=== PATIENT | male | born 1940 | race African-American/Black ===

== ENCOUNTER 2019-08-17 09:32 | Inpatient (IN) | payer OTHER, BC ==
[~2019-08-17 09:32] MED LIST: GELATIN, ABSORBABLE 100 EACH SPONGE TP ONE; THROMBIN (BOVINE) 5,000 UNIT VIAL TP ONE; VANCOMYCIN 1,000 MG VIAL (RESTRICTED TO ID ONLY) IVPB ONE; ceFAZolin SODIUM 1 GM VIAL IVPB ONE
[2019-08-17] MEDS ORDERED: VANCOMYCIN 1,000 MG VIAL (RESTRICTED TO ID ONLY) ONE ×2 (13:38→14:54)
[2019-08-17] MEDS ORDERED: HEPARIN NA (PORCINE) 5,000 UNITS/ML 1ML VIAL ONE (13:40)
[2019-08-17] MEDS ORDERED: THROMBIN (BOVINE) 5,000 UNIT VIAL TP ONE ×2 (13:40→16:40)
[2019-08-17] MEDS ORDERED: BENZOIN TINCTURE SWABSTICK TP ONE (13:40)
[2019-08-17] MEDS ORDERED: BUPIVACAINE LIPOSOME/PF (EXPAREL) 266 MG/20 ML VIAL ONE (13:51)
[2019-08-17] MEDS ORDERED: BUPIVACAINE HCL/PF 0.5% (5 MG/ML) 30 ML VIAL IJ ONE (13:52)
[2019-08-17] MEDS ORDERED: MIDAZOLAM HCL 2 MG/2 ML SINGLE DOSE VIAL ONE ×2 (13:53)
[2019-08-17] MEDS ORDERED: ROCURONIUM BROMIDE 50 MG/5 ML SYRINGE ONE ×2 (14:01)
[2019-08-17] MEDS ORDERED: PROPOFOL 20 ML ONE ×21 (14:01→18:06)
[2019-08-17] MEDS ORDERED: SUCCINYLCHOLINE CHLORIDE 200 MG/10 ML SYRINGE ONE (14:01)
[2019-08-17] MEDS ORDERED: LIDOCAINE HCL/PF 2% SDV 5ML VIAL ONE (14:37)
[2019-08-17] MEDS ORDERED: ceFAZolin SODIUM 1 GM VIAL ONE (14:54)
[2019-08-17] MEDS ORDERED: SODIUM CHLORIDE 0.9% P/F 10 ML VIAL IJ ONE (14:54)
[2019-08-17] MEDS ORDERED: ceFAZolin SODIUM 1 GM VIAL IVPB ONE (14:55)
[2019-08-17] MEDS ORDERED: TRANEXAMIC ACID 1000 MG/10 ML VIAL ONE ×2 (14:58→18:34)
[2019-08-17] MEDS ORDERED: VANCOMYCIN 1,000 MG VIAL (RESTRICTED TO ID ONLY) IVPB ONE (15:00)
[2019-08-17] MEDS ORDERED: ONDANSETRON 4 MG/2 ML VIAL ONE (15:02)
[2019-08-17] MEDS ORDERED: DEXAMETHASONE SOD PHOSPHATE 4 MG/1 ML VIAL ONE ×2 (15:02→15:19)
[2019-08-17] MEDS ORDERED: ePHEDrine SULFATE 50 MG/1 ML AMPULE ONE (15:14)
[2019-08-17] MEDS ORDERED: GELATIN, ABSORBABLE 100 EACH SPONGE TP ONE (16:40)
--- NOTE | 2019-08-17 19:38 | PN ---
Progress Note (short form) - Note Progress Note: 79M s/p C4 corpectomy & C3-C5 anterior cervical decompression and instrumented fusion POD #0. -Airway observation: In case of emergency, remove anterior cervical spine dressing and pull out running suture; ok to cut suture if needed to decompress hematoma. -Maintain head of bed 30-45 degrees. -Pain medication: per anaesthesia team; oral meds (oxycodone preferred), no SHEARING MACHINE FEEDER ; NO NSAID's. -Hard c-collar. -DVT PPx: -Mechanical only: KELLEY's, SCD's. -Post-op Ancef x 3 doses. -f/u AM labs. -Incentive spirometry. -PT/OT/Rehab, OOB. -WBAT B/L LE. -PWB B/L UE: 5lbs. -d/c Crespo catheter tomorrow at 7AM; f/u TOV (8 hours max). -Keep dressing clean & dry. -No heavy lifting (>5 lbs), bending or twisting x 6 months post op. -Start with soft diet; advance diet as tolerated. -B/L UE & LE NV checks. -Care per ICU & medical hospitalist teams. -Discharge planning: f/u [facility] [place] office 08/27/2019; call for appointment; . Marek Miranda MD (Orthopaedic Surgery).
--- NOTE | 2019-08-17 19:43 | OP ---
Operative Note - Note: Operative Date: 08/17/19 Pre-Operative Diagnosis: 1. 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 2. C3-C5 stenosis with myelopathy. 3. Multiple falls due to balance disorder & progressive neurological decline. Severity of Illness: 4. Operation: 1. C4 corpectomy. 2. Partial corpectomies C3, C5. 3. Insertion biomechanical device C3-C5. 4. C3-C5 anterior arthrodesis. 5. C3-C5 anterior instrumentation. 6. Bone autograft. 7. Bone allograft. 8. Microsurgical dissection Findings: Improved LLE EMG signals at the end of the case. Implants: Cage: Choice Spine [place] - 30mm. Plate: Precision Spine Slimplicity - 35mm. Screws: 4 x 12x4.0mm Post-Operative Diagnosis: Same as Pre-op Surgeon: Marek Miranda Carbon Paste Mixer Operator: Erasto Miranda Anesthesiologist/FRAMING SPECIALIST: John Garsia Anesthesia: General, Local Specimens Removed: C3-C4, C4-C5 discs Estimated Blood Loss (mls): 250 Drains & Tubes with Location: 1 x deep HemoVac Blood Volume Replaced (mls): 125 (Cell Saver) Fluid Volume Replaced (mls): 1,500 (Crystalloid) Operative Report Dictated: Yes
[2019-08-17] MEDS ORDERED: oxyCODONE HCL 5 MG TABLET PO PRN ×2 (19:44)
[2019-08-17] MEDS ORDERED: ONDANSETRON 4 MG/2 ML VIAL IVPUSH PRN (19:44)
--- NOTE | 2019-08-17 20:22 | OP ---
DATE OF OPERATION: 08/17/2019 PRE-OPERATIVE DIAGNOSIS: 1. C3-C4, C4-C5 intervertebral disk disorder with associated spondylotic: A. Myelopathy. B. Radiculopathy. 2. Cervical spinal stenosis with neurogenic claudication. 3. Cervical kyphosis/deformity. 4. Axial segmental instability cervical spine. 5. Progressive neurological decline with gait imbalance/disorder, weakness, and fall risk. POST-OPERATIVE DIAGNOSIS: 1. C3-C4, C4-C5 intervertebral disk disorder with associated spondylotic: A. Myelopathy. B. Radiculopathy. 2. Cervical spinal stenosis with neurogenic claudication. 3. Cervical kyphosis/deformity. 4. Axial segmental instability cervical spine. 5. Progressive neurological decline with gait imbalance/disorder, weakness, and fall risk. SURGICAL PROCEDURE: 1. C3-C4, C4-C5 discectomies and arthrodesis (09450, 23312). 2. C4 corpectomy (61551). 3. C3, C5 partial corpectomies (00204 x 2). 3. Insertion of biomechanical device C3-C6 (45172). 4. C3-C5 anterior instrumentation (10779). 5. Bone autograft (30757). 6. Bone allograft (19149). 7. Microsurgical dissection (80180). FINDINGS: None. IMPLANTS: 1. Cage: Choice Spine [place] [id number]. 2. Plate: Precision Spine Simplicity 35mm. 3. Screws: 4 x 12x4mm. SURGEON: Marek Miranda MD SALON/SPA MANAGER: Erasto Miranda MD ANESTHESIOLOGIST: John Garsia MD ANESTHESIA: General endotracheal tube anesthesia. POSITION: Supine. INCISION: Right oblique anterior. ESTIMATED BLOOD LOSS: 250cc. TRANSFUSIONS: 125cc Cell Saver. INTRAVENOUS FLUID: 1.5L crystalloid. SPECIMENS: C3-C4, C4-5 disc. DRAINS: 1 x deep HemoVac. COMPLICATIONS: None. URINE OUTPUT: See anesthesia record. BACTERIOLOGY: None. CLOSURE: 2-0 Vicryl and 3-0 Biosyn absorbable suture. INDICATIONS: The patient was indicated for an anterior cervical decompression and instrumented fusion to prevent the progression of already worsening neurological decline. The patient was identified in the holding area by his armband. A long discussion was held with the patient regarding the risks, benefits and alternatives of the above-named procedure. Originally, we had planned to perform C3-C4 and C4-C5 anterior cervical discectomy and fusion (ACDF) surgery. On review of Mr. Holder' pre-operative imaging, we collectively agreed that a C4 corpectomy with C3-C5 decompression and instrumented fusion would better allow us to full decompress the stenotic C3-C5 region. Additionally, 2-level ACDF surgery would have rendered the patient with a thin residual shelf of bone at C4 - due to the extent of decompression needed at C3- C4 and C4-C5. This shelf would have been susceptible to fracture and would not have provided ideal structural support. The risks include, but are not limited to: pain, bleeding, infection, damage to surrounding structures (including nerves, blood vessels, skin, ligaments, tendons, and bone), dysphagia, dysphonia, nerve palsy, weakness, limp, wound complications, pseudarthrosis, failure of fusion, failure of hardware/implants/ reduction, need for further surgery, blood clots, myocardial infarction, pulmonary embolism, cerebrovascular event, anesthesia complications, neurological injury, loss of function, and . Benefits as mentioned above. Alternatives include no surgery. All questions were answered. The patient understood and agreed to the procedure. Informed consent was obtained, witnessed and verified by hospital nursing staff. The patients anterior neck was marked. The patient was then seen by the anesthesia and nursing staff and then taken to the operating room. PROCEDURE: The patient was brought into the operating room and transferred to the OR table , and secured with a safety strap. Consent and the operative site were again verified with the patient, the nursing team, the surgical team, and the anesthesiology team. Anesthesia, IV antibiotics, and TXA were then administered without complication. A time out was done, led by me the attending surgeon. An indwelling Crespo catheter was successfully inserted by the nursing team. The intra-operative neural monitoring team then set up for the case. Pre-positional baseline SSEP, MEP, & EEG readings were recorded. The patient was positioned in the supine position with arms tucked and placed under gentle traction using tape over her shoulders. All bony prominences were very well padded. A bump was placed beneath the scapulae to facilitate extension of the patients neck. A C-arm fluoroscopy unit was positioned perpendicularly to the table and maintained at the level of the head, except when needed. The intended surgical level was confirmed using fluoroscopy, and a deep neck crease in the lines of Analia at this level was targeted for incision. Intra-operative neural monitoring revealed no change between pre-positional and post-positional readings. The operative site was then prepped and in the standard sterile fashion using betadine prep and scrub, wiped off with alcohol, Duraprep applied, and then free draped. Pre-operative imaging was available for intra-operative evaluation. Time-out was again done, and the case began. A standard, Hernandez-Batista approach to the cervical spine was utilized. An oblique anterior incision was made on the right side of the patients neck in the lines of Analia in standard fashion. Dissection was carried through the investing layer of fascia and finger palpation was used to create a plane lateral to the strap muscles between the carotid sheath and the viscera. Next, the esophagus and trachea were visualized as was the carotid sheath. Hand-held retractors were used to retract these structures safely out of the way , allowing direct access to the anterior cervical spine. The prevertebral fascia overlying the anterior cervical spine was then split using peanut swabs. An 18-gauge spinal needle was bent and used to localize the indicated surgical level under fluoroscopy. Next, the medial borders of the Longus Coli musculature were gently released over the anterolateral borders of the vertebral bodies and disc spaces using monopolar electrocautery. A self-retaining retractor system was used with the teeth of the blades retracting the belly of the longus coli muscles, and with the retractors themselves safely retracting the carotid sheath laterally and viscera medially. One 12mm [place] pin was then placed into the center of the vertebral bodies of C3 and C5. The [place] pin placement was confirmed via fluorscopy. A [place] pin distractor system was applied with no distraction at this stage. Additionally, the distractor barrels served as superior and inferior soft tissue retractors. The microscope was then introduced. Using monopolar electrocautery, the annulus of the C3-C4 and C4-C5 discs was incised. The disc was morselized using a curette and excised using a pituitary rongeur. A Matchstick estuardo-tipped gayle was then used to cut a trough onto the left- and right-hand side of the C4 vertebral body just medial to the waist of the vertebral body, and thus medial to the plane of the vertebral arteries. The C3-C4 and C4-C5 disc spaces were then also burred out. The remaining bone was delivered with a Leksell rongeur. All of this bone was saved for grafting purposes as an autologous graft. A 4mm ball-shaped, estuardo-tipped gayle was utilized to complete the debulking of the residual bone. Gentle distraction was applied to the [place] pins. An undercutting partial corpectomies were performed at C3 and C5 using a gayle and Kerrison rongeurs. This was to ensure complete decompression proximally and distally. A small Briscoe type elevator was utilized to ensure that all PLL complex was free from adhesion to the theca from C3-C5. There was significant adhesion of the PLL to the ventral dura. There was no evidence of OPLL. The visible posterior longitudinal ligament was released and excised utilizing Kerrison rongeur upcuts. This ensured complete decompression proximally and distally from C3-C5. Our decompression of the cervical spine was successfully achieved. Next, a Choice Spine [place] cage measure to fit the space created. The cage was filled with autologous bone derived from the corpectomies, along with demineralized bone matrix putty allograft. The cage was then gently tapped into position. Belview pin distraction was released and the endplates of the C3 and C5 vertebrae collapse onto the teeth of the strut cage. This completing the anterior arthrodesis. The C3 and C5 Bel[place] pins were removed. The holes from the Belview pins at C3 and C5 were plugged with demineralized bone matrix putty combined with morselized autograft bone. A Precision Spine Slimplicity plate was sized and 4 4x12mm screws were used to provide solid fixation of the plate to the anterior C3 and C5 vertebral bodies. The screws were then locked using the plate-screw locking mechanism. Fluoroscopic images in the AP and lateral plane showed implants to be in good position and with good overall alignment of the cervical spine. The anesthesiologist then performed a Valsalva maneuver up to 40mmHg. There was no evidence of dural defect, cerebrospinal fluid leak, or uncontrollable bleeding. Throughout the case, copious irrigation was performed, and hemostasis was assured. A deep 1/8 HemoVac drain was placed. The wound was closed primarily using 2-0 Vicryl and 3-0 Biosyn sutures. A sterile compressive dressing was applied. Sponge and needle counts were correct at the end of the case, and I, the attending surgeon, was present and scrubbed throughout the case. The patient was then extubated by the anesthesia staff without incident or complications and was then transferred to the recovery room in stable condition having tolerated the procedure well. OVERALL COMMENTS: Overall the case went well. Intra-operative neural monitoring readings improved from baseline at the end of the case. MD JEAN PAUL Suarez/[id number] MTDD
--- NOTE | 2019-08-17 22:13 | CONSULT ---
Consultation: REQUESTING PROVIDER: Dr. Miranda CONSULT REQUEST: We have been asked to medically evaluate this patient for C3- C5 discectomy and fusion. HISTORY OF PRESENT ILLNESS: Pt. is a 79 y.o. M w/ PMHx. of HTN, GERD, and PVD(s/ p stent- Pt. unclear which leg) presenting after C3-C5 discectomy and fusion. Pt. states that prior to this procedure he had been having constant intermittent episodes of his legs "collapsing." Pt. states that he left leg felt weaker than the right leg prior to the surgery. Pt. states that he had a prior cervical discectomy and a prior lumbar surgery at [facility] in 1990. Pt. denies any numbness/tingling prior to or after this procedure. Intra- operatively Pt. had an EBL of 250cc, received 1.5L of IVF and 125cc of cell saver. Of note post-operative course was complicated by Pt. not voiding over the last 2 hours despite having webb. After Webb manipulation a blood clot was found in the webb and obstructing it. After discussion with Dr. Hubbard per CHERRY PICKER OPERATOR, it was decided to remove Webb and have a trial of void. Initial bladder scan showed 400cc of urine. Pt. states that he has the urge to urinate currently but is unable to void. Pt. states he is a smoker that started in his teens and quit when the rice of a pack of cigarettes became $12- $14. Pt. denies shortness of breath, chest pain, dizziness, or numbness/ tingling of the extremities. REVIEW OF SYSTEMS: As above PHYSICAL EXAMINATION Vital Signs - 24 hr 08/17/19 08/17/19 08/17/19 11:01 19:58 20:00 Temperature 98.5 F 98.2 F Pulse Rate 78 96 H 108 H Respiratory 20 16 18 Rate Blood Pressure 139/70 152/89 154/68 O2 Sat by Pulse 96 99 96 Oximetry (%) 08/17/19 08/17/19 08/17/19 20:15 20:30 20:45 Temperature Pulse Rate 103 H 100 H 98 H Respiratory 15 20 17 Rate Blood Pressure 147/81 162/98 166/96 O2 Sat by Pulse 96 95 96 Oximetry (%) GENERAL: Awake, alert, in no acute distress, Pt. is confused asking "if the surgery was done already". HEAD: Normal with no signs of trauma. EYES: Extraocular movements intact, sclera anicteric, conjunctiva clear. EARS, NOSE, THROAT: Ears normal, nares patent, Moist mucous membranes. NECK: Hard Collar in place with empty hemovac in place. LUNGS: Breath sounds equal, clear to auscultation bilaterally. No wheezes, and no crackles. No accessory muscle use. HEART: Tachycardic, regular rate and rhythm, normal S1 and S2 without murmur ABDOMEN: Soft, nontender, distended, normoactive bowel sounds, dull to percussion, no guarding, no rebound MUSCULOSKELETAL: Normal range of motion at all joints. No bony deformities or tenderness. UPPER EXTREMITIES: 2+ radial pulses, warm, well-perfused. No cyanosis. No clubbing. Cap refill <2 seconds. No peripheral edema. LOWER EXTREMITIES: 2+ dorsal pedal pulses, warm, well-perfused. No calf tenderness. No peripheral edema. NEUROLOGICAL: Normal speech. Gait not assessed. 4/5 proximal LE flexion, 5/5 muscle strength throughout. Sensation in tact. PSYCHIATRIC: Cooperative. Good eye contact. Appropriate mood and affect. SKIN: Warm, dry, normal turgor Laboratory Results - last 24 hr 08/17/19 08/17/19 10:04 11:35 Blood Type O POSITIVE O POSITIVE Antibody Screen Negative Active Medications Home Medications Medication Instructions Recorded Aspirin Coated [Ecotrin -] 81 mg PO DAILY 08/14/19 Losartan Potassium 100 mg PO DAILY 08/14/19 Omeprazole 40 mg PO DAILY 08/14/19 Current Medications Cefazolin Sodium/Dextrose (Ancef 2 Gm Premixed Ivpb -) 2 gm IVPB Q6H MELISSA Stop: 08/18/19 09:01 Dexamethasone Sodium Phosphate (Decadron Injection -) 10 mg IVPUSH ONCE ONE Stop: 08/18/19 07:01 Lactated Ringer's (Lactated Ringers Solution) 1,000 mls @ 125 mls/hr IV ASDIR MELISSA Losartan Potassium (Cozaar -) 100 mg PO DAILY MELISSA Ondansetron HCl (Zofran Injection) 4 mg IVPUSH Q6H PRN PRN Reason: NAUSEA AND/OR VOMITING Oxycodone HCl (Roxicodone -) 5 mg PO Q4H PRN PRN Reason: PAIN LEVEL 1-5 Oxycodone HCl (Roxicodone -) 10 mg PO Q4H PRN PRN Reason: PAIN LEVEL 6-10 Stop: 08/18/19 19:43 ASSESSMENT/PLAN: Pt. is a 79 y.o. M w/ PMHx. of HTN, GERD, and PVD(s/p stent- Pt. unclear which leg) presenting after C3-C5 discectomy and fusion. #Neurology POD #0 s/p C4 corpectomy & C3-C5 anterior cervical decompression and instrumented fusion "-Maintain head of bed 30-45 degrees. -Pain medication: per anaesthesia team; oral meds (oxycodone preferred), no SET UP MECHANIC CROWN ASSEMBLY MACHINE ; NO NSAID's. -Hard c-collar. -Post-op Ancef x 3 doses. -f/u AM labs. -Incentive spirometry. -PT/OT/Rehab, OOB. -WBAT B/L LE. -PWB B/L UE: 5lbs. -d/c Webb catheter tomorrow at 7AM; f/u TOV (8 hours max). -Keep dressing clean & dry. -No heavy lifting (>5 lbs), bending or twisting x 6 months post op. -Start with soft diet; advance diet as tolerated. -B/L UE & LE NV checks. -Care per ICU & medical hospitalist teams. -Discharge planning: f/u [facility] [place] office 08/27/2019; call for appointment; ." #Urology Urinary Retention s/p traumatic Webb insertion Initial bladder scan 400Ccs Rpt. bladder scan ~650ccs Consult to Dr. Ervin as requested per Dr. Miranda. #Cardiology HTN c/w Losartan will give Labetalol 10mg IVP for BP BP @ 176/100 secondary to urinary retention. #Pulmonology No acute pathology will monitor and keep SpO2 above 92% "Airway observation: In case of emergency, remove anterior cervical spine dressing and pull out running suture; ok to cut suture if needed to decompress hematoma." #Gastroenterology GERD Hold Omeprazole 40mg? consider starting Protonix 40mg if Pt. becomes symptomatic. #FEN LR@125ml- On hold as Pt. is retaining, will resume once voiding monitor electrolytes and replete as needed Soft Diet #DVT Ppx. Mechanical only: KELLEY's, SCD's. No NSAIDs, no AC Dispo: We will continue to follow the patient. Thank you for this consultative opportunity. Visit type - Emergency Visit Emergency Visit: No - New Patient This patient is new to me today: Yes Date on this admission: 08/17/19 - Critical Care Critical Care patient: Yes Total Critical Care Time (in minutes): 45 Critical Care Statement: The care of this patient involved high complexity decision making to prevent further life threatening deterioration of the patient 's condition and/or to evaluate & treat vital organ system(s) failure or risk of failure. ATTENDING PHYSICIAN STATEMENT I saw and evaluated the patient. I reviewed the resident's note and discussed the case with the resident. I agree with the resident's findings and plan as documented. SUBJECTIVE: OBJECTIVE: ASSESSMENT AND PLAN:
[2019-08-17] MEDS ORDERED: LABETALOL HCL 5 MG/1 ML (100MG/20 ML VIAL) IVPUSH ONE (22:18)
[2019-08-17] MEDS: LACTATED RINGERS SOLUTION 1,000 ML IV SCH (22:30)
[2019-08-17] MEDS ORDERED: morphine SULFATE 4 MG/ML VIAL IVPUSH ONE (22:52)
--- NOTE | 2019-08-18 | CON.GU ---
Consult Consult Specialty:: Referred by:: Ortho Reason for Consultation:: urinary retention, gross hematuria, difficult webb - History of Present Illness Chief Complaint: urinary retention, gross hematuria, difficult webb History of Present Illness: 79 year old male had webb placed at time of orthopedic procedure. the webb cath did not drain during the operation. In the PACU it was manipulated and clots were noted. It was removed and could not be replaced. He reports previous urethral or prostate procedures in the past - History Source History Provided By: Patient, Medical Record - Past Medical History Renal/: Yes: Other (unknown) - Alcohol/Substance Use Hx Alcohol Use: No - Smoking History Smoking history: Former smoker Have you smoked in the past 12 months: No If you are a former smoker, when did you quit?: 10yrs Home Medications - Allergies Allergies/Adverse Reactions: Allergies Allergy/AdvReac Type Severity Reaction Status Date / Time No Known Drug Allergies Allergy Verified 08/14/19 14:30 - Home Medications Home Medications: Ambulatory Orders Aspirin Coated [Ecotrin -] 81 mg PO DAILY 08/14/19 Losartan Potassium 100 mg PO DAILY 08/14/19 Omeprazole 40 mg PO DAILY 08/14/19 Review of Systems - Review of Systems Genitourinary: reports: Hematuria Physical Exam- Vital Signs: Vital Signs Temperature 98.0 F 08/17/19 21:53 Pulse Rate 98 H 08/17/19 21:53 Respiratory Rate 17 08/17/19 21:53 Blood Pressure 176/100 H 08/17/19 21:53 O2 Sat by Pulse Oximetry (%) 97 08/17/19 21:53 Renal/: Yes: Bladder Distention, Hematuria. No: CVA Tenderness - Left, CVA Tenderness - Right, Webb Present Problem List - Problems (1) Acute urinary retention Assessment/Plan: coude catheter placed. clear output. 01820 Code(s): R33.8 - OTHER RETENTION OF URINE Procedure Note Procedure: difficult webb insertion 63849
[2019-08-18 01:07] LABS: EPI CELLS 1.5 /HPF (0-5/HPF); HYALINE CASTS 8 /lpf (0-8); PH,URINE 5.5 (5.0-8.0); URINE APPEARANCE CLOUDY; URINE BACTERIA 2.1 /hpf (NEGATIVE); URINE BILIRUBIN NEGATIVE (NEGATIVE); URINE COLOR RED; URINE GLUCOSE (UA) NEGATIVE (NEGATIVE); URINE KETONE NEGATIVE (NEGATIVE); URINE LEUK ESTERASE 1+ (NEGATIVE); URINE NITRITE NEGATIVE (NEGATIVE); URINE PROTEIN 2+ (NEGATIVE); URINE RBC 3279 /hpf (0-4); URINE UROBILINOGEN 0.2 mg/dL (0.2-1.0); URINE WBC 12 /hpf (0-5)
[2019-08-18] MEDS: LACTATED RINGERS SOLUTION 1,000 ML IV SCH ×2 (01:38→12:00)
[2019-08-18] MEDS: ceFAZolin 2 GRAM PREMIX BAG IVPB SCH ×3 (02:46→08:18)
[2019-08-18] MEDS ORDERED: ceFAZolin 2 GRAM PREMIX BAG IVPB ONE ×2 (03:30→09:00)
[2019-08-18] MEDS ORDERED: DEXAMETHASONE SOD PHOSPHATE 10 MG/1 ML VIAL IVPUSH ONE (07:00)
--- NOTE | 2019-08-18 08:36 | HP ---
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 2. C3-C5 stenosis with myelopathy. PCP: HISTORY OF PRESENT ILLNESS: Pt is a 79 y/o M with a significant past medical history of HTN, GERD, and PVD. Pt endorses he has been experiencing constant lower extremity weakness in both of his legs. Pt has been experiencing this for a while however for the past few weeks, his symptoms have progressively gotten worse. Pt underwent a prior cervical discectomy and lumbar operation in 1990 at [facility]. Pt denies any bowel or bladder problems. Denies shortness of breath, chest pain, or numbness/ tingling. Post-op pt's webb was not draining properly. Urology was consulted and reinserted a coude catheter successfully. PMH above SocialHx- Intermittent Smoker, Denies alcohol or drug use Fam- Extensive family history of Cancer in siblings (breast, Ovarian, Brain, Lung) SurgHx- 2 lumbar/cervical operations. NKDA HOME MEDICATIONS: Home Medications Medication Instructions Recorded Aspirin Coated [Ecotrin -] 81 mg PO DAILY 08/14/19 Losartan Potassium 100 mg PO DAILY 08/14/19 Omeprazole 40 mg PO DAILY 08/14/19 REVIEW OF SYSTEMS CONSTITUTIONAL: Absent: fever, chills, diaphoresis, generalized weakness, malaise, loss of appetite, weight change HEENT: Absent: rhinorrhea, nasal congestion, throat pain, throat swelling, difficulty swallowing, mouth swelling, ear pain, eye pain, visual changes CARDIOVASCULAR: Absent: chest pain, syncope, palpitations, irregular heart rate, lightheadedness , peripheral edema RESPIRATORY: Absent: cough, shortness of breath, dyspnea with exertion, orthopnea, wheezing, stridor, hemoptysis GASTROINTESTINAL: Absent: abdominal pain, abdominal distension, nausea, vomiting, diarrhea, constipation, melena, hematochezia GENITOURINARY: Absent: dysuria, frequency, urgency, hesitancy, hematuria, flank pain, genital pain MUSCULOSKELETAL: Absent: myalgia, arthralgia, joint swelling, back pain, neck pain SKIN: Absent: rash, itching, pallor HEMATOLOGIC/IMMUNOLOGIC: Absent: easy bleeding, easy bruising, lymphadenopathy, frequent infections ENDOCRINE: Absent: unexplained weight gain, unexplained weight loss, heat intolerance, cold intolerance NEUROLOGIC: Absent: headache, focal weakness or paresthesias, dizziness, unsteady gait, seizure, mental status changes, bladder or bowel incontinence PSYCHIATRIC: Absent: anxiety, depression, suicidal or homicidal ideation, hallucinations. PHYSICAL EXAMINATION Vital Signs - 24 hr 08/17/19 08/17/19 08/17/19 11:01 19:58 20:00 Temperature 98.5 F 98.2 F Pulse Rate 78 96 H 108 H Respiratory 20 16 18 Rate Blood Pressure 139/70 152/89 154/68 O2 Sat by Pulse 96 99 96 Oximetry (%) 08/17/19 08/17/19 08/17/19 20:15 20:30 20:45 Temperature Pulse Rate 103 H 100 H 98 H Respiratory 15 20 17 Rate Blood Pressure 147/81 162/98 166/96 O2 Sat by Pulse 96 95 96 Oximetry (%) 08/17/19 08/17/19 08/17/19 21:00 21:15 21:30 Temperature Pulse Rate 99 H 101 H 98 H Respiratory 13 20 20 Rate Blood Pressure 164/102 H 176/105 H 165/112 H O2 Sat by Pulse 96 96 96 Oximetry (%) 08/17/19 08/17/19 08/17/19 21:45 21:53 22:00 Temperature 98.0 F 98 F Pulse Rate 103 H 98 H 99 H Respiratory 20 17 19 Rate Blood Pressure 170/76 176/100 H 168/103 H O2 Sat by Pulse 97 97 Oximetry (%) 08/17/19 08/17/19 08/17/19 23:00 23:30 23:45 Temperature 98 F Pulse Rate 95 H 92 H Respiratory 20 16 17 Rate Blood Pressure 177/101 H 185/110 H O2 Sat by Pulse 99 97 Oximetry (%) 08/18/19 08/18/19 08/18/19 00:00 02:00 04:00 Temperature 98.6 F Pulse Rate 89 86 86 Respiratory 20 14 14 Rate Blood Pressure 145/87 149/80 141/82 O2 Sat by Pulse Oximetry (%) GENERAL: NAD, Cervical collar in place HEAD: AT/NC EYES: EOMI Sclera Clear EARS, NOSE, THROAT: MMM NECK: Normal range of motion, supple without lymphadenopathy, JVD, or masses. LUNGS: CTAB HEART: RRR S1S2 ABDOMEN: Soft NDNT LOWER EXTREMITIES: No CCE NEUROLOGICAL: Cranial nerves II-XII intact. Normal speech. Dorsiflexion/ Plantar Flexion 2+ bilaterally. Strength 4/5 bilateral lower extremities. Upper Extremities 5/5 Abduction/Adduction 5+ bilateral. SILT. PSYCHIATRIC: Cooperative. Good eye contact. Appropriate mood and affect. SKIN: Warm, dry, normal turgor, no rashes or lesions noted, normal capillary refill. Laboratory Results - last 24 hr 08/17/19 08/17/19 08/18/19 10:04 11:35 00:00 Urine Color Red Urine Appearance Cloudy Urine pH 5.5 Ur Specific [place] 1.012 Urine Protein 2+ H Urine Glucose (UA) Negative Urine Ketones Negative Urine Blood 3+ H Urine Nitrite Negative Urine Bilirubin Negative Urine Urobilinogen 0.2 Ur Leukocyte Esterase 1+ H Urine WBC (Auto) 12 Urine RBC (Auto) 3279 Urine Casts (Auto) 8 U Epithel Cells (Auto) 1.5 Urine Bacteria (Auto) 2.1 Blood Type O POSITIVE O POSITIVE Antibody Screen Negative ASSESSMENT/PLAN: Pt is a 79 y/o M with a significant past medical history of HTN, GERD, and PVD. Pt endorses he has been experiencing constant lower extremity weakness in both of his legs. POD #1 s/p C4 corpectomy & C3-C5 anterior cervical decompression and instrumented fusion "-Maintain head of bed 30-45 degrees. 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 -Hard c-collar. -Post-op Ancef x 3 doses. -f/u AM labs. -Incentive spirometry. -PT/OT/Rehab, OOB. -WBAT B/L LE. -PWB B/L UE: 5lbs. -d/c Webb catheter tomorrow at 7AM; f/u TOV (8 hours max). -Keep dressing clean & dry. -No heavy lifting (>5 lbs), bending or twisting x 6 months post op. -Start with soft diet; advance diet as tolerated. -B/L UE & LE NV checks. -Care per ICU & medical hospitalist teams. -Discharge planning: f/u [facility] [place] office 08/27/2019; call for appointment; ." #Urinary Retention s/p traumatic Webb insertion Initial bladder scan 400Ccs Rpt. bladder scan ~650ccs CDr Rechtchaffen inserted coude which is now draining well. HTN c/w Cozaar 100 mg Daily will monitor and keep SpO2 above 92% "Airway observation: In case of emergency, remove anterior cervical spine dressing and pull out running suture; ok to cut suture if needed to decompress hematoma." #FEN -LR@125ml -Monitor electrolytes and replete as needed -Soft Diet #DVT Ppx. Mechanical only: KELLEY's, SCD's. No NSAIDs, no AC Visit type - Emergency Visit Emergency Visit: No - New Patient This patient is new to me today: Yes Date on this admission: 08/18/19 - Critical Care Critical Care patient: Yes Total Critical Care Time (in minutes): 35 Critical Care Statement: The care of this patient involved high complexity decision making to prevent further life threatening deterioration of the patient 's condition and/or to evaluate & treat vital organ system(s) failure or risk of failure. ATTENDING PHYSICIAN STATEMENT I saw and evaluated the patient. I reviewed the resident's note and discussed the case with the resident. I agree with the resident's findings and plan as documented. SUBJECTIVE: OBJECTIVE: ASSESSMENT AND PLAN: <Russ Simon - Last Filed: 08/22/19 06:54> Seen and examined; I agree with the above documentation as outlined by the resident aside from as supplemented by myself below. All historical and sosa PE findings along side diagnostics independently verified. Case was discussed at length with the resident team. All questions were answered. No other events reported. Feeling well and pain is controlled. Agree with resident history as described. unknown prior renal fucntion but risks for CKD and no hx NSAID abuse, nephrotoxin exposure, etc. 4cm clot came out with webb. Appreciate placement by urology. Dr. Miarnda managing postoperative. On hospitalist service in ICU per policy. 10 sys ROS done and negative aside from HPI HOME MEDICATIONS: Home Medications Medication Instructions Recorded Aspirin Coated [Ecotrin -] 81 mg PO DAILY 08/14/19 Losartan Potassium 100 mg PO DAILY 08/14/19 Omeprazole 40 mg PO DAILY 08/14/19 REVIEW OF SYSTEMS 10 sys ROS done and negative aside from HPI PHYSICAL EXAMINATION Vital Signs - 24 hr 08/18/19 08/18/19 08/19/19 19:37 22:00 02:00 Temperature 98 F Pulse Rate 70 72 Respiratory 22 H 15 17 Rate Blood Pressure 141/74 133/87 O2 Sat by Pulse 97 Oximetry (%) 08/19/19 06:00 Temperature 97.9 F Pulse Rate 77 Respiratory 18 Rate Blood Pressure 150/87 O2 Sat by Pulse Oximetry (%) NAD AAO resting in bed NC AT EOMI PERRLA. C-collar applied. Dressings not removed but they appear c/d /i. HR wnl, +s1/2 Lungs without focal crackles, rales; w/ sym exp NT ND +BS CN2-12 wnl, no fnd Normal mood, appropriate behavior +Webb with blood tinged urine in the bag Laboratory Results - last 24 hr 08/19/19 08/19/19 06:38 06:38 WBC 17.1 H RBC 4.17 Hgb 11.7 Hct 35.7 MCV 85.5 MCH 28.1 MCHC 32.9 RDW 15.3 Plt Count 242 MPV 8.3 Sodium 140 Potassium 4.3 Chloride 102 Carbon Dioxide 32 Anion Gap 6 L BUN 18.0 Creatinine 1.3 Est GFR (CKD-EPI)AfAm 60.57 Est GFR (CKD-EPI)NonAf 52.26 Random Glucose 97 Calcium 9.0 Phosphorus 3.3 Magnesium 1.9 Total Bilirubin 0.9 AST 25 ALT 16 Alkaline Phosphatase 67 Total Protein 6.2 L Albumin 3.4 ASSESSMENT/PLAN: -Status post elective C4 corpectomy & C3-C5 anterior cervical decompression and instrumented fusion (Postoperative instructions and pain management instructions per orthopedic surgery. -Urinary retention secondary to traumatic webb insertion causing clot -CKD (Likely secondary to underlying chronic issues [htn, etc.] and is stable. He is not oliguric. Continue to monitor. Stop fluids) -Hx HTN (monitor) -Leukocytosis (Reactive likely; trend CBC) -Overweight (BMI 27; community health counselor prior to DC, impedance to wound healing) Full Code ATTENDING PHYSICIAN STATEMENT I saw and evaluated the patient. I reviewed the resident's note and discussed the case with the resident. I agree with the resident's findings and plan as documented. SUBJECTIVE: OBJECTIVE: ASSESSMENT AND PLAN:
[2019-08-18 09:13] LABS: HEMATOCRIT 37.9 % (35.4-49); HEMOGLOBIN 11.9 GM/dL (11.7-16.9); MCH 27.3 pg (25.7-33.7); MCHC 31.5 g/dl (32.0-35.9); MEAN CELL VOLUME 86.6 fl (80-96); MEAN PLT VOLUME 8.4 fl (7.5-11.1); PLATELET COUNT 231 K/MM3 (134-434); RBC 4.38 M/mm3 (4.00-5.60); RDW 15.3 % (11.9-15.9); WHITE BLOOD COUNT 17.5 K/mm3 (4.0-10.0)
--- NOTE | 2019-08-18 09:19 | PN ---
Physical Exam: SUBJECTIVE: Patient seen and examined. Webb placed last night with relief of suprapubic pain. States that pain is well controlled except for when he swallows. He has been passing gas. Passed bedside swallow test. OBJECTIVE: Vital Signs Period Temp Pulse Resp BP Sys/Banks Pulse Ox Last 24 Hr 98 F-98.6 F 78-108 13-20 139-185/68-112 95-99 GENERAL: The patient is awake, alert, and fully oriented, in no acute distress. HEAD: Normal with no signs of trauma. EYES: EOMI, no scleral icterus ENT: MMM NECK: Trachea midline, Cervical collar in place. drains in place LUNGS: Breath sounds equal, clear to auscultation bilaterally, no wheezes, no crackles, no accessory muscle use. HEART: Regular rate and rhythm, S1, S2 without murmur, rub or gallop. ABDOMEN: Soft, nontender, nondistended, normoactive bowel sounds, no guarding EXTREMITIES: 2+ pulses, warm, well-perfused, no edema. NEUROLOGICAL: Normal speech, gait not observed. Sensation intact throughout. 5/ 5 strength upper extremities PSYCH: appropriate mood and affect SKIN: Warm, dry Laboratory Results - last 24 hr 08/17/19 08/17/19 08/18/19 10:04 11:35 00:00 Urine Color Red Urine Appearance Cloudy Urine pH 5.5 Ur Specific [place] 1.012 Urine Protein 2+ H Urine Glucose (UA) Negative Urine Ketones Negative Urine Blood 3+ H Urine Nitrite Negative Urine Bilirubin Negative Urine Urobilinogen 0.2 Ur Leukocyte Esterase 1+ H Urine WBC (Auto) 12 Urine RBC (Auto) 3279 Urine Casts (Auto) 8 U Epithel Cells (Auto) 1.5 Urine Bacteria (Auto) 2.1 Blood Type O POSITIVE O POSITIVE Antibody Screen Negative Active Medications Generic Name Dose Route Start Last Admin Trade Name Freq PRN Reason Stop Dose Admin Lactated Ringer's 1,000 mls @ 125 mls/hr 08/17/19 19:45 08/18/19 01:38 Lactated Ringers Solution IV 125 mls/hr ASDIR MELISSA Administration Losartan Potassium 100 mg 08/18/19 10:00 Cozaar - PO DAILY MELISSA Ondansetron HCl 4 mg 08/17/19 19:44 Zofran Injection IVPUSH Q6H PRN NAUSEA AND/OR VOMITING Oxycodone HCl 5 mg 08/17/19 19:44 Roxicodone - PO Q4H PRN PAIN LEVEL 1-5 Oxycodone HCl 10 mg 08/17/19 19:44 Roxicodone - PO 08/18/19 19:43 Q4H PRN PAIN LEVEL 6-10 ASSESSMENT/PLAN: Patient is a 79 y/o/m with PMHx of HTN, GERD, and PVD(s/p stent- Pt. unclear which leg) presenting after C3-C5 discectomy and fusion. POD#1 #Neurology - POD #1 s/p C4 corpectomy & C3-C5 anterior cervical decompression and instrumented fusion - Maintain head of bed 30-45 degrees. 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 - Hard c-collar. - Post-op Ancef x 3 doses. - PT/OT/Rehab, OOB. - WBAT B/L LE - PWB B/L UE: 5lbs. - Keep dressing clean & dry. - No heavy lifting (>5 lbs), bending or twisting x 6 months post op. - B/L UE & LE NV checks. - Discharge planning: f/u [facility] [place] office 08/27/2019; call for appointment; . - Cepacol Lozenge as needed #Urology - Urinary Retention s/p surgery, webb placed by Dr. Hubbard. Urine now draining, 4cm blood clot released with webb placement. - Urology on board - maintain webb catheter, can consider TOV tomorrow - UA with 3+ blood, UTI unlikely #Cardiology - hx HTN - c/w Losartan #Pulmonology - Encourage Incentive spirometry - will monitor and keep SpO2 above 92% - Airway observation: In case of emergency, remove anterior cervical spine dressing and pull out running suture; ok to cut suture if needed to decompress - hematoma. #Gastroenterology - GERD #FEN - LR @75mls/hr - monitor electrolytes and replete as needed - Clear liquid diet, advance as tolerated #Prophylaxis - Mechanical only: KELLEY's, SCD's - No NSAIDs, no AC #Disposition - Stable for transfer to med surg Visit type - Emergency Visit Emergency Visit: No - New Patient This patient is new to me today: Yes Date on this admission: 08/18/19 - Critical Care Critical Care patient: Yes Total Critical Care Time (in minutes): 36 Critical Care Statement: The care of this patient involved high complexity decision making to prevent further life threatening deterioration of the patient 's condition and/or to evaluate & treat vital organ system(s) failure or risk of failure. ATTENDING PHYSICIAN STATEMENT I saw and evaluated the patient. I reviewed the resident's note and discussed the case with the resident. I agree with the resident's findings and plan as documented. SUBJECTIVE: OBJECTIVE: ASSESSMENT AND PLAN:
[2019-08-18] MEDS: LOSARTAN POTASSIUM 50 MG TABLET (FP) PO SCH (09:22)
[2019-08-18 09:42] LABS: ALBUMIN 3.5 g/dl (3.4-5.0); BILIRUBIN,TOTAL 0.6 mg/dL (0.2-1); BLOOD UREA NITROGEN 17.4 mg/dL (7-18); CALCIUM 9.2 mg/dL (8.5-10.1); CREATININE 1.6 mg/dL (0.55-1.3); PHOSPHOROUS 3.7 mg/dL (2.5-4.9); POTASSIUM 4.7 mmol/L (3.5-5.1); TOT PROT 6.8 g/dl (6.4-8.2)
--- NOTE | 2019-08-18 11:01 | PN ---
Teaching Attending Note Name of Resident: Bryce Valencia ATTENDING PHYSICIAN STATEMENT I saw and evaluated the patient. I reviewed the resident's note and discussed the case with the resident. I agree with the resident's findings and plan as documented. SUBJECTIVE: Pt seen and examined in the ICU. Pain relatively controlled. Tolerating PO. c/o throat discomfort. OBJECTIVE: Vital Signs Period Temp Pulse Resp BP Sys/Banks Pulse Ox Last 24 Hr 98 F-98.6 F 78-108 13-20 134-185/68-112 95-99 Intake & Output 08/15/19 08/16/19 08/17/19 08/18/19 23:59 23:59 23:59 23:59 Intake Total 2225 1560 Output Total 350 2350 Balance 1875 -790 Weight 96.162 kg Gen: NAD at rest Heart: RRR Lung: decreased breath sounds at the bases Abd: soft, nontender Ext: no edema CBC, BMP 08/18/19 09:00 08/18/19 09:00 Active Medications Lactated Ringer's (Lactated Ringers Solution) 1,000 mls @ 125 mls/hr IV ASDIR [facility] Last Admin: 08/18/19 01:38 Dose: 125 mls/hr Losartan Potassium (Cozaar -) 100 mg PO DAILY [facility] Last Admin: 08/18/19 09:22 Dose: 100 mg Ondansetron HCl (Zofran Injection) 4 mg IVPUSH Q6H PRN PRN Reason: NAUSEA AND/OR VOMITING Oxycodone HCl (Roxicodone -) 5 mg PO Q4H PRN PRN Reason: PAIN LEVEL 1-5 Oxycodone HCl (Roxicodone -) 10 mg PO Q4H PRN PRN Reason: PAIN LEVEL 6-10 Stop: 08/18/19 19:43 ASSESSMENT AND PLAN: Cervical Stenosis with Radiculopathy and Myelopathy s/p C4 corpectomy/Partial Corpectomies C3, C5/Insertion Biomechanical Device C3- C5 Acute Kidney Injury HTN - pain control - incentive spirometry - IVF - monitor urine output, creatinine - PO as tolerated - DVT prophylaxis - can monitor on floor
[2019-08-18] MEDS ORDERED: BENZOCAINE/MENTH/CETYLPYRD CL 1 EACH LOZENGE MM PRN (11:08)
--- NOTE | 2019-08-18 16:04 | PN ---
Progress Note (short form) - Note Progress Note: POD#1 In ICU Complaint of incisional pain. Voice normal. Swallowing normal. Wound bandage dry, no swelling. Drain removed, minimal drainage. Neuro fully intact at baseline, walked in hallway. FC in situ, management per urology. Plan: Pain management. PT FWBAT, hard cervical collar. DC planning: Home, likely Saturday or .
[2019-08-19] MEDS: LACTATED RINGERS SOLUTION 1,000 ML IV SCH (03:38)
[2019-08-19 07:43] LABS: HEMATOCRIT 35.7 % (35.4-49); HEMOGLOBIN 11.7 GM/dL (11.7-16.9); MCH 28.1 pg (25.7-33.7); MCHC 32.9 g/dl (32.0-35.9); MEAN CELL VOLUME 85.5 fl (80-96); MEAN PLT VOLUME 8.3 fl (7.5-11.1); PLATELET COUNT 242 K/MM3 (134-434); RBC 4.17 M/mm3 (4.00-5.60); RDW 15.3 % (11.9-15.9); WHITE BLOOD COUNT 17.1 K/mm3 (4.0-10.0)
[2019-08-19 08:27] LABS: ALBUMIN 3.4 g/dl (3.4-5.0); BILIRUBIN,TOTAL 0.9 mg/dL (0.2-1); CREATININE 1.3 mg/dL (0.55-1.3); MAGNESIUM 1.9 mg/dL (1.8-2.4); PHOSPHOROUS 3.3 mg/dL (2.5-4.9); POTASSIUM 4.3 mmol/L (3.5-5.1); TOT PROT 6.2 g/dl (6.4-8.2)
[2019-08-19] MEDS: LOSARTAN POTASSIUM 50 MG TABLET (FP) PO SCH (09:31)
[2019-08-19] MEDS: PANTOPRAZOLE SODIUM 40 MG VIAL IVPUSH SCH (09:31)
--- NOTE | 2019-08-19 11:11 | PN ---
Progress Note (short form) - Note Progress Note: S/P cath placement after failed placement in OR with gross hematuria. Because of urethral trauma, will recommend leaving in the webb for at least five days. May remove on Saturday, if the patient is already discharged he can have it removed in my office on SaturdayAugust 24. [phone] Problem List - Problems (1) Acute urinary retention Code(s): R33.8 - OTHER RETENTION OF URINE
--- NOTE | 2019-08-19 11:38 | PN ---
Teaching Attending Note Name of Resident: Erasto Suarez ATTENDING PHYSICIAN STATEMENT I saw and evaluated the patient. I reviewed the resident's note and discussed the case with the resident. I agree with the resident's findings and plan as documented. SUBJECTIVE: Pt seen and examined in the ICU. Pain controlled. c/o leakage of urine around webb. OBJECTIVE: Vital Signs Period Temp Pulse Resp BP Sys/Banks Pulse Ox Last 24 Hr 97.9 F-99.1 F 70-100 15-22 133-150/74-87 97 Intake & Output 08/16/19 08/17/19 08/18/19 08/19/19 23:59 23:59 23:59 23:59 Intake Total 2225 3720 625 Output Total 350 3750 1600 Balance 1875 -30 -975 Weight 96.162 kg 96.36 kg Gen: NAD at rest in cervical collar Heart: RRR Lung: decreased breath sounds at the bases Abd: soft, nontender Ext: no edema CBC, BMP 08/19/19 06:38 08/19/19 06:38 Active Medications Benzocaine/Menthol (Cepacol Lozenge -) 1 each MM PRN PRN PRN Reason: SORE THROAT Last Admin: 08/18/19 17:18 Dose: 1 each Losartan Potassium (Cozaar -) 100 mg PO DAILY [facility] Last Admin: 08/19/19 09:31 Dose: 100 mg Ondansetron HCl (Zofran Injection) 4 mg IVPUSH Q6H PRN PRN Reason: NAUSEA AND/OR VOMITING Oxycodone HCl (Roxicodone -) 5 mg PO Q4H PRN PRN Reason: PAIN LEVEL 1-5 Pantoprazole Sodium (Protonix Iv) 40 mg IVPUSH DAILY [facility] Last Admin: 08/19/19 09:31 Dose: 40 mg ASSESSMENT AND PLAN: Cervical Stenosis with Radiculopathy and Myelopathy s/p C4 corpectomy/Partial Corpectomies C3, C5/Insertion Biomechanical Device C3- C5 Acute Kidney Injury HTN - pain control - incentive spirometry - monitor urine output, creatinine - advance diet as tolerated - d/c IVF - DVT prophylaxis - can monitor on floor
--- NOTE | 2019-08-19 13:20 | PN ---
Progress Note (short form) - Note Progress Note: Hospitalist Medicine Seen this AM. States he has been passing flatus, however no BM yet. Drain was removed. Still had webb this AM; per uro: because of urethral trauma, webb to stay for at least five days. May remove on Saturday in office, if pt discharged prior Vitals 08/19/19 06:00 Temperature 97.9 F Pulse Rate 77 Respiratory 18 Rate Blood Pressure 150/87 Physical Exam General: resting, with hard c-collar on HEENT: NCAT, PERRLA neck: supple cardio: S1, S2 RRR. no r/m/g pulm: CTA b/l. no accessory m usage abdomen: nontender, nondistended LE: 2+ pulses, no edema +webb w/ concentrated urine -red-tinged Laboratory Tests 08/19/19 08/19/19 06:38 06:38 WBC 17.1 H Hgb 11.7 Hct 35.7 Plt Count 242 Sodium 140 Potassium 4.3 Chloride 102 Carbon Dioxide 32 BUN 18.0 Creatinine 1.3 Random Glucose 97 Microbiology 08/18/19 01:10 Urine - Urine - Catheterized Urine Culture - Final NO GROWTH OBTAINED Imaging 08/18/19: C-spine XR: taken, result pending Assessment/Plan 79 y/o/m with PMHx of HTN, GERD, and PVD(s/p stent- Pt. unclear which leg) presenting after C3-C5 discectomy and fusion. PO Day 3 #Neurology - POD #3 s/p C4 corpectomy & C3-C5 anterior cervical decompression and instrumented fusion - Maintain head of bed 30-45 degrees. 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 - Started on bowel regimen, while on pain mgmt - miralax, senna, colace - Hard c-collar in place. - PT/OT/Rehab, OOB. - WBAT B/L LE - PWB B/L UE: 5lbs. - Keep dressing clean & dry. - B/L UE & LE NV checks. - Discharge planning: f/u [facility] [place] office 08/27/2019; call for appointment; . - Cepacol Lozenge as needed #Urology - Post-op Urinary Retention - webb placed by Dr. Hubbard - Urology on board ; because of urethral trauma, webb to stay for at least five days. May remove on Saturday in office #Cardiology - hx HTN - c/w Losartan #Pulmonology - Encourage Incentive spirometry - will monitor and keep SpO2 above 92% - Airway observation: In case of emergency, remove anterior cervical spine dressing and pull out running suture; ok to cut suture if needed to decompress - hematoma. #F/E/N - off IVF - continue to follow lytes - fat/na controlled diet #Prophylaxis - Mechanical only: KELLEY's, SCD's - No NSAIDs, no AC #Disposition - Stable for transfer to med surg - No heavy lifting (>5 lbs), bending or twisting x 6 months post op. <Desi Garcia - Last Filed: 08/19/19 17:19> - Note Progress Note: Seen and examined; I agree with the above documentation as outlined by the resident aside from as supplemented by myself below. All historical and sosa PE findings along side diagnostics independently verified. Case was discussed at length with the resident team. All questions were answered. No other events reported. Feeling well and pain is controlled. Considering rehab. 10 sys ROS done and negative aside from HPI NAD AAO resting in bed NC AT EOMI PERRLA. C-collar applied. Dressings not removed but they appear c/d /i. HR wnl, +s1/2 Lungs without focal crackles, rales; w/ sym exp NT ND +BS CN2-12 wnl, no fnd Normal mood, appropriate behavior +Webb with blood tinged urine in the bag Repeat UA/Cx pending A/P: Patient presents C4 corpectomy & C3-C5 anterior cervical decompression and instrumented fusion POD #3. He had urinary retention secondary to clots with traumatic webb insertion which necessicated the placement of a Webb catheter. Discussing voiding trial with uro; coordinating DC. Problems include: -Status post elective C4 corpectomy & C3-C5 anterior cervical decompression and instrumented fusion (Postoperative instructions and pain management instructions per orthopedic surgery. -Urinary retention secondary to traumatic webb insertion causing clot -CKD (Likely secondary to underlying chronic issues [htn, etc.] and is stable. He is not oliguric. Continue to monitor. 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
--- NOTE | 2019-08-19 14:03 | PN ---
Physical Exam: SUBJECTIVE: Patient seen and examined on morning rounds. No acute overnight events. Reporting flatus, denies BMs. Webb can be D/jase in 5 days per urology. D/c IVF given good PO intake. Patient without any complaints. OBJECTIVE: Vital Signs Period Temp Pulse Resp BP Sys/Banks Pulse Ox Last 24 Hr 97.9 F-98 F 70-77 15-22 133-150/74-87 97 GENERAL: The patient is awake, alert, and fully oriented, in no acute distress. HEAD: Normal with no signs of trauma. EYES: EOMI, no scleral icterus ENT: MMM NECK: Trachea midline, Cervical collar in place. drains in place LUNGS: Breath sounds equal, clear to auscultation bilaterally, no wheezes, no crackles, no accessory muscle use. HEART: Regular rate and rhythm, S1, S2 without murmur, rub or gallop. ABDOMEN: Soft, nontender, nondistended, normoactive bowel sounds, no guarding EXTREMITIES: 2+ pulses, warm, well-perfused, no edema. NEUROLOGICAL: Normal speech, gait not observed. Sensation intact throughout. 5/ 5 strength upper extremities PSYCH: appropriate mood and affect SKIN: Warm, dry Laboratory Results - last 24 hr 08/19/19 08/19/19 06:38 06:38 WBC 17.1 H RBC 4.17 Hgb 11.7 Hct 35.7 MCV 85.5 MCH 28.1 MCHC 32.9 RDW 15.3 Plt Count 242 MPV 8.3 Sodium 140 Potassium 4.3 Chloride 102 Carbon Dioxide 32 Anion Gap 6 L BUN 18.0 Creatinine 1.3 Est GFR (CKD-EPI)AfAm 60.57 Est GFR (CKD-EPI)NonAf 52.26 Random Glucose 97 Calcium 9.0 Phosphorus 3.3 Magnesium 1.9 Total Bilirubin 0.9 AST 25 ALT 16 Alkaline Phosphatase 67 Total Protein 6.2 L Albumin 3.4 Active Medications Generic Name Dose Route Start Last Admin Trade Name Freq PRN Reason Stop Dose Admin Benzocaine/Menthol 1 each 08/18/19 11:08 08/18/19 17:18 Cepacol Lozenge - MM 1 each PRN PRN Administration SORE THROAT Docusate Sodium 100 mg 08/19/19 13:45 Colace - PO DAILY MELISSA Losartan Potassium 100 mg 08/18/19 10:00 08/19/19 09:31 Cozaar - PO 100 mg DAILY MELISSA Administration Ondansetron HCl 4 mg 08/17/19 19:44 Zofran Injection IVPUSH Q6H PRN NAUSEA AND/OR VOMITING Oxycodone HCl 5 mg 08/17/19 19:44 Roxicodone - PO Q4H PRN PAIN LEVEL 1-5 Pantoprazole Sodium 40 mg 08/19/19 10:00 08/19/19 09:31 Protonix Iv IVPUSH 40 mg DAILY MELISSA Administration Polyethylene Glycol 17 gm 08/19/19 13:45 Miralax (For Daily Use) - PO DAILY MELISSA Senna 1 tab 08/19/19 22:00 Senna - PO HS MELISSA ASSESSMENT/PLAN: Patient is a 79 y/o/m with PMHx of HTN, GERD, and PVD(s/p stent- Pt. unclear which leg) presenting after C3-C5 discectomy and fusion. POD#2. #Neurology - POD #2 s/p C4 corpectomy & C3-C5 anterior cervical decompression and instrumented fusion - Maintain head of bed 30-45 degrees. - Pain medication: per anaesthesia team; oral meds (oxycodone preferred), no SCHEME TECHNICIAN ; NO NSAID's. - Hard c-collar. - Post-op Ancef x 3 doses. - PT/OT/Rehab, OOB. - WBAT B/L LE - PWB B/L UE: 5lbs. - Keep dressing clean & dry. - No heavy lifting (>5 lbs), bending or twisting x 6 months post op. - B/L UE & LE NV checks. - Discharge planning: f/u [facility] [place] office 08/27/2019; call for appointment; . - Cepacol Lozenge as needed #Urology - Urinary Retention s/p surgery, webb placed by Dr. Hubbard. Urine now draining, 4cm blood clot released with webb placement. - Urology on board - Maintain webb catheter for 5 days - UA with 3+ blood, UTI unlikely #Cardiology: Htn - Continue home Losartan #Pulmonology - Encourage Incentive spirometry - Monitor and keep SpO2 >92% - Per Surgery - Airway observation: In case of emergency, remove anterior cervical spine dressing and pull out running suture; ok to cut suture if needed to decompress -hematoma. #Gastroenterology - GERD - Awaiting return of BM #FEN - Discontinued LR IVF - Monitor electrolytes and replete as needed - Diet per surgery, advance as tolerated #Prophylaxis - Mechanical only: KELLEY's, SCD's - No NSAIDs, no AC #Disposition - [facility] Visit type - Emergency Visit Emergency Visit: Yes ED Registration Date: 08/17/19 Care time: The patient presented to the Emergency Department on the above date and was hospitalized for further evaluation of their emergent condition. - New Patient This patient is new to me today: No - Critical Care Critical Care patient: Yes Total Critical Care Time (in minutes): 36 Critical Care Statement: The care of this patient involved high complexity decision making to prevent further life threatening deterioration of the patient 's condition and/or to evaluate & treat vital organ system(s) failure or risk of failure. ATTENDING PHYSICIAN STATEMENT I saw and evaluated the patient. I reviewed the resident's note and discussed the case with the resident. I agree with the resident's findings and plan as documented. SUBJECTIVE: OBJECTIVE: ASSESSMENT AND PLAN:
[2019-08-19] MEDS ORDERED: ACETAMINOPHEN 325 MG TABLET (FP) PO ONE (15:52)
--- NOTE | 2019-08-19 15:54 | PATH ---
Surgical Pathology Report Patient Name: CLIVE SPRINGER [facility]. Rec. #: [id number] /Age/Gender: 1940 (Age: 79) / M Account: [id number] Location: [facility] Taken: 08/17/2019 Received: 08/18/2019 Reported: 08/19/2019 Physicians: Marek Miranda M.D. 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 Electronically Signed Neelima Vale M.D. Gross Description Received in formalin labeled "cervical disc," is a 2.0 x 1.8 x 0.3 cm aggregate of ramírez fragments of fibrocartilaginous tissue. A tax representative portion is submitted in one cassette. /08/18/2019 saudi08/18/2019
[2019-08-19] MEDS: DOCUSATE SODIUM 100 MG CAPSULE (FP) PO SCH (15:55)
[2019-08-19] MEDS: POLYETHYLENE GLYCOL 3350 119 GM BTL PO SCH (15:55)
[2019-08-19] MEDS: SENNOSIDES 8.6MG TABLET (FP) PO SCH (22:44)
[2019-08-20] MEDS ORDERED: ONDANSETRON 4 MG/2 ML VIAL IVPUSH PRN (07:55)
[2019-08-20 08:07] LABS: BASO % 0.3 % (0-2.0); EOS % 1.3 % (0-4.5); HEMATOCRIT 38.7 % (35.4-49); HEMOGLOBIN 12.9 GM/dL (11.7-16.9); LYMPH % 12.8 % (8-40); MCH 28.7 pg (25.7-33.7); MCHC 33.3 g/dl (32.0-35.9); MEAN CELL VOLUME 85.9 fl (80-96); MEAN PLT VOLUME 8.4 fl (7.5-11.1); MONO % 13.9 % (3.8-10.2); NEUT % 71.7 % (42.8-82.8); PLATELET COUNT 256 K/MM3 (134-434); RDW 14.9 % (11.9-15.9); WHITE BLOOD COUNT 14.2 K/mm3 (4.0-10.0)
[2019-08-20 08:34] LABS: ALBUMIN 3.7 g/dl (3.4-5.0); BILIRUBIN,TOTAL 0.8 mg/dL (0.2-1); BLOOD UREA NITROGEN 22.4 mg/dL (7-18); CALCIUM 9.3 mg/dL (8.5-10.1); CREATININE 1.4 mg/dL (0.55-1.3); MAGNESIUM 1.8 mg/dL (1.8-2.4); PHOSPHOROUS 3.3 mg/dL (2.5-4.9); POTASSIUM 4.5 mmol/L (3.5-5.1); TOT PROT 6.9 g/dl (6.4-8.2)
[2019-08-20] MEDS ORDERED: PT OWN MED DRAWER 7, Y5N ONE ×2 (09:05→21:39)
[2019-08-20] MEDS: DOCUSATE SODIUM 100 MG CAPSULE (FP) PO SCH (10:33)
[2019-08-20] MEDS: LOSARTAN POTASSIUM 50 MG TABLET (FP) PO SCH (10:33)
[2019-08-20] MEDS: POLYETHYLENE GLYCOL 3350 119 GM BTL PO SCH (10:34)
[2019-08-20] MEDS: PANTOPRAZOLE SODIUM 40 MG VIAL IVPUSH SCH (10:34)
[2019-08-20] MEDS: oxyCODONE HCL 5 MG TABLET PO PRN (11:11)
--- NOTE | 2019-08-20 12:11 | PN ---
Progress Note (short form) - Note Progress Note: Hospitalist Medicine Sitting up in bed, in NAD. Has been having BM's. No longer w/ throat pain. Webb leaking, d/w uro. Case d/w sx as well Vitals 08/20/19 06:41 Temperature 98.5 F Pulse Rate 89 Respiratory 20 Rate Blood Pressure 150/97 Physical Exam General: resting, with hard c-collar on. +ant gauze, mild surrounding edema. c/d /i HEENT: NCAT, PERRLA neck: supple cardio: S1, S2 RRR. no r/m/g pulm: CTA b/l. no accessory m usage abdomen: nontender, nondistended LE: 2+ pulses, no edema +webb w/ concentrated urine. leaking Laboratory Tests 08/20/19 08/20/19 07:40 07:40 WBC 14.2 H Hgb 12.9 Hct 38.7 Plt Count 256 Sodium 140 Potassium 4.5 Chloride 102 Carbon Dioxide 33 H BUN 22.4 H Creatinine 1.4 H Random Glucose 100 Microbiology 08/18/19 01:10 Urine - Urine - Catheterized Urine Culture - Final NO GROWTH OBTAINED Imaging 08/18/19 c-spine XR: cervical hardware position appropriate. alignment maintained. no signs of hardware failure. Assessment/Plan 79 y/o/m with PMHx of HTN, GERD, and PVD(s/p stent- Pt. unclear which leg) presenting after C3-C5 discectomy and fusion. PO Day 3 #Neurology - POD #4 s/p C4 corpectomy & C3-C5 anterior cervical decompression and instrumented fusion - Maintain head of bed 30-45 degrees. - Pain medication: on roxicodone PRN, no METER CALIBRATOR; NO NSAID's. - Started on bowel regimen, while on pain mgmt - miralax, senna, colace - Hard c-collar in place. - PT/OT/Rehab, OOB. - WBAT B/L LE - PWB B/L UE: 5lbs. - Keep dressing clean & dry. - B/L UE & LE NV checks. - Discharge planning: f/u [facility] [place] office 08/27/2019; call for appointment; . - Cepacol Lozenge as needed #Urology - Post-op Urinary Retention - webb placed by Dr. Hubbard - Urology on board ; d/t urethral trauma, webb to stay in at least until tomorrow AM until TOV - Per sx, not to return home with webb - d/w uro, sx #Cardiology - hx HTN - c/w Losartan #Pulmonology - Encourage Incentive spirometry - will monitor and keep SpO2 above 92% - Airway observation: In case of emergency, remove anterior cervical spine dressing and pull out running suture; ok to cut suture if needed to decompress - hematoma. #F/E/N - off IVF - continue to follow lytes - fat/na controlled diet #Prophylaxis - Mechanical only: KELLEY's, SCD's - No NSAIDs, no AC #Disposition - cont'd monitoring on med-surg - TOV tomorrow AM, not to go home w/ webb per sx - No heavy lifting (>5 lbs), bending or twisting x 6 months post op. <Desi Garcia - Last Filed: 08/20/19 18:29> - Note Progress Note: Seen and examined; I agree with the above documentation as outlined by the resident aside from as supplemented by myself below. All historical and sosa PE findings along side diagnostics independently verified. Case was discussed at length with the resident team. All questions were answered. No other events reported. Feeling well and pain is controlled. Considering rehab. 10 sys ROS done and negative aside from HPI NAD AAO resting in bed NC AT EOMI PERRLA. C-collar applied. Dressings not removed but they appear c/d /i. HR wnl, +s1/2 Lungs without focal crackles, rales; w/ sym exp NT ND +BS CN2-12 wnl, no fnd Normal mood, appropriate behavior +Webb with blood tinged urine in the bag Repeat UA/Cx pending A/P: Patient presents C4 corpectomy & C3-C5 anterior cervical decompression and instrumented fusion POD #3. He had urinary retention secondary to clots with traumatic webb insertion which necessicated the placement of a Webb catheter. Discussing voiding trial with uro; coordinating DC. Ortho wishes for potential rehab placement for PT which is reasonable; will allow patient to consider to consider Problems include: -Status post elective C4 corpectomy & C3-C5 anterior cervical decompression and instrumented fusion (Postoperative instructions and pain management instructions per orthopedic surgery. Monitoring on the floor. Off IVF. No NSAIDs. ) -Urinary retention secondary to traumatic webb insertion causing clot (webb planned initially for 5 days per uro; FU with Dr. Tucker's recommendations. appreciate expert management) -CKD (Likely secondary to underlying chronic issues [htn, etc.] and is stable. He is not oliguric. 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
[2019-08-20] MEDS: SENNOSIDES 8.6MG TABLET (FP) PO SCH (21:50)
[2019-08-21 08:28] LABS: BASO % 0.6 % (0-2.0); EOS % 0.3 % (0-4.5); HEMATOCRIT 37.7 % (35.4-49); HEMOGLOBIN 12.2 GM/dL (11.7-16.9); LYMPH % 10.6 % (8-40); MCH 27.9 pg (25.7-33.7); MCHC 32.5 g/dl (32.0-35.9); MEAN CELL VOLUME 85.9 fl (80-96); MEAN PLT VOLUME 8.4 fl (7.5-11.1); MONO % 14.3 % (3.8-10.2); NEUT % 74.2 % (42.8-82.8); PLATELET COUNT 243 K/MM3 (134-434); RBC 4.39 M/mm3 (4.00-5.60); RDW 14.7 % (11.9-15.9); WHITE BLOOD COUNT 12.9 K/mm3 (4.0-10.0)
[2019-08-21 08:32] LABS: BLOOD UREA NITROGEN 23.9 mg/dL (7-18); CALCIUM 9.1 mg/dL (8.5-10.1); CREATININE 1.4 mg/dL (0.55-1.3); MAGNESIUM 1.9 mg/dL (1.8-2.4); PHOSPHOROUS 3.4 mg/dL (2.5-4.9)
[2019-08-21] MEDS: PANTOPRAZOLE SODIUM 40 MG VIAL IVPUSH SCH (10:08)
[2019-08-21] MEDS: POLYETHYLENE GLYCOL 3350 119 GM BTL PO SCH (10:08)
[2019-08-21] MEDS: LOSARTAN POTASSIUM 50 MG TABLET (FP) PO SCH (10:08)
[2019-08-21] MEDS: DOCUSATE SODIUM 100 MG CAPSULE (FP) PO SCH (10:08)
[2019-08-21] MEDS: oxyCODONE HCL 5 MG TABLET PO PRN (10:21)
--- NOTE | 2019-08-21 10:34 | PN ---
Addendum entered and electronically signed by Desi Garcia, RESIDENT 08/21/19 19 :00: spiking temp late this afternoon, UA, UCx, blood cx done UA possible UTI, will tx with rocephin for now c/t follow Original Note: Progress Note (short form) - Note Progress Note: Hospitalist Medicine Feeling well, however still w/ webb. D/w sx: to remain in hospital while webb is in. Vitals 08/21/19 07:05 Temperature 99.6 F Pulse Rate 96 H Respiratory 20 Rate Blood Pressure 145/85 Physical Exam General: resting, with hard c-collar on HEENT: NCAT, PERRLA neck: supple cardio: S1, S2 RRR. no r/m/g pulm: CTA b/l. no accessory m usage abdomen: nontender, nondistended LE: 2+ pulses, no edema +webb Laboratory Tests 08/21/19 08/21/19 07:28 07:28 WBC 12.9 H Hgb 12.2 Hct 37.7 Plt Count 243 Sodium 139 Potassium 4.0 Chloride 102 Carbon Dioxide 31 BUN 23.9 H Creatinine 1.4 H Random Glucose 117 H Microbiology 08/18/19 01:10 Urine - Urine - Catheterized Urine Culture - Final NO GROWTH OBTAINED Imaging 08/18/19: C-spine XR: taken, result pending Assessment/Plan 79 y/o/m with PMHx of HTN, GERD, and PVD(s/p stent- Pt. unclear which leg) presenting after C3-C5 discectomy and fusion. PO Day 4 #Neurology - POD #4 s/p C4 corpectomy & C3-C5 anterior cervical decompression and instrumented fusion - Maintain head of bed 30-45 degrees. - Pain medication: on roxicodone PRN, no DIRECTOR BUSINESS MANAGEMENT; NO NSAID's. - on bowel regimen, while on pain mgmt - miralax, senna, colace - Hard c-collar in place. - PT/OT/Rehab, OOB. - WBAT B/L LE - PWB B/L UE: 5lbs. - Keep dressing clean & dry. - B/L UE & LE NV checks. - Discharge planning: f/u [facility] [place] office 08/27/2019; call for appointment; . - Cepacol Lozenge as needed #Urology - Post-op Urinary Retention - webb placed by Dr. Hubbard - Urology on board ; because of urethral trauma, webb to stay. can TOV on Saturday and follow in office #Cardiology - hx HTN - c/w Losartan #Pulmonology - Encourage Incentive spirometry - will monitor and keep SpO2 above 92% - Airway observation: In case of emergency, remove anterior cervical spine dressing and pull out running suture; ok to cut suture if needed to decompress - hematoma. #F/E/N - off IVF - continue to follow lytes - fat/na controlled diet #Prophylaxis - Mechanical only: KELLEY's, SCD's - No NSAIDs, no AC #Disposition - cont'd monitoring on med-surg - TOV on Saturday, until then to remain w/ webb. d/c after - pt refuses to go to [place], wants to go home - No heavy lifting (>5 lbs), bending or twisting x 6 months post op. <Desi Garcia - Last Filed: 08/21/19 16:35> - Note Progress Note: Seen and examined; I agree with the above documentation as outlined by the resident aside from as supplemented by myself below. All historical and sosa PE findings along side diagnostics independently verified. Case was discussed at length with the resident team. All questions were answered. No other events reported. Discussed with ortho/urology. The patient will remain inpatient through the weekend due to the fact that he still has a webb catheter and was unable to complete a voiding trial in the AM. The patient, in addition, developed fever with the most obvious source being urine (though of course considering all causes of postoperative infecton) and will continue to monitor and treat empirically if indicated. Can check inflammatory markers in AM to trend. Pain is controlled. 10 sys ROS done and negative aside from HPI NAD AAO resting in bed NC AT EOMI PERRLA. C-collar applied. Dressings not removed but they appear c/d /i. HR wnl, +s1/2 Lungs without focal crackles, rales; w/ sym exp NT ND +BS CN2-12 wnl, no fnd Normal mood, appropriate behavior +Webb with blood tinged urine in the bag Repeat UA/Cx pending A/P: Patient presents C4 corpectomy & C3-C5 anterior cervical decompression and instrumented fusion POD #3. He had urinary retention secondary to clots with traumatic webb insertion which necessicated the placement of a Webb catheter ( being followed by urology-they spoke [facility] resident this AM and stated not to preform voiding trial I am told). Orthopedic surgery strongly recommended the patient to go to rehabilitation due to his chronic and severe issues but the patient refuses this, stating that he would rather go home with services (has capacity to do so). He did develop postoperative fever; considering UTI given presence of webb but will also consider other items on the differential as pertaining to postoperative infection (wound, PNA, etc.). On incentive spirometry. Will continue to require inpatient care. I am informed that urology would like to attempt voiding trial on Saturday (difficult webb placement initially necessitated the use of a Coude catheter). His renal function is stable and he will continue to be monitored on the medicine service off IVF. Problems include: -Status post elective C4 corpectomy & C3-C5 anterior cervical decompression and instrumented fusion POD #3 (Postoperative instructions and pain management instructions per orthopedic surgery. Monitoring on the floor) -Postoperative fever (Pancultures, UA, CXR in AM. Empiric ceft. Considering the causes of fever. Check ESR/CRP but will be high postop-if underlying wound infection would be useeful to establish a baseline though no evidence as such at this juncture) -Urinary retention secondary to traumatic webb insertion causing clot (webb planned initially for 5 days per uro; FU with Dr. Tucker's recommendations. appreciate epert managemetn) -CKD (Likely secondary to underlying chronic issues [htn, etc.] and is stable. He is not oliguric. 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
--- NOTE | 2019-08-21 10:46 | PN ---
Progress Note (short form) - Note Progress Note: Patient seen and examined last night: 79M s/p C4 corpectomy & C3-C5 anterior cervical decompression and instrumented fusion POD #3. Pain well controlled. No acute events overnight. Pt. denies overnight history of headaches, chest pain, shortness of breath, nausea, vomiting, chills, & sweats. (+) Voiding; (+) Crespo (blood tinged urine); (-) BM. (+) Dysphagia (tolerating normal diet); (-) Dysphonia. All labs and vitals reviewed. PE: AAO x 3, NAD. C-Spine: Dressing C/D/I. [place]-J c-collar intact and in place. B/L UE & LE sensorimotor status at baseline. 79M s/p C4 corpectomy & C3-C5 anterior cervical decompression and instrumented fusion POD #3. -f/u Urology rec's today: (+) blood tinged urine in Crespo catheter and reservoir bag. -Pain medication: per anaesthesia team; oral meds; NO NSAID's. -Maintain head of bed 30-45 degrees. -Hard c-collar. -DVT PPx: -Mechanical only: KELLEY's, SCD's. -f/u AM labs. -Incentive spirometry. -PT/OT/Rehab, OOB. -PWB B/L UE: 5lbs. -WBAT B/L LE. -Keep dressing clean & dry. -No heavy lifting (>5 lbs), bending or twisting x 6 months post op. -Soft diet; advance diet as tolerated. -B/L UE & LE NV checks. -Care per medical hospitalist and renal teams. -Discharge planning: due to severity of myelopathy, patient is globally deconditioned and high fall risk; will benefit from inpatient stay at acute rehabilitation; recommend discharge to [facility]; f/u [facility] [place] office 10-14 days after hospital discharge; call for appointment; . Marek Miranda MD (Orthopaedic Surgery).
[2019-08-21] MEDS: ACETAMINOPHEN 325 MG TABLET (FP) PO PRN (17:42)
[2019-08-21 18:14] LABS: EPI CELLS 6.4 /HPF (0-5/HPF); HYALINE CASTS 44 /lpf (0-8); PH,URINE 6.5 (5.0-8.0); URINE APPEARANCE CLOUDY; URINE BACTERIA 0.8 /hpf (NEGATIVE); URINE BILIRUBIN 1+ (NEGATIVE); URINE COLOR RED; URINE GLUCOSE (UA) NEGATIVE (NEGATIVE); URINE KETONE NEGATIVE (NEGATIVE); URINE LEUK ESTERASE 1+ (NEGATIVE); URINE NITRITE NEGATIVE (NEGATIVE); URINE PROTEIN 2+ (NEGATIVE); URINE RBC 3062 /hpf (0-4); URINE WBC 19 /hpf (0-5)
[2019-08-21] MEDS ORDERED: cefTRIAXone SODIUM 1 GM VIAL ONE (20:59)
[2019-08-21] MEDS ORDERED: DEXTROSE 5%-WATER - 50 ML IVPB ONE (20:59)
[2019-08-21] MEDS: SULFAMETHOXAZOLE/TRIMETHOPRIM 800MG/160MG D.S. TABLET PO SCH (21:34)
[2019-08-21] MEDS: CEFTRIAXONE 1 GM in DEXTROSE 5%-WATER - 50 ML IVPB SCH (21:34)
[2019-08-21] MEDS: SENNOSIDES 8.6MG TABLET (FP) PO SCH (21:34)
[2019-08-22 08:01] LABS: BASO % 0.6 % (0-2.0); HEMATOCRIT 37.7 % (35.4-49); HEMOGLOBIN 12.3 GM/dL (11.7-16.9); LYMPH % 8.6 % (8-40); MCH 28.1 pg (25.7-33.7); MCHC 32.5 g/dl (32.0-35.9); MEAN CELL VOLUME 86.5 fl (80-96); MEAN PLT VOLUME 8.6 fl (7.5-11.1); MONO % 14.7 % (3.8-10.2); NEUT % 76.1 % (42.8-82.8); PLATELET COUNT 242 K/MM3 (134-434); RBC 4.36 M/mm3 (4.00-5.60); RDW 14.9 % (11.9-15.9); WHITE BLOOD COUNT 16.4 K/mm3 (4.0-10.0)
[2019-08-22 08:12] LABS: CALCIUM 8.9 mg/dL (8.5-10.1); CREATININE 1.9 mg/dL (0.55-1.3); MAGNESIUM 2.2 mg/dL (1.8-2.4); PHOSPHOROUS 3.7 mg/dL (2.5-4.9); POTASSIUM 4.1 mmol/L (3.5-5.1)
[2019-08-22] MEDS ORDERED: cefTRIAXone SODIUM 1 GM VIAL ONE (09:33)
[2019-08-22] MEDS ORDERED: DEXTROSE 5%-WATER - 50 ML IVPB ONE ×2 (09:33→16:47)
[2019-08-22] MEDS: POLYETHYLENE GLYCOL 3350 119 GM BTL PO SCH (10:00)
[2019-08-22] MEDS: PANTOPRAZOLE SODIUM 40 MG VIAL IVPUSH SCH (10:00)
[2019-08-22] MEDS: SULFAMETHOXAZOLE/TRIMETHOPRIM 800MG/160MG D.S. TABLET PO SCH (10:00)
[2019-08-22] MEDS: DOCUSATE SODIUM 100 MG CAPSULE (FP) PO SCH (10:00)
[2019-08-22] MEDS: CEFTRIAXONE 1 GM in DEXTROSE 5%-WATER - 50 ML IVPB SCH (10:00)
[2019-08-22] MEDS: LOSARTAN POTASSIUM 50 MG TABLET (FP) PO SCH (10:00)
[2019-08-22] MEDS: ACETAMINOPHEN 325 MG TABLET (FP) PO PRN (14:08)
[2019-08-22] MEDS ORDERED: SODIUM CHLORIDE 1,000 ML IV STA (15:09)
[2019-08-22] MEDS ORDERED: LACTATED RINGERS SOLUTION 1,000 ML/1,000 ML INFUS.BAG IV SCH (15:15)
--- NOTE | 2019-08-22 15:17 | PN ---
Progress Note, Physician History of Present Illness: Patient seen and examined at bedside. He has no complaints. Poor oral intake. Messaged by RN to come see patient for hypoxemia saturations in the mid to high 80's now saturating well on 2L NC O2. Patient also febrile to 100.5 today as wll as worsening leukocytosis to 16.4 despite being on ceftriaxone. Also webb not draining and urine leaking around webb. I came and saw the patient and upon review of his chart it seems like his creatinine has been worsening for the past few days now 1.9 and patient does not have a history of CKD according to the patient and his ARB was given today. I irrigated the webb and I flushed with 90ml of sterile irrigant which did not come back but a small amount of clots did with 10ml of fluid. In a sterile fashion I put the webb balloon down and advanced the catheter and the 90ml of fluid drained. His webb bag had about 50ml of very dark urine. After webb started working and the 90ml came out that i irrigated with i asked RN to do a bladder scan which showed 0ml of urine in the bladder. Fluids ordered nephrology and ID consult placed. RN instructed to have the webb changed out with new 20french catheter. CXR today is clear except for small amount of right base atelectasis. BCx from last night pending. - Current Medication List Current Medications: Active Medications Acetaminophen (Tylenol -) 650 mg PO Q6H PRN PRN Reason: FEVER Last Admin: 08/22/19 14:08 Dose: 650 mg Benzocaine/Menthol (Cepacol Lozenge -) 1 each MM PRN PRN PRN Reason: SORE THROAT Last Admin: 08/18/19 17:18 Dose: 1 each Docusate Sodium (Colace -) 100 mg PO DAILY MELISSA Last Admin: 08/22/19 10:00 Dose: 100 mg Ceftriaxone Sodium 1 gm/ (Dextrose) 50 mls @ 100 mls/hr IVPB DAILY MELISSA Last Admin: 08/22/19 10:00 Dose: 100 mls/hr Sodium Chloride (Normal Saline -) 1,000 mls @ 1,000 mls/hr IV ASDIR STA Stop: 08/22/19 16:08 Lactated Ringer's (Lactated Ringers Solution) 1,000 ml in 1,000 mls @ 150 mls/ hr IV ASDIR [facility] Losartan Potassium (Cozaar -) 100 mg PO DAILY [facility] Last Admin: 08/22/19 10:00 Dose: 100 mg Ondansetron HCl (Zofran Injection) 4 mg IVPUSH Q6H PRN PRN Reason: NAUSEA AND/OR VOMITING Oxycodone HCl (Roxicodone -) 5 mg PO Q4H PRN PRN Reason: PAIN LEVEL 1-5 Last Admin: 08/21/19 10:21 Dose: 5 mg Pantoprazole Sodium (Protonix Iv) 40 mg IVPUSH DAILY [facility] Last Admin: 08/22/19 10:00 Dose: 40 mg Polyethylene Glycol (Miralax (For Daily Use) -) 17 gm PO DAILY [facility] Last Admin: 08/22/19 10:00 Dose: 17 gm Senna (Senna -) 1 tab PO HS [facility] Last Admin: 08/21/19 21:34 Dose: 1 tab Trimethoprim/Sulfamethoxazole (Bactrim Ds -) 1 each PO BID [facility] Last Admin: 08/22/19 10:00 Dose: 1 each - Objective Vital Signs: Vital Signs Temperature 99.3 F 08/22/19 10:00 Pulse Rate 97 H 08/22/19 10:00 Respiratory Rate 20 08/22/19 10:00 Blood Pressure 124/74 08/22/19 10:00 O2 Sat by Pulse Oximetry (%) 95 08/21/19 09:00 Constitutional: Yes: Well Nourished, No Distress, Diaphoresis Eyes: Yes: Conjunctiva Clear Neck: Yes: Other (collar in place. Dressing C/D/I) Cardiovascular: Yes: Regular Rate and Rhythm Respiratory: Yes: Rhonchi (bilateral), Other (transmitted sounds as patient is a loud and noisey breather) Gastrointestinal: Yes: Soft Genitourinary: Yes: Webb Present, Oliguria. No: Bladder Distention, CVA Tenderness - Left, CVA Tenderness - Right Edema: No Wound/Incision: Yes: Clean/Dry Neurological: Yes: Alert, Oriented Labs: CBC, BMP 08/22/19 07:25 08/22/19 06:00 - ....Imaging Chest X-ray: Report Reviewed, Image Reviewed (dressing is C/D/I) Impression/Plan Impression/Plan: 79 y/o/m with PMHx of HTN, GERD, and PVD(s/p stent- Pt. unclear which leg) presenting after C3-C5 discectomy and fusion. PO Day 5. Sepsis given tachycardia and fever. Urine source vs lung source vs surgical site but unlikely surgical site get CXR tomorrow after hydration. CXR clear today f/u cultures start vanco and zosyn and stop ceftriaxone Discussed with Dr. Oliva from ID. Post-op Urinary Retention webb placed by Dr. Hubbard Urology on board ; because of urethral trauma, webb to stay. can TOV on Saturday and follow in office vs removing webb in hospital today or tomorrow HTN Stop losartan with MARY Pulmonology Encourage Incentive spirometry will monitor and keep SpO2 above 92% Airway observation: In case of emergency, remove anterior cervical spine dressing and pull out running suture; ok to cut suture if needed to decompress - hematoma per spine surgery MARY unknown history of CKD Cr worsening over past few days nephrology consult likely prerenal give IVF discussed with Dr. Chan Neurology POD #5 s/p C4 corpectomy & C3-C5 anterior cervical decompression and instrumented fusion Maintain head of bed 30-45 degrees. Pain medication: on roxicodone PRN, no AUCTION CLERK; NO NSAID's. on bowel regimen, while on pain mgmt - miralax, senna, colace Hard c-collar in place. PT/OT/Rehab, OOB. WBAT B/L LE PWB B/L UE: 5lbs. Keep dressing clean & dry. B/L UE & LE NV checks. Cepacol Lozenge as needed pt refuses to go to [place], wants to go home No heavy lifting (>5 lbs), bending or twisting x 6 months post op. FEN NS 1 liter bolus over 1 hour then LR @ 150ml/hr trend lytes continue diet for now-poor intake Prophylaxis Mechanical only: KELLEY's, SCD's No NSAIDs, no AC per spine surgery Visit type - Emergency Visit Emergency Visit: Yes ED Registration Date: 08/17/19 Care time: The patient presented to the Emergency Department on the above date and was hospitalized for further evaluation of their emergent condition. - New Patient This patient is new to me today: Yes Date on this admission: 08/22/19 - Critical Care Critical Care patient: No
[2019-08-22] MEDS ORDERED: VANCOMYCIN 1 GM in D5W (PRE-DOCKED) 1,000 MG/250 ML IVPB SCH (15:45)
[2019-08-22] MEDS ORDERED: VANCOMYCIN 1 GM in D5W (PRE-DOCKED) 1,000 MG/250 ML IVPB ONE (16:30)
[2019-08-22] MEDS ORDERED: PIPERACILLIN/TAZOBACTAM 3.375 GM VIAL IVPB ONE (16:47)
[2019-08-22] MEDS: PIPERACILLIN/TAZOB 3.375 GM 3.375 GM in DEXTROSE 5%-WATER - 50 ML IVPB SCH (18:03)
--- NOTE | 2019-08-22 20:01 | CONSULT ---
Consult Consult Specialty:: Nephrology Reason for Consultation:: MARY - History of Present Illness Chief Complaint: pt is s/p neck surgery History of Present Illness: Pt is a 79 year old male with pmhx of htn, gerd, and PVD who is s/p c4 corpectomy and c3-c5 anterior cervical decompression. He was found to have MARY and I was called to evaluate him. His webb was not draining earlier today. He denies shortness of breath. He was on zosyn. He denies history of CKD. He denies fevers or chills. - History Source History Provided By: Patient, Medical Record - Past Medical History Cardio/Vascular: Yes: HTN Renal/: Yes: Other (unknown) - Alcohol/Substance Use Hx Alcohol Use: No - Smoking History Smoking history: Former smoker Have you smoked in the past 12 months: No If you are a former smoker, when did you quit?: 10yrs Home Medications - Allergies Allergies/Adverse Reactions: Allergies Allergy/AdvReac Type Severity Reaction Status Date / Time No Known Drug Allergies Allergy Verified 08/14/19 14:30 - Home Medications Home Medications: Ambulatory Orders Aspirin Coated [Ecotrin -] 81 mg PO DAILY 08/14/19 Losartan Potassium 100 mg PO DAILY 08/14/19 Omeprazole 40 mg PO DAILY 08/14/19 Family Medical History Family History: Denies Review of Systems - Review of Systems Constitutional: reports: Malaise Eyes: reports: No Symptoms HENT: reports: No Symptoms Neck: reports: Other (neck pain) Respiratory: reports: No Symptoms Gastrointestinal: reports: No Symptoms Genitourinary: reports: Other (webb) Musculoskeletal: reports: Back Pain Integumentary: reports: No Symptoms Neurological: reports: No Symptoms Endocrine: reports: No Symptoms Hematology/Lymphatic: reports: No Symptoms Psychiatric: reports: No Symptoms Physical Exam Vital Signs: Vital Signs Temperature 99.3 F 08/22/19 16:31 Pulse Rate 92 H 08/22/19 16:30 Respiratory Rate 18 08/22/19 16:30 Blood Pressure 135/84 08/22/19 16:30 O2 Sat by Pulse Oximetry (%) 95 08/21/19 09:00 Constitutional: Yes: Calm Eyes: Yes: Conjunctiva Clear HENT: Yes: WNL Neck: Yes: Other (brace in place) Cardiovascular: Yes: S1, S2 Respiratory: Yes: CTA Bilaterally Gastrointestinal: Yes: Soft Renal/: Yes: Webb Present Musculoskeletal: Yes: Back Pain Edema: No Neurological: Yes: Oriented Psychiatric: Yes: Oriented Labs: CBC, BMP 08/22/19 07:25 08/22/19 06:00 Laboratory Tests 08/18/19 08/19/19 08/20/19 09:00 06:38 07:40 Creatinine 1.6 H 1.3 1.4 H Urine Protein Urine Blood 08/21/19 08/21/19 08/22/19 07:28 17:30 06:00 Creatinine 1.4 H 1.9 H Urine Protein 2+ H Urine Blood 3+ H Imaging - Results Chest X-ray: Report Reviewed Problem List - Problems (1) MARY (acute kidney injury) Code(s): N17.9 - ACUTE KIDNEY FAILURE, UNSPECIFIED (2) Acute urinary retention Code(s): R33.8 - OTHER RETENTION OF URINE Assessment/Plan Current Medications Generic Name Dose Route Start Last Admin Trade Name Freq PRN Reason Stop Dose Admin Acetaminophen 650 mg 08/21/19 17:02 08/22/19 14:08 Tylenol - PO 650 mg Q6H PRN Administration FEVER Benzocaine/Menthol 1 each 08/18/19 11:08 08/18/19 17:18 Cepacol Lozenge - MM 1 each PRN PRN Administration SORE THROAT Docusate Sodium 100 mg 08/19/19 13:45 08/22/19 10:00 Colace - PO 100 mg DAILY MELISSA Administration Lactated Ringer's 1,000 ml in 1,000 mls @ 150 mls/hr 08/22/19 15:15 08/22/19 16:21 Lactated Ringers Solution IV 150 mls/hr ASDIR MELISSA Administration Piperacillin Sod/Tazobactam 50 mls @ 100 mls/hr 08/22/19 15:45 Sod 3.375 gm/ Dextrose IVPB Q8H-IV MELISSA Protocol Piperacillin Sod/Tazobactam 50 mls @ 100 mls/hr 08/22/19 18:00 08/22/19 18:03 Sod 3.375 gm/ Dextrose IVPB 08/23/19 10:29 100 mls/hr Q8H-IV MELISSA Administration Protocol Losartan Potassium 100 mg 08/20/19 10:00 08/22/19 10:00 Cozaar - PO 100 mg DAILY MELISSA Administration Ondansetron HCl 4 mg 08/20/19 07:55 Zofran Injection IVPUSH Q6H PRN NAUSEA AND/OR VOMITING Oxycodone HCl 5 mg 08/20/19 07:55 08/21/19 10:21 Roxicodone - PO 5 mg Q4H PRN Administration PAIN LEVEL 1-5 Pantoprazole Sodium 40 mg 08/19/19 10:00 08/22/19 10:00 Protonix Iv IVPUSH 40 mg DAILY MELISSA Administration Polyethylene Glycol 17 gm 08/19/19 13:45 08/22/19 10:00 Miralax (For Daily Use) - PO 17 gm DAILY MELISSA Administration Senna 1 tab 08/19/19 22:00 08/21/19 21:34 Senna - PO 1 tab HS MELISSA Administration Trimethoprim/Sulfamethoxazole 1 each 08/21/19 22:00 08/22/19 10:00 Bactrim Ds - PO 1 each BID MELISSA Administration Vancomycin HCl 1,000 mg 08/22/19 15:45 Vancomycin (Pre-Docked) IVPB DAILY MELISSA Protocol Impression 1. MARY 2. hypotension 3. s/p cervical surgery 4. gerd 5. 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
[2019-08-22] MEDS: SENNOSIDES 8.6MG TABLET (FP) PO SCH (22:02)
[2019-08-23] MEDS ORDERED: PIPERACILLIN/TAZOBACTAM 3.375 GM VIAL IVPB ONE (01:02)
[2019-08-23] MEDS ORDERED: DEXTROSE 5%-WATER - 50 ML IVPB ONE ×3 (01:02→15:39)
[2019-08-23] MEDS: PIPERACILLIN/TAZOB 3.375 GM 3.375 GM in DEXTROSE 5%-WATER - 50 ML IVPB SCH ×3 (01:06→14:11)
[2019-08-23] MEDS ORDERED: PIPERACILLIN/TAZOB 2.25 GM 2.25 GM in DEXTROSE 5%-WATER - 50 ML IVPB SCH (07:30)
--- NOTE | 2019-08-23 07:34 | CON.ID ---
Consult Consult Specialty:: infectious diseases Referred by:: Reason for Consultation:: leukocytosis,fever - History of Present Illness Chief Complaint: fever,sepsis History of Present Illness: 79 y/o M with a significant past medical history of HTN, GERD, and PVD. Pt endorses he has been experiencing constant lower extremity weakness in both of his legs. Pt has been experiencing this for a while however for the past few weeks, his symptoms have progressively gotten worse. Pt underwent a prior cervical discectomy and lumbar operation in 1990 at [facility]. Pt denies any bowel or bladder problems. Denies shortness of breath, chest pain, or numbness/tingling. patient was seen by surgery and on 08/17 patient underwent C4 corpectomy. 2. Partial corpectomies C3, C5. 3. Insertion biomechanical device C3-C5. 4. C3- C5 anterior arthrodesis. 5. C3-C5 anterior instrumentation. 6. Bone autograft. 7. Bone allograft. 8. Microsurgical dissection post op patient was doign well. yesterday it was found that the patient was septic with increased wbc,fever, minimal urine output patient was started on broad spectrum abx and i was consulted currently patient feels much better patient does mention that he has been having cough with sputum production - History Source History Provided By: Patient Limitations to Obtaining History: No Limitations - Past Medical History Cardio/Vascular: Yes: HTN Renal/: Yes: Other (unknown) - Alcohol/Substance Use Hx Alcohol Use: No - Smoking History Smoking history: Former smoker Have you smoked in the past 12 months: No If you are a former smoker, when did you quit?: 10yrs Home Medications - Allergies Allergies/Adverse Reactions: Allergies Allergy/AdvReac Type Severity Reaction Status Date / Time No Known Drug Allergies Allergy Verified 08/14/19 14:30 - Home Medications Home Medications: Ambulatory Orders Aspirin Coated [Ecotrin -] 81 mg PO DAILY 08/14/19 Losartan Potassium 100 mg PO DAILY 08/14/19 Omeprazole 40 mg PO DAILY 08/14/19 Review of Systems - Review of Systems Constitutional: reports: Fever Eyes: reports: No Symptoms HENT: reports: Other (neck pain) Neck: reports: Other (neck pain) Cardiovascular: reports: No Symptoms Respiratory: reports: No Symptoms Gastrointestinal: reports: No Symptoms Genitourinary: reports: No Symptoms Musculoskeletal: reports: No Symptoms Integumentary: reports: No Symptoms Neurological: reports: No Symptoms Endocrine: reports: No Symptoms Hematology/Lymphatic: reports: No Symptoms Psychiatric: reports: No Symptoms Physical Exam Vital Signs: Vital Signs Temperature 99.2 F 08/23/19 00:00 Pulse Rate 94 H 08/23/19 00:00 Respiratory Rate 20 08/23/19 00:00 Blood Pressure 134/82 08/23/19 00:00 O2 Sat by Pulse Oximetry (%) 95 08/21/19 09:00 Constitutional: Yes: No Distress, Calm Eyes: Yes: Conjunctiva Clear HENT: Yes: Atraumatic, Normocephalic Neck: Yes: Supple, Other (hard collar) Cardiovascular: Yes: Regular Rate and Rhythm Respiratory: Yes: Regular, CTA Bilaterally Gastrointestinal: Yes: Normal Bowel Sounds, Soft Renal/: Yes: Crespo Present Musculoskeletal: Yes: WNL Extremities: Yes: WNL Neurological: Yes: Alert, Oriented Psychiatric: Yes: Alert, Oriented Labs: CBC, BMP 08/22/19 07:25 08/22/19 06:00 Imaging - Results Chest X-ray: Report Reviewed, Image Reviewed X-ray: Report Reviewed, Image Reviewed Assessment/Plan 9 y/o/m with PMHx of HTN, GERD, and PVD(s/p stent- Pt. unclear which leg) presenting after C3-C5 discectomy and fusion. PO Day 5. patients events noted currently patient doing well all cx reports noted i am going to wait for the cx report we will continue zosyn will hold off on vanco rest as per the team hydration monitor urine output
[2019-08-23 07:59] LABS: BASO % 0.5 % (0-2.0); EOS % 0.4 % (0-4.5); HEMOGLOBIN 11.2 GM/dL (11.7-16.9); LYMPH % 8.7 % (8-40); MCH 27.7 pg (25.7-33.7); MCHC 31.9 g/dl (32.0-35.9); MEAN CELL VOLUME 86.7 fl (80-96); MEAN PLT VOLUME 9.1 fl (7.5-11.1); MONO % 13.3 % (3.8-10.2); NEUT % 77.1 % (42.8-82.8); PLATELET COUNT 239 K/MM3 (134-434); RBC 4.04 M/mm3 (4.00-5.60); WHITE BLOOD COUNT 15.4 K/mm3 (4.0-10.0)
[2019-08-23 08:14] LABS: ALBUMIN 2.7 g/dl (3.4-5.0); BILIRUBIN,TOTAL 0.7 mg/dL (0.2-1); BLOOD UREA NITROGEN 37.2 mg/dL (7-18); CALCIUM 8.7 mg/dL (8.5-10.1); CREATININE 1.8 mg/dL (0.55-1.3); MAGNESIUM 2.2 mg/dL (1.8-2.4); POTASSIUM 4.3 mmol/L (3.5-5.1); TOT PROT 6.3 g/dl (6.4-8.2)
[2019-08-23] MEDS ORDERED: PIPERACILLIN/TAZOBACTAM 2.25 GM VIAL IVPB ONE ×2 (09:36→15:39)
[2019-08-23] MEDS: PANTOPRAZOLE SODIUM 40 MG VIAL IVPUSH SCH (10:06)
[2019-08-23] MEDS: DOCUSATE SODIUM 100 MG CAPSULE (FP) PO SCH (10:06)
[2019-08-23] MEDS: POLYETHYLENE GLYCOL 3350 119 GM BTL PO SCH (10:06)
[2019-08-23] MEDS: PIPERACILLIN/TAZOB 2.25 GM 2.25 GM in DEXTROSE 5%-WATER - 50 ML IVPB SCH ×2 (10:06→17:18)
--- NOTE | 2019-08-23 11:31 | PN ---
Progress Note, Physician History of Present Illness: Patient seen and examined at bedside with his family present ( daughter and grandson) and they were updated at bedside. All questions answered and concerns addressed. Daughter is a circle cutting saw operator and wanted his labs including albumin total protein and glucose and would like circle cutting saw operator consult. He denies nausea vomiting fever chills chest pain or SOB. Denies pain. Endorses cough with clear occasional phlegm. Cr 1.8 today from 1.9 yesterday. Urine output 400ml for (24 hours until midnight) and today from midnight to 7am 300ml. and from 7am until now (1130am) about 400ml in webb bag which is improved. Urine still dark but increased output. UCx negative. BCx negative so far @ 24 hours. Poor appetite and oral intake. No history of CKD per daughter. Tmax 100 in past 24 hours - Current Medication List Current Medications: Active Medications Acetaminophen (Tylenol -) 650 mg PO Q6H PRN PRN Reason: FEVER Last Admin: 08/22/19 14:08 Dose: 650 mg Benzocaine/Menthol (Cepacol Lozenge -) 1 each MM PRN PRN PRN Reason: SORE THROAT Last Admin: 08/18/19 17:18 Dose: 1 each Docusate Sodium (Colace -) 100 mg PO DAILY MELISSA Last Admin: 08/23/19 10:06 Dose: 100 mg Lactated Ringer's (Lactated Ringers Solution) 1,000 ml in 1,000 mls @ 150 mls/ hr IV ASDIR MELISSA Last Admin: 08/22/19 16:21 Dose: 150 mls/hr Piperacillin Sod/Tazobactam (Sod 2.25 gm/ Dextrose) 50 mls @ 100 mls/hr IVPB Q8H-IV MELISSA; Protocol Last Admin: 08/23/19 10:06 Dose: 100 mls/hr Losartan Potassium (Cozaar -) 100 mg PO DAILY MELISSA Last Admin: 08/22/19 10:00 Dose: 100 mg Ondansetron HCl (Zofran Injection) 4 mg IVPUSH Q6H PRN PRN Reason: NAUSEA AND/OR VOMITING Oxycodone HCl (Roxicodone -) 5 mg PO Q4H PRN PRN Reason: PAIN LEVEL 1-5 Last Admin: 08/21/19 10:21 Dose: 5 mg Pantoprazole Sodium (Protonix Iv) 40 mg IVPUSH DAILY [facility] Last Admin: 08/23/19 10:06 Dose: 40 mg Polyethylene Glycol (Miralax (For Daily Use) -) 17 gm PO DAILY MELISSA Last Admin: 08/23/19 10:06 Dose: 17 gm Senna (Senna -) 1 tab PO HS MELISSA Last Admin: 08/22/19 22:02 Dose: 1 tab - Objective Vital Signs: Vital Signs Temperature 99.9 F H 08/23/19 10:00 Pulse Rate 92 H 08/23/19 10:00 Respiratory Rate 20 08/23/19 10:00 Blood Pressure 146/91 08/23/19 10:00 O2 Sat by Pulse Oximetry (%) 96 08/23/19 09:00 PE: Constitutional: Yes: No Distress, sitting up in bed Eyes: Yes: Conjunctiva Clear Neck: Yes: Other (collar in place. Dressing C/D/I) Cardiovascular: Yes: Regular Rate and Rhythm Respiratory: Yes: Rhonchi (bilateral-unchanged from yesterday), Other ( transmitted sounds as patient is a loud and noisey breather and makes snoring sounds) Gastrointestinal: Yes: Soft No: Tenderness Genitourinary: Yes: Webb Present, dark urine. No: Bladder Distention, CVA Tenderness - Left, CVA Tenderness - Right No spurapubic tenderness. Edema: No Wound/Incision: Yes: Clean/Dry Neurological: Yes: Alert, Oriented Labs: CBC, BMP 08/23/19 07:00 08/23/19 07:00 Impression/Plan Impression/Plan: 79 y/o/m with PMHx of HTN, GERD, and PVD(s/p stent- Pt. unclear which leg) presenting after C3-C5 discectomy and fusion. PO Day 6. Sepsis given tachycardia and fever. Urine source vs lung source vs surgical site but unlikely surgical site CXR from this AM clear. No congestion. f/u cultures-so far UCx final and negative and BCx negative @ 24 hours. on zosyn per ID Hold vanco pending cultures f/u Dr. Oliva from ID. Tmax 100 in past 24 hours Post-op Urinary Retention webb placed by Dr. Hubbard [facility] on board ; because of urethral trauma, webb to stay. can TOV on Saturday and follow in office vs removing webb in hospital HTN continue to hold losartan with MARY Pulmonology Encourage Incentive spirometry will monitor and keep SpO2 above 92% Airway observation: In case of emergency, remove anterior cervical spine dressing and pull out running suture; ok to cut suture if needed to decompress - hematoma per spine surgery MARY unknown history of CKD per daughter no history of CKD Cr worsening over past few days nephrology consult likely prerenal give IVF discussed with Dr. Chan Neurology POD #6 s/p C4 corpectomy & C3-C5 anterior cervical decompression and instrumented fusion Maintain head of bed 30-45 degrees. Pain medication: on roxicodone PRN, no PIPELINER; no NSAIDs on bowel regimen, while on pain mgmt - miralax, senna, colace Hard c-collar in place. PT/OT/Rehab, OOB. WBAT B/L LE PWB B/L UE: 5lbs. Keep dressing clean & dry. B/L UE & LE NV checks. Cepacol Lozenge as needed pt refuses to go to [facility], wants to go home No heavy lifting (>5 lbs), bending or twisting x 6 months post op. FEN LR @ 100ml/hr trend lytes continue diet for now-poor intake Prophylaxis Mechanical only: KELLEY's, SCD's No NSAIDs, no AC per spine surgery PPI Visit type - Emergency Visit Emergency Visit: Yes ED Registration Date: 08/17/19 Care time: The patient presented to the Emergency Department on the above date and was hospitalized for further evaluation of their emergent condition. - New Patient This patient is new to me today: No - Critical Care Critical Care patient: No
[2019-08-23] MEDS ORDERED: LACTATED RINGERS SOLUTION 1,000 ML/1,000 ML INFUS.BAG IV SCH (15:01)
--- NOTE | 2019-08-23 20:30 | PN ---
Progress Note, Physician History of Present Illness: Pt seen and examined at bedside. He denies shortness of breath. He denies fevers or chills. - Current Medication List Current Medications: Active Medications Acetaminophen (Tylenol -) 650 mg PO Q6H PRN PRN Reason: FEVER Last Admin: 08/22/19 14:08 Dose: 650 mg Benzocaine/Menthol (Cepacol Lozenge -) 1 each MM PRN PRN PRN Reason: SORE THROAT Last Admin: 08/18/19 17:18 Dose: 1 each Docusate Sodium (Colace -) 100 mg PO DAILY MELISSA Last Admin: 08/23/19 10:06 Dose: 100 mg Piperacillin Sod/Tazobactam (Sod 2.25 gm/ Dextrose) 50 mls @ 100 mls/hr IVPB Q8H-IV MELISSA; Protocol Last Admin: 08/23/19 17:18 Dose: 100 mls/hr Lactated Ringer's (Lactated Ringers Solution) 1,000 ml in 1,000 mls @ 100 mls/ hr IV ASDIR MELISSA Last Admin: 08/23/19 15:17 Dose: 100 mls/hr Losartan Potassium (Cozaar -) 100 mg PO DAILY MELISSA Last Admin: 08/22/19 10:00 Dose: 100 mg Ondansetron HCl (Zofran Injection) 4 mg IVPUSH Q6H PRN PRN Reason: NAUSEA AND/OR VOMITING Oxycodone HCl (Roxicodone -) 5 mg PO Q4H PRN PRN Reason: PAIN LEVEL 1-5 Last Admin: 08/21/19 10:21 Dose: 5 mg Pantoprazole Sodium (Protonix Iv) 40 mg IVPUSH DAILY MELISSA Last Admin: 08/23/19 10:06 Dose: 40 mg Polyethylene Glycol (Miralax (For Daily Use) -) 17 gm PO DAILY MELISSA Last Admin: 08/23/19 10:06 Dose: 17 gm Senna (Senna -) 1 tab PO HS MELISSA Last Admin: 08/22/19 22:02 Dose: 1 tab - Objective Vital Signs: Vital Signs Temperature 98 F 08/23/19 16:30 Pulse Rate 92 H 08/23/19 16:30 Respiratory Rate 20 08/23/19 16:30 Blood Pressure 129/84 08/23/19 16:30 O2 Sat by Pulse Oximetry (%) 96 08/23/19 09:00 Constitutional: Yes: Calm Eyes: Yes: Conjunctiva Clear HENT: Yes: Atraumatic Neck: Yes: Supple Cardiovascular: Yes: S1, S2 Respiratory: Yes: CTA Bilaterally Gastrointestinal: Yes: Soft Genitourinary: Yes: Crespo Present Musculoskeletal: Yes: WNL Edema: No Neurological: Yes: Oriented Labs: CBC, BMP 08/23/19 07:00 08/23/19 07:00 Problem List - Problems (1) MARY (acute kidney injury) Code(s): N17.9 - ACUTE KIDNEY FAILURE, UNSPECIFIED (2) Acute urinary retention Code(s): R33.8 - OTHER RETENTION OF URINE Assessment/Plan Current Medications Generic Name Dose Route Start Last Admin Trade Name Freq PRN Reason Stop Dose Admin Acetaminophen 650 mg 08/21/19 17:02 08/22/19 14:08 Tylenol - PO 650 mg Q6H PRN Administration FEVER Benzocaine/Menthol 1 each 08/18/19 11:08 08/18/19 17:18 Cepacol Lozenge - MM 1 each PRN PRN Administration SORE THROAT Docusate Sodium 100 mg 08/19/19 13:45 08/23/19 10:06 Colace - PO 100 mg DAILY MELISSA Administration Piperacillin Sod/Tazobactam 50 mls @ 100 mls/hr 08/23/19 10:00 08/23/19 17:18 Sod 2.25 gm/ Dextrose IVPB 100 mls/hr Q8H-IV MELISSA Administration Protocol Lactated Ringer's 1,000 ml in 1,000 mls @ 100 mls/hr 08/23/19 15:01 08/23/19 15:17 Lactated Ringers Solution IV 100 mls/hr ASDIR MELISSA Administration Losartan Potassium 100 mg 08/20/19 10:00 08/22/19 10:00 Cozaar - PO 100 mg DAILY MELISSA Administration Ondansetron HCl 4 mg 08/20/19 07:55 Zofran Injection IVPUSH Q6H PRN NAUSEA AND/OR VOMITING Oxycodone HCl 5 mg 08/20/19 07:55 08/21/19 10:21 Roxicodone - PO 5 mg Q4H PRN Administration PAIN LEVEL 1-5 Pantoprazole Sodium 40 mg 08/19/19 10:00 08/23/19 10:06 Protonix Iv IVPUSH 40 mg DAILY MELISSA Administration Polyethylene Glycol 17 gm 08/19/19 13:45 08/23/19 10:06 Miralax (For Daily Use) - PO 17 gm DAILY MELISSA Administration Senna 1 tab 08/19/19 22:00 08/22/19 22:02 Senna - PO 1 tab HS MELISSA Administration Impression 1. MARY 2. hypotension 3. s/p cervical surgery 4. gerd 5. htn Plan - cont fluids - hold losartan for now - monitor bp - renal dise meds - follow urine lytes and renal ultrasound
[2019-08-23] MEDS: SENNOSIDES 8.6MG TABLET (FP) PO SCH (21:56)
[2019-08-24] MEDS ORDERED: DEXTROSE 5%-WATER - 50 ML IVPB ONE ×3 (03:25→17:02)
[2019-08-24] MEDS ORDERED: PIPERACILLIN/TAZOBACTAM 2.25 GM VIAL IVPB ONE ×3 (03:25→17:01)
[2019-08-24] MEDS: PIPERACILLIN/TAZOB 2.25 GM 2.25 GM in DEXTROSE 5%-WATER - 50 ML IVPB SCH ×3 (03:31→17:50)
[2019-08-24 09:25] LABS: BLOOD UREA NITROGEN 32.1 mg/dL (7-18); CALCIUM 9.1 mg/dL (8.5-10.1); CREATININE 1.5 mg/dL (0.55-1.3); MAGNESIUM 2.2 mg/dL (1.8-2.4); PHOSPHOROUS 3.4 mg/dL (2.5-4.9); POTASSIUM 4.6 mmol/L (3.5-5.1)
--- NOTE | 2019-08-24 09:59 | PN ---
Progress Note, Physician History of Present Illness: stable doing well still with cough - Current Medication List Current Medications: Active Medications Acetaminophen (Tylenol -) 650 mg PO Q6H PRN PRN Reason: FEVER Last Admin: 08/22/19 14:08 Dose: 650 mg Benzocaine/Menthol (Cepacol Lozenge -) 1 each MM PRN PRN PRN Reason: SORE THROAT Last Admin: 08/18/19 17:18 Dose: 1 each Docusate Sodium (Colace -) 100 mg PO DAILY MELISSA Last Admin: 08/23/19 10:06 Dose: 100 mg Piperacillin Sod/Tazobactam (Sod 2.25 gm/ Dextrose) 50 mls @ 100 mls/hr IVPB Q8H-IV MELISSA; Protocol Last Admin: 08/24/19 03:31 Dose: 100 mls/hr Lactated Ringer's (Lactated Ringers Solution) 1,000 ml in 1,000 mls @ 100 mls/ hr IV ASDIR MELISSA Last Admin: 08/23/19 15:17 Dose: 100 mls/hr Ondansetron HCl (Zofran Injection) 4 mg IVPUSH Q6H PRN PRN Reason: NAUSEA AND/OR VOMITING Oxycodone HCl (Roxicodone -) 5 mg PO Q4H PRN PRN Reason: PAIN LEVEL 1-5 Last Admin: 08/21/19 10:21 Dose: 5 mg Pantoprazole Sodium (Protonix Iv) 40 mg IVPUSH DAILY [facility] Last Admin: 08/23/19 10:06 Dose: 40 mg Polyethylene Glycol (Miralax (For Daily Use) -) 17 gm PO DAILY [facility] Last Admin: 08/23/19 10:06 Dose: 17 gm Senna (Senna -) 1 tab PO HS [facility] Last Admin: 08/23/19 21:56 Dose: 1 tab - Objective Vital Signs: Vital Signs Temperature 98.6 F 08/24/19 07:48 Pulse Rate 87 08/24/19 07:48 Respiratory Rate 20 08/24/19 07:48 Blood Pressure 128/96 08/24/19 07:48 O2 Sat by Pulse Oximetry (%) 96 08/23/19 23:26 Constitutional: Yes: No Distress, Calm Cardiovascular: Yes: S1, S2 Respiratory: Yes: Regular, Poor Air Entry (rt lower lobe) Gastrointestinal: Yes: Normal Bowel Sounds, Soft Genitourinary: Yes: Crespo Present Musculoskeletal: Yes: WNL Extremities: Yes: WNL Neurological: Yes: Alert, Oriented Psychiatric: Yes: Alert, Oriented Labs: CBC, BMP 08/24/19 08:02 Assessment/Plan 1. MARY 2. hypotension 3. s/p cervical surgery 4. gerd 5. htn creatinine trending down plan await for wbc continue current mgmt await for sputum cx rest as per the team
[2019-08-24 10:10] LABS: BASO % 0.4 % (0-2.0); EOS % 3.1 % (0-4.5); HEMATOCRIT 33.5 % (35.4-49); HEMOGLOBIN 10.9 GM/dL (11.7-16.9); LYMPH % 10.3 % (8-40); MCH 27.9 pg (25.7-33.7); MCHC 32.5 g/dl (32.0-35.9); MEAN CELL VOLUME 85.7 fl (80-96); MEAN PLT VOLUME 8.8 fl (7.5-11.1); MONO % 11.7 % (3.8-10.2); NEUT % 74.5 % (42.8-82.8); PLATELET COUNT 276 K/MM3 (134-434); RBC 3.91 M/mm3 (4.00-5.60); RDW 14.8 % (11.9-15.9); WHITE BLOOD COUNT 11.6 K/mm3 (4.0-10.0)
[2019-08-24] MEDS: DOCUSATE SODIUM 100 MG CAPSULE (FP) PO SCH (11:20)
[2019-08-24] MEDS: PANTOPRAZOLE SODIUM 40 MG VIAL IVPUSH SCH (11:20)
[2019-08-24] MEDS: POLYETHYLENE GLYCOL 3350 119 GM BTL PO SCH (12:39)
--- NOTE | 2019-08-24 14:06 | PN ---
Progress Note, Physician History of Present Illness: Pt seen and examined at bedside. He is confused. - Current Medication List Current Medications: Active Medications Acetaminophen (Tylenol -) 650 mg PO Q6H PRN PRN Reason: FEVER Last Admin: 08/22/19 14:08 Dose: 650 mg Benzocaine/Menthol (Cepacol Lozenge -) 1 each MM PRN PRN PRN Reason: SORE THROAT Last Admin: 08/18/19 17:18 Dose: 1 each Docusate Sodium (Colace -) 100 mg PO DAILY MELISSA Last Admin: 08/24/19 11:20 Dose: 100 mg Piperacillin Sod/Tazobactam (Sod 2.25 gm/ Dextrose) 50 mls @ 100 mls/hr IVPB Q8H-IV MELISSA; Protocol Last Admin: 08/24/19 11:20 Dose: 100 mls/hr Lactated Ringer's (Lactated Ringers Solution) 1,000 ml in 1,000 mls @ 100 mls/ hr IV ASDIR MELISSA Last Admin: 08/23/19 15:17 Dose: 100 mls/hr Ondansetron HCl (Zofran Injection) 4 mg IVPUSH Q6H PRN PRN Reason: NAUSEA AND/OR VOMITING Oxycodone HCl (Roxicodone -) 5 mg PO Q4H PRN PRN Reason: PAIN LEVEL 1-5 Last Admin: 08/21/19 10:21 Dose: 5 mg Pantoprazole Sodium (Protonix Iv) 40 mg IVPUSH DAILY MELISSA Last Admin: 08/24/19 11:20 Dose: 40 mg Polyethylene Glycol (Miralax (For Daily Use) -) 17 gm PO DAILY MELISSA Last Admin: 08/24/19 12:39 Dose: 17 gm Senna (Senna -) 1 tab PO HS MELISSA Last Admin: 08/23/19 21:56 Dose: 1 tab - Objective Vital Signs: Vital Signs Temperature 98.6 F 08/24/19 07:48 Pulse Rate 87 08/24/19 07:48 Respiratory Rate 20 08/24/19 07:48 Blood Pressure 128/96 08/24/19 07:48 O2 Sat by Pulse Oximetry (%) 96 08/23/19 23:26 Constitutional: Yes: Calm Eyes: Yes: Conjunctiva Clear HENT: Yes: Atraumatic Cardiovascular: Yes: S1, S2 Respiratory: Yes: CTA Bilaterally Gastrointestinal: Yes: Soft Genitourinary: Yes: Crespo Present Musculoskeletal: Yes: WNL Edema: No Integumentary: Yes: WNL Neurological: Yes: Confusion Labs: CBC, BMP 08/24/19 08:02 08/24/19 08:02 Problem List - Problems (1) MARY (acute kidney injury) Code(s): N17.9 - ACUTE KIDNEY FAILURE, UNSPECIFIED (2) Acute urinary retention Code(s): R33.8 - OTHER RETENTION OF URINE Assessment/Plan Current Medications Generic Name Dose Route Start Last Admin Trade Name Freq PRN Reason Stop Dose Admin Acetaminophen 650 mg 08/21/19 17:02 08/22/19 14:08 Tylenol - PO 650 mg Q6H PRN Administration FEVER Benzocaine/Menthol 1 each 08/18/19 11:08 08/18/19 17:18 Cepacol Lozenge - MM 1 each PRN PRN Administration SORE THROAT Docusate Sodium 100 mg 08/19/19 13:45 08/24/19 11:20 Colace - PO 100 mg DAILY MELISSA Administration Piperacillin Sod/Tazobactam 50 mls @ 100 mls/hr 08/23/19 10:00 08/24/19 11:20 Sod 2.25 gm/ Dextrose IVPB 100 mls/hr Q8H-IV MELISSA Administration Protocol Lactated Ringer's 1,000 ml in 1,000 mls @ 100 mls/hr 08/23/19 15:01 08/23/19 15:17 Lactated Ringers Solution IV 100 mls/hr ASDIR MELISSA Administration Ondansetron HCl 4 mg 08/20/19 07:55 Zofran Injection IVPUSH Q6H PRN NAUSEA AND/OR VOMITING Oxycodone HCl 5 mg 08/20/19 07:55 08/21/19 10:21 Roxicodone - PO 5 mg Q4H PRN Administration PAIN LEVEL 1-5 Pantoprazole Sodium 40 mg 08/19/19 10:00 08/24/19 11:20 Protonix Iv IVPUSH 40 mg DAILY MELISSA Administration Polyethylene Glycol 17 gm 08/19/19 13:45 08/24/19 12:39 Miralax (For Daily Use) - PO 17 gm DAILY MELISSA Administration Senna 1 tab 08/19/19 22:00 08/23/19 21:56 Senna - PO 1 tab HS MELISSA Administration Impression 1. MARY 2. hypotension 3. s/p cervical surgery 4. gerd 5. htn 6. altered mental status Plan - renal function is improving - can decrease rate of fluids - medical team working up altered mental status - hold losartan for now - monitor bp - renal dose meds - follow urine lytes and renal ultrasound
--- NOTE | 2019-08-24 16:06 | CONS ---
PHYSICAL MEDICINE REHABILITATION CONSULTATION DATE OF CONSULTATION: 08/24/2019 REFERRING PHYSICIAN: Marek Miranda MD DATE OF ADMISSION: 08/17/2019 HISTORY OF PRESENT ILLNESS: The patient is a 79-year-old man with past medical history of cervical and lumbar surgery, who was admitted, undergoing multi-level cervical diskectomy, decompression, fusion, and instrumentation from C3 to C5 due to underlying canal stenosis and cervical myelopathy. Patient had noted progressive weakness in both of his lower extremities, was found to have cervical cord compression, admitted, undergoing surgery performed by Dr. Marek Miranda. Postoperatively, patient's WBCs have been elevated; on August 18, 17.5. On August 23, they remained elevated at 15.4. Hemoglobin stable, 11.2. Platelet count stable, 239. Chemistry postoperatively, he has had some elevation in his creatinine, 1.6 on August 18. As of August 23, BUN elevated at 37, creatinine 1.8. His albumin was low at 2.7. He had a normal sodium, 143; potassium 4.3; chloride 106; and CO2 of 29. His last chest x-ray was on August 23, which demonstrated atelectasis in the right base, which had improved from prior study, August 22. Patient is undergoing infectious disease workup for elevated WBCs. Last cervical x-ray on August 18 showed cervical hardware with alignment maintained. Patient was evaluated by Physical Therapy and requires maximum assist for ambulation, marching in place moderate assist of 2; for [id number] transfers, patient apparently is being evaluated for inpatient rehabilitation, possibly at [facility], although the patient himself mentioned [facility]. PAST MEDICAL AND SURGICAL HISTORY: As above. Patient also has a history of hypertension, gastroesophageal reflux disease, peripheral vascular disease, as well as the noted lumbar and cervical surgery in 1990. SOCIAL HISTORY: Patient states he lives with his and possibly a child in a private house. He has a few flights of stairs. Premorbidly, he states he could do the stairs with a straight cane. Currently function as above. REVIEW OF SYSTEMS: He denies any headache; any lightheadedness, dizziness; any blurry vision or double vision or change in vision; any nausea, vomiting, difficulty swallowing, or difficulty chewing. He does get some neck pain, but denies any numbness/tingling in the upper limbs or lower limbs. Some weakness. No shortness of breath, dyspnea on exertion, or chest pain. No abdominal pain. Some postoperative constipation which he states has improved. Intermittent discomfort in his lower extremities, particularly in the knees. No significant weight change. PHYSICAL EXAMINATION: General: A tall, elderly man seen lying in bed. He has a hard collar on, but is awake and cooperative, in no acute distress. HEENT: He is normocephalic and atraumatic. Extraocular muscles appear intact. Neck: Again, he has a hard cervical collar on. Incision not examined. Extremities: Without any pitting edema or calf tenderness. Skin: Without any rash or breakdown. Neuromuscular: He is awake, alert, did not know the exact date or the exact room, but he knew was in the hospital and generally seemed to have insight into his medical conditions. Cranial nerves 2-12 appeared grossly intact. He has atrophy of the intrinsics in both hands with weakness in the left more than right distal upper limb. He also has slightly limited range in his left shoulder at 100-110 degrees flexion, compared to 130-140 degrees in the right shoulder. Fairly good elbow flexion and elbow extension, perhaps 4/5 on the left, compared to 4+ to 5-/5 on the right. Again, his intrinsics are weak bilaterally. The left is 2-3/5, the right 3+ to 4/5. Fairly good international account representative on the right, 4+/5, compared to the left which is 3+/5. Normal sensation to pinprick. Symmetric reflexes. In the lower extremities, he has antigravity strength in both lower extremities, arthritic change in the right more than the left knee with slight effusion on the left and moderate effusion on the right knee. Good dorsiflexion and plantar flexion strength. Normal sensation. Symmetric reflexes. Fairly good range in the lower extremities throughout. OVERALL IMPRESSION: 1. Deficits in mobility and activities of daily living, multifactorial. 2. Cervical myelopathy, status post cervical decompression including diskectomy, fusion, instrumentation from C3 to C5, Dr. Marek Miranda on August 17, 2019. 3. Deconditioning. 4. Atrophy, left more than right distal upper limb. 5. Probable underlying knee osteoarthritis. 6. Elevated risk for deep vein thrombosis due to immobility. 7. Increased risk for constipation due to immobility. 8. Leukocytosis; workup in progress. 9. Increased risk for decubitus ulceration due to immobility. 10. History of gastroesophageal reflux disease. 11. History of hypertension. 12. Hypoalbuminemia. PLAN/SUGGESTION: 1. Continue bedside physical therapy including range of motion, strengthening of the upper and lower limbs, bed mobility transfers, gait training. 2. Out of bed to chair as tolerated. 3. Cervical collar per Dr. Miranda. 4. Partial weightbearing of upper extremities. 5. Weightbearing as tolerated, lower extremities. 6. Continue bowel regimen. 7. Agree with SCDs until more mobile or discharge to rehabilitation. 8. Avoid heel and sacral pressure, turn q.2 hours, and monitor heels and sacrum for any discoloration or breakdown. 9. Probable discharge. Patient is a good candidate for inpatient acute rehabilitation at [facility] or [facility]. Case Management to follow. Thank you for this referral. JOVANY FLOREZ M.D. FRANCINE/[id number]
[2019-08-24] MEDS: LACTATED RINGERS SOLUTION 1,000 ML/1,000 ML INFUS.BAG IV SCH ×2 (17:48→21:03)
--- NOTE | 2019-08-24 17:56 | PN ---
Progress Note (short form) - Note Progress Note: Hospitalist Medicine Pt confused today. Per nurse, this AM found without gown on. Case d/w sx, uro. For webb removal, trial of void per uro today. Vitals 08/24/19 07:48 Temperature 98.6 F Pulse Rate 87 Respiratory 20 Rate Blood Pressure 128/96 Physical Exam General: resting, with hard c-collar on HEENT: NCAT, PERRLA neck: supple cardio: S1, S2 RRR. no r/m/g pulm: +few rhonchi b/l. no accessory m usage abdomen: nontender, nondistended LE: 2+ pulses, no edema Laboratory Tests 08/24/19 08/24/19 08:02 08:02 WBC 11.6 H Hgb 10.9 L Hct 33.5 L Plt Count 276 Sodium 144 Potassium 4.6 Chloride 109 H Carbon Dioxide 28 BUN 32.1 H Creatinine 1.5 H Random Glucose 108 H Microbiology 08/21/19 21:55 Sputum - Expectorated Gram Stain - Final 08/21/19 17:30 Urine - Urine Webb Urine Culture - Final NO GROWTH OBTAINED 08/18/19 01:10 Urine - Urine - Catheterized Urine Culture - Final NO GROWTH OBTAINED 08/21/19 21:55 Sputum - Expectorated Sputum Culture - Preliminary NORMAL RESPIRATORY TRINO 08/21/19 18:00 Blood - Peripheral Venous Blood Culture - Preliminary NO GROWTH OBTAINED AFTER 48 HOURS, INCUBATION TO CONTINUE FOR 3 DAYS. 08/21/19 18:00 Blood - Peripheral Venous Blood Culture - Preliminary NO GROWTH OBTAINED AFTER 48 HOURS, INCUBATION TO CONTINUE FOR 3 DAYS. Imaging 08/18/19: c-spine XR: c-spine hardware appropriate position. alignment maintained. no hardware failure 08/22/19: CXR: no acute path. minimal atelectasis R base 08/23/19: CXR: since prior study, atelectatic changes at R base have diminished , improvement R base 08/24/19: renal sono: WNL 08/24/19: CTH: (-) Assessment/Plan 79 y/o/m with PMHx of HTN, GERD, and PVD(s/p stent- Pt. unclear which leg) presenting after C3-C5 discectomy and fusion. PO Day 7 #Neurology - s/p C4 corpectomy & C3-C5 anterior cervical decompression and instrumented fusion (PO Day 7) - Maintain head of bed 30-45 degrees. - Pain medication: on roxicodone PRN, no NUTRITION SERVICES AIDE; NO NSAID's. - on bowel regimen, while on pain mgmt - miralax, senna, colace - Hard c-collar in place. - PT/OT/Rehab, OOB. - WBAT B/L LE - PWB B/L UE: 5lbs. - Keep dressing clean & dry. - B/L UE & LE NV checks. - Discharge planning: f/u [facility] [place] office 08/27/2019; call for appointment; . - Cepacol Lozenge as needed #acute toxic metabolic encephalopathy 2/2 ?PNA vs. UTI - outlined below - CTH (-) - c/t monitor #ID -post-op fever, sepsis 2/2 ?PNA vs. UTI -c/w zosyn (08/23) -blood, ucx, sputum (-) thus far -remove webb as could be source -ID: Dr. Oliva #Nephro -MARY -c/w gentle IVF; on LR 83 cc/hr. improving - renal sono: unremarkable - Nephro: Dr. Chan #Urology - Post-op Urinary Retention - webb placed by Dr. Hubbard - Urology on board ; remove webb, trial of void today #Cardiology - hx HTN - c/w Losartan #Pulmonology - Encourage Incentive spirometry - will monitor and keep SpO2 above 92% - Airway observation: In case of emergency, remove anterior cervical spine dressing and pull out running suture; ok to cut suture if needed to decompress - hematoma. #F/E/N - on LR 83 cc/hr - continue to follow lytes - NPO d/t AMS #Prophylaxis - Mechanical only: KELLEY's, SCD's, per sx recs. to restart PPX based on sx #Disposition - cont'd monitoring on med-surg - for TOV, webb removal today - on IV abx - pt refuses to go to [place], wants to go home - No heavy lifting (>5 lbs), bending or twisting x 6 months post op. <Desi Garcia - Last Filed: 08/24/19 18:07> - Note Progress Note: Seen and examined; please see resident note for further historical information. I personally verified all sosa historical information and exam findings. Personally interpreted all imaging and diagnostics and reviewed appropriate consults. I reviewed all labs and vital signs as per resident note and EMR as documented. I agree with the above assessment and plan unless supplemented by myself in the following. Patient is somewhat confused this morning, but is not showing any focal neurologic symptoms, the etiology of this is continued to be secondary to underlying toxic metabolic encephalopathy likely secondary to underlying sepsis. It should be noted that the patient did get preoperative antibiotics, and the timing of his antibiotic therapy could have easily contributed to the cultures that were obtained when he started to spike these fevers at the beginning of the previous weekend being negative. He has no signs of worsening sepsis with his heart rate normalized, and laboratory results continue to be pending. We discussed the case with the patient's orthopedic surgeon who recommended discussion with urology regarding the removal of the Webb catheter. Discussion with urology revealed that an order was placed for removal over the weekend, is unclear why the Webb catheter was not removed over the weekend. Discussed with nursing. The patient has no new complaints regarding to genitourinary or abdominal symptoms. As stated, cultures are negative. Cannot complete swallow evaluation at this juncture, will have to defer per swallow. 10 item review of systems was completed and is negative aside from history of present illness VS, labs, imaging reviewed NAD, AAO, resting comfortably in bed. RRR s1/2 no mgr Normal muscle tone, moves all 5 extremities with normal apparent strength Neck is supple, trachea midline, no [place] LN. postoperative area is well-healed with no signs of worsening edema, skin breakdown, no signs of postop infection or purulence. Remains in [place] collar. Lungs CTAB with sym expansion NT ND +BS no [place] organomegaly CN2-12 wnl; no FND NC AT EOMI PERRLA Normal mood, appropriate behavior, euthymic affect No skin breakdown or rashes noted CT head negative for acute processes Micro NGTD on all CXR reviewed Assessment and plan: Patient presents for orthopedic procedure per Dr. Alford, complicated by traumatic Webb insertion that was rectified with coud placement by urology. This was subsequently complicated by the patient developing a urinary obstruction secondary to clot formation due to the traumatic Webb placement and the patient was recommended to keep the catheter in for 5 days. Orthopedic surgery did not wish for the patient to be discharged with a Webb catheter. The patient developed a fever and tachycardia and process consistent with sepsis and was started with broad-spectrum antibiotic coverage that will be honed down based on culture results if they do result, though there is no impetus for ESBL, VRE, etc. etc. The patient is also pending ESR and CRP trending to ensure that there is no uptrend with respect to an occult wound infection, though the surgical site itself looks clear. We will continue with the current antibiotics per infectious disease, current DVT prophylaxis, and complete Webb removal with subsequent PVR check. The patient did have some altered mental status but had a CT head that was negative, the mentation improved, and there are no focal neurologic deficits. We will monitor 24 hours worth of neurologic checks. Problems include: -Toxic metabolic encephalopathy is resolving -Status post elective C4 corpectomy & C3-C5 anterior cervical decompression and instrumented fusion POD #3 (Postoperative instructions and pain management instructions per orthopedic surgery. Monitoring on the floor) -Postoperative fever likely 2.2 UTI -Urinary retention secondary to traumatic webb insertion causing clot (webb planned initially for 5 days per uro; FU with Dr. Tucker's recommendations. appreciate epert managemetn) -CKD (Likely secondary to underlying chronic issues [htn, etc.] and is stable. He is not oliguric. Continue to monitor) -Hx HTN (monitor) -Leukocytosis (Was likely reactive postoperatively; consider now a component of postop infection) -Overweight (BMI 27; grief counselor prior to DC, impedence to wound healing) Full Code <Russ Simon - Last Filed: 08/25/19 17:20>
[2019-08-24] MEDS: SENNOSIDES 8.6MG TABLET (FP) PO SCH (21:04)
[2019-08-25] MEDS ORDERED: DEXTROSE 5%-WATER - 50 ML IVPB ONE ×3 (00:28→17:19)
[2019-08-25] MEDS ORDERED: PIPERACILLIN/TAZOBACTAM 2.25 GM VIAL IVPB ONE ×3 (00:28→17:19)
[2019-08-25] MEDS: PIPERACILLIN/TAZOB 2.25 GM 2.25 GM in DEXTROSE 5%-WATER - 50 ML IVPB SCH ×3 (01:41→17:21)
[2019-08-25 08:22] LABS: ALBUMIN 2.9 g/dl (3.4-5.0); BILIRUBIN,TOTAL 0.8 mg/dL (0.2-1); BLOOD UREA NITROGEN 27.7 mg/dL (7-18); CALCIUM 9.3 mg/dL (8.5-10.1); CREATININE 1.4 mg/dL (0.55-1.3); POTASSIUM 4.6 mmol/L (3.5-5.1); TOT PROT 6.6 g/dl (6.4-8.2)
[2019-08-25] MEDS: POLYETHYLENE GLYCOL 3350 119 GM BTL PO SCH (10:16)
[2019-08-25] MEDS: DOCUSATE SODIUM 100 MG CAPSULE (FP) PO SCH (10:22)
[2019-08-25] MEDS: PANTOPRAZOLE SODIUM 40 MG VIAL IVPUSH SCH (10:22)
--- NOTE | 2019-08-25 12:15 | CONSULT ---
Admitting History and Physical - Primary Care Physician PCP: Erasto Miranda - Admission History of Present Illness: 79 year old male with pmhx of htn, gerd, and PVD who is s/p c4 corpectomy and c3 -c5 anterior cervical decompression. 08/18/19: c-spine XR: c-spine hardware appropriate position. alignment maintained. no hardware failure 08/22/19: CXR: no acute path. minimal atelectasis R base 08/23/19: CXR: since prior study, atelectatic changes at R base have diminished , improvement R base 08/24/19: renal sono: WNL 08/24/19: CTH: (-) Selected Entries 08/23/19 08/23/19 08/23/19 00:00 06:00 09:00 Lunch 75% Supper Temperature 99.2 F 98.8 F 08/23/19 08/23/19 08/23/19 10:00 14:00 16:30 Lunch Supper Temperature 99.9 F H 98.3 F 98 F 08/23/19 08/23/19 08/23/19 18:30 20:00 22:00 Lunch Supper 75% 75% Temperature 97.5 F L 08/24/19 08/24/19 08/24/19 00:00 07:48 16:40 Lunch Supper Temperature 97.8 F 98.6 F 98.7 F 08/24/19 08/24/19 08/24/19 19:02 20:00 22:00 Lunch Supper NPO NPO Temperature 97.8 F 08/25/19 08/25/19 00:00 06:00 Lunch Supper Temperature 98.7 F 98.8 F Laboratory Tests 08/21/19 08/22/19 08/23/19 07:28 07:25 07:00 WBC 12.9 H 16.4 H 15.4 H 08/24/19 08:02 WBC 11.6 H History Source: Medical Record Limitations to Obtaining History: Clinical Condition (Confused, rambling, disoriented) - Past Medical History Cardiovascular: Yes: HTN Renal/: Yes: Other (unknown) - Smoking History Smoking history: Former smoker Have you smoked in the past 12 months: No If you are a former smoker, when did you quit?: 10yrs - Alcohol/Substance Use Hx Alcohol Use: No History - Admission Reason For Visit: CERVICAL DISC DISORDER AT C4-C5 LEVEL WITH MYELOPA - Diagnostics X-ray: Report Reviewed CT Scan: Report Reviewed - General Mental Status: Awake and Alert, Able to Follow Commands, Forgetful, Vague, Confused, Flat Affect Attention: Mild Impairment Ability to Follow Directions: Good Head/Neck Control: Fair (Hard cervical collar in place) - Hearing Hearing: Functional Hearing: Normal Speech Evaluation - Communication Primary Language: KHMER Communication: Yes: Within Normal Limits (Tangential, rambles on) - Speech Production Able to Make Needs Known: Yes: WNL Intelligibility: Yes: Mildly Impaired - Speech Characteristics Voice Loudness: Mildly Soft/Quiet Voice Phonatory-based Quality: Yes: Dysphonia, Vocal Wetness (upper airway secretions) Speech Pattern: Normal Speech Clarity: < 100% Nasal Resonance: Normal Articulation: Yes: Precise - Language/Auditory Comprehension Follows: Yes: 1 Stage Simple Commands Observation: Able to respond to yes/no queries: Yes, Yes/No Confusion: No, Comprehends Conversational Speech: Yes - Language/Verbal Expression Able to Respond to Simple Queries: Yes: WNL Able to Communicate Wants and Needs: Yes: WNL Functional Communication Status: Yes: WNL - Swallow Evaluation/Bedside Assessment Current Nutritional Intake: NPO Oral Secretions: Yes: WFL (upper airway wet, gurgly) Dentition: Yes: Adequate Facial Symmetry at Rest: Symmetrical Facial Symmetry on Retraction: Symmetrical Jaw Position: Open at Rest Against Resistance Opening: Normal Against Resistance Closing: Normal Pucker Lips: Normal Smile: Normal Lingual Movement: Normal, Symmetric Lingual Speed of Movement: Normal Lingual Movement Strgth Against Opposition: Normal Lingual Movement Characteristics: Normal Velopharyngeal Movement: Normal Laryngeal Elevation: Impaired Laryngeal Movement: Reduced Excursion, Labored,delay initiation Bolus Size: WFL Labial Seal: WFL Oral Prep Time: WFL A-P Transit: WFL Pocketing: None Timing of Swallow: Delayed Coughing/Throat Clear: Yes Change in Voice: Yes Recommendations - Speech Evaluation, Impression/Plan Impression: Upper airway secretions, wet vocal quality, suspect Dysphagia with possible aspiration. Dysphonia. Verbal, rambles,tangential, confused but able to participate on conversation level. - Disposition Discharge to: Snf Facility, To be Determined - Dysphagia Impressions/Plan Swallowing Skills: Impaired Dysphagia Impressions: Mild Impairment, Moderate Impairment, Suspect Aspiration *Silent aspiration: cannot be R/O at bedside Dysphagia Treatment Plan: Other ([place] elevated. Encourage pt to cough and expectorate secretions, mouth care) Recommendations: Modified Barium Swallow - Recommendations Diet Consistency: NPO Medication Administration: Crushed with applesauce Liquids: NPO
--- NOTE | 2019-08-25 16:51 | PN ---
Progress Note, Physician History of Present Illness: Pt is alert. Still with cough. Fevers resolved. Webb removed. - Current Medication List Current Medications: Active Medications Acetaminophen (Tylenol -) 650 mg PO Q6H PRN PRN Reason: FEVER Last Admin: 08/22/19 14:08 Dose: 650 mg Benzocaine/Menthol (Cepacol Lozenge -) 1 each MM PRN PRN PRN Reason: SORE THROAT Last Admin: 08/18/19 17:18 Dose: 1 each Docusate Sodium (Colace -) 100 mg PO DAILY MELISSA Last Admin: 08/25/19 10:22 Dose: 100 mg Piperacillin Sod/Tazobactam (Sod 2.25 gm/ Dextrose) 50 mls @ 100 mls/hr IVPB Q8H-IV MELISSA; Protocol Last Admin: 08/25/19 10:22 Dose: 100 mls/hr Lactated Ringer's (Lactated Ringers Solution) 1,000 ml in 1,000 mls @ 83 mls/ hr IV ASDIR MELISSA Last Admin: 08/24/19 21:03 Dose: 83 mls/hr Ondansetron HCl (Zofran Injection) 4 mg IVPUSH Q6H PRN PRN Reason: NAUSEA AND/OR VOMITING Oxycodone HCl (Roxicodone -) 5 mg PO Q4H PRN PRN Reason: PAIN LEVEL 1-5 Last Admin: 08/21/19 10:21 Dose: 5 mg Pantoprazole Sodium (Protonix Iv) 40 mg IVPUSH DAILY MELISSA Last Admin: 08/25/19 10:22 Dose: 40 mg Polyethylene Glycol (Miralax (For Daily Use) -) 17 gm PO DAILY MELISSA Last Admin: 08/25/19 10:16 Dose: Not Given Senna (Senna -) 1 tab PO HS MELISSA Last Admin: 08/24/19 21:04 Dose: 1 tab - Objective Vital Signs: Vital Signs Temperature 98.3 F 08/25/19 14:00 Pulse Rate 84 08/25/19 14:00 Respiratory Rate 20 08/25/19 14:00 Blood Pressure 134/97 08/25/19 14:00 O2 Sat by Pulse Oximetry (%) 97 08/25/19 09:00 Constitutional: Yes: No Distress, Calm Neck: Yes: Other (cervical collar) Cardiovascular: Yes: Regular Rate and Rhythm Respiratory: Yes: Rhonchi Gastrointestinal: Yes: Normal Bowel Sounds, Soft Integumentary: Yes: WNL Neurological: Yes: Alert Labs: CBC, BMP 08/24/19 08:02 08/25/19 07:10 Microbiology 08/21/19 21:55 Sputum - Expectorated Gram Stain - Final 08/21/19 21:55 Sputum - Expectorated Sputum Culture - Final NORMAL RESPIRATORY TRINO 08/21/19 18:00 Blood - Peripheral Venous Blood Culture - Preliminary NO GROWTH OBTAINED AFTER 72 HOURS, INCUBATION TO CONTINUE FOR 2 DAYS. 08/21/19 18:00 Blood - Peripheral Venous Blood Culture - Preliminary NO GROWTH OBTAINED AFTER 72 HOURS, INCUBATION TO CONTINUE FOR 2 DAYS. 08/21/19 17:30 Urine - Urine Webb Urine Culture - Final NO GROWTH OBTAINED 08/18/19 01:10 Urine - Urine - Catheterized Urine Culture - Final NO GROWTH OBTAINED - ....Imaging Chest X-ray: Report Reviewed Ultrasound: Report Reviewed Problem List - Problems (1) MARY (acute kidney injury) Code(s): N17.9 - ACUTE KIDNEY FAILURE, UNSPECIFIED (2) Acute urinary retention Code(s): R33.8 - OTHER RETENTION OF URINE Assessment/Plan Leukocytosis Fever Hypotension Urinary retention s/p Cervical spine surgery - wbc trending down, now afebrile on Zosyn empirically, continue for now - pt still with cough, undergoing w/u for dysphagia, aspiration precautions - webb removed, undergoing trial of void - imaging results noted - vitals currently stable
--- NOTE | 2019-08-25 17:05 | PN ---
Progress Note, Physician History of Present Illness: Pt seen and examined at bedside. He is more awake and alert today. - Current Medication List Current Medications: Active Medications Acetaminophen (Tylenol -) 650 mg PO Q6H PRN PRN Reason: FEVER Last Admin: 08/22/19 14:08 Dose: 650 mg Benzocaine/Menthol (Cepacol Lozenge -) 1 each MM PRN PRN PRN Reason: SORE THROAT Last Admin: 08/18/19 17:18 Dose: 1 each Docusate Sodium (Colace -) 100 mg PO DAILY MELISSA Last Admin: 08/25/19 10:22 Dose: 100 mg Piperacillin Sod/Tazobactam (Sod 2.25 gm/ Dextrose) 50 mls @ 100 mls/hr IVPB Q8H-IV MELISSA; Protocol Last Admin: 08/25/19 10:22 Dose: 100 mls/hr Lactated Ringer's (Lactated Ringers Solution) 1,000 ml in 1,000 mls @ 83 mls/ hr IV ASDIR MELISSA Last Admin: 08/24/19 21:03 Dose: 83 mls/hr Ondansetron HCl (Zofran Injection) 4 mg IVPUSH Q6H PRN PRN Reason: NAUSEA AND/OR VOMITING Oxycodone HCl (Roxicodone -) 5 mg PO Q4H PRN PRN Reason: PAIN LEVEL 1-5 Last Admin: 08/21/19 10:21 Dose: 5 mg Pantoprazole Sodium (Protonix Iv) 40 mg IVPUSH DAILY MELISSA Last Admin: 08/25/19 10:22 Dose: 40 mg Polyethylene Glycol (Miralax (For Daily Use) -) 17 gm PO DAILY MELISSA Last Admin: 08/25/19 10:16 Dose: Not Given Senna (Senna -) 1 tab PO HS MELISSA Last Admin: 08/24/19 21:04 Dose: 1 tab - Objective Vital Signs: Vital Signs Temperature 98.3 F 08/25/19 14:00 Pulse Rate 84 08/25/19 14:00 Respiratory Rate 20 08/25/19 14:00 Blood Pressure 134/97 08/25/19 14:00 O2 Sat by Pulse Oximetry (%) 97 08/25/19 09:00 Constitutional: Yes: Calm Eyes: Yes: Conjunctiva Clear HENT: Yes: Atraumatic Neck: Yes: Supple Cardiovascular: Yes: S1, S2 Respiratory: Yes: CTA Bilaterally Gastrointestinal: Yes: Normal Bowel Sounds, Soft Genitourinary: Yes: WNL Musculoskeletal: Yes: Other (neck brace) Edema: No Neurological: Yes: Oriented Psychiatric: Yes: Oriented Labs: CBC, BMP 08/24/19 08:02 08/25/19 07:10 Problem List - Problems (1) MARY (acute kidney injury) Code(s): N17.9 - ACUTE KIDNEY FAILURE, UNSPECIFIED (2) Acute urinary retention Code(s): R33.8 - OTHER RETENTION OF URINE Assessment/Plan Current Medications Generic Name Dose Route Start Last Admin Trade Name Freq PRN Reason Stop Dose Admin Acetaminophen 650 mg 08/21/19 17:02 08/22/19 14:08 Tylenol - PO 650 mg Q6H PRN Administration FEVER Benzocaine/Menthol 1 each 08/18/19 11:08 08/18/19 17:18 Cepacol Lozenge - MM 1 each PRN PRN Administration SORE THROAT Docusate Sodium 100 mg 08/19/19 13:45 08/25/19 10:22 Colace - PO 100 mg DAILY MELISSA Administration Piperacillin Sod/Tazobactam 50 mls @ 100 mls/hr 08/23/19 10:00 08/25/19 10:22 Sod 2.25 gm/ Dextrose IVPB 100 mls/hr Q8H-IV MELISSA Administration Protocol Lactated Ringer's 1,000 ml in 1,000 mls @ 83 mls/hr 08/24/19 14:06 08/24/19 21:03 Lactated Ringers Solution IV 83 mls/hr ASDIR MELISSA Administration Ondansetron HCl 4 mg 08/20/19 07:55 Zofran Injection IVPUSH Q6H PRN NAUSEA AND/OR VOMITING Oxycodone HCl 5 mg 08/20/19 07:55 08/21/19 10:21 Roxicodone - PO 5 mg Q4H PRN Administration PAIN LEVEL 1-5 Pantoprazole Sodium 40 mg 08/19/19 10:00 08/25/19 10:22 Protonix Iv IVPUSH 40 mg DAILY MELISSA Administration Polyethylene Glycol 17 gm 08/19/19 13:45 08/25/19 10:16 Miralax (For Daily Use) - PO Not Given DAILY MELISSA Senna 1 tab 08/19/19 22:00 08/24/19 21:04 Senna - PO 1 tab HS MELISSA Administration Impression 1. MARY 2. hypotension 3. s/p cervical surgery 4. gerd 5. htn 6. altered mental status Plan - renal function is improving - repeat labs in am - mental status improving - hold losartan for now - monitor bp - renal ultrasound reviewed
[2019-08-25] MEDS: LACTATED RINGERS SOLUTION 1,000 ML/1,000 ML INFUS.BAG IV SCH (17:22)
--- NOTE | 2019-08-25 18:08 | PN ---
Progress Note (short form) - Note Progress Note: Hospitalist Medicine Still confused, but improved from yesterday. Clearing throat; needs suctioning. Passed TOV thus far, not retaining Vitals 08/25/19 17:34 Temperature 98.3 F Pulse Rate 85 Respiratory 20 Rate Blood Pressure 163/85 Physical Exam General: resting, with hard c-collar on HEENT: NCAT, PERRLA neck: supple cardio: S1, S2 RRR. no r/m/g pulm: +few rhonchi b/l. congested. no accessory m usage abdomen: nontender, nondistended LE: 2+ pulses, no edema Laboratory Tests 08/25/19 07:10 Sodium 144 Potassium 4.6 Chloride 108 H BUN 27.7 H Creatinine 1.4 H Est GFR (CKD-EPI)AfAm 55.38 Est GFR (CKD-EPI)NonAf 47.78 AST 56 H ALT 68 H Albumin 2.9 L Microbiology 08/21/19 21:55 Sputum - Expectorated Gram Stain - Final 08/21/19 17:30 Urine - Urine Webb Urine Culture - Final NO GROWTH OBTAINED 08/18/19 01:10 Urine - Urine - Catheterized Urine Culture - Final NO GROWTH OBTAINED 08/21/19 21:55 Sputum - Expectorated Sputum Culture - Preliminary NORMAL RESPIRATORY TRINO 08/21/19 18:00 Blood - Peripheral Venous Blood Culture - Preliminary NO GROWTH OBTAINED AFTER 48 HOURS, INCUBATION TO CONTINUE FOR 3 DAYS. 08/21/19 18:00 Blood - Peripheral Venous Blood Culture - Preliminary NO GROWTH OBTAINED AFTER 48 HOURS, INCUBATION TO CONTINUE FOR 3 DAYS. Imaging 08/18/19: c-spine XR: c-spine hardware appropriate position. alignment maintained. no hardware failure 08/22/19: CXR: no acute path. minimal atelectasis R base 08/23/19: CXR: since prior study, atelectatic changes at R base have diminished , improvement R base 08/24/19: renal sono: WNL 08/24/19: CTH: (-) 08/25/19: CXR: R basilar platelike atelectasis Assessment/Plan 79 y/o/m with PMHx of HTN, GERD, and PVD(s/p stent- Pt. unclear which leg) presenting after C3-C5 discectomy and fusion. PO Day 7 #Neurology - s/p C4 corpectomy & C3-C5 anterior cervical decompression and instrumented fusion (PO Day 7) - Maintain head of bed 30-45 degrees. - Pain medication: on roxicodone PRN, no MARKETING PROJECT MANAGER; NO NSAID's. - on bowel regimen, while on pain mgmt - miralax, senna, colace - Hard c-collar in place. - PT/OT/Rehab, OOB. - WBAT B/L LE - PWB B/L UE: 5lbs. - Keep dressing clean & dry. - B/L UE & LE NV checks. - Discharge planning: f/u [facility] [place] office 08/27/2019; call for appointment; . - Cepacol Lozenge as needed #acute toxic metabolic encephalopathy 2/2 ?PNA vs. UTI - outlined below - CTH (-) - c/t monitor #ID -post-op fever, sepsis 2/2 ?PNA vs. UTI -c/w zosyn (08/23), will need to d/w ID course -blood, ucx, sputum (-) thus far -webb has been removed. not retaining -c/w suctioning PRN -ID: Dr. Oliva #Nephro -MARY - restarted IVF - renal sono: unremarkable - Nephro: Dr. Chan #Urology - Post-op Urinary Retention, off webb. not retaining; passing TOV - webb initially placed by Dr. Hubbard - Urology on board #Cardiology - hx HTN - hold losartan #Pulmonology - Encourage Incentive spirometry - will monitor and keep SpO2 above 92% - Airway observation: In case of emergency, remove anterior cervical spine dressing and pull out running suture; ok to cut suture if needed to decompress - hematoma. #F/E/N - on LR 83 cc/hr - continue to follow lytes - NPO d/t AMS; for MBS tomorrow (08/26) #Prophylaxis - Mechanical only: KELLEY's, SCD's, per sx recs. to restart PPX based on sx #Disposition - cont'd monitoring on med-surg -webb removed, passing TOV thus far - on IV abx - pt refuses to go to [facility], wants to go home - No heavy lifting (>5 lbs), bending or twisting x 6 months post op. <Desi Garcia - Last Filed: 08/25/19 18:08> - Note Progress Note: [facility] *LIVE* Progress Note (short form) Patient Name: CLIVE SPRINGER Date of : 1940 Patient Status: Inpatient Attending Provider: Russ Simon Date: 08/24/19 17:56 Initialization Date: 08/24/19 17:56 Progress Note (short form) - Note Progress Note: Hospitalist Medicine Pt confused today. Per nurse, this AM found without gown on. Case d/w sx, uro. For webb removal, trial of void per uro today. Vitals 08/24/19 07:48 Temperature 98.6 F Pulse Rate 87 Respiratory 20 Rate Blood Pressure 128/96 Physical Exam General: resting, with hard c-collar on HEENT: NCAT, PERRLA neck: supple cardio: S1, S2 RRR. no r/m/g pulm: +few rhonchi b/l. no accessory m usage abdomen: nontender, nondistended LE: 2+ pulses, no edema Laboratory Tests 08/24/19 08/24/19 08:02 08:02 WBC 11.6 H Hgb 10.9 L Hct 33.5 L Plt Count 276 Sodium 144 Potassium 4.6 Chloride 109 H Carbon Dioxide 28 BUN 32.1 H Creatinine 1.5 H Random Glucose 108 H Microbiology 08/21/19 21:55 Sputum - Expectorated Gram Stain - Final 08/21/19 17:30 Urine - Urine Webb Urine Culture - Final NO GROWTH OBTAINED 08/18/19 01:10 Urine - Urine - Catheterized Urine Culture - Final NO GROWTH OBTAINED 08/21/19 21:55 Sputum - Expectorated Sputum Culture - Preliminary NORMAL RESPIRATORY TRINO 08/21/19 18:00 Blood - Peripheral Venous Blood Culture - Preliminary NO GROWTH OBTAINED AFTER 48 HOURS, INCUBATION TO CONTINUE FOR 3 DAYS. 08/21/19 18:00 Blood - Peripheral Venous Blood Culture - Preliminary NO GROWTH OBTAINED AFTER 48 HOURS, INCUBATION TO CONTINUE FOR 3 DAYS. Imaging 08/18/19: c-spine XR: c-spine hardware appropriate position. alignment maintained. no hardware failure 08/22/19: CXR: no acute path. minimal atelectasis R base 08/23/19: CXR: since prior study, atelectatic changes at R base have diminished , improvement R base 08/24/19: renal sono: WNL 08/24/19: CTH: (-) Assessment/Plan 79 y/o/m with PMHx of HTN, GERD, and PVD(s/p stent- Pt. unclear which leg) presenting after C3-C5 discectomy and fusion. PO Day 7 #Neurology - s/p C4 corpectomy & C3-C5 anterior cervical decompression and instrumented fusion (PO Day 7) - Maintain head of bed 30-45 degrees. - Pain medication: on roxicodone PRN, no MARKETING PROJECT MANAGER; NO NSAID's. - on bowel regimen, while on pain mgmt - miralax, senna, colace - Hard c-collar in place. - PT/OT/Rehab, OOB. - WBAT B/L LE - PWB B/L UE: 5lbs. - Keep dressing clean & dry. - B/L UE & LE NV checks. - Discharge planning: f/u [facility] [place] office 08/27/2019; call for appointment; . - Cepacol Lozenge as needed #acute toxic metabolic encephalopathy 2/2 ?PNA vs. UTI - outlined below - CTH (-) - c/t monitor #ID -post-op fever, sepsis 2/2 ?PNA vs. UTI -c/w zosyn (08/23) -blood, ucx, sputum (-) thus far -remove webb as could be source -ID: Dr. Oliva #Nephro -MARY -c/w gentle IVF; on LR 83 cc/hr. improving - renal sono: unremarkable - Nephro: Dr. Chan #Urology - Post-op Urinary Retention - webb placed by Dr. Hubbard - Urology on board ; remove webb, trial of void today #Cardiology - hx HTN - c/w Losartan #Pulmonology - Encourage Incentive spirometry - will monitor and keep SpO2 above 92% - Airway observation: In case of emergency, remove anterior cervical spine dressing and pull out running suture; ok to cut suture if needed to decompress - hematoma. #F/E/N - on LR 83 cc/hr - continue to follow lytes - NPO d/t AMS #Prophylaxis - Mechanical only: KELLEY's, SCD's, per sx recs. to restart PPX based on sx #Disposition - cont'd monitoring on med-surg - for TOV, webb removal today - on IV abx - pt refuses to go to [facility], wants to go home - No heavy lifting (>5 lbs), bending or twisting x 6 months post op. <Desi Garcia - Last Filed: 08/24/19 18:07> - Note Progress Note: Seen and examined; please see resident note for further historical information. I personally verified all sosa historical information and exam findings. Personally interpreted all imaging and diagnostics and reviewed appropriate consults. I reviewed all labs and vital signs as per resident note and EMR as documented. I agree with the above assessment and plan unless supplemented by myself in the following. Patient is somewhat confused this morning, but is not showing any focal neurologic symptoms, the etiology of this is continued to be secondary to underlying toxic metabolic encephalopathy likely secondary to underlying sepsis. It should be noted that the patient did get preoperative antibiotics, and the timing of his antibiotic therapy could have easily contributed to the cultures that were obtained when he started to spike these fevers at the beginning of the previous weekend being negative. He has no signs of worsening sepsis with his heart rate normalized, and laboratory results continue to be pending. We discussed the case with the patient's orthopedic surgeon who recommended discussion with urology regarding the removal of the Webb catheter. Discussion with urology revealed that an order was placed for removal over the weekend, is unclear why the Webb catheter was not removed over the weekend. Discussed with nursing. The patient has no new complaints regarding to genitourinary or abdominal symptoms. As stated, cultures are negative. Cannot complete swallow evaluation at this juncture, will have to defer per swallow. 10 item review of systems was completed and is negative aside from history of present illness VS, labs, imaging reviewed NAD, AAO, resting comfortably in bed. RRR s1/2 no mgr Normal muscle tone, moves all 5 extremities with normal apparent strength Neck is supple, trachea midline, no [place] LN. postoperative area is well-healed with no signs of worsening edema, skin breakdown, no signs of postop infection or purulence. Remains in [place] J collar. Lungs CTAB with sym expansion NT ND +BS no [place] organomegaly CN2-12 wnl; no FND NC AT EOMI PERRLA Normal mood, appropriate behavior, euthymic affect No skin breakdown or rashes noted CT head negative for acute processes Micro reviewed Assessment and plan: Patient presents for orthopedic procedure per Dr. Alford, complicated by traumatic Webb insertion that was rectified with coud placement by urology. This was subsequently complicated by the patient developing a urinary obstruction secondary to clot formation due to the traumatic Webb placement and the patient was recommended to keep the catheter in for 5 days. Orthopedic surgery did not wish for the patient to be discharged with a Webb catheter. The patient developed a fever and tachycardia and process consistent with sepsis and was started with broad-spectrum antibiotic coverage that will be honed down based on culture results if they do result, though there is no impetus for ESBL, VRE, etc. etc. The patient is also pending ESR and CRP trending to ensure that there is no uptrend with respect to an occult wound infection, though the surgical site itself looks clear. We will continue with the current antibiotics per infectious disease, current DVT prophylaxis, and complete Webb removal with subsequent PVR check. The patient did have some altered mental status but had a CT head that was negative, the mentation improved, and there are no focal neurologic deficits. We will monitor 24 hours worth of neurologic checks. *Today is improved with mentation; contining to monitor n the floor. Problems include: -Toxic metabolic encephalopathy continues to resolve -Status post elective C4 corpectomy & C3-C5 anterior cervical decompression and instrumented fusion POD #3 (Postoperative instructions and pain management instructions per orthopedic surgery. Monitoring on the floor) -Postoperative fever likely 2.2 UTI -Urinary retention secondary to traumatic webb insertion causing clot ( appreciate uro input) -CKD (Likely secondary to underlying chronic issues [htn, etc.] and is stable. He is not oliguric. Continue to monitor) -Hx HTN (monitor) -Leukocytosis -Overweight Full Code <Russ Simon - Last Filed: 08/25/19 17:20> <Russ Simon - Last Filed: 08/29/19 04:43>
[2019-08-25] MEDS: SENNOSIDES 8.6MG TABLET (FP) PO SCH (21:48)
[2019-08-26] MEDS ORDERED: PIPERACILLIN/TAZOBACTAM 2.25 GM VIAL IVPB ONE ×3 (01:22→17:42)
[2019-08-26] MEDS ORDERED: DEXTROSE 5%-WATER - 50 ML IVPB ONE ×3 (01:22→17:42)
[2019-08-26] MEDS: PIPERACILLIN/TAZOB 2.25 GM 2.25 GM in DEXTROSE 5%-WATER - 50 ML IVPB SCH ×3 (02:14→18:01)
[2019-08-26] MEDS ORDERED: SODIUM CHLORIDE FOR INHALATION 3 ML VIAL.NEB IH SCH ×2 (03:45→04:05)
[2019-08-26] MEDS ORDERED: ACETYLCYSTEINE 20% 200MG/ML 4 ML VIAL *FOR ORAL / INH USE ONLY NEB ONE (04:27)
[2019-08-26 05:23] LABS: ARTERIAL BLD GAS O2 SATURATION 95.5 % (95-98); ARTERIAL BLOOD GAS BASE EXCESS 1.6 meq/l (-2-2); ARTERIAL BLOOD GAS PCO2 39.6 mmHg (35-45); ARTERIAL BLOOD GAS PO2 74.5 mmHg (80-100); ARTERIAL BLOOD GAS pH 7.43 (7.35-7.45)
[2019-08-26 05:24] LABS: ALLENS TEST POSITIVE
[2019-08-26] MEDS: SODIUM CHLORIDE FOR INHALATION 3 ML VIAL.NEB IH SCH ×5 (06:36→20:48)
[2019-08-26 08:36] LABS: BASO % 0.4 % (0-2.0); EOS % 3.7 % (0-4.5); HEMATOCRIT 35.4 % (35.4-49); HEMOGLOBIN 11.7 GM/dL (11.7-16.9); LYMPH % 12.6 % (8-40); MCHC 32.9 g/dl (32.0-35.9); MEAN PLT VOLUME 8.3 fl (7.5-11.1); MONO % 12.8 % (3.8-10.2); NEUT % 70.5 % (42.8-82.8); PLATELET COUNT 364 K/MM3 (134-434); RBC 4.16 M/mm3 (4.00-5.60); RDW 14.9 % (11.9-15.9); WHITE BLOOD COUNT 10.2 K/mm3 (4.0-10.0)
[2019-08-26 08:55] LABS: BLOOD UREA NITROGEN 26.1 mg/dL (7-18); CALCIUM 9.4 mg/dL (8.5-10.1); CREATININE 1.5 mg/dL (0.55-1.3); MAGNESIUM 2.1 mg/dL (1.8-2.4); PHOSPHOROUS 3.9 mg/dL (2.5-4.9); POTASSIUM 4.7 mmol/L (3.5-5.1)
[2019-08-26] MEDS ORDERED: SCOPOLAMINE HYDROBROMIDE 1 PATCH PATCH.TD72 TD SCH (10:00)
[2019-08-26] MEDS: PANTOPRAZOLE SODIUM 40 MG VIAL IVPUSH SCH (10:11)
[2019-08-26] MEDS: DOCUSATE SODIUM 100 MG CAPSULE (FP) PO SCH (10:12)
[2019-08-26] MEDS: POLYETHYLENE GLYCOL 3350 119 GM BTL PO SCH (10:12)
[2019-08-26 10:55] LABS: ANISOCYTOSIS 2+; MACROCYTOSIS 0; PLATELET ESTIMATE NORMAL
--- NOTE | 2019-08-26 11:47 | PN ---
Progress Note, Physician History of Present Illness: confused to day thick secretions - Current Medication List Current Medications: Active Medications Acetaminophen (Tylenol -) 650 mg PO Q6H PRN PRN Reason: FEVER Last Admin: 08/22/19 14:08 Dose: 650 mg Benzocaine/Menthol (Cepacol Lozenge -) 1 each MM PRN PRN PRN Reason: SORE THROAT Last Admin: 08/18/19 17:18 Dose: 1 each Docusate Sodium (Colace -) 100 mg PO DAILY [facility] Last Admin: 08/26/19 10:12 Dose: 100 mg Piperacillin Sod/Tazobactam (Sod 2.25 gm/ Dextrose) 50 mls @ 100 mls/hr IVPB Q8H-IV MELISSA; Protocol Last Admin: 08/26/19 10:11 Dose: 100 mls/hr Ondansetron HCl (Zofran Injection) 4 mg IVPUSH Q6H PRN PRN Reason: NAUSEA AND/OR VOMITING Oxycodone HCl (Roxicodone -) 5 mg PO Q4H PRN PRN Reason: PAIN LEVEL 1-5 Last Admin: 08/21/19 10:21 Dose: 5 mg Pantoprazole Sodium (Protonix Iv) 40 mg IVPUSH DAILY [facility] Last Admin: 08/26/19 10:11 Dose: 40 mg Polyethylene Glycol (Miralax (For Daily Use) -) 17 gm PO DAILY [facility] Last Admin: 08/26/19 10:12 Dose: Not Given Scopolamine HBr (Transderm-Scop -) 1 patch TD Q72H [facility] Last Admin: 08/26/19 11:25 Dose: 1 patch Senna (Senna -) 1 tab PO HS [facility] Last Admin: 08/25/19 21:48 Dose: Not Given Sodium Chloride (Normal Saline For Inhalation -) 3 ml IH RQID [facility] Last Admin: 08/26/19 11:18 Dose: 3 ml - Objective Vital Signs: Vital Signs Temperature 98.6 F 08/26/19 06:00 Pulse Rate 85 08/26/19 06:00 Respiratory Rate 20 08/26/19 06:00 Blood Pressure 163/95 08/26/19 06:00 O2 Sat by Pulse Oximetry (%) 98 08/25/19 21:00 Constitutional: Yes: No Distress, Other Neck: Yes: Other (hard collar) Cardiovascular: Yes: S1, S2 Respiratory: Yes: Regular, CTA Bilaterally Gastrointestinal: Yes: Normal Bowel Sounds, Soft Musculoskeletal: Yes: WNL Extremities: Yes: WNL Neurological: Yes: Confusion Psychiatric: Yes: Other Labs: CBC, BMP 08/26/19 07:45 08/26/19 07:45 Assessment/Plan 1. MARY 2. hypotension 3. s/p cervical surgery 4. gerd 5. htn plan continue current mgmt swallow study monitor mental status suction secretions rest as per the team
--- NOTE | 2019-08-26 12:01 | PN ---
Teaching Attending Note Name of Resident: Desi Garcia ATTENDING PHYSICIAN STATEMENT I saw and evaluated the patient. I reviewed the resident's note and discussed the case with the resident. I agree with the resident's findings and plan as documented. SUBJECTIVE: Patient is confused. He denies pain. OBJECTIVE: Vital Signs Period Temp Pulse Resp BP Sys/Banks Pulse Ox Last 24 Hr 98.3 F-98.6 F 84-87 20-22 134-163/85-97 98 HEART: S1S2, RRR LUNGS: Bilateral rhonchi ABDOMEN: Soft, non-tender, non-distended, normal BS EXTREMITIES: No edema Laboratory Results - last 24 hr 08/26/19 08/26/19 08/26/19 05:00 07:45 07:45 WBC 10.2 H RBC 4.16 Hgb 11.7 Hct 35.4 MCV 85.0 MCH 28.0 MCHC 32.9 RDW 14.9 Plt Count 364 D MPV 8.3 Absolute Neuts (auto) 7.2 Neutrophils % 70.5 Neutrophils % (Manual) 72.8 Band Neutrophils % 0.0 Lymphocytes % 12.6 D Lymphocytes % (Manual) 5.8 L Monocytes % 12.8 H Monocytes % (Manual) 11 H Eosinophils % 3.7 Eosinophils % (Manual) 3.9 Basophils % 0.4 Basophils % (Manual) 1.0 Myelocytes % (Man) 3 H Promyelocytes % (Man) 0 Blast Cells % (Manual) 0 Nucleated RBC % 0 Metamyelocytes 0 Hypochromia 0 Platelet Estimate Normal Polychromasia 0 Poikilocytosis 0 Anisocytosis 2+ Microcytosis 2+ Macrocytosis 0 Anticoagulation Therapy No Result Required. Puncture Site Left radial ABG pH 7.43 ABG pCO2 at Pt Temp 39.6 ABG pO2 at Pt Temp 74.5 L ABG HCO3 25.5 ABG O2 Sat (Measured) 95.5 ABG O2 Content 14.9 ABG Base Excess 1.6 Sheldon Test Positive O2 Delivery Device Room air Oxygen Flow Rate 21% Vent Mode No Result Required. Vent Rate No Result Required. Mechanical Rate No Result Required. Pressure Support Vent No Result Required. Sodium 143 Potassium 4.7 Chloride 108 H Carbon Dioxide 27 Anion Gap 9 BUN 26.1 H Creatinine 1.5 H Est GFR (CKD-EPI)AfAm 50.95 Est GFR (CKD-EPI)NonAf 43.96 Random Glucose 97 Calcium 9.4 Phosphorus 3.9 Magnesium 2.1 Current Medications Generic Name Dose Route Start Last Admin Trade Name Freq PRN Reason Stop Dose Admin Acetaminophen 650 mg 08/21/19 17:02 08/22/19 14:08 Tylenol - PO 650 mg Q6H PRN Administration FEVER Benzocaine/Menthol 1 each 08/18/19 11:08 08/18/19 17:18 Cepacol Lozenge - MM 1 each PRN PRN Administration SORE THROAT Docusate Sodium 100 mg 08/19/19 13:45 08/26/19 10:12 Colace - PO 100 mg DAILY MELISSA Administration Piperacillin Sod/Tazobactam 50 mls @ 100 mls/hr 08/23/19 10:00 08/26/19 10:11 Sod 2.25 gm/ Dextrose IVPB 100 mls/hr Q8H-IV MELISSA Administration Protocol Ondansetron HCl 4 mg 08/20/19 07:55 Zofran Injection IVPUSH Q6H PRN NAUSEA AND/OR VOMITING Oxycodone HCl 5 mg 08/20/19 07:55 08/21/19 10:21 Roxicodone - PO 5 mg Q4H PRN Administration PAIN LEVEL 1-5 Pantoprazole Sodium 40 mg 08/19/19 10:00 08/26/19 10:11 Protonix Iv IVPUSH 40 mg DAILY MELISSA Administration Polyethylene Glycol 17 gm 08/19/19 13:45 08/26/19 10:12 Miralax (For Daily Use) - PO Not Given DAILY MELISSA Scopolamine HBr 1 patch 08/26/19 10:00 08/26/19 11:25 Transderm-Scop - TD 1 patch Q72H MELISSA Administration Senna 1 tab 08/19/19 22:00 08/25/19 21:48 Senna - PO Not Given HS MELISSA Sodium Chloride 3 ml 08/26/19 04:15 08/26/19 11:18 Normal Saline For Inhalation - IH 3 ml RQID MELISSA Administration ASSESSMENT AND PLAN: This is a 79 year old man with a history of HTN, PAD, GERD who presented for C- spine surgery. 1. Cervical spondylosis with radiculopathy, cervical stenosis with myelopathy - s/p C4 corpectomy; partial corpectomies C3, C5; insertion biomechanical device C3-C5; C3-C5 anterior arthrodesis; C3-C5 anterior instrumentation; bone autograft; bone allograft; microsurgical dissection on 08/17 - Maintain cervical collar - Pain control - Continue PT - ambulated 8 feet yesterday - Will likely need rehab 2. Acute metabolic encephalopathy secondary to possible pneumonia, UTI - Urine, blood, sputum cultures negative - On Zosyn empirically 3. Acute kidney injury on stage 3 CKD - Improving - Continue to hold Cozaar 4. Dysphagia with possible aspiration - Modified barium swallow today 5. Urinary retention - Resolved 6. HTN - Cozaar held secondary to MARY 7. PAD 8. GERD - Continue Protonix
[2019-08-26] MEDS ORDERED: PT OWN MED DRAWER 7, Y5N ONE (12:35)
--- NOTE | 2019-08-26 13:46 | PN ---
Progress Note, Physician History of Present Illness: Pt seen and examined at bedside. He is awake and appears comfortable. He denies shortness of breath. - Current Medication List Current Medications: Active Medications Acetaminophen (Tylenol -) 650 mg PO Q6H PRN PRN Reason: FEVER Last Admin: 08/22/19 14:08 Dose: 650 mg Benzocaine/Menthol (Cepacol Lozenge -) 1 each MM PRN PRN PRN Reason: SORE THROAT Last Admin: 08/18/19 17:18 Dose: 1 each Docusate Sodium (Colace -) 100 mg PO DAILY MELISSA Last Admin: 08/26/19 10:12 Dose: 100 mg Piperacillin Sod/Tazobactam (Sod 2.25 gm/ Dextrose) 50 mls @ 100 mls/hr IVPB Q8H-IV MELISSA; Protocol Last Admin: 08/26/19 10:11 Dose: 100 mls/hr Ondansetron HCl (Zofran Injection) 4 mg IVPUSH Q6H PRN PRN Reason: NAUSEA AND/OR VOMITING Oxycodone HCl (Roxicodone -) 5 mg PO Q4H PRN PRN Reason: PAIN LEVEL 1-5 Last Admin: 08/21/19 10:21 Dose: 5 mg Pantoprazole Sodium (Protonix -) 40 mg PO DAILY [facility] Polyethylene Glycol (Miralax (For Daily Use) -) 17 gm PO DAILY [facility] Last Admin: 08/26/19 10:12 Dose: Not Given Scopolamine HBr (Transderm-Scop -) 1 patch TD Q72H [facility] Last Admin: 08/26/19 11:25 Dose: 1 patch Senna (Senna -) 1 tab PO HS [facility] Last Admin: 08/25/19 21:48 Dose: Not Given Sodium Chloride (Normal Saline For Inhalation -) 3 ml IH RQID [facility] Last Admin: 08/26/19 11:18 Dose: 3 ml - Objective Vital Signs: Vital Signs Temperature 98.2 F 08/26/19 10:00 Pulse Rate 90 08/26/19 10:00 Respiratory Rate 22 H 08/26/19 10:00 Blood Pressure 170/100 08/26/19 10:00 O2 Sat by Pulse Oximetry (%) 98 08/25/19 21:00 Constitutional: Yes: Calm Eyes: Yes: Conjunctiva Clear HENT: Yes: Atraumatic Neck: Yes: Supple Cardiovascular: Yes: S1, S2 Respiratory: Yes: CTA Bilaterally Gastrointestinal: Yes: Soft Genitourinary: Yes: WNL Musculoskeletal: Yes: WNL Edema: No Integumentary: Yes: WNL Labs: CBC, BMP 08/26/19 07:45 08/26/19 07:45 Problem List - Problems (1) MARY (acute kidney injury) Code(s): N17.9 - ACUTE KIDNEY FAILURE, UNSPECIFIED (2) Acute urinary retention Code(s): R33.8 - OTHER RETENTION OF URINE Assessment/Plan Current Medications Generic Name Dose Route Start Last Admin Trade Name Freq PRN Reason Stop Dose Admin Acetaminophen 650 mg 08/21/19 17:02 08/22/19 14:08 Tylenol - PO 650 mg Q6H PRN Administration FEVER Benzocaine/Menthol 1 each 08/18/19 11:08 08/18/19 17:18 Cepacol Lozenge - MM 1 each PRN PRN Administration SORE THROAT Docusate Sodium 100 mg 08/19/19 13:45 08/26/19 10:12 Colace - PO 100 mg DAILY MELISSA Administration Piperacillin Sod/Tazobactam 50 mls @ 100 mls/hr 08/23/19 10:00 08/26/19 10:11 Sod 2.25 gm/ Dextrose IVPB 100 mls/hr Q8H-IV MELISSA Administration Protocol Ondansetron HCl 4 mg 08/20/19 07:55 Zofran Injection IVPUSH Q6H PRN NAUSEA AND/OR VOMITING Oxycodone HCl 5 mg 08/20/19 07:55 08/21/19 10:21 Roxicodone - PO 5 mg Q4H PRN Administration PAIN LEVEL 1-5 Pantoprazole Sodium 40 mg 08/27/19 10:00 Protonix - PO DAILY MELISSA Polyethylene Glycol 17 gm 08/19/19 13:45 08/26/19 10:12 Miralax (For Daily Use) - PO Not Given DAILY MELISSA Scopolamine HBr 1 patch 08/26/19 10:00 08/26/19 11:25 Transderm-Scop - TD 1 patch Q72H MELISSA Administration Senna 1 tab 08/19/19 22:00 08/25/19 21:48 Senna - PO Not Given HS MELISSA Sodium Chloride 3 ml 08/26/19 04:15 08/26/19 11:18 Normal Saline For Inhalation - IH 3 ml RQID MELISSA Administration Impression 1. MARY 2. hypotension 3. s/p cervical surgery 4. gerd 5. htn 6. altered mental status Plan - monitor renal function - monitor mental status - hold losartan for now - monitor bp - restart losartan
[2019-08-26] MEDS: LOSARTAN POTASSIUM 50 MG TABLET (FP) PO SCH (14:14)
--- NOTE | 2019-08-26 14:42 | PN ---
Progress Note (short form) - Note Progress Note: Hospitalist Medicine Confused this AM and afternoon. W increased secretions, suctioned. MBS performed. Case d/w Dr. Miranda (sx) Vitals 08/26/19 10:00 Temperature 98.2 F Pulse Rate 90 Respiratory 22 H Rate Blood Pressure 170/100 Physical Exam General: resting, with hard c-collar on. gurgling HEENT: NCAT, PERRLA neck: supple cardio: S1, S2 RRR. no r/m/g pulm: increased secretions, congested. no accessory m usage abdomen: nontender, nondistended LE: 2+ pulses, no edema Laboratory Tests 08/26/19 08/26/19 07:45 07:45 WBC 10.2 H Hgb 11.7 Hct 35.4 Plt Count 364 D Sodium 143 Potassium 4.7 Chloride 108 H Carbon Dioxide 27 Anion Gap 9 BUN 26.1 H Creatinine 1.5 H Random Glucose 97 Microbiology 08/21/19 21:55 Sputum - Expectorated Gram Stain - Final 08/21/19 21:55 Sputum - Expectorated Sputum Culture - Final NORMAL RESPIRATORY TRINO 08/21/19 17:30 Urine - Urine Webb Urine Culture - Final NO GROWTH OBTAINED 08/18/19 01:10 Urine - Urine - Catheterized Urine Culture - Final NO GROWTH OBTAINED 08/21/19 18:00 Blood - Peripheral Venous Blood Culture - Preliminary NO GROWTH OBTAINED AFTER 96 HOURS, INCUBATION TO CONTINUE FOR 1 DAYS. 08/21/19 18:00 Blood - Peripheral Venous Blood Culture - Preliminary NO GROWTH OBTAINED AFTER 96 HOURS, INCUBATION TO CONTINUE FOR 1 DAYS. Imaging 08/18/19: c-spine XR: c-spine hardware appropriate position. alignment maintained. no hardware failure 08/22/19: CXR: no acute path. minimal atelectasis R base 08/23/19: CXR: since prior study, atelectatic changes at R base have diminished , improvement R base 08/24/19: renal sono: WNL 08/24/19: CTH: (-) 08/25/19: CXR: R basilar platelike atelectasis 08/26/19: CXR: atelectatic change at the R base with prominent mediastinum and lower cervical spine hardware. 08/26/19: MBS: severe dysphagi, recurrent aspiration on puree and thick liquid as well on patient secretions with focal wetness frequently. rule out swelling in the pharynx which may be contributing to the dysphagia s/p anterior fusion. strict NPO at this time, including medication. Mouth care. Suction when necessary. If swallowing does not improve, may need temporary PEG Assessment/Plan 79 y/o/m with PMHx of HTN, GERD, and PVD(s/p stent- Pt. unclear which leg) presenting after C3-C5 discectomy and fusion. #Neurology - s/p C4 corpectomy & C3-C5 anterior cervical decompression and instrumented fusion - Maintain head of bed 30-45 degrees. - Pain medication: on roxicodone PRN, no SCIENTIFIC DATABASE CURATOR; NO NSAID's. - on bowel regimen, while on pain mgmt - miralax, senna, colace -started on decadron by sx . - Hard c-collar in place. - PT/OT/Rehab, OOB. - WBAT B/L LE - PWB B/L UE: 5lbs. - Keep dressing clean & dry. - B/L UE & LE NV checks. - Discharge planning: f/u [facility] [place] office 08/27/2019; call for appointment; . - Cepacol Lozenge as needed #acute toxic metabolic encephalopathy 2/2 aspiration PNA - outlined below - CTH (-) - ABG WNL - MBS noted. discussed with sx team; will do NGT, will start on TF. otherwise NPO - no steroids at this time #ID -post-op fever, sepsis 2/2 aspiration PNA -c/w zosyn (08/23), will need to d/w ID course -blood, ucx, sputum (-) thus far -webb has been removed. not retaining -c/w suctioning PRN -ID: Dr. Oliva #Nephro -MARY - off IVF , as congested - renal sono: unremarkable - Nephro: Dr. Chan #Urology - Post-op Urinary Retention, off webb. not retaining; passing TOV - webb initially placed by Dr. Hubbard - Urology on board #Cardiology - hx HTN - hold losartan #Pulmonology - Encourage Incentive spirometry - will monitor and keep SpO2 above 92% - Airway observation: In case of emergency, remove anterior cervical spine dressing and pull out running suture; ok to cut suture if needed to decompress - hematoma. #F/E/N - off IVF as congested - c/t follow lytes -strict NPO per MBS, however NGT w/ TF per sx #Prophylaxis - Mechanical only: KELLEY's, SCD's, per sx recs. to restart PPX based on sx d/w sx no a/c at this time #Disposition - cont'd monitoring on med-surg -jon removed, passing TOV thus far - on IV abx - pt refuses to go to [place], wants to go home - No heavy lifting (>5 lbs), bending or twisting x 6 months post op.
[2019-08-26] MEDS ORDERED: DEXAMETHASONE SOD PHOSPHATE 10 MG/1 ML VIAL IVPUSH SCH ×2 (17:20→18:54)
[2019-08-26] MEDS: SENNOSIDES 8.6MG TABLET (FP) PO SCH (21:12)
--- NOTE | 2019-08-26 21:40 | PN ---
Progress Note (short form) - Note Progress Note: 79M s/p C4 corpectomy & C3-C5 anterior cervical decompression and instrumented fusion POD #9. Pt. oriented to person and place but not time (not surprising given his age and being bed-bound for 9 days). Pain well controlled. Pt. denies current headaches, chest pain, shortness of breath, nausea, vomiting , chills, & sweats. (+) Voiding; (+) Flatus; (+) BM. (+) Dysphagia; (+) New onset dysphonia. Stood in room with PT today; did not walk more than a few steps. All labs and vitals reviewed. PE: AAO x 3, NAD. C-Spine: Incision, dressing C/D/I. Echo-incisional soft tissue bed soft, no evidence of fluid collection. Ramona-J c-collar intact and in place. B/L UE & LE sensorimotor status at baseline. Barium Swallow Study: Severe dysphagia with aspiration. CT Head: No acute pathology as per radiology report. 79M s/p C4 corpectomy & C3-C5 anterior cervical decompression and instrumented fusion POD #9. -Decadron 10mg IV x 2 doses (1 this evening, 1 tomorrow morning) to help reduce pharyngeal swelling. -NPO; no placement of NGT at this time; will reassess tomorrow following administration of 2nd dose of Decadron. -Hold IVF as per medical team d/t pulmonary congestion. -Continue Zosyn IV as per ID team (renal dose) to treat aspiration pneumonia. -Incentive spirometry q15 minutes. -Pulmonary toilet minimum TID until respiratory symptoms improve. -Pain medication: NO NSAID's. -Maintain head of bed 30-45 degrees. -Hard c-collar. -DVT PPx: -Mechanical only: KELLEY's, SCD's. -f/u AM labs. -PT/OT/Rehab, OOB. -PWB B/L UE: 5lbs. -WBAT B/L LE. -Keep dressing clean & dry. -No heavy lifting (>5 lbs), bending or twisting x 6 months post op. -B/L UE & LE NV checks. -Care per medical hospitalist, ID, and renal teams. -Discharge planning: due to severity of myelopathy, patient is globally deconditioned and high fall risk; will benefit from inpatient stay at acute rehabilitation; recommend discharge to [place]; discuss with patient once mental status improves; f/u [facility] [place] office 10-14 days after hospital discharge; call for appointment; . Marek Miranda MD (Orthopaedic Surgery).
[2019-08-27] MEDS ORDERED: DEXTROSE 5%-WATER - 50 ML IVPB ONE ×3 (00:47→17:46)
[2019-08-27] MEDS ORDERED: PIPERACILLIN/TAZOBACTAM 2.25 GM VIAL IVPB ONE ×3 (00:47→17:46)
[2019-08-27] MEDS: PIPERACILLIN/TAZOB 2.25 GM 2.25 GM in DEXTROSE 5%-WATER - 50 ML IVPB SCH ×3 (01:23→18:34)
[2019-08-27] MEDS ORDERED: DEXAMETHASONE SOD PHOSPHATE 10 MG/1 ML VIAL IVPUSH SCH (06:00)
[2019-08-27 08:17] LABS: BASO % 0.4 % (0-2.0); HEMATOCRIT 37.4 % (35.4-49); HEMOGLOBIN 12.2 GM/dL (11.7-16.9); LYMPH % 9.8 % (8-40); MCHC 32.5 g/dl (32.0-35.9); MEAN CELL VOLUME 86.1 fl (80-96); MEAN PLT VOLUME 8.4 fl (7.5-11.1); MONO % 4.6 % (3.8-10.2); NEUT % 85.2 % (42.8-82.8); PLATELET COUNT 444 K/MM3 (134-434); RBC 4.34 M/mm3 (4.00-5.60); RDW 14.8 % (11.9-15.9); WHITE BLOOD COUNT 12.2 K/mm3 (4.0-10.0)
[2019-08-27] MEDS: SODIUM CHLORIDE FOR INHALATION 3 ML VIAL.NEB IH SCH ×3 (08:21→20:49)
[2019-08-27 08:47] LABS: CALCIUM 9.5 mg/dL (8.5-10.1); CREATININE 1.4 mg/dL (0.55-1.3); POTASSIUM 4.9 mmol/L (3.5-5.1)
[2019-08-27] MEDS ORDERED: FUROSEMIDE 40 MG TABLET (FP) PO SCH (10:00)
[2019-08-27] MEDS: LOSARTAN POTASSIUM 50 MG TABLET (FP) PO SCH (11:15)
[2019-08-27] MEDS: DOCUSATE SODIUM 100 MG CAPSULE (FP) PO SCH (11:15)
[2019-08-27] MEDS: POLYETHYLENE GLYCOL 3350 119 GM BTL PO SCH (11:16)
[2019-08-27] MEDS: PANTOPRAZOLE 40 MG TABLET (FP) PO SCH (11:16)
--- NOTE | 2019-08-27 12:03 | PN ---
Progress Note (short form) - Note Progress Note: S/p C4 corpectomy & C3-C5 anterior cervical decompression and instrumented fusion on 08/17 Pt seen and examined. Reports he is doing "okay". No issues overnight. Ambulated 5 feet with PT yesterday. Voiding without issue, npo due to dysphagia. Denies n/v/d, cp/sob. Vital Signs Temp 98 F 08/27/19 06:00 Pulse 93 H 08/27/19 06:00 Resp 20 08/27/19 06:00 BP 152/89 08/27/19 06:00 Pulse Ox 95 08/26/19 21:00 Intake & Output 08/26/19 08/27/19 08/27/19 23:59 11:59 23:59 Intake Total 100 50 Output Total 600 200 Balance -500 -150 Weight 192 lb 9.6 oz Intake: IVPB 100 50 Output: Urine 600 200 Void 600 200 Other: Voiding Method Incontinent Incontinent # Unmeasured Voids Void 1 Bowel Movement No Body Mass Index (BMI) 26.0 Weight Measurement Method Built in [facility] CBC, BMP 08/27/19 07:30 08/27/19 07:30 Gen Awake and alert, nad, responds to questions, + gurgling with speech. Neck: Incision c/d/i with steristrips in place, no palpable hematoma, no evidence of collection, trace ecchymosis. No erythema or drainagine from wound. Platinum-J c-collar intact and in place. Neuro: Central Sterile Technician strength slightly weaker on L, RUE 5/5 biceps/triceps, LUE 4/5 biceps/triceps. SILT b/l ues. B/L les 5/5 dorsi/plantarflexion. SILT b/l. Barium Swallow Study: Severe dysphagia with aspiration. CT Head: No acute pathology as per radiology report. A/P: 79 y/o M w/ PMHx HTN, GERD, PVD, cervical spondylosis/myelopathy, now S/p C4 corpectomy & C3-C5 anterior cervical decompression and instrumented fusion on 08/17, c/b Dysphagia with possible aspiration. afebrile, vss wbc trending up, likely due to steroids Received 2 doses Decadron 10mg Iv yesterday -Decadron 10mg IV x 1 dose at 5pm to help reduce pharyngeal swelling. -NPO -Hold IVF as per medical team d/t pulmonary congestion. -Aggressive pulmonary toilet -OOB with PT, if pt unable to be oob do exercises in bed -Continue Zosyn IV as per ID team (renal dose) to treat aspiration pneumonia. -Incentive spirometry q15 minutes. -Pain medication: NO NSAID's. -Maintain head of bed 30-45 degrees. -Hard c-collar. -DVT PPx: -Mechanical only: KELLEY's, SCD's. -Keep dressing clean & dry. -Neurovascular checks per protocol -Will need rehab placement upon d/c d/w attending Dr Marek Miranda
--- NOTE | 2019-08-27 12:36 | PN ---
Progress Note (short form) - Note Progress Note: Hospitalist Medicine Still with confusion, however appears more comfortable. Will move to [facility], per sx request and close monitoring of airway. Vitals 08/27/19 06:00 Temperature 98 F Pulse Rate 93 H Respiratory 20 Rate Blood Pressure 152/89 Physical Exam General: resting, with hard c-collar on. HEENT: NCAT, PERRLA neck: supple cardio: S1, S2 RRR. no r/m/g pulm: scattered rhonchi abdomen: nontender, nondistended neuro: barrel cutter 2-12 grossly intact, decreased web analytics developer, hand strength on L LE: 2+ pulses, no edema Laboratory Tests 08/26/19 08/26/19 07:45 07:45 WBC 10.2 H Hgb 11.7 Hct 35.4 Plt Count 364 D Sodium 143 Potassium 4.7 Chloride 108 H Carbon Dioxide 27 Anion Gap 9 BUN 26.1 H Creatinine 1.5 H Random Glucose 97 Microbiology 08/21/19 21:55 Sputum - Expectorated Gram Stain - Final 08/21/19 21:55 Sputum - Expectorated Sputum Culture - Final NORMAL RESPIRATORY TRINO 08/21/19 17:30 Urine - Urine Webb Urine Culture - Final NO GROWTH OBTAINED 08/18/19 01:10 Urine - Urine - Catheterized Urine Culture - Final NO GROWTH OBTAINED 08/21/19 18:00 Blood - Peripheral Venous Blood Culture - Preliminary NO GROWTH OBTAINED AFTER 96 HOURS, INCUBATION TO CONTINUE FOR 1 DAYS. 08/21/19 18:00 Blood - Peripheral Venous Blood Culture - Preliminary NO GROWTH OBTAINED AFTER 96 HOURS, INCUBATION TO CONTINUE FOR 1 DAYS. Imaging 08/18/19: c-spine XR: c-spine hardware appropriate position. alignment maintained. no hardware failure 08/22/19: CXR: no acute path. minimal atelectasis R base 08/23/19: CXR: since prior study, atelectatic changes at R base have diminished , improvement R base 08/24/19: renal sono: WNL 08/24/19: CTH: (-) 08/25/19: CXR: R basilar platelike atelectasis 08/26/19: CXR: atelectatic change at the R base with prominent mediastinum and lower cervical spine hardware. 08/26/19: MBS: severe dysphagi, recurrent aspiration on puree and thick liquid as well on patient secretions with focal wetness frequently. rule out swelling in the pharynx which may be contributing to the dysphagia s/p anterior fusion. strict NPO at this time, including medication. Mouth care. Suction when necessary. If swallowing does not improve, may need temporary PEG Assessment/Plan 79 y/o/m with PMHx of HTN, GERD, and PVD(s/p stent- Pt. unclear which leg) presenting after C3-C5 discectomy and fusion. #Neurology - s/p C4 corpectomy & C3-C5 anterior cervical decompression and instrumented fusion - Maintain head of bed 30-45 degrees. - Pain medication: on roxicodone PRN, no NSAID's - on bowel regimen, while on pain mgmt - miralax, senna, colace - started on decadron by sx ; to receive additional dose at 5PM - frequent suction, chest PT. transfer to tele - Hard c-collar in place. - PT/OT/Rehab, OOB. - WBAT B/L LE - PWB B/L UE: 5lbs. - B/L UE & LE NV checks. - Discharge planning: f/u [facility] [place] office ; call for appointment ; . - Cepacol Lozenge as needed #acute toxic metabolic encephalopathy 2/2 aspiration PNA - outlined below - CTH (-) - ABG WNL - MBS noted. discussed with sx team; no NGT at this time #ID -post-op fever, sepsis 2/2 aspiration PNA -c/w zosyn (08/23) -blood, ucx, sputum (-) thus far -webb has been removed. not retaining -c/w frequent suctioning -ID: Dr. Oliva #Nephro -MARY - off IVF , as congested - renal sono: unremarkable - Nephro: Dr. Chan #Urology - Post-op Urinary Retention- resolved - webb initially placed by Dr. Hubbard - Urology on board #Cardiology - hx HTN - losartan restarted #Pulmonology - Encourage IS - will monitor and keep SpO2 above 92% - Airway observation: In case of emergency, remove anterior cervical spine dressing and pull out running suture; ok to cut suture if needed to decompress - hematoma. #F/E/N - off IVF as congested - c/t follow lytes - strict NPO per MBS #Prophylaxis - Mechanical only: KELLEY's, SCD's, per sx recs. to restart PPX based on sx d/w sx: no a/c at this time #Disposition - monitor on tele - on IV abx - pt refuses to go to [place], wants to go home - No heavy lifting (>5 lbs), bending or twisting x 6 months post op. <Desi Garcia - Last Filed: 08/27/19 16:05> - Note Progress Note: Seen and examined; please see resident note for further historical information. I personally verified all sosa historical information and exam findings. Personally interpreted all imaging and diagnostics and reviewed appropriate consults. I reviewed all labs and vital signs as per resident note and EMR as documented. I agree with the above assessment and plan unless supplemented by myself in the following. Stridor continues; given steroids by Dr. Gates. He has some underlying CHELSEA but this is not characteristic given that it is progressive. No pain or disfcharge from operative site but would like to r/o underlying surgical pathology if permissable. Pending discussion with ortho. Noted subspecialty input. *holding off on further swallow eval as risks would clearly outweigh the benefits at this point. 10 item review of systems was completed and is negative aside from history of present illness VS, labs, imaging reviewed NAD, AAO, resting comfortably in bed. RRR s1/2 no mgr Normal muscle tone, moves all 5 extremities with normal apparent strength Neck is supple, trachea midline, no [place] LN. postoperative area is well-healed with no signs of worsening edema, skin breakdown, no signs of postop infection or purulence. Remains in [place] J collar. Lungs CTAB with sym expansion NT ND +BS no [place] organomegaly CN2-12 wnl; no FND NC AT EOMI PERRLA Normal mood, appropriate behavior, euthymic affect No skin breakdown or rashes noted CT head negative for acute processes Micro NGTD on all CXR reviewed Assessment and plan: Pending further workup of potential stridor (no distress, will cleear with ortho with imaging). No further urinary issues. Problems include: -Grunting (per above) -Toxic metabolic encephalopathy is resolving -Status post elective C4 corpectomy & C3-C5 anterior cervical decompression and instrumented fusion POD #3 (Postoperative instructions and pain management instructions per orthopedic surgery. Monitoring on the floor) -Postoperative fever likely 2.2 UTI -Urinary retention secondary to traumatic webb insertion causing clot (webb planned initially for 5 days per uro; FU with Dr. Tucker's recommendations. appreciate epert managemetn) -CKD (Likely secondary to underlying chronic issues [htn, etc.] and is stable. He is not oliguric. Continue to monitor) -Hx HTN (monitor) -Leukocytosis (Was likely reactive postoperatively; consider now a component of postop infection) -Overweight (BMI 27; primary substance abuse counselor prior to DC, impedence to wound healing) Full Code <Russ Simon - Last Filed: 08/25/19 17:20> <Russ Simon - Last Filed: 08/29/19 04:46>
--- NOTE | 2019-08-27 15:35 | PN ---
Progress Note, COOPERATIVE EDUCATION DIRECTOR - Note Progress Note: Selected Entries 08/26/19 08/26/19 08/26/19 06:00 10:00 14:00 Breakfast Temperature 98.6 F 98.2 F 97.9 F Blood Pressure 163/95 170/100 161/92 08/26/19 08/26/19 08/27/19 17:29 19:34 01:00 Breakfast Temperature 98.3 F 98.5 F 98.4 F Blood Pressure 149/90 149/55 L 155/50 L 08/27/19 08/27/19 08/27/19 06:00 08:00 09:00 Breakfast NPO Temperature 98 F 98 F Blood Pressure 152/89 146/83 08/27/19 14:00 Breakfast Temperature 98.1 F Blood Pressure 150/91 Laboratory Tests 08/24/19 08/26/19 08/27/19 08:02 07:45 07:30 WBC 11.6 H 10.2 H 12.2 H Pt now on telemetry. NGT deferred. Decadron given. Verbal, confused, rambling, sitting on edge of bed. Bed alarm placed. Suggest maintain NPO repeat mbs to determine if swallowing has improved, hopefullty with reduced swelling with Decadron.
--- NOTE | 2019-08-27 15:41 | PN ---
Progress Note, Physician History of Present Illness: Pt seen and examined at bedside. He is awake and appears comfortable. he denies shortness of breath. - Current Medication List Current Medications: Active Medications Acetaminophen (Tylenol -) 650 mg PO Q6H PRN PRN Reason: FEVER Last Admin: 08/22/19 14:08 Dose: 650 mg Benzocaine/Menthol (Cepacol Lozenge -) 1 each MM PRN PRN PRN Reason: SORE THROAT Last Admin: 08/18/19 17:18 Dose: 1 each Dexamethasone Sodium Phosphate (Decadron Injection -) 10 mg IVPUSH ONCE ONE Stop: 08/27/19 20:01 Docusate Sodium (Colace -) 100 mg PO DAILY MELISSA Last Admin: 08/27/19 11:15 Dose: Not Given Piperacillin Sod/Tazobactam (Sod 2.25 gm/ Dextrose) 50 mls @ 100 mls/hr IVPB Q8H-IV MELISSA; Protocol Last Admin: 08/27/19 11:04 Dose: 100 mls/hr Losartan Potassium (Cozaar -) 50 mg PO DAILY MELISSA Last Admin: 08/27/19 11:15 Dose: Not Given Ondansetron HCl (Zofran Injection) 4 mg IVPUSH Q6H PRN PRN Reason: NAUSEA AND/OR VOMITING Pantoprazole Sodium (Protonix -) 40 mg PO DAILY MELISSA Last Admin: 08/27/19 11:16 Dose: Not Given Polyethylene Glycol (Miralax (For Daily Use) -) 17 gm PO DAILY MELISSA Last Admin: 08/27/19 11:16 Dose: Not Given Scopolamine HBr (Transderm-Scop -) 1 patch TD Q72H MELISSA Last Admin: 08/26/19 11:25 Dose: 1 patch Senna (Senna -) 1 tab PO HS MELISSA Last Admin: 08/26/19 21:12 Dose: Not Given Sodium Chloride (Normal Saline For Inhalation -) 3 ml IH RQID MELISSA Last Admin: 08/27/19 12:19 Dose: 3 ml - Objective Vital Signs: Vital Signs Temperature 98.1 F 08/27/19 14:00 Pulse Rate 96 H 08/27/19 14:00 Respiratory Rate 20 08/27/19 14:00 Blood Pressure 150/91 08/27/19 14:00 O2 Sat by Pulse Oximetry (%) 94 L 08/27/19 09:00 Constitutional: Yes: Calm Eyes: Yes: Conjunctiva Clear HENT: Yes: Atraumatic Neck: Yes: Supple Cardiovascular: Yes: S1, S2 Respiratory: Yes: CTA Bilaterally Gastrointestinal: Yes: Soft Genitourinary: Yes: Other (external catheter) Edema: No Neurological: Yes: Oriented Psychiatric: Yes: Oriented Labs: CBC, BMP 08/27/19 07:30 08/27/19 07:30 Problem List - Problems (1) MARY (acute kidney injury) Code(s): N17.9 - ACUTE KIDNEY FAILURE, UNSPECIFIED (2) Acute urinary retention Code(s): R33.8 - OTHER RETENTION OF URINE Assessment/Plan Current Medications Generic Name Dose Route Start Last Admin Trade Name Freq PRN Reason Stop Dose Admin Acetaminophen 650 mg 08/21/19 17:02 08/22/19 14:08 Tylenol - PO 650 mg Q6H PRN Administration FEVER Benzocaine/Menthol 1 each 08/18/19 11:08 08/18/19 17:18 Cepacol Lozenge - MM 1 each PRN PRN Administration SORE THROAT Dexamethasone Sodium Phosphate 10 mg 08/27/19 20:00 Decadron Injection - IVPUSH 08/27/19 20:01 ONCE ONE Docusate Sodium 100 mg 08/19/19 13:45 08/27/19 11:15 Colace - PO Not Given DAILY MELISSA Piperacillin Sod/Tazobactam 50 mls @ 100 mls/hr 08/23/19 10:00 08/27/19 11:04 Sod 2.25 gm/ Dextrose IVPB 100 mls/hr Q8H-IV MELISSA Administration Protocol Losartan Potassium 50 mg 08/26/19 14:00 08/27/19 11:15 Cozaar - PO Not Given DAILY MELISSA Ondansetron HCl 4 mg 08/20/19 07:55 Zofran Injection IVPUSH Q6H PRN NAUSEA AND/OR VOMITING Pantoprazole Sodium 40 mg 08/27/19 10:00 08/27/19 11:16 Protonix - PO Not Given DAILY MELISSA Polyethylene Glycol 17 gm 08/19/19 13:45 08/27/19 11:16 Miralax (For Daily Use) - PO Not Given DAILY MELISSA Scopolamine HBr 1 patch 08/26/19 10:00 08/26/19 11:25 Transderm-Scop - TD 1 patch Q72H MELISSA Administration Senna 1 tab 08/19/19 22:00 08/26/19 21:12 Senna - PO Not Given HS MELISSA Sodium Chloride 3 ml 08/26/19 04:15 08/27/19 12:19 Normal Saline For Inhalation - IH 3 ml RQID MELISSA Administration Impression 1. MARY 2. hypotension 3. s/p cervical surgery 4. gerd 5. htn 6. altered mental status Plan - monitor floor worker well service - losartan restarted - monitor lytes - monitor bp - avoid nsaids - avoid nephrotoxins
--- NOTE | 2019-08-27 16:33 | PN ---
Progress Note, Physician History of Present Illness: confused lot of secretions - Current Medication List Current Medications: Active Medications Acetaminophen (Tylenol -) 650 mg PO Q6H PRN PRN Reason: FEVER Last Admin: 08/22/19 14:08 Dose: 650 mg Benzocaine/Menthol (Cepacol Lozenge -) 1 each MM PRN PRN PRN Reason: SORE THROAT Last Admin: 08/18/19 17:18 Dose: 1 each Dexamethasone Sodium Phosphate (Decadron Injection -) 10 mg IVPUSH ONCE ONE Stop: 08/27/19 20:01 Docusate Sodium (Colace -) 100 mg PO DAILY [facility] Last Admin: 08/27/19 11:15 Dose: Not Given Piperacillin Sod/Tazobactam (Sod 2.25 gm/ Dextrose) 50 mls @ 100 mls/hr IVPB Q8H-IV MELISSA; Protocol Last Admin: 08/27/19 11:04 Dose: 100 mls/hr Losartan Potassium (Cozaar -) 50 mg PO DAILY [facility] Last Admin: 08/27/19 11:15 Dose: Not Given Ondansetron HCl (Zofran Injection) 4 mg IVPUSH Q6H PRN PRN Reason: NAUSEA AND/OR VOMITING Pantoprazole Sodium (Protonix -) 40 mg PO DAILY [facility] Last Admin: 08/27/19 11:16 Dose: Not Given Polyethylene Glycol (Miralax (For Daily Use) -) 17 gm PO DAILY [facility] Last Admin: 08/27/19 11:16 Dose: Not Given Scopolamine HBr (Transderm-Scop -) 1 patch TD Q72H [facility] Last Admin: 08/26/19 11:25 Dose: 1 patch Senna (Senna -) 1 tab PO HS [facility] Last Admin: 08/26/19 21:12 Dose: Not Given Sodium Chloride (Normal Saline For Inhalation -) 3 ml IH RQID [facility] Last Admin: 08/27/19 12:19 Dose: 3 ml - Objective Vital Signs: Vital Signs Temperature 98.2 F 08/27/19 14:00 Pulse Rate 97 H 08/27/19 14:00 Respiratory Rate 20 08/27/19 14:00 Blood Pressure 139/83 08/27/19 14:00 O2 Sat by Pulse Oximetry (%) 94 L 08/27/19 09:00 Constitutional: Yes: Other Neck: Yes: Other (hard collar post op) Cardiovascular: Yes: S1, S2 Respiratory: Yes: Regular, On Nasal O2, Other (secretions) Gastrointestinal: Yes: Normal Bowel Sounds, Soft Musculoskeletal: Yes: WNL Extremities: Yes: WNL Neurological: Yes: Alert, Confusion Labs: CBC, BMP 08/27/19 07:30 08/27/19 07:30 Assessment/Plan 1. MARY 2. hypotension 3. s/p cervical surgery 4. gerd 5. htn 6 altered mental status 7 asp pna plan continue abx monitor closely monitor mental status aspiration precautions rest as per the team
[2019-08-27] MEDS ORDERED: DEXAMETHASONE SOD PHOSPHATE 10 MG/1 ML VIAL IVPUSH ONE (20:00)
[2019-08-27] MEDS: SENNOSIDES 8.6MG TABLET (FP) PO SCH (21:35)
--- NOTE | 2019-08-27 22:15 | PN ---
Progress Note (short form) - Note Progress Note: 79M s/p C4 corpectomy & C3-C5 anterior cervical decompression and instrumented fusion POD #10. Continued thick endobronchial secretions. Pt. needs to be upgraded to ICU for acute nursing care and suctioning of secretions but is in telemetry unit instead. -Decadron 10mg IV x 3 doses given to help reduce pharyngeal swelling. Pt. remains oriented to person and place but not time. Pain well controlled. Pt. denies current headaches, chest pain, shortness of breath, nausea, vomiting , chills, & sweats. (+) Voiding; (+) Flatus; (+) BM. (+) Dysphagia; (+) New onset dysphonia. All labs and vitals reviewed. PE: AAO x 3, NAD. C-Spine: Incision, dressing C/D/I. Echo-incisional soft tissue bed remains soft , no fluid collection. [place]-J c-collar intact and in place. B/L UE & LE sensorimotor status at baseline. 79M s/p C4 corpectomy & C3-C5 anterior cervical decompression and instrumented fusion POD #10. -Continued pulmonary toilet and suctioning to prevent repeat aspiration events; patient needs continuous bedside nursing for this until respiratory symptoms improve. -NPO; will reassess nutritional needs tomorrow. -IVF per primary medical team. -Continue Zosyn IV as per ID team (renal dose) to treat presumed aspiration pneumonia. -Incentive spirometry q15 minutes. -Pain medication: NO NSAID's. -Maintain head of bed 30-45 degrees. -Hard c-collar. -DVT PPx: -Mechanical only: KELLEY's, SCD's. -f/u AM labs. -PT/OT/Rehab, OOB. -PWB B/L UE: 5lbs. -WBAT B/L LE. -Keep dressing clean & dry. -No heavy lifting (>5 lbs), bending or twisting x 6 months post op. -B/L UE & LE NV checks. -Care per medical hospitalist, ID, and renal teams. -Discharge planning: spine rehabilitation due to global weakness; recommend [facility]; f/u [facility] [place] office 10-14 days after hospital discharge; call for appointment; . Erasto Miranda MD (Orthopaedic Surgery).
[2019-08-28] MEDS ORDERED: ALBUTEROL SO4 2.5/IPRATROPIUM 0.5 INH SOL 3 ML VIAL.NEB. NEB ONE (01:33)
[2019-08-28] MEDS ORDERED: DEXTROSE 5%-WATER - 50 ML IVPB ONE ×3 (01:44→18:16)
[2019-08-28] MEDS ORDERED: PIPERACILLIN/TAZOBACTAM 2.25 GM VIAL IVPB ONE ×3 (01:44→18:16)
[2019-08-28] MEDS: PIPERACILLIN/TAZOB 2.25 GM 2.25 GM in DEXTROSE 5%-WATER - 50 ML IVPB SCH ×3 (01:52→18:21)
--- NOTE | 2019-08-28 01:54 | PN ---
Physical Exam: SUBJECTIVE: Patient seen and examined 79 y/o M hx pod #10 s/p c4 corpectomy and c3-c5 cervical decompression and fusion HTN, GERD, PVD currently on the floor. He has had continued endobronchial secretions and has been given decadron 10mg IV x3 to decrease pharyngeal swelling currently on zosyn for aspiration pneumonia. OBJECTIVE: Vital Signs Period Temp Pulse Resp BP Sys/Banks Pulse Ox Last 24 Hr 98 F-98.2 F 92-97 18-22 130-152/83-94 94-96 GENERAL: Awake and alert but not oriented. mumbling unintelligible words HEAD: Normal with no signs of trauma. EYES: PERRL, extraocular movements intact, sclera anicteric, conjunctiva clear. No ptosis. ENT: Ears normal, nares patent, poor oral hygiene, loose dentures in the lower jaw, dry mucous membranes.trying to clear copious secretions. NECK: cervical collar in place. LUNGS: rhonchi and crackles bilaterally lung bases. HEART: Regular rate and rlhythm, S1, S2 without murmur, rub or gallop. ABDOMEN: Soft, nontender, nondistended, normoactive bowel sounds, no guarding, no rebound, no hepatosplenomegaly, no masses. EXTREMITIES: 2+ pulses, warm, well-perfused, no edema. NEUROLOGICAL: Cranial nerves II through XII grossly intact. PSYCH: Normal mood, normal affect. SKIN: Warm, dry, normal turgor, no rashes or lesions noted Laboratory Results - last 24 hr 08/27/19 08/27/19 07:30 07:30 WBC 12.2 H RBC 4.34 Hgb 12.2 Hct 37.4 MCV 86.1 MCH 28.0 MCHC 32.5 RDW 14.8 Plt Count 444 H D MPV 8.4 Absolute Neuts (auto) 10.4 H Neutrophils % 85.2 H D Lymphocytes % 9.8 D Monocytes % 4.6 Eosinophils % 0.0 D Basophils % 0.4 Nucleated RBC % 0 Sodium 141 Potassium 4.9 Chloride 107 Carbon Dioxide 25 Anion Gap 9 BUN 30.0 H Creatinine 1.4 H Est GFR (CKD-EPI)AfAm 55.38 Est GFR (CKD-EPI)NonAf 47.78 Random Glucose 122 H Calcium 9.5 Active Medications Generic Name Dose Route Start Last Admin Trade Name Freq PRN Reason Stop Dose Admin Acetaminophen 650 mg 08/21/19 17:02 08/22/19 14:08 Tylenol - PO 650 mg Q6H PRN Administration FEVER Albuterol/Ipratropium 1 amp 08/28/19 01:33 Duoneb - NEB 08/28/19 01:34 ONCE ONE Albuterol/Ipratropium 1 amp 08/28/19 08:00 Duoneb - NEB RQID MELISSA Benzocaine/Menthol 1 each 08/18/19 11:08 08/18/19 17:18 Cepacol Lozenge - MM 1 each PRN PRN Administration SORE THROAT Docusate Sodium 100 mg 08/19/19 13:45 08/27/19 11:15 Colace - PO Not Given DAILY MELISSA Piperacillin Sod/Tazobactam 50 mls @ 100 mls/hr 08/23/19 10:00 08/27/19 18:34 Sod 2.25 gm/ Dextrose IVPB 100 mls/hr Q8H-IV MELISSA Administration Protocol Losartan Potassium 50 mg 08/26/19 14:00 08/27/19 11:15 Cozaar - PO Not Given DAILY MELISSA Methylprednisolone Sodium Succinate 40 mg 08/28/19 02:00 Solu-Medrol - IVPUSH Q8H-IV MELISSA Ondansetron HCl 4 mg 08/20/19 07:55 Zofran Injection IVPUSH Q6H PRN NAUSEA AND/OR VOMITING Pantoprazole Sodium 40 mg 08/27/19 10:00 08/27/19 11:16 Protonix - PO Not Given DAILY MELISSA Polyethylene Glycol 17 gm 08/19/19 13:45 08/27/19 11:16 Miralax (For Daily Use) - PO Not Given DAILY MELISSA Scopolamine HBr 1 patch 08/26/19 10:00 08/26/19 11:25 Transderm-Scop - TD 1 patch Q72H MELISSA Administration Senna 1 tab 08/19/19 22:00 08/27/19 21:35 Senna - PO Not Given HS MELISSA Sodium Chloride 3 ml 08/26/19 04:15 08/27/19 20:49 Normal Saline For Inhalation - IH 3 ml RQID MELISSA Administration ASSESSMENT/PLAN: 79 y/o M hx pod #10 s/p c4 corpectomy and c3-c5 cervical decompression and fusion HTN, GERD, PVD #Neuro - Agitated holding scopolamine patch for now. #CV -HTN. blood pressure not elevated at this time. -po meds on hold - #Pulm -zosyn for aspiration pneumonia - portable CXR - Pt received decadron will continue with solumedrol 40 q 8 -duonebs x1 - will hold scopalamine patch at this time to avoid further thickening of secretions. #FenGI - Has been npo -giving 250 cc bolus of LR for hydration. - GERD giving one time IV dose (40mg) of pantoprazole. was initially PO # - [place] d/c currently in diapers (dry) - giving LR 250 cc bolus DVT PPx: SCD's Dispo : Pt to be reassessed in the a.m for further management. Visit type - Emergency Visit Emergency Visit: Yes ED Registration Date: 08/17/19 Care time: The patient presented to the Emergency Department on the above date and was hospitalized for further evaluation of their emergent condition. - New Patient This patient is new to me today: No - Critical Care Critical Care patient: No - Discharge Referral Referred to [facility] Med P.C.: No ATTENDING PHYSICIAN STATEMENT I saw and evaluated the patient. I reviewed the resident's note and discussed the case with the resident. I agree with the resident's findings and plan as documented. SUBJECTIVE: OBJECTIVE: ASSESSMENT AND PLAN:
[2019-08-28] MEDS ORDERED: LACTATED RINGERS SOLUTION 1000 ML INFUS.BAG IV ONE (02:00)
[2019-08-28] MEDS: methylPREDNISolone NA SUCC 40 MG/1 ML VIAL IVPUSH SCH ×3 (02:14→18:21)
[2019-08-28] MEDS ORDERED: PANTOPRAZOLE SODIUM 40 MG VIAL IVPUSH ONE (02:37)
[2019-08-28 06:42] LABS: BASO % 0.1 % (0-2.0); HEMATOCRIT 38.4 % (35.4-49); HEMOGLOBIN 12.3 GM/dL (11.7-16.9); LYMPH % 5.8 % (8-40); MCH 27.5 pg (25.7-33.7); MEAN CELL VOLUME 85.8 fl (80-96); MEAN PLT VOLUME 8.1 fl (7.5-11.1); MONO % 2.5 % (3.8-10.2); NEUT % 91.6 % (42.8-82.8); PLATELET COUNT 521 K/MM3 (134-434); RBC 4.48 M/mm3 (4.00-5.60); RDW 14.9 % (11.9-15.9); WHITE BLOOD COUNT 16.9 K/mm3 (4.0-10.0)
[2019-08-28 07:08] LABS: BLOOD UREA NITROGEN 43.5 mg/dL (7-18); CALCIUM 9.7 mg/dL (8.5-10.1); CREATININE 1.6 mg/dL (0.55-1.3); MAGNESIUM 2.6 mg/dL (1.8-2.4)
[2019-08-28] MEDS: ALBUTEROL SO4 2.5/IPRATROPIUM 0.5 INH SOL 3 ML VIAL.NEB. NEB SCH ×4 (07:50→20:38)
[2019-08-28] MEDS: SODIUM CHLORIDE FOR INHALATION 3 ML VIAL.NEB IH SCH ×4 (08:00→20:38)
[2019-08-28] MEDS ORDERED: DEXTROSE 5%-WATER - 1,000 ML IV SCH (08:00)
[2019-08-28] MEDS ORDERED: LACTATED RINGERS SOLUTION 1,000 ML/1,000 ML INFUS.BAG IV SCH (08:45)
--- NOTE | 2019-08-28 08:48 | PN ---
Physical Exam: SUBJECTIVE: Patient seen and examined at bedside. Pt found to have stridor, and appears to be in respiratory distress with use of accessory neck muscles. He is satting at 95%. -- Pt later re-evaluated in afternoon, found to be restless, but breathing less labored. Neck collar in place. OBJECTIVE: Vital Signs Period Temp Pulse Resp BP Sys/Banks Pulse Ox Last 24 Hr 98.0 F-99.3 F 88-102 18-23 114-156/83-96 94-96 GENERAL: The patient is awake, alert, and fully oriented, in no acute distress. HEENT: Hard collar worn. NECK: Trachea midline, Cervical collar in place. drains in place LUNGS: Breath sounds equal, clear to auscultation bilaterally, no wheezes, no crackles, no accessory muscle use. HEART: Regular rate and rhythm, S1, S2 without murmur, rub or gallop. ABDOMEN: Soft, nontender, nondistended, normoactive bowel sounds, no guarding EXTREMITIES: 2+ pulses, warm, well-perfused, no edema. NEUROLOGICAL: Normal speech, gait not observed. Sensation intact throughout. 5/ 5 strength upper extremities PSYCH: appropriate mood and affect SKIN: Warm, dry CBC, BMP 08/28/19 05:30 08/28/19 05:30 Active Medications Acetaminophen (Tylenol -) 650 mg PO Q6H PRN PRN Reason: FEVER Last Admin: 08/22/19 14:08 Dose: 650 mg Albuterol/Ipratropium (Duoneb -) 1 amp NEB RQID MELISSA Last Admin: 08/28/19 11:45 Dose: 1 amp Benzocaine/Menthol (Cepacol Lozenge -) 1 each MM PRN PRN PRN Reason: SORE THROAT Last Admin: 08/18/19 17:18 Dose: 1 each Docusate Sodium (Colace -) 100 mg PO DAILY MELISSA Last Admin: 08/28/19 12:05 Dose: Not Given Piperacillin Sod/Tazobactam (Sod 2.25 gm/ Dextrose) 50 mls @ 100 mls/hr IVPB Q8H-IV MELISSA; Protocol Last Admin: 08/28/19 10:46 Dose: 100 mls/hr Dextrose/Lactated Ringer's (D5-Lr -) 1,000 mls @ 75 mls/hr IV ASDIR MELISSA Losartan Potassium (Cozaar -) 50 mg PO DAILY [facility] Last Admin: 08/28/19 12:06 Dose: Not Given Methylprednisolone Sodium Succinate (Solu-Medrol -) 40 mg IVPUSH Q8H-IV [facility] Last Admin: 08/28/19 10:46 Dose: 40 mg Ondansetron HCl (Zofran Injection) 4 mg IVPUSH Q6H PRN PRN Reason: NAUSEA AND/OR VOMITING Pantoprazole Sodium (Protonix -) 40 mg PO DAILY [facility] Last Admin: 08/28/19 12:05 Dose: Not Given Polyethylene Glycol (Miralax (For Daily Use) -) 17 gm PO DAILY [facility] Last Admin: 08/28/19 12:06 Dose: Not Given Senna (Senna -) 1 tab PO HS [facility] Last Admin: 08/27/19 21:35 Dose: Not Given Sodium Chloride (Normal Saline For Inhalation -) 3 ml IH RQID [facility] Last Admin: 08/27/19 20:49 Dose: 3 ml ASSESSMENT/PLAN: 79 y/o/m with PMHx of HTN, GERD, and PVD(s/p stent- Pt. unclear which leg) presenting after C3-C5 discectomy and fusion, POD#11. Neuro POD#11: S/P C4 corpectomy and C3-C5 cervical decompression and fusion -Agitated and restless. -Cont to monitor neuro status -Holding scopolamine patch for now. CV HTN PVD -Normotensive -Hold home BP meds Pulm Acute Respiratory Insufficiency due to: very curled epiglottis that collapses with inspiration. Some false cord edema. Significant secretions present in pyriform sinuses. -Pt with tenuous respiratory status; stridor noted on exam. Seen by ENT with recommendation for transfer to ICU for close airway monitoring. -HFOT if increased work of breathing, currently satting well on NC. -Soft tissue neck CT ordered -Decadron IV -Duonebs -Will hold scopalamine patch at this time to avoid further thickening of secretions GI GERD -NPO due to worsening mental status -GERD giving one time IV dose (40mg) of pantoprazole. was initially PO -Failed MBS, will need to re-assess once respiratory status improves ID Aspiration Pneumonia -Cont IV Zosyn DVT PPx: SCD's Dispo: Cont to monitor in ICU Visit type - Emergency Visit Emergency Visit: Yes ED Registration Date: 08/17/19 Care time: The patient presented to the Emergency Department on the above date and was hospitalized for further evaluation of their emergent condition. - New Patient This patient is new to me today: Yes Date on this admission: 08/28/19 - Critical Care Critical Care patient: Yes Total Critical Care Time (in minutes): 40 Critical Care Statement: The care of this patient involved high complexity decision making to prevent further life threatening deterioration of the patient 's condition and/or to evaluate & treat vital organ system(s) failure or risk of failure. ATTENDING PHYSICIAN STATEMENT I saw and evaluated the patient. I reviewed the resident's note and discussed the case with the resident. I agree with the resident's findings and plan as documented. SUBJECTIVE: OBJECTIVE: ASSESSMENT AND PLAN:
[2019-08-28] MEDS ORDERED: LYTES/YERBA SANTA 240 ML BOTTLE MM SCH (10:00)
[2019-08-28 10:05] LABS: PLATELET ESTIMATE INCREASED
--- NOTE | 2019-08-28 10:38 | PN ---
Progress Note, JUNIOR SYSTEMS ANALYST - Note Progress Note: MBS 08/26 revealed severe dysphagia with aspiration on puree/thick liquids/ secretions repeatedly, although compensatory strategies were attempted. 2 doses Decadron given since MBS. Pt seen bedside, eyes closed, rambles, confused. Labored breathing, vocal wetness c/w aspiration on secretions.I encouraged pt to cough hard and expectorate. Pt ws suctioned thick white phlegm from posteior josiah-pharynx,down to base of tongue. Voice then became euphonic. Pt seated fully upright with pillow support behind his head to neutral position. Breathing/inspiration continued to be effortful. o2 saturation was 96-97%. MBS can not be done today- Pt clinically not stable and aspirating on secretions I discussed case with nursing and Resident. Defer MBS for now. Strict NPO including meds Mouth care-Gentle use of toothbrush/synchronize with suction - for coated tongue which seems loke dried mucous. HOB to 90 degrees with head to neutral-not extended Encourage pt to cough/expectorate frequently/ suction posterior pharynx to base of tongue Careful monitoring of oxygenation Consider ENT to r/o laryngeal/pharyngeal edema/airway protection/impaired laryngeal swallow- addendum: Appreciate ent consult- flexible laryngoscopy identifies site of stridor as supraglottic - very curled epiglottis has collapse with inspiration also some false cord edema significant secretions present in pyriform sinuses
[2019-08-28] MEDS ORDERED: DEXTROSE 5%-LACTATED RINGERS 1,000 ML IV SCH (11:45)
--- NOTE | 2019-08-28 11:48 | PN ---
Progress Note (short form) - Note Progress Note: S/p C4 corpectomy & C3-C5 anterior cervical decompression and instrumented fusion on 08/17 Pt seen and examined on tele. Reports he is doing "okay", however appears worse than yesterday. No issues overnight. Was not oob. Voiding without issue, npo due to dysphagia. Denies n/v/d, cp/sob. Vital Signs Temp 97.5 F L 08/28/19 10:00 Pulse 103 H 08/28/19 10:00 Resp 24 H 08/28/19 10:00 BP 165/103 H 08/28/19 10:00 Pulse Ox 96 08/28/19 10:00 Intake & Output 08/27/19 08/27/19 08/28/19 11:59 23:59 11:59 Intake Total 50 280 Output Total 200 0 Balance -150 0 280 Weight 192 lb 9.6 oz Intake: IV 250 saline lock 250 IVPB 50 30 Output: Urine 200 0 Void 200 0 Other: Voiding Method External Catheter Incontinent Incontinent # Unmeasured Voids Void 2 2 Bowel Movement No Body Mass Index (BMI) 26.0 Weight Measurement Method Built in [facility] CBC, BMP 08/28/19 05:30 08/28/19 05:30 Gen Awake and alert, nad, responds to questions, + gurgling with speech. Oriented only to birthdate and self, confused, rambling. Neck: Incision c/d/i with steristrips in place, no palpable hematoma, no evidence of collection, trace ecchymosis. No erythema or drainagine from wound. [place]-J c-collar intact and in place. Neuro: Roping Tender strength slightly weaker on L, RUE 5/5 biceps/triceps, LUE 4/5 biceps/triceps. SILT b/l ues. B/L les 5/5 dorsi/plantarflexion. SILT b/l. Barium Swallow Study: Severe dysphagia with aspiration. CT Head: No acute pathology as per radiology report. A/P: 79 y/o M w/ PMHx HTN, GERD, PVD, cervical spondylosis/myelopathy, now S/p C4 corpectomy & C3-C5 anterior cervical decompression and instrumented fusion on 08/17, c/b Dysphagia with possible aspiration. afebrile, vss wbc trending up, currently 16k Received 3 total doses Decadron 10mg Iv -Stat ICU consult pt decompensating -NPO -D5w-1/2ns 75ml/hr -Aggressive pulmonary toilet -OOB with PT, if pt unable to be oob do exercises in bed -Continue Zosyn IV as per ID team (renal dose) to treat aspiration pneumonia. -Incentive spirometry q15 minutes. -Pain medication: NO NSAID's. -Maintain head of bed 30-45 degrees. -Hard c-collar. -DVT PPx: -Mechanical only: KELLEY's, SCD's. -Keep dressing clean & dry. -Neurovascular checks per protocol -Will need rehab placement upon d/c -CONSIDER ENT CONSULT d/w attending Dr Marek Miranda
[2019-08-28] MEDS ORDERED: DEXTROSE 5%-NORMAL SALINE 1,000 ML IV SCH (12:00)
[2019-08-28] MEDS: DOCUSATE SODIUM 100 MG CAPSULE (FP) PO SCH (12:05)
[2019-08-28] MEDS: PANTOPRAZOLE 40 MG TABLET (FP) PO SCH (12:05)
[2019-08-28] MEDS: LOSARTAN POTASSIUM 50 MG TABLET (FP) PO SCH (12:06)
[2019-08-28] MEDS: POLYETHYLENE GLYCOL 3350 119 GM BTL PO SCH (12:06)
--- NOTE | 2019-08-28 12:21 | PN ---
Progress Note, Physician History of Present Illness: patient very confused lot of secretions - Current Medication List Current Medications: Active Medications Acetaminophen (Tylenol -) 650 mg PO Q6H PRN PRN Reason: FEVER Last Admin: 08/22/19 14:08 Dose: 650 mg Albuterol/Ipratropium (Duoneb -) 1 amp NEB RQID MELISSA Last Admin: 08/28/19 07:50 Dose: 1 amp Benzocaine/Menthol (Cepacol Lozenge -) 1 each MM PRN PRN PRN Reason: SORE THROAT Last Admin: 08/18/19 17:18 Dose: 1 each Docusate Sodium (Colace -) 100 mg PO DAILY MELISSA Last Admin: 08/28/19 12:05 Dose: Not Given Piperacillin Sod/Tazobactam (Sod 2.25 gm/ Dextrose) 50 mls @ 100 mls/hr IVPB Q8H-IV MELISSA; Protocol Last Admin: 08/28/19 10:46 Dose: 100 mls/hr Dextrose/Lactated Ringer's (D5-Lr -) 1,000 mls @ 75 mls/hr IV ASDIR MELISSA Losartan Potassium (Cozaar -) 50 mg PO DAILY MELISSA Last Admin: 08/28/19 12:06 Dose: Not Given Methylprednisolone Sodium Succinate (Solu-Medrol -) 40 mg IVPUSH Q8H-IV MELISSA Last Admin: 08/28/19 10:46 Dose: 40 mg Ondansetron HCl (Zofran Injection) 4 mg IVPUSH Q6H PRN PRN Reason: NAUSEA AND/OR VOMITING Pantoprazole Sodium (Protonix -) 40 mg PO DAILY MELISSA Last Admin: 08/28/19 12:05 Dose: Not Given Polyethylene Glycol (Miralax (For Daily Use) -) 17 gm PO DAILY M[facility]ISSA Last Admin: 08/28/19 12:06 Dose: Not Given Senna (Senna -) 1 tab PO HS MELISSA Last Admin: 08/27/19 21:35 Dose: Not Given Sodium Chloride (Normal Saline For Inhalation -) 3 ml IH RQID MELISSA Last Admin: 08/27/19 20:49 Dose: 3 ml - Objective Vital Signs: Vital Signs Temperature 97.5 F L 08/28/19 10:00 Pulse Rate 103 H 08/28/19 10:00 Respiratory Rate 24 H 08/28/19 10:00 Blood Pressure 165/103 H 08/28/19 10:00 O2 Sat by Pulse Oximetry (%) 96 08/28/19 10:00 Constitutional: Yes: Other Cardiovascular: Yes: S1, S2 Respiratory: Yes: Regular, On Nasal O2, Other Gastrointestinal: Yes: Normal Bowel Sounds, Soft Musculoskeletal: Yes: WNL Extremities: Yes: WNL Neurological: Yes: Confusion Psychiatric: Yes: Other Labs: CBC, BMP 08/28/19 05:30 08/28/19 05:30 Assessment/Plan 1. MARY 2. hypotension 3. s/p cervical surgery 4. gerd 5. htn 6 altered mental status plan continue abx ent to see the patient rest as per the team resp support suctioning monitor urine output
--- NOTE | 2019-08-28 12:54 | CON.ENT ---
Consult Consult Specialty:: ENT Reason for Consultation:: breathing problem - History of Present Illness History of Present Illness: 79 yo M is s/p anterior cervical ?fusion on 08-17-2019 dyspea noted recently, aspiration suspected today noted to have noisy breathing, stridorous ENT consultation requested for airway evaluation - History Source History Provided By: Medical Record Limitations to Obtaining History: Uncooperative - Past Medical History Cardio/Vascular: Yes: HTN Renal/: Yes: Other (unknown) - Alcohol/Substance Use Hx Alcohol Use: No - Smoking History Smoking history: Former smoker Have you smoked in the past 12 months: No If you are a former smoker, when did you quit?: 10yrs Home Medications - Allergies Allergies/Adverse Reactions: Allergies Allergy/AdvReac Type Severity Reaction Status Date / Time No Known Drug Allergies Allergy Verified 08/14/19 14:30 - Home Medications Home Medications: Ambulatory Orders Aspirin Coated [Ecotrin -] 81 mg PO DAILY 08/14/19 Losartan Potassium 100 mg PO DAILY 08/14/19 Omeprazole 40 mg PO DAILY 08/14/19 Family Medical History Family History: Unable to Obtain Review of Systems Unable to obtain ROS, reason: clinical condition Physical Exam-ENT Vital Signs: Vital Signs Temperature 97.5 F L 08/28/19 10:00 Pulse Rate 103 H 08/28/19 10:00 Respiratory Rate 24 H 08/28/19 10:00 Blood Pressure 165/103 H 08/28/19 10:00 O2 Sat by Pulse Oximetry (%) 96 08/28/19 10:00 Constitutional: Yes: Anxious, Mild Distress Head: Yes: WNL Face: Yes: WNL Nose: Yes: WNL, Septum Deviated (moderately to left with obstruction) Nasal Passage: Yes: Other Oral/Pharynx: Yes: Other (poor dentition, mucosa dry, tongue elevated, oropharyngeal airway patent oropharynx sl dry. flexible laryngoscopy performed via right nostril (after topical anesthesia lidocaine 4% and phnylephrine). nasopharynx clear, base of tongue sl retro, no obvious mass, vallecula clear, epiglottis is very curled, omega shaped and tilts posteriorly with each inspiration, thick opaque yellow mucus both pyriform sinuses. Endolarynx visualized with difficulty because of pt confusion, inability to cooperate and excessive head movement during exam. no obvious mass, some false cord edema, difficult to fully evaluate mobility but adequate glottic opening on inspiration.) Outer Ear: Yes: WNL Neck: Yes: Other (hard cervical collar in place, (obscures full neck exam) right anteiror cervical wound with steristrips in place, soft, not tense, not draining) Imaging - Results Chest X-ray: Report Reviewed, Image Reviewed Other: Report Reviewed (modified barium swallow) Problem List - Problems (1) Stridor Assessment/Plan: pt developed dyspnea and stridor flexible laryngoscopy identifies site of stridor as supraglottic - very curled epiglottis has collapse with inspiration also some false cord edema significant secretions present in pyriform sinuses Recommend: airway observation, continue pulse oximetry and oxygen pt to be transferred to ICU if he tires may require airway intervention no physical impediment to orotracheal intubation, glottis should be visible once epiglottis lifted pts postoperative status and hard cervical collar may limit exposure since neck may not be able to be fully extended safely (would need to check with Dr Esquivel) could use Glidescope or use flexible bronchoscope. Code(s): R06.1 - STRIDOR (2) Dysphagia Assessment/Plan: pt noted to aspirate on modified barium swallow NPO for now Code(s): R13.10 - DYSPHAGIA, UNSPECIFIED Qualifiers: Dysphagia type: pharyngeal phase Qualified Code(s): R13.13 - Dysphagia, pharyngeal phase (3) History of cervical spinal surgery Assessment/Plan: pt is POD 11 cervical spine surgery anterior cervical approach, still in hard cervical collar, steristrips in place no obvious hematoma or infection posterior pharyngeal wall does not show signs of any hematoma or obstructive swelling Code(s): Z98.890 - OTHER SPECIFIED POSTPROCEDURAL STATES
[2019-08-28 13:13] LABS: ARTERIAL BLD GAS O2 SATURATION 96.7 % (95-98); ARTERIAL BLOOD GAS BASE EXCESS -0.1 meq/l (-2-2); ARTERIAL BLOOD GAS PCO2 51.5 mmHg (35-45); ARTERIAL BLOOD GAS pH 7.33 (7.35-7.45)
[2019-08-28 13:16] LABS: ALLENS TEST POSITIVE; ARTERIAL BLOOD GAS PO2 100 mmHg (80-100)
--- NOTE | 2019-08-28 13:31 | PN ---
Teaching Attending Note Name of Resident: Cinthia Mendoza ATTENDING PHYSICIAN STATEMENT I saw and evaluated the patient. I reviewed the resident's note and discussed the case with the resident. I agree with the resident's findings and plan as documented. SUBJECTIVE: Patient seen in the Cardiac Telemetry unit. D/W ENT: very curled epiglottis that collapses with inspiration. Some false cord edema. Significant secretions present in pyriform sinuses. Patient is confused and not able to provide any information. Intake & Output 08/25/19 08/26/19 08/27/19 08/28/19 23:59 23:59 23:59 23:59 Intake Total 1082 150 50 280 Output Total 650 600 200 Balance 432 -450 -150 280 Weight 202 lb 200 lb 11.2 oz 192 lb 9.6 oz Last Vital Signs Temp Pulse Resp BP Pulse Ox 97.5 F L 103 H 24 H 165/103 H 96 08/28/19 10:00 08/28/19 10:00 08/28/19 10:00 08/28/19 10:00 08/28/19 10:00 Active Medications Acetaminophen (Tylenol -) 650 mg PO Q6H PRN PRN Reason: FEVER Last Admin: 08/22/19 14:08 Dose: 650 mg Albuterol/Ipratropium (Duoneb -) 1 amp NEB RQID MELISSA Last Admin: 08/28/19 07:50 Dose: 1 amp Benzocaine/Menthol (Cepacol Lozenge -) 1 each MM PRN PRN PRN Reason: SORE THROAT Last Admin: 08/18/19 17:18 Dose: 1 each Docusate Sodium (Colace -) 100 mg PO DAILY MELISSA Last Admin: 08/28/19 12:05 Dose: Not Given Piperacillin Sod/Tazobactam (Sod 2.25 gm/ Dextrose) 50 mls @ 100 mls/hr IVPB Q8H-IV MELISSA; Protocol Last Admin: 08/28/19 10:46 Dose: 100 mls/hr Dextrose/Lactated Ringer's (D5-Lr -) 1,000 mls @ 75 mls/hr IV ASDIR MELISSA Losartan Potassium (Cozaar -) 50 mg PO DAILY MELISSA Last Admin: 08/28/19 12:06 Dose: Not Given Methylprednisolone Sodium Succinate (Solu-Medrol -) 40 mg IVPUSH Q8H-IV [facility] Last Admin: 08/28/19 10:46 Dose: 40 mg Ondansetron HCl (Zofran Injection) 4 mg IVPUSH Q6H PRN PRN Reason: NAUSEA AND/OR VOMITING Pantoprazole Sodium (Protonix -) 40 mg PO DAILY [facility] Last Admin: 08/28/19 12:05 Dose: Not Given Polyethylene Glycol (Miralax (For Daily Use) -) 17 gm PO DAILY [facility] Last Admin: 08/28/19 12:06 Dose: Not Given Senna (Senna -) 1 tab PO HS [facility] Last Admin: 08/27/19 21:35 Dose: Not Given Sodium Chloride (Normal Saline For Inhalation -) 3 ml IH RQID [facility] Last Admin: 08/27/19 20:49 Dose: 3 ml GENERAL: Awake but confused and not able to provide information HEAD: Normal with no signs of trauma. EYES:sclera anicteric, conjunctiva clear. ENT: poor oral hygiene, dry mucous membranes, clear copious secretions. NECK: cervical collar in place. LUNGS: Bilateral rhonchi, no wheeze HEART: Regular rate and rlhythm, S1, S2 without murmur, rub or gallop. ABDOMEN: Soft, nontender, nondistended, normoactive bowel sounds, no guarding, no rebound, no hepatosplenomegaly, no masses. EXTREMITIES: 2+ pulses, warm, well-perfused, no edema. NEUROLOGICAL: Lethargic, confused, non-focal SKIN: Warm, dry, normal turgor, no rashes or lesions noted Laboratory Results - last 24 hr 08/27/19 08/27/19 07:30 07:30 WBC 12.2 H RBC 4.34 Hgb 12.2 Hct 37.4 MCV 86.1 MCH 28.0 MCHC 32.5 RDW 14.8 Plt Count 444 H D MPV 8.4 Absolute Neuts (auto) 10.4 H Neutrophils % 85.2 H D Lymphocytes % 9.8 D Monocytes % 4.6 Eosinophils % 0.0 D Basophils % 0.4 Nucleated RBC % 0 Sodium 141 Potassium 4.9 Chloride 107 Carbon Dioxide 25 Anion Gap 9 BUN 30.0 H Creatinine 1.4 H Est GFR (CKD-EPI)AfAm 55.38 Est GFR (CKD-EPI)NonAf 47.78 Random Glucose 122 H Calcium 9.5 ASSESSMENT/PLAN: Acute Respiratory Insufficiency due to: very curled epiglottis that collapses with inspiration. Some false cord edema. Significant secretions present in pyriform sinuses. POD#10: S/P C4 corpectomy and C3-C5 cervical decompression and fusion HTN GERD PVD Aspiration PNA Transfer to ICU for airway monitoring Can attempt HFOT for increased WOB Would not use NIPPV support due to AMS and excessive secretions Low threshold for intubation Decadron IV ABX per ID Follow Neuro exam NPO for now until mental status improves Check ABG Requires ICU monitoring for tenuous respiratory status and frequent suctioning Dr Marroquin Critical care time spent in reviewing chart, evaluating patient and formulating plan - 36 minutes.
--- NOTE | 2019-08-28 15:41 | PN ---
Progress Note, Physician History of Present Illness: Pt seen and examined at bedside. He is awake. He complains of cough. - Current Medication List Current Medications: Active Medications Acetaminophen (Tylenol -) 650 mg PO Q6H PRN PRN Reason: FEVER Last Admin: 08/22/19 14:08 Dose: 650 mg Albuterol/Ipratropium (Duoneb -) 1 amp NEB RQID [facility] Last Admin: 08/28/19 11:45 Dose: 1 amp Benzocaine/Menthol (Cepacol Lozenge -) 1 each MM PRN PRN PRN Reason: SORE THROAT Last Admin: 08/18/19 17:18 Dose: 1 each Docusate Sodium (Colace -) 100 mg PO DAILY [facility] Last Admin: 08/28/19 12:05 Dose: Not Given Piperacillin Sod/Tazobactam (Sod 2.25 gm/ Dextrose) 50 mls @ 100 mls/hr IVPB Q8H-IV MELISSA; Protocol Last Admin: 08/28/19 10:46 Dose: 100 mls/hr Dextrose/Lactated Ringer's (D5-Lr -) 1,000 mls @ 75 mls/hr IV ASDIR MELISSA Losartan Potassium (Cozaar -) 50 mg PO DAILY [facility] Last Admin: 08/28/19 12:06 Dose: Not Given Methylprednisolone Sodium Succinate (Solu-Medrol -) 40 mg IVPUSH Q8H-IV [facility] Last Admin: 08/28/19 10:46 Dose: 40 mg Ondansetron HCl (Zofran Injection) 4 mg IVPUSH Q6H PRN PRN Reason: NAUSEA AND/OR VOMITING Pantoprazole Sodium (Protonix -) 40 mg PO DAILY [facility] Last Admin: 08/28/19 12:05 Dose: Not Given Polyethylene Glycol (Miralax (For Daily Use) -) 17 gm PO DAILY [facility] Last Admin: 08/28/19 12:06 Dose: Not Given Senna (Senna -) 1 tab PO HS [facility] Last Admin: 08/27/19 21:35 Dose: Not Given Sodium Chloride (Normal Saline For Inhalation -) 3 ml IH RQID [facility]EL[facility] Last Admin: 08/27/19 20:49 Dose: 3 ml - Objective Vital Signs: Vital Signs Temperature 97.5 F L 08/28/19 10:00 Pulse Rate 103 H 08/28/19 10:00 Respiratory Rate 24 H 08/28/19 10:00 Blood Pressure 165/103 H 08/28/19 10:00 O2 Sat by Pulse Oximetry (%) 96 08/28/19 10:00 Constitutional: Yes: Calm Eyes: Yes: Conjunctiva Clear Cardiovascular: Yes: S1, S2 Respiratory: Yes: CTA Bilaterally Gastrointestinal: Yes: Soft Genitourinary: Yes: Incontinence Musculoskeletal: Yes: WNL Edema: No Neurological: Yes: Oriented Labs: CBC, BMP 08/28/19 05:30 08/28/19 05:30 Problem List - Problems (1) MARY (acute kidney injury) Code(s): N17.9 - ACUTE KIDNEY FAILURE, UNSPECIFIED (2) Acute urinary retention Code(s): R33.8 - OTHER RETENTION OF URINE Assessment/Plan Current Medications Generic Name Dose Route Start Last Admin Trade Name Freq PRN Reason Stop Dose Admin Acetaminophen 650 mg 08/21/19 17:02 08/22/19 14:08 Tylenol - PO 650 mg Q6H PRN Administration FEVER Albuterol/Ipratropium 1 amp 08/28/19 08:00 08/28/19 11:45 Duoneb - NEB 1 amp RQID MELISSA Administration Benzocaine/Menthol 1 each 08/18/19 11:08 08/18/19 17:18 Cepacol Lozenge - MM 1 each PRN PRN Administration SORE THROAT Docusate Sodium 100 mg 08/19/19 13:45 08/28/19 12:05 Colace - PO Not Given DAILY MELISSA Piperacillin Sod/Tazobactam 50 mls @ 100 mls/hr 08/23/19 10:00 08/28/19 10:46 Sod 2.25 gm/ Dextrose IVPB 100 mls/hr Q8H-IV MELISSA Administration Protocol Dextrose/Lactated Ringer's 1,000 mls @ 75 mls/hr 08/28/19 11:45 D5-Lr - IV ASDIR MELISSA Losartan Potassium 50 mg 08/26/19 14:00 08/28/19 12:06 Cozaar - PO Not Given DAILY MELISSA Methylprednisolone Sodium Succinate 40 mg 08/28/19 02:00 08/28/19 10:46 Solu-Medrol - IVPUSH 40 mg Q8H-IV MELISSA Administration Ondansetron HCl 4 mg 08/20/19 07:55 Zofran Injection IVPUSH Q6H PRN NAUSEA AND/OR VOMITING Pantoprazole Sodium 40 mg 08/27/19 10:00 08/28/19 12:05 Protonix - PO Not Given DAILY MELISSA Polyethylene Glycol 17 gm 08/19/19 13:45 08/28/19 12:06 Miralax (For Daily Use) - PO Not Given DAILY MELISSA Senna 1 tab 08/19/19 22:00 08/27/19 21:35 Senna - PO Not Given HS MELISSA Sodium Chloride 3 ml 08/26/19 04:15 08/27/19 20:49 Normal Saline For Inhalation - IH 3 ml RQID MELISSA Administration Impression 1. MARY 2. hypotension 3. s/p cervical surgery 4. gerd 5. htn 6. altered mental status Plan - change fluids to d5 1/2 - repeat labs in am - monitor renal function - pt to be monitored in ICU - avoid nsaids - avoid nephrotoxins
[2019-08-28] MEDS: DEXTROSE 5%-0.45% SALINE 1,000 ML IV SCH (18:20)
--- NOTE | 2019-08-28 19:09 | PN ---
Progress Note (short form) - Note Progress Note: Hospitalist Medicine with stridor today, seen by ENT. Case discussed w/ daughter. For ICU transfer Vitals 08/28/19 08/28/19 10:00 14:00 Temperature 98.2 F Pulse Rate 89 Respiratory 24 H Rate Blood Pressure 166/90 Physical Exam General: resting, with hard c-collar on. HEENT: NCAT, PERRLA neck: supple, +stridor cardio: S1, S2 RRR. no r/m/g pulm: +scattered rhonchi, mild accessory m usage abdomen: nontender, nondistended neuro: operations and maintenance technican 2-12 grossly intact, decreased crate opener, hand strength on L LE: 2+ pulses, no edema Laboratory Tests 08/28/19 08/28/19 08/28/19 05:30 05:30 11:35 WBC 16.9 H Hgb 12.3 Hct 38.4 Plt Count 521 H ESR 24 H ABG pH ABG pCO2 at Pt Temp ABG pO2 at Pt Temp ABG HCO3 Sodium 144 Potassium 5.0 Chloride 110 H Carbon Dioxide 28 BUN 43.5 H Creatinine 1.6 H Random Glucose 131 H Lactic Acid Calcium 9.7 Phosphorus 4.0 Magnesium 2.6 H C-Reactive Protein 9.8 H 08/28/19 08/28/19 12:30 13:22 WBC Hgb Hct Plt Count ESR ABG pH 7.33 L ABG pCO2 at Pt Temp 51.5 H ABG pO2 at Pt Temp 100 ABG HCO3 26.2 Sodium Potassium Chloride Carbon Dioxide BUN Creatinine Random Glucose Lactic Acid 1.3 Calcium Phosphorus Magnesium C-Reactive Protein Microbiology 08/21/19 21:55 Sputum - Expectorated Gram Stain - Final 08/21/19 21:55 Sputum - Expectorated Sputum Culture - Final NORMAL RESPIRATORY TRINO 08/21/19 18:00 Blood - Peripheral Venous Blood Culture - Final NO GROWTH AFTER 5 DAYS INCUBATION 08/21/19 18:00 Blood - Peripheral Venous Blood Culture - Final NO GROWTH AFTER 5 DAYS INCUBATION 08/21/19 17:30 Urine - Urine Webb Urine Culture - Final NO GROWTH OBTAINED 08/18/19 01:10 Urine - Urine - Catheterized Urine Culture - Final NO GROWTH OBTAINED Imaging 08/18/19: c-spine XR: c-spine hardware appropriate position. alignment maintained. no hardware failure 08/22/19: CXR: no acute path. minimal atelectasis R base 08/23/19: CXR: since prior study, atelectatic changes at R base have diminished , improvement R base 08/24/19: renal sono: WNL 08/24/19: CTH: (-) 08/25/19: CXR: R basilar platelike atelectasis 08/26/19: CXR: atelectatic change at the R base with prominent mediastinum and lower cervical spine hardware. 08/26/19: MBS: severe dysphagi, recurrent aspiration on puree and thick liquid as well on patient secretions with focal wetness frequently. rule out swelling in the pharynx which may be contributing to the dysphagia s/p anterior fusion. strict NPO at this time, including medication. Mouth care. Suction when necessary. If swallowing does not improve, may need temporary PEG Assessment/Plan 79 y/o/m with PMHx of HTN, GERD, and PVD(s/p stent- Pt. unclear which leg) presenting after C3-C5 discectomy and fusion. #Neurology - s/p C4 corpectomy & C3-C5 anterior cervical decompression and instrumented fusion - Maintain head of bed 30-45 degrees. - Pain medication: on roxicodone PRN, no NSAID's - on bowel regimen, while on pain mgmt - miralax, senna, colace - frequent suction, chest PT. transfer to ICU - Hard c-collar in place. - PT/OT/Rehab, OOB. - WBAT B/L LE - PWB B/L UE: 5lbs. - B/L UE & LE NV checks. #new onset stridor possible 2/2 inflammation post-op -seen by ENT; w/ curled epiglottis -f/u soft tissue neck CT. report pending -transfer to ICU; airway observation -orotracheal intubation if needed, must maintain collar during per Dr. Miranda -could use Glidescope or use flexible bronchoscope. -sx consult: Dr. Miranda #ID -post-op fever, sepsis 2/2 aspiration PNA -c/w zosyn (08/23) -blood, ucx, sputum (-) thus far -c/w frequent suctioning -ID: Dr. Oliva #Nephro -MARY - off IVF , as congested - renal sono: unremarkable - Nephro: Dr. Chan #Urology - Post-op Urinary Retention- resolved - webb initially placed by Dr. Hubbard - Urology on board #Cardiology - hx HTN - losartan restarted #Pulmonology - Encourage IS - will monitor and keep SpO2 above 92% - Airway observation: In case of emergency, remove anterior cervical spine dressing and pull out running suture; ok to cut suture if needed to decompress - hematoma. #F/E/N - off IVF as congested - c/t follow lytes - strict NPO per MBS #Prophylaxis - Mechanical only: KELLEY's, SCD's, per sx recs. to restart PPX based on sx d/w sx: no a/c at this time #Disposition - monitor on tele - on IV abx - pt refuses to go to [place], wants to go home - No heavy lifting (>5 lbs), bending or twisting x 6 months post op. <Desi Garcia - Last Filed: 08/28/19 18:51> - Note Progress Note: Seen and examined; please refer to resident note for further historical information. I agree with the aforementioned assessment and plan and historical information aside from as supplemented by myself. Independently verified all sosa exam findings and diagnostics. I discussed the case at length with the resident and agree with the plan as outlined. Agree with above subjective information. Family updated by resident team. Being transferred to ICU for further monitoring due to worsening of grunting. I have ordered CT neck and pending imaging. Discussed with nursing and resident team. Slight respiratory acidosis noted on abg. Pending ENT consultation and ortho eval. Confused and provides poor history. 10 sys ROS done and negative aside from HPI VS, labs, imaging reviewed NAD AAO resting in bed NC AT EOMI PERRLA HR wnl, s1/2+ NT ND +BS CN2-12 wnl, no fnd Normal mood, appropriate behavior. Persisting metabolic encepholopathic changes with no FND or hallucinations, SI/HI Grunting noted. CT neck pending ABG discussed above Assessment and plan: Being transferred to ICU for further airway monitoring; pending imaging and subspecialty evaluation. Will defer overall care to PCCM consultation when patient is under the care of the ICU. In the interem plan to supplement with O2 via NC/NRB.HFNC if needed. Also notd nphrology input which is appreciated. Agree with problem list above accept for: -Potential stridor (pending ENT eval, would defer to pulm/ENT/anesthesia for intubation given potential complex anatomy) -Acute respiratory acidosis -R/O neck pathology-CT soft tissue pending -Toxic metabolic encephalopathy plateaued but present -Status post elective C4 corpectomy & C3-C5 anterior cervical decompression and instrumented fusion POD #3 -UTI, improved, ID following -Urinary retention secondary to traumatic webb insertion causing clot -CKD (Likely secondary to underlying chronic issues [htn, etc.] and is stable. He is not oliguric. Continue to monitor) -Hx HTN (monitor) -Leukocytosis -Overweight Full Cod <Russ Simon - Last Filed: 08/29/19 04:55>
[2019-08-28] MEDS ORDERED: ACETAMINOPHEN 325 MG TABLET (FP) PO PRN (19:47)
[2019-08-28] MEDS ORDERED: BENZOCAINE/MENTH/CETYLPYRD CL 1 EACH LOZENGE MM PRN (19:47)
[2019-08-28] MEDS ORDERED: ONDANSETRON 4 MG/2 ML VIAL IVPUSH PRN (19:47)
[2019-08-28] MEDS: SENNOSIDES 8.6MG TABLET (FP) PO SCH (21:39)
[2019-08-29] MEDS ORDERED: PIPERACILLIN/TAZOBACTAM 2.25 GM VIAL IVPB ONE ×3 (02:13→17:17)
[2019-08-29] MEDS ORDERED: DEXTROSE 5%-WATER - 50 ML IVPB ONE ×3 (02:13→17:17)
[2019-08-29] MEDS: methylPREDNISolone NA SUCC 40 MG/1 ML VIAL IVPUSH SCH ×3 (02:41→17:33)
[2019-08-29] MEDS: PIPERACILLIN/TAZOB 2.25 GM 2.25 GM in DEXTROSE 5%-WATER - 50 ML IVPB SCH ×3 (02:41→17:33)
[2019-08-29 06:57] LABS: BASO % 0.1 % (0-2.0); HEMATOCRIT 39.5 % (35.4-49); HEMOGLOBIN 12.5 GM/dL (11.7-16.9); LYMPH % 5.5 % (8-40); MCH 27.6 pg (25.7-33.7); MCHC 31.5 g/dl (32.0-35.9); MEAN CELL VOLUME 87.4 fl (80-96); MEAN PLT VOLUME 8.5 fl (7.5-11.1); MONO % 4.6 % (3.8-10.2); NEUT % 89.8 % (42.8-82.8); PLATELET COUNT 571 K/MM3 (134-434); RBC 4.52 M/mm3 (4.00-5.60); RDW 15.2 % (11.9-15.9); WHITE BLOOD COUNT 18.2 K/mm3 (4.0-10.0)
[2019-08-29 07:09] LABS: ALBUMIN 3.2 g/dl (3.4-5.0); BILIRUBIN,TOTAL 0.4 mg/dL (0.2-1); BLOOD UREA NITROGEN 47.2 mg/dL (7-18); CALCIUM 9.6 mg/dL (8.5-10.1); CREATININE 1.6 mg/dL (0.55-1.3); MAGNESIUM 2.7 mg/dL (1.8-2.4); PHOSPHOROUS 3.6 mg/dL (2.5-4.9); POTASSIUM 5.1 mmol/L (3.5-5.1); TOT PROT 7.3 g/dl (6.4-8.2)
[2019-08-29] MEDS: ALBUTEROL SO4 2.5/IPRATROPIUM 0.5 INH SOL 3 ML VIAL.NEB. NEB SCH ×4 (08:37→20:53)
[2019-08-29] MEDS: SODIUM CHLORIDE FOR INHALATION 3 ML VIAL.NEB IH SCH (08:37)
--- NOTE | 2019-08-29 08:38 | PN ---
Progress Note, Physician Chief Complaint: is doing better, breathing well, no new sob, no difficulty breathing, - Current Medication List Current Medications: Active Medications Acetaminophen (Tylenol -) 650 mg PO Q6H PRN PRN Reason: FEVER Albuterol/Ipratropium (Duoneb -) 1 amp NEB RQID [facility] Last Admin: 08/29/19 08:37 Dose: 1 amp Benzocaine/Menthol (Cepacol Lozenge -) 1 each MM PRN PRN PRN Reason: SORE THROAT Docusate Sodium (Colace -) 100 mg PO DAILY [facility] Dextrose/Sodium Chloride (D5-1/2ns -) 1,000 mls @ 100 mls/hr IV ASDIR MELISSA Last Admin: 08/28/19 18:20 Dose: 100 mls/hr Piperacillin Sod/Tazobactam (Sod 2.25 gm/ Dextrose) 50 mls @ 100 mls/hr IVPB Q8H-IV MELISSA; Protocol Last Admin: 08/29/19 02:41 Dose: 100 mls/hr Losartan Potassium (Cozaar -) 50 mg PO DAILY [facility] Methylprednisolone Sodium Succinate (Solu-Medrol -) 40 mg IVPUSH Q8H-IV MELISSA Last Admin: 08/29/19 02:41 Dose: 40 mg Ondansetron HCl (Zofran Injection) 4 mg IVPUSH Q6H PRN PRN Reason: NAUSEA AND/OR VOMITING Pantoprazole Sodium (Protonix -) 40 mg PO DAILY [facility] Polyethylene Glycol (Miralax (For Daily Use) -) 17 gm PO DAILY [facility] Senna (Senna -) 1 tab PO HS [facility] Last Admin: 08/28/19 21:39 Dose: Not Given Sodium Chloride (Normal Saline For Inhalation -) 3 ml IH RQID [facility] Last Admin: 08/29/19 08:37 Dose: Not Given - Objective Vital Signs: Vital Signs Temperature 98 F 08/29/19 06:00 Pulse Rate 66 08/29/19 06:00 Respiratory Rate 19 08/29/19 06:00 Blood Pressure 160/90 08/29/19 06:00 O2 Sat by Pulse Oximetry (%) 96 08/28/19 21:00 Constitutional: Yes: Well Nourished, No Distress Eyes: Yes: Conjunctiva Clear HENT: Yes: Normocephalic Neck: Yes: Supple, Trachea Midline Cardiovascular: Yes: Regular Rate and Rhythm Respiratory: Yes: Regular, CTA Bilaterally Gastrointestinal: Yes: Normal Bowel Sounds, Soft Extremities: Yes: WNL Edema: No Neurological: Yes: WNL ...Motor Strength: WNL Labs: CBC, BMP 08/29/19 05:40 08/29/19 05:40 - ....Imaging Cat Scan: Report Reviewed Impression/Plan Impression/Plan: 79 y/o/m with PMHx of HTN, GERD, and PVD(s/p stent- Pt. unclear which leg) presenting after C3-C5 discectomy and fusion. -sp discectomy and fusion c3-4 is doing well, continue PT , and also care as per neuro surg, . #new onset stridor possible 2/2 inflammation post-op -seen by ENT; w/ curled epiglottis -f/u soft tissue neck CT.shows artifact, and fu ENT apppears to be doing well, sat above 90% aspiration PNA -c/w zosyn (08/23) -blood, ucx, sputum (-) thus far -c/w frequent suctioning -ID: Dr. Oliva -MARY continue watching bun /cr - i:o - renal sono: unremarkable - Nephro: Dr. Chan h/o htn bp control acceptable, #Prophylaxis - Mechanical only: KELLEY's, SCD's, per sx recs. to restart PPX based on sx d/w sx: no a/c at this time Visit type - Emergency Visit Emergency Visit: No - New Patient This patient is new to me today: Yes Date on this admission: 08/30/19 - Critical Care Critical Care patient: Yes Total Critical Care Time (in minutes): 40 Critical Care Statement: The care of this patient involved high complexity decision making to prevent further life threatening deterioration of the patient 's condition and/or to evaluate & treat vital organ system(s) failure or risk of failure. - Discharge Referral Referred to [facility] No
[2019-08-29] MEDS: POLYETHYLENE GLYCOL 3350 119 GM BTL PO SCH (09:41)
[2019-08-29] MEDS: LOSARTAN POTASSIUM 50 MG TABLET (FP) PO SCH (09:41)
[2019-08-29] MEDS: DOCUSATE SODIUM 100 MG CAPSULE (FP) PO SCH (09:41)
[2019-08-29] MEDS: PANTOPRAZOLE 40 MG TABLET (FP) PO SCH (09:41)
--- NOTE | 2019-08-29 11:05 | CONSULT ---
Consultation: REQUESTING PROVIDER: CONSULT REQUEST: We have been asked to medically evaluate this patient for ( specify). HISTORY OF PRESENT ILLNESS: REVIEW OF SYSTEMS: CONSTITUTIONAL: Absent: fever, chills, diaphoresis, generalized weakness, malaise, loss of appetite, weight change HEENT: Absent: rhinorrhea, nasal congestion, throat pain, throat swelling, difficulty swallowing, mouth swelling, ear pain, eye pain, visual changes CARDIOVASCULAR: Absent: chest pain, syncope, palpitations, irregular heart rate, lightheadedness , peripheral edema RESPIRATORY: Absent: cough, shortness of breath, dyspnea with exertion, orthopnea, wheezing, stridor, hemoptysis GASTROINTESTINAL: Absent: abdominal pain, abdominal distension, nausea, vomiting, diarrhea, constipation, melena, hematochezia GENITOURINARY: Absent: dysuria, frequency, urgency, hesitancy, hematuria, flank pain, genital pain MUSCULOSKELETAL: Absent: myalgia, arthralgia, joint swelling, back pain, neck pain SKIN: Absent: rash, itching, pallor HEMATOLOGIC/IMMUNOLOGIC: Absent: easy bleeding, easy bruising, lymphadenopathy, frequent infections ENDOCRINE: Absent: unexplained weight gain, unexplained weight loss, heat intolerance, cold intolerance NEUROLOGIC: Absent: headache, focal weakness or paresthesias, dizziness, unsteady gait, seizure, mental status changes, bladder or bowel incontinence PSYCHIATRIC: Absent: anxiety, depression, suicidal or homicidal ideation, hallucinations. PHYSICAL EXAMINATION Vital Signs - 24 hr 08/28/19 08/28/19 08/28/19 14:00 18:00 19:00 Temperature 98.2 F 98.9 F Pulse Rate 89 98 H 97 H Respiratory 23 H 20 Rate Blood Pressure 166/90 157/96 158/83 O2 Sat by Pulse Oximetry (%) 08/28/19 08/28/19 08/29/19 21:00 22:00 00:00 Temperature 99.9 F H Pulse Rate 102 H 82 Respiratory 29 H 19 Rate Blood Pressure 135/91 148/88 O2 Sat by Pulse 96 Oximetry (%) 08/29/19 08/29/19 08/29/19 02:00 04:00 06:00 Temperature 98.9 F 98 F Pulse Rate 103 H 66 66 Respiratory 20 19 Rate Blood Pressure 131/92 142/89 160/90 O2 Sat by Pulse Oximetry (%) 08/29/19 08/29/19 08:00 09:00 Temperature Pulse Rate 76 62 Respiratory 22 H 20 Rate Blood Pressure 143/90 143/91 O2 Sat by Pulse 96 Oximetry (%) GENERAL: Awake, alert, and fully oriented, in no acute distress. HEAD: Normal with no signs of trauma. EYES: Pupils equal, round and reactive to light, extraocular movements intact, sclera anicteric, conjunctiva clear. No lid lag. EARS, NOSE, THROAT: Ears normal, nares patent, oropharynx clear without exudates. Moist mucous membranes. NECK: Normal range of motion, supple without lymphadenopathy, JVD, or masses. LUNGS: Breath sounds equal, clear to auscultation bilaterally. No wheezes, and no crackles. No accessory muscle use. HEART: Regular rate and rhythm, normal S1 and S2 without murmur, rub or gallop. ABDOMEN: Soft, nontender, not distended, normoactive bowel sounds, no guarding, no rebound, no masses. No hepatomegaly or splenomegaly. MUSCULOSKELETAL: Normal range of motion at all joints. No bony deformities or tenderness. No CVA tenderness. UPPER EXTREMITIES: 2+ pulses, warm, well-perfused. No cyanosis. No clubbing. Cap refill <2 seconds. No peripheral edema. LOWER EXTREMITIES: 2+ pulses, warm, well-perfused. No calf tenderness. No peripheral edema. NEUROLOGICAL: Cranial nerves II-XII intact. Normal speech. Normal gait. PSYCHIATRIC: Cooperative. Good eye contact. Appropriate mood and affect. SKIN: Warm, dry, normal turgor, no rashes or lesions noted. Laboratory Results - last 24 hr 08/28/19 08/28/19 08/28/19 05:30 11:35 12:30 WBC RBC Hgb Hct MCV MCH MCHC RDW Plt Count MPV Absolute Neuts (auto) Neutrophils % Lymphocytes % Monocytes % Eosinophils % Basophils % Nucleated RBC % ESR 24 H Anticoagulation Therapy No Result Required. Puncture Site Right radial ABG pH 7.33 L ABG pCO2 at Pt Temp 51.5 H ABG pO2 at Pt Temp 100 ABG HCO3 26.2 ABG O2 Sat (Measured) 96.7 ABG O2 Content No Result Required. ABG Base Excess -0.1 Sheldon Test Positive O2 Delivery Device N/c Oxygen Flow Rate 3l Vent Mode No Result Required. Vent Rate No Result Required. Mechanical Rate No Result Required. Pressure Support Vent No Result Required. Sodium 144 Potassium 5.0 Chloride 110 H Carbon Dioxide 28 Anion Gap 7 L BUN 43.5 H Creatinine 1.6 H Est GFR (CKD-EPI)AfAm 47.12 Est GFR (CKD-EPI)NonAf 40.66 Random Glucose 131 H Lactic Acid Calcium 9.7 Phosphorus 4.0 Magnesium 2.6 H Total Bilirubin AST ALT Alkaline Phosphatase C-Reactive Protein 9.8 H Total Protein Albumin 08/28/19 08/29/19 08/29/19 13:22 05:40 05:40 WBC 18.2 H RBC 4.52 Hgb 12.5 Hct 39.5 MCV 87.4 MCH 27.6 MCHC 31.5 L RDW 15.2 Plt Count 571 H MPV 8.5 Absolute Neuts (auto) 16.3 H Neutrophils % 89.8 H Lymphocytes % 5.5 L Monocytes % 4.6 D Eosinophils % 0.0 Basophils % 0.1 Nucleated RBC % 0 ESR Anticoagulation Therapy Puncture Site ABG pH ABG pCO2 at Pt Temp ABG pO2 at Pt Temp ABG HCO3 ABG O2 Sat (Measured) ABG O2 Content ABG Base Excess Sheldon Test O2 Delivery Device Oxygen Flow Rate Vent Mode Vent Rate Mechanical Rate Pressure Support Vent Sodium 148 H Potassium 5.1 Chloride 113 H Carbon Dioxide 30 Anion Gap 6 L BUN 47.2 H Creatinine 1.6 H Est GFR (CKD-EPI)AfAm 47.12 Est GFR (CKD-EPI)NonAf 40.66 Random Glucose 135 H Lactic Acid 1.3 Calcium 9.6 Phosphorus 3.6 Magnesium 2.7 H Total Bilirubin 0.4 AST 67 H ALT 139 H Alkaline Phosphatase 82 C-Reactive Protein Total Protein 7.3 Albumin 3.2 L Active Medications Acetaminophen (Tylenol -) 650 mg PO Q6H PRN PRN Reason: FEVER Albuterol/Ipratropium (Duoneb -) 1 amp NEB RQID [facility] Last Admin: 08/29/19 08:37 Dose: 1 amp Benzocaine/Menthol (Cepacol Lozenge -) 1 each MM PRN PRN PRN Reason: SORE THROAT Docusate Sodium (Colace -) 100 mg PO DAILY [facility] Last Admin: 08/29/19 09:41 Dose: Not Given Dextrose/Sodium Chloride (D5-1/2ns -) 1,000 mls @ 100 mls/hr IV ASDIR [facility] Last Admin: 08/28/19 18:20 Dose: 100 mls/hr Piperacillin Sod/Tazobactam (Sod 2.25 gm/ Dextrose) 50 mls @ 100 mls/hr IVPB Q8H-IV [facility]; Protocol Last Admin: 08/29/19 09:41 Dose: 100 mls/hr Losartan Potassium (Cozaar -) 50 mg PO DAILY [facility] Last Admin: 08/29/19 09:41 Dose: Not Given Methylprednisolone Sodium Succinate (Solu-Medrol -) 40 mg IVPUSH Q8H-IV [facility] Last Admin: 08/29/19 09:41 Dose: 40 mg Ondansetron HCl (Zofran Injection) 4 mg IVPUSH Q6H PRN PRN Reason: NAUSEA AND/OR VOMITING Pantoprazole Sodium (Protonix -) 40 mg PO DAILY [facility] Last Admin: 08/29/19 09:41 Dose: Not Given Polyethylene Glycol (Miralax (For Daily Use) -) 17 gm PO DAILY [facility] Last Admin: 08/29/19 09:41 Dose: Not Given Senna (Senna -) 1 tab PO HS [facility] Last Admin: 08/28/19 21:39 Dose: Not Given Sodium Chloride (Normal Saline For Inhalation -) 3 ml IH RQID [facility] Last Admin: 08/29/19 08:37 Dose: Not Given ASSESSMENT/PLAN: Patient is a 79 y/o male with a history of GERD, HTN, and PVD, who is admitted for cervical decompression and instrumented fusion. #Neuro - A& O x2 s/p C4 corpectomy & C3-C5 anterior cervical decompression and instrumented fusion #Cardio #Pulm #GI #Renal #ID Dispo: We will continue to follow the patient. Thank you for this consultative opportunity. ATTENDING PHYSICIAN STATEMENT I saw and evaluated the patient. I reviewed the resident's note and discussed the case with the resident. I agree with the resident's findings and plan as documented. SUBJECTIVE: OBJECTIVE: ASSESSMENT AND PLAN:
--- NOTE | 2019-08-29 11:48 | PN ---
Teaching Attending Note Name of Resident: Neelima Mendez ATTENDING PHYSICIAN STATEMENT I saw and evaluated the patient. I reviewed the resident's note and discussed the case with the resident. I agree with the resident's findings and plan as documented. SUBJECTIVE: Pt seen and examined in the ICU. Denies shortness of breath. States voice is close to normal. OBJECTIVE: Vital Signs Period Temp Pulse Resp BP Sys/Banks Pulse Ox Last 24 Hr 98 F-99.9 F 62-103 19-29 131-166/83-96 96-96 Intake & Output 08/26/19 08/27/19 08/28/19 08/29/19 23:59 23:59 23:59 23:59 Intake Total 673 70 3628 1300 Output Total 600 200 Balance -450 -150 1180 1300 Weight 91.036 kg 87.362 kg 85.049 kg Gen: NAD in cervical collar Heart: RRR Lung: decreased breath sounds at the bases Abd: soft, nontender Ext: no edema CBC, BMP 08/29/19 05:40 08/29/19 05:40 Active Medications Acetaminophen (Tylenol -) 650 mg PO Q6H PRN PRN Reason: FEVER Albuterol/Ipratropium (Duoneb -) 1 amp NEB RQID [facility] Last Admin: 08/29/19 08:37 Dose: 1 amp Benzocaine/Menthol (Cepacol Lozenge -) 1 each MM PRN PRN PRN Reason: SORE THROAT Docusate Sodium (Colace -) 100 mg PO DAILY [facility] Last Admin: 08/29/19 09:41 Dose: Not Given Dextrose/Sodium Chloride (D5-1/2ns -) 1,000 mls @ 100 mls/hr IV ASDIR [facility] Last Admin: 08/28/19 18:20 Dose: 100 mls/hr Piperacillin Sod/Tazobactam (Sod 2.25 gm/ Dextrose) 50 mls @ 100 mls/hr IVPB Q8H-IV [facility]; Protocol Last Admin: 08/29/19 09:41 Dose: 100 mls/hr Losartan Potassium (Cozaar -) 50 mg PO DAILY [facility] Last Admin: 08/29/19 09:41 Dose: Not Given Methylprednisolone Sodium Succinate (Solu-Medrol -) 40 mg IVPUSH Q8H-IV [facility] Last Admin: 08/29/19 09:41 Dose: 40 mg Ondansetron HCl (Zofran Injection) 4 mg IVPUSH Q6H PRN PRN Reason: NAUSEA AND/OR VOMITING Pantoprazole Sodium (Protonix -) 40 mg PO DAILY [facility] Last Admin: 08/29/19 09:41 Dose: Not Given Polyethylene Glycol (Miralax (For Daily Use) -) 17 gm PO DAILY [facility] Last Admin: 08/29/19 09:41 Dose: Not Given Senna (Senna -) 1 tab PO HS [facility] Last Admin: 08/28/19 21:39 Dose: Not Given Sodium Chloride (Normal Saline For Inhalation -) 3 ml IH RQID [facility] Last Admin: 08/29/19 08:37 Dose: Not Given ASSESSMENT AND PLAN: Acute Respiratory Insufficiency Upper Airway Obstruction Pneumonia likely Aspiration Cervical Stenosis with Radiculopathy and Myelopathy s/p C4 corpectomy/Partial Corpectomies C3, C5/Insertion Biomechanical Device C3- C5 Acute Kidney Injury improving HTN PAD GERD - recheck ABG - continue antibiotics - continue medrol - inhaled bronchodilators - incentive spirometry - IVF - monitor urine output, creatinine - aspiration precautions - DVT prophylaxis - can monitor on floor if ABG improved
--- NOTE | 2019-08-29 11:59 | PN ---
Progress Note, Physician History of Present Illness: in icu now because of pharyngeal edema ent on case mental status looks better lot of secretions voice still hoarse - Current Medication List Current Medications: Active Medications Acetaminophen (Tylenol -) 650 mg PO Q6H PRN PRN Reason: FEVER Albuterol/Ipratropium (Duoneb -) 1 amp NEB RQID [facility] Last Admin: 08/29/19 08:37 Dose: 1 amp Benzocaine/Menthol (Cepacol Lozenge -) 1 each MM PRN PRN PRN Reason: SORE THROAT Docusate Sodium (Colace -) 100 mg PO DAILY [facility] Last Admin: 08/29/19 09:41 Dose: Not Given Dextrose/Sodium Chloride (D5-1/2ns -) 1,000 mls @ 100 mls/hr IV ASDIR [facility] Last Admin: 08/28/19 18:20 Dose: 100 mls/hr Piperacillin Sod/Tazobactam (Sod 2.25 gm/ Dextrose) 50 mls @ 100 mls/hr IVPB Q8H-IV [facility]; Protocol Last Admin: 08/29/19 09:41 Dose: 100 mls/hr Losartan Potassium (Cozaar -) 50 mg PO DAILY [facility] Last Admin: 08/29/19 09:41 Dose: Not Given Methylprednisolone Sodium Succinate (Solu-Medrol -) 40 mg IVPUSH Q8H-IV [facility] Last Admin: 08/29/19 09:41 Dose: 40 mg Ondansetron HCl (Zofran Injection) 4 mg IVPUSH Q6H PRN PRN Reason: NAUSEA AND/OR VOMITING Pantoprazole Sodium (Protonix -) 40 mg PO DAILY [facility] Last Admin: 08/29/19 09:41 Dose: Not Given Polyethylene Glycol (Miralax (For Daily Use) -) 17 gm PO DAILY [facility] Last Admin: 08/29/19 09:41 Dose: Not Given Senna (Senna -) 1 tab PO HS [facility] Last Admin: 08/28/19 21:39 Dose: Not Given Sodium Chloride (Normal Saline For Inhalation -) 3 ml IH RQID [facility] Last Admin: 08/29/19 08:37 Dose: Not Given - Objective Vital Signs: Vital Signs Temperature 98 F 08/29/19 06:00 Pulse Rate 62 08/29/19 09:00 Respiratory Rate 20 08/29/19 09:00 Blood Pressure 143/91 08/29/19 09:00 O2 Sat by Pulse Oximetry (%) 96 08/29/19 09:00 Constitutional: Yes: Calm, Mild Distress Neck: Yes: Other (rigid collar) Cardiovascular: Yes: S1, S2 Respiratory: Yes: Regular, On Nasal O2, Other (hoarse voice,stridor) Gastrointestinal: Yes: Normal Bowel Sounds, Soft Musculoskeletal: Yes: WNL Extremities: Yes: WNL Neurological: Yes: Alert Psychiatric: Yes: Alert Labs: CBC, BMP 08/29/19 05:40 08/29/19 05:40 Assessment/Plan 1. MARY 2. hypotension 3. s/p cervical surgery 4. gerd 5. htn 6 altered mental status 7 asp pna plan continue abx monitor closely rest as per icu monitor stridor mental status improving cc 40 min
--- NOTE | 2019-08-29 12:21 | PN ---
Physical Exam: SUBJECTIVE: Patient seen and examined, complains of cough overnight. No acute events. OBJECTIVE: Vital Signs Period Temp Pulse Resp BP Sys/Banks Pulse Ox Last 24 Hr 98 F-99.9 F 62-103 19-29 131-166/83-96 96-96 GENERAL: The patient is awake, alert, and fully oriented, in no acute distress. NECK: collar in place LUNGS: no stridor, clear lungs HEART: Regular rate and rhythm, S1, S2 without murmur, rub or gallop. ABDOMEN: Soft, nontender, nondistended, normoactive bowel sounds EXTREMITIES: 2+ pulses, warm, well-perfused, no edema. SKIN: Warm, dry, normal turgor, no rashes or lesions noted Laboratory Results - last 24 hr 08/28/19 08/28/19 08/28/19 05:30 11:35 12:30 WBC RBC Hgb Hct MCV MCH MCHC RDW Plt Count MPV Absolute Neuts (auto) Neutrophils % Lymphocytes % Monocytes % Eosinophils % Basophils % Nucleated RBC % ESR 24 H Anticoagulation Therapy No Result Required. Puncture Site Right radial ABG pH 7.33 L ABG pCO2 at Pt Temp 51.5 H ABG pO2 at Pt Temp 100 ABG HCO3 26.2 ABG O2 Sat (Measured) 96.7 ABG O2 Content No Result Required. ABG Base Excess -0.1 Sheldon Test Positive O2 Delivery Device N/c Oxygen Flow Rate 3l Vent Mode No Result Required. Vent Rate No Result Required. Mechanical Rate No Result Required. Pressure Support Vent No Result Required. Sodium Potassium Chloride Carbon Dioxide Anion Gap BUN Creatinine Est GFR (CKD-EPI)AfAm Est GFR (CKD-EPI)NonAf Random Glucose Lactic Acid Calcium Phosphorus Magnesium Total Bilirubin AST ALT Alkaline Phosphatase C-Reactive Protein 9.8 H Total Protein Albumin 08/28/19 08/29/19 08/29/19 13:22 05:40 05:40 WBC 18.2 H RBC 4.52 Hgb 12.5 Hct 39.5 MCV 87.4 MCH 27.6 MCHC 31.5 L RDW 15.2 Plt Count 571 H MPV 8.5 Absolute Neuts (auto) 16.3 H Neutrophils % 89.8 H Lymphocytes % 5.5 L Monocytes % 4.6 D Eosinophils % 0.0 Basophils % 0.1 Nucleated RBC % 0 ESR Anticoagulation Therapy Puncture Site ABG pH ABG pCO2 at Pt Temp ABG pO2 at Pt Temp ABG HCO3 ABG O2 Sat (Measured) ABG O2 Content ABG Base Excess Sheldon Test O2 Delivery Device Oxygen Flow Rate Vent Mode Vent Rate Mechanical Rate Pressure Support Vent Sodium 148 H Potassium 5.1 Chloride 113 H Carbon Dioxide 30 Anion Gap 6 L BUN 47.2 H Creatinine 1.6 H Est GFR (CKD-EPI)AfAm 47.12 Est GFR (CKD-EPI)NonAf 40.66 Random Glucose 135 H Lactic Acid 1.3 Calcium 9.6 Phosphorus 3.6 Magnesium 2.7 H Total Bilirubin 0.4 AST 67 H ALT 139 H Alkaline Phosphatase 82 C-Reactive Protein Total Protein 7.3 Albumin 3.2 L Active Medications Acetaminophen (Tylenol -) 650 mg PO Q6H PRN PRN Reason: FEVER Albuterol/Ipratropium (Duoneb -) 1 amp NEB RQID [facility] Last Admin: 08/29/19 08:37 Dose: 1 amp Benzocaine/Menthol (Cepacol Lozenge -) 1 each MM PRN PRN PRN Reason: SORE THROAT Docusate Sodium (Colace -) 100 mg PO DAILY [facility] Last Admin: 08/29/19 09:41 Dose: Not Given Dextrose/Sodium Chloride (D5-1/2ns -) 1,000 mls @ 100 mls/hr IV ASDIR [facility] Last Admin: 08/28/19 18:20 Dose: 100 mls/hr Piperacillin Sod/Tazobactam (Sod 2.25 gm/ Dextrose) 50 mls @ 100 mls/hr IVPB Q8H-IV [facility]; Protocol Last Admin: 08/29/19 09:41 Dose: 100 mls/hr Losartan Potassium (Cozaar -) 50 mg PO DAILY [facility] Last Admin: 08/29/19 09:41 Dose: Not Given Methylprednisolone Sodium Succinate (Solu-Medrol -) 40 mg IVPUSH Q8H-IV [facility] Last Admin: 08/29/19 09:41 Dose: 40 mg Ondansetron HCl (Zofran Injection) 4 mg IVPUSH Q6H PRN PRN Reason: NAUSEA AND/OR VOMITING Pantoprazole Sodium (Protonix -) 40 mg PO DAILY [facility] Last Admin: 08/29/19 09:41 Dose: Not Given Polyethylene Glycol (Miralax (For Daily Use) -) 17 gm PO DAILY [facility] Last Admin: 08/29/19 09:41 Dose: Not Given Senna (Senna -) 1 tab PO HS [facility] Last Admin: 08/28/19 21:39 Dose: Not Given Sodium Chloride (Normal Saline For Inhalation -) 3 ml IH RQID [facility] Last Admin: 08/29/19 08:37 Dose: Not Given ASSESSMENT/PLAN: 79 y/o male with a history of GERD, HTN, PVD, who is admitted for cervical decompression and instrumentation. #Neuro - s/p C4 corpectomy & C3-C5 anterior cervical decompression and instrumented fusion - A& O x2 - keep cervical collar in place, keep head of bed elevated - continue neuro checks #Cardio - pressures stable - BP meds as tolerated - continue losartan 50 mg #Respiratory - stridor 2/2 to curled epiglottis, some flase cord edema, significant secretions present in pyriform sinuses - continue to monitor airway, continue pulse ox and supplemental oxygen as needed, maintain above 90 - per ENT if patient tires may require intubation, maintain cervical collar #GI - zofran prn for nausea - pantoprazole 40 po daily - miralax and senna daily #ID - white count increased but likely 2/2 to methylprednisolone - continue to monitor, continue Zosyn #MSK - s/p C4 corpectomy & C3-C5 anterior cervical decompression and instrumented fusion - discussed with [facility] the importance of getting patient up for PT, - speech and swallow eval for Saturday FEN - keep patient NPO Dispo: keep patient in ICU until saturday per Dr. Miranda Visit type - Emergency Visit Emergency Visit: No - New Patient This patient is new to me today: Yes Date on this admission: 08/29/19 - Critical Care Critical Care patient: Yes Total Critical Care Time (in minutes): 45 Critical Care Statement: The care of this patient involved high complexity decision making to prevent further life threatening deterioration of the patient 's condition and/or to evaluate & treat vital organ system(s) failure or risk of failure. ATTENDING PHYSICIAN STATEMENT I saw and evaluated the patient. I reviewed the resident's note and discussed the case with the resident. I agree with the resident's findings and plan as documented. SUBJECTIVE: OBJECTIVE: ASSESSMENT AND PLAN:
[2019-08-29 13:10] LABS: ARTERIAL BLD GAS O2 SATURATION 95.2 % (95-98); ARTERIAL BLOOD GAS BASE EXCESS 3.5 meq/l (-2-2); ARTERIAL BLOOD GAS PCO2 46.8 mmHg (35-45); ARTERIAL BLOOD GAS PO2 78.6 mmHg (80-100)
[2019-08-29 13:15] LABS: ALLENS TEST POSITIVE
--- NOTE | 2019-08-29 15:25 | PN ---
Progress Note (short form) - Note Progress Note: 79M s/p C4 corpectomy & C3-C5 anterior cervical decompression and instrumented fusion POD #12. Pt. moved to ICU for more attentive nursing care and frequent suctioning of thick endobronchial secretions to minimize risk of aspiration event. Pt. underwent airway evaluation by Dr. Vanegas (ENT) yesterday: epiglottis is very curled, omega shaped and tilts posteriorly with each inspiration, thick opaque yellow mucus both pyriform sinuses; edema of false cords. Today, pt. is AAO x 3. Endobronchial secretions improved. Pain well controlled. Pt. denies current headaches, chest pain, shortness of breath, nausea, vomiting , chills, & sweats. (+) Voiding; (+) Flatus; (+) BM. (+) Dysphagia; (-) Dysphonia (resolved). All labs and vitals reviewed. PE: AAO x 3, NAD. C-Spine: Incision, dressing C/D/I. Echo-incisional soft tissue bed remains soft , no fluid collection. Rush-J c-collar intact and in place. B/L UE & LE sensorimotor status at baseline. 79M s/p C4 corpectomy & C3-C5 anterior cervical decompression and instrumented fusion POD #12. -Continued pulmonary toilet and suctioning to prevent repeat aspiration events; patient needs continuous bedside nursing for this until respiratory symptoms improve. -NPO until Saturday; recommend repeat barium swallow study. -IVF: D1/2NS as per primary medical team. -Continue Zosyn IV as per ID team (renal dose) to treat presumed aspiration pneumonia. -Incentive spirometry q15 minutes. -Pain medication: NO NSAID's. -Maintain head of bed 30-45 degrees. -Hard c-collar. -DVT PPx: -Mechanical only: KELLEY's, SCD's. -f/u AM labs. -PT/OT/Rehab, OOB. -PWB B/L UE: 5lbs. -WBAT B/L LE. -Keep dressing clean & dry. -No heavy lifting (>5 lbs), bending or twisting x 6 months post op. -B/L UE & LE NV checks. -Care per ICU, medical hospitalist, ID, and renal teams. -Discharge planning: spine rehabilitation due to global weakness; recommend [facility]; f/u [facility] [place] office 10-14 days after hospital discharge; call for appointment; . Erasto Miranda MD (Orthopaedic Surgery).
[2019-08-29] MEDS: DEXTROSE 5%-0.45% SALINE 1,000 ML IV SCH (17:34)
--- NOTE | 2019-08-29 20:50 | PN ---
Progress Note (short form) - Note Progress Note: 1. MARY 2. hypotension 3. s/p cervical surgery 4. gerd 5. htn 6. altered mental status Current Medications Acetaminophen (Tylenol -) 650 mg PO Q6H PRN PRN Reason: FEVER Albuterol/Ipratropium (Duoneb -) 1 amp NEB RQID [facility] Last Admin: 08/29/19 16:24 Dose: 1 amp Benzocaine/Menthol (Cepacol Lozenge -) 1 each MM PRN PRN PRN Reason: SORE THROAT Docusate Sodium (Colace -) 100 mg PO DAILY [facility] Last Admin: 08/29/19 09:41 Dose: Not Given Dextrose/Sodium Chloride (D5-1/2ns -) 1,000 mls @ 100 mls/hr IV ASDIR [facility] Last Admin: 08/29/19 17:34 Dose: 100 mls/hr Piperacillin Sod/Tazobactam (Sod 2.25 gm/ Dextrose) 50 mls @ 100 mls/hr IVPB Q8H-IV [facility]; Protocol Last Admin: 08/29/19 17:33 Dose: 100 mls/hr Losartan Potassium (Cozaar -) 50 mg PO DAILY [facility] Last Admin: 08/29/19 09:41 Dose: Not Given Methylprednisolone Sodium Succinate (Solu-Medrol -) 40 mg IVPUSH Q8H-IV [facility] Last Admin: 08/29/19 17:33 Dose: 40 mg Ondansetron HCl (Zofran Injection) 4 mg IVPUSH Q6H PRN PRN Reason: NAUSEA AND/OR VOMITING Pantoprazole Sodium (Protonix -) 40 mg PO DAILY [facility] Last Admin: 08/29/19 09:41 Dose: Not Given Polyethylene Glycol (Miralax (For Daily Use) -) 17 gm PO DAILY [facility] Last Admin: 08/29/19 09:41 Dose: Not Given Senna (Senna -) 1 tab PO HS [facility] Last Admin: 08/28/19 21:39 Dose: Not Given Last Vital Signs Temp Pulse Resp BP Pulse Ox 97.8 F 80 21 H 116/95 96 08/29/19 18:00 08/29/19 20:00 08/29/19 20:00 08/29/19 20:00 08/29/19 09:00 heent wnl neck no jvd Lungs suma Abd soft nontender ext no edema CBC, BMP 08/29/19 05:40 08/29/19 05:40 IMP- hypernatremia azotemia dehydration Plan- encourage oral hydration
[2019-08-29] MEDS: SENNOSIDES 8.6MG TABLET (FP) PO SCH (22:10)
[2019-08-30] MEDS ORDERED: DEXTROSE 5%-WATER - 50 ML IVPB ONE ×3 (01:15→19:31)
[2019-08-30] MEDS ORDERED: PIPERACILLIN/TAZOBACTAM 2.25 GM VIAL IVPB ONE ×3 (01:15→19:31)
[2019-08-30] MEDS: PIPERACILLIN/TAZOB 2.25 GM 2.25 GM in DEXTROSE 5%-WATER - 50 ML IVPB SCH ×3 (01:32→19:37)
[2019-08-30] MEDS: methylPREDNISolone NA SUCC 40 MG/1 ML VIAL IVPUSH SCH (01:35)
[2019-08-30 07:38] LABS: HEMATOCRIT 40.3 % (35.4-49); HEMOGLOBIN 12.7 GM/dL (11.7-16.9); MCH 27.4 pg (25.7-33.7); MCHC 31.6 g/dl (32.0-35.9); MEAN CELL VOLUME 86.8 fl (80-96); MEAN PLT VOLUME 8.2 fl (7.5-11.1); PLATELET COUNT 588 K/MM3 (134-434); RBC 4.64 M/mm3 (4.00-5.60); RDW 15.1 % (11.9-15.9); WHITE BLOOD COUNT 15.7 K/mm3 (4.0-10.0)
[2019-08-30 07:51] LABS: ALBUMIN 3.3 g/dl (3.4-5.0); BILIRUBIN,TOTAL 0.7 mg/dL (0.2-1); BLOOD UREA NITROGEN 40.1 mg/dL (7-18); CALCIUM 9.9 mg/dL (8.5-10.1); CREATININE 1.4 mg/dL (0.55-1.3); MAGNESIUM 2.6 mg/dL (1.8-2.4); PHOSPHOROUS 2.6 mg/dL (2.5-4.9)
[2019-08-30 07:53] LABS: INR 1.44 (0.83-1.09); PROTHROMBIN TIME (PATIENT) 17.1 SEC (9.7-13.0)
[2019-08-30] MEDS: ALBUTEROL SO4 2.5/IPRATROPIUM 0.5 INH SOL 3 ML VIAL.NEB. NEB SCH ×4 (08:19→20:40)
[2019-08-30] MEDS: POLYETHYLENE GLYCOL 3350 119 GM BTL PO SCH (10:00)
[2019-08-30] MEDS: LOSARTAN POTASSIUM 50 MG TABLET (FP) PO SCH (10:00)
[2019-08-30] MEDS: DOCUSATE SODIUM 100 MG CAPSULE (FP) PO SCH (10:00)
[2019-08-30] MEDS: PANTOPRAZOLE 40 MG TABLET (FP) PO SCH (10:00)
[2019-08-30] MEDS ORDERED: methylPREDNISolone NA SUCC 40 MG/1 ML VIAL IVPUSH SCH (10:30)
--- NOTE | 2019-08-30 10:57 | PN ---
Teaching Attending Note Name of Resident: Cinthia Mendoza ATTENDING PHYSICIAN STATEMENT I saw and evaluated the patient. I reviewed the resident's note and discussed the case with the resident. I agree with the resident's findings and plan as documented. SUBJECTIVE: Pt seen and examined in the ICU. Confused, trying to remove cervical collar. No other overnight events. OBJECTIVE: Vital Signs Period Temp Pulse Resp BP Sys/Banks Pulse Ox Last 24 Hr 97.6 F-98.2 F 71-85 07-31 116-166/69-108 96 Intake & Output 08/27/19 08/28/19 08/29/19 08/30/19 23:59 23:59 23:59 23:59 Intake Total 50 1180 2410 780 Output Total 200 Balance -150 1180 2410 780 Weight 87.362 kg 85.049 kg 88.5 kg Gen: NAD at rest Heart: RRR Lung: decreased breath sounds at the bases Abd: soft, nontender Ext: no edema CBC, BMP 08/30/19 06:44 08/30/19 06:44 Active Medications Acetaminophen (Tylenol -) 650 mg PO Q6H PRN PRN Reason: FEVER Albuterol/Ipratropium (Duoneb -) 1 amp NEB RQID [facility] Last Admin: 08/30/19 08:19 Dose: 1 amp Benzocaine/Menthol (Cepacol Lozenge -) 1 each MM PRN PRN PRN Reason: SORE THROAT Docusate Sodium (Colace -) 100 mg PO DAILY [facility] Last Admin: 08/29/19 09:41 Dose: Not Given Dextrose/Sodium Chloride (D5-1/2ns -) 1,000 mls @ 100 mls/hr IV ASDIR MELISSA Last Admin: 08/29/19 17:34 Dose: 100 mls/hr Piperacillin Sod/Tazobactam (Sod 2.25 gm/ Dextrose) 50 mls @ 100 mls/hr IVPB Q8H-IV MELISSA; Protocol Last Admin: 08/30/19 10:51 Dose: 100 mls/hr Losartan Potassium (Cozaar -) 50 mg PO DAILY [facility] Last Admin: 08/29/19 09:41 Dose: Not Given Ondansetron HCl (Zofran Injection) 4 mg IVPUSH Q6H PRN PRN Reason: NAUSEA AND/OR VOMITING Pantoprazole Sodium (Protonix -) 40 mg PO DAILY [facility] Last Admin: 08/29/19 09:41 Dose: Not Given Polyethylene Glycol (Miralax (For Daily Use) -) 17 gm PO DAILY [facility] Last Admin: 08/29/19 09:41 Dose: Not Given Senna (Senna -) 1 tab PO HS [facility] Last Admin: 08/29/19 22:10 Dose: Not Given ASSESSMENT AND PLAN: Acute Respiratory Insufficiency Upper Airway Obstruction from Curved Epiglottis Pneumonia likely Aspiration Cervical Stenosis with Radiculopathy and Myelopathy s/p C4 corpectomy/Partial Corpectomies C3, C5/Insertion Biomechanical Device C3- C5 Acute Kidney Injury improving HTN PAD GERD - continue antibiotics - d/c medrol - inhaled bronchodilators - IVF - monitor urine output, creatinine - aspiration precautions - DVT prophylaxis - can monitor on floor as pt likely with ICU delirium
--- NOTE | 2019-08-30 11:07 | PN ---
Physical Exam: SUBJECTIVE: Patient seen and examined agitated and AOx1 soft wrist restrains and vest required to keep patient in bed and from harming himself/taking of cervical collar. no other events reported by overnight team. OBJECTIVE: Vital Signs Period Temp Pulse Resp BP Sys/Banks Pulse Ox Last 24 Hr 97.6 F-98.2 F 71-85 11- 116-166/69-108 96 GENERAL: The patient is awake. AO x 1. unintelligible mumbling HEAD: Normal with no signs of trauma. EYES: PERRL, extraocular movements intact, sclera anicteric, conjunctiva clear. No ptosis. ENT: Ears normal, nares patent, oropharynx clear without exudates, dry .still producing secretions. NECK: hard cervical collar in place LUNGS: Breath sounds equal, clear to auscultation bilaterally, no wheezes, no crackles, no accessory muscle use. HEART: Regular rate and rhythm, S1, S2 without murmur, rub or gallop. ABDOMEN: Soft, nontender, nondistended, normoactive bowel sounds, no guarding, no rebound, no hepatosplenomegaly, no masses. EXTREMITIES: 2+ pulses, warm, well-perfused, no edema. NEUROLOGICAL: Cranial nerves II through XII grossly intact. PSYCH: uintelligle mumbling SKIN: Warm, dry, normal turgor, no rashes or lesions noted Laboratory Results - last 24 hr 08/29/19 08/30/19 08/30/19 12:40 06:44 06:44 WBC 15.7 H RBC 4.64 Hgb 12.7 Hct 40.3 MCV 86.8 MCH 27.4 MCHC 31.6 L RDW 15.1 Plt Count 588 H MPV 8.2 PT with INR 17.10 H INR 1.44 H Anticoagulation Therapy No Result Required. Puncture Site Right radial ABG pH 7.40 ABG pCO2 at Pt Temp 46.8 H ABG pO2 at Pt Temp 78.6 L ABG HCO3 28.5 H ABG O2 Sat (Measured) 95.2 ABG O2 Content 16.6 ABG Base Excess 3.5 H Sheldon Test Positive O2 Delivery Device Nasal Oxygen Flow Rate 2 Vent Mode No Result Required. Vent Rate No Result Required. Mechanical Rate No Result Required. Pressure Support Vent No Result Required. Sodium Potassium Chloride Carbon Dioxide Anion Gap BUN Creatinine Est GFR (CKD-EPI)AfAm Est GFR (CKD-EPI)NonAf Random Glucose Calcium Phosphorus Magnesium Total Bilirubin AST ALT Alkaline Phosphatase Total Protein Albumin 08/30/19 06:44 WBC RBC Hgb Hct MCV MCH MCHC RDW Plt Count MPV PT with INR INR Anticoagulation Therapy Puncture Site ABG pH ABG pCO2 at Pt Temp ABG pO2 at Pt Temp ABG HCO3 ABG O2 Sat (Measured) ABG O2 Content ABG Base Excess Sheldon Test O2 Delivery Device Oxygen Flow Rate Vent Mode Vent Rate Mechanical Rate Pressure Support Vent Sodium 146 H Potassium 5.0 Chloride 111 H Carbon Dioxide 31 Anion Gap 5 L BUN 40.1 H Creatinine 1.4 H Est GFR (CKD-EPI)AfAm 55.38 Est GFR (CKD-EPI)NonAf 47.78 Random Glucose 126 H Calcium 9.9 Phosphorus 2.6 Magnesium 2.6 H Total Bilirubin 0.7 AST 61 H ALT 136 H Alkaline Phosphatase 77 Total Protein 7.0 Albumin 3.3 L Active Medications Generic Name Dose Route Start Last Admin Trade Name Freq PRN Reason Stop Dose Admin Acetaminophen 650 mg 08/28/19 19:47 Tylenol - PO Q6H PRN FEVER Albuterol/Ipratropium 1 amp 08/28/19 08:00 08/30/19 08:19 Duoneb - NEB 1 amp RQID MELISSA Administration Benzocaine/Menthol 1 each 08/28/19 19:47 Cepacol Lozenge - MM PRN PRN SORE THROAT Docusate Sodium 100 mg 08/29/19 10:00 08/29/19 09:41 Colace - PO Not Given DAILY MELISSA Dextrose/Sodium Chloride 1,000 mls @ 100 mls/hr 08/28/19 15:45 08/29/19 17:34 D5-1/2ns - IV 100 mls/hr ASDIR MELISSA Administration Piperacillin Sod/Tazobactam 50 mls @ 100 mls/hr 08/29/19 02:00 08/30/19 10:51 Sod 2.25 gm/ Dextrose IVPB 100 mls/hr Q8H-IV MELISSA Administration Protocol Losartan Potassium 50 mg 08/29/19 10:00 08/29/19 09:41 Cozaar - PO Not Given DAILY MELISSA Ondansetron HCl 4 mg 08/28/19 19:47 Zofran Injection IVPUSH Q6H PRN NAUSEA AND/OR VOMITING Pantoprazole Sodium 40 mg 08/29/19 10:00 08/29/19 09:41 Protonix - PO Not Given DAILY MELISSA Polyethylene Glycol 17 gm 08/29/19 10:00 08/29/19 09:41 Miralax (For Daily Use) - PO Not Given DAILY MELISSA Senna 1 tab 08/28/19 22:00 08/29/19 22:10 Senna - PO Not Given HS MELISSA ASSESSMENT/PLAN: 79 y/o M hx o f GERD, HTN, PVD POD #12 s/p C4 corpectomy & C3-C5 cervical decompression Neuro -keep cervical collar and HOB elevated -alert to person only.continue to monitor mental status -possible ICU delirium CV Bp stable continue losartan pulm solumedrol d/c has curled epiglotttis and edema with significant secretions maintain O2 above 90 FEN on D5 1/2 NS, continue monitor electrolytes GI miralax and senna for bowel regimen Zofran for nausea pantoprazole for GERD ID on day 9 of zosyn for aspiration pneumonia consult ID OTHER: Swallow evaluation and PT tomorrow. Visit type - Emergency Visit Emergency Visit: Yes ED Registration Date: 08/17/19 Care time: The patient presented to the Emergency Department on the above date and was hospitalized for further evaluation of their emergent condition. - New Patient This patient is new to me today: No - Critical Care Critical Care patient: No - Discharge Referral Referred to [facility] Med P.C.: No ATTENDING PHYSICIAN STATEMENT I saw and evaluated the patient. I reviewed the resident's note and discussed the case with the resident. I agree with the resident's findings and plan as documented. SUBJECTIVE: OBJECTIVE: ASSESSMENT AND PLAN:
--- NOTE | 2019-08-30 12:28 | PN ---
Progress Note (short form) - Note Progress Note: Patient is alert awake and has cervical collar in place. He is not any shortness of breath and telemetry showed he has heart rate below 100 his blood pressure is stable also. He still n.p.o. because of plenty of respiratory secretions and is on suction quite often. He has no fever no chills. His white cell count is coming down today 16,000. He was seen by neurosurgery yesterday also respiratory pulmonary. Vital Signs Period Temp Pulse Resp BP Sys/Banks Pulse Ox Last 24 Hr 97.6 F-98.2 F 72-102 07-31 116-166/79-108 96 Past Medical History Cardio/Vascular HTN Renal/ Other (unknown) Physical examination Patient is comfortable not agitated HEENT mouth is dry Neck supple Lungs bilateral coarse breath sounds Heart S1-S2 positive regular Abdomen soft nontender Neurological he is alert awake moving all extremities. CBC, BMP 08/30/19 06:44 08/30/19 06:44 Assessment and plan 79 y/o M hx o f GERD, HTN, PVD POD #12 s/p C$ corpectomy & C3-C% cervical decompression,He was transferred from the floor 3 days ago with plenty of respiratory secretions which require more of suctioning. DeliriumProbably due to ICU -keep cervical collar and HOB elevated -alert to person only.continue to monitor mental status Hypertension Bp stable continue losartan Respiratory problem has curled epiglotttis and edema with significant secretions maintain O2 above 90 Chest x-ray is unchanged from the previous 1 there is no New pneumonia FEN on D5 1/2 NS, continue monitor electrolytes Gastrointestinal prophylaxis miralax and senna for bowel regimen Zofran for nausea pantoprazole for GERD Aspiration pneumonia on day 9 of zosyn for aspiration pneumonia consult ID OTHER: Swallow evaluation and PT tomorrow. If he tolerate tomorrow swallowing we will stop his fluids give him food and may transfer to telemetry. High BUN and creatinine of 40 and 1.4 Patient is not eating so continue fluids at this time will follow BUN/ creatinine. Visit type - Emergency Visit Emergency Visit: Yes ED Registration Date: 08/17/19 Care time: The patient presented to the Emergency Department on the above date and was hospitalized for further evaluation of their emergent condition. - New Patient This patient is new to me today: Yes Date on this admission: 08/30/19 - Critical Care Critical Care patient: Yes Total Critical Care Time (in minutes): 60 Critical Care Statement: The care of this patient involved high complexity decision making to prevent further life threatening deterioration of the patient 's condition and/or to evaluate & treat vital organ system(s) failure or risk of failure. - Discharge Referral Referred to [facility] Med P.C.: No
--- NOTE | 2019-08-30 16:08 | PN ---
Progress Note, Physician History of Present Illness: Pt is alert, nonverbal but responsive appropriately and in no distress. Family at bedside. - Current Medication List Current Medications: Active Medications Acetaminophen (Tylenol -) 650 mg PO Q6H PRN PRN Reason: FEVER Albuterol/Ipratropium (Duoneb -) 1 amp NEB RQID [facility] Last Admin: 08/30/19 12:02 Dose: 1 amp Benzocaine/Menthol (Cepacol Lozenge -) 1 each MM PRN PRN PRN Reason: SORE THROAT Docusate Sodium (Colace -) 100 mg PO DAILY [facility] Last Admin: 08/30/19 10:00 Dose: Not Given Dextrose/Sodium Chloride (D5-1/2ns -) 1,000 mls @ 100 mls/hr IV ASDIR [facility] Last Admin: 08/29/19 17:34 Dose: 100 mls/hr Piperacillin Sod/Tazobactam (Sod 2.25 gm/ Dextrose) 50 mls @ 100 mls/hr IVPB Q8H-IV MELISSA; Protocol Last Admin: 08/30/19 10:51 Dose: 100 mls/hr Losartan Potassium (Cozaar -) 50 mg PO DAILY [facility] Last Admin: 08/30/19 10:00 Dose: Not Given Ondansetron HCl (Zofran Injection) 4 mg IVPUSH Q6H PRN PRN Reason: NAUSEA AND/OR VOMITING Pantoprazole Sodium (Protonix -) 40 mg PO DAILY [facility] Last Admin: 08/30/19 10:00 Dose: Not Given Polyethylene Glycol (Miralax (For Daily Use) -) 17 gm PO DAILY [facility] Last Admin: 08/30/19 10:00 Dose: Not Given Senna (Senna -) 1 tab PO HS [facility] Last Admin: 08/29/19 22:10 Dose: Not Given - Objective Vital Signs: Vital Signs Temperature 98.1 F 08/30/19 14:00 Pulse Rate 79 08/30/19 14:00 Respiratory Rate 20 08/30/19 14:00 Blood Pressure 156/95 08/30/19 14:00 O2 Sat by Pulse Oximetry (%) 96 08/30/19 09:00 Constitutional: Yes: No Distress, Calm Cardiovascular: Yes: Regular Rate and Rhythm Respiratory: Yes: Diminished (bases, poor inspiratory effort) Gastrointestinal: Yes: Normal Bowel Sounds, Soft Genitourinary: Yes: WNL Extremities: Yes: WNL Integumentary: Yes: WNL Neurological: Yes: Weakness Labs: CBC, BMP 08/30/19 06:44 08/30/19 06:44 INR, PTT INR 1.44 (0.83-1.09) H 08/30/19 06:44 Microbiology 08/21/19 18:00 Blood - Peripheral Venous Blood Culture - Final NO GROWTH AFTER 5 DAYS INCUBATION 08/21/19 18:00 Blood - Peripheral Venous Blood Culture - Final NO GROWTH AFTER 5 DAYS INCUBATION 08/21/19 21:55 Sputum - Expectorated Gram Stain - Final 08/21/19 21:55 Sputum - Expectorated Sputum Culture - Final NORMAL RESPIRATORY TRINO 08/21/19 17:30 Urine - Urine Crespo Urine Culture - Final NO GROWTH OBTAINED 08/18/19 01:10 Urine - Urine - Catheterized Urine Culture - Final NO GROWTH OBTAINED - ....Imaging Cat Scan: Report Reviewed Problem List - Problems (1) MARY (acute kidney injury) Code(s): N17.9 - ACUTE KIDNEY FAILURE, UNSPECIFIED (2) Acute urinary retention Code(s): R33.8 - OTHER RETENTION OF URINE (3) Dysphagia Code(s): R13.10 - DYSPHAGIA, UNSPECIFIED Qualifiers: Dysphagia type: pharyngeal phase Qualified Code(s): R13.13 - Dysphagia, pharyngeal phase (4) History of cervical spinal surgery Code(s): Z98.890 - OTHER SPECIFIED POSTPROCEDURAL STATES (5) Stridor Code(s): R06.1 - STRIDOR Assessment/Plan Leukocytosis PNA/Possible aspiration Upper airway obstruction s/p Cervical spine surgery MARY -- continue Zosyn -- aspiration precautions, being suctioned frequently -- wbc trending down, continue monitor -- monitor renal function - vitals currently stable, afebrile continue close monitoring cc: 38 min
--- NOTE | 2019-08-30 17:30 | PN ---
Progress Note (short form) - Note Progress Note: 1. MARY 2. hypotension 3. s/p cervical surgery 4. gerd 5. htn 6. altered mental status Current Medications Acetaminophen (Tylenol -) 650 mg PO Q6H PRN PRN Reason: FEVER Albuterol/Ipratropium (Duoneb -) 1 amp NEB RQID [facility] Last Admin: 08/30/19 17:20 Dose: 1 amp Benzocaine/Menthol (Cepacol Lozenge -) 1 each MM PRN PRN PRN Reason: SORE THROAT Docusate Sodium (Colace -) 100 mg PO DAILY [facility] Last Admin: 08/30/19 10:00 Dose: Not Given Dextrose/Sodium Chloride (D5-1/2ns -) 1,000 mls @ 100 mls/hr IV ASDIR [facility] Last Admin: 08/29/19 17:34 Dose: 100 mls/hr Piperacillin Sod/Tazobactam (Sod 2.25 gm/ Dextrose) 50 mls @ 100 mls/hr IVPB Q8H-IV MELISSA; Protocol Last Admin: 08/30/19 10:51 Dose: 100 mls/hr Losartan Potassium (Cozaar -) 50 mg PO DAILY [facility] Last Admin: 08/30/19 10:00 Dose: Not Given Ondansetron HCl (Zofran Injection) 4 mg IVPUSH Q6H PRN PRN Reason: NAUSEA AND/OR VOMITING Pantoprazole Sodium (Protonix -) 40 mg PO DAILY [facility] Last Admin: 08/30/19 10:00 Dose: Not Given Polyethylene Glycol (Miralax (For Daily Use) -) 17 gm PO DAILY [facility] Last Admin: 08/30/19 10:00 Dose: Not Given Senna (Senna -) 1 tab PO HS [facility] Last Admin: 08/29/19 22:10 Dose: Not Given Last Vital Signs Temp Pulse Resp BP Pulse Ox 98.1 F 79 20 156/95 96 08/30/19 14:00 08/30/19 14:00 08/30/19 14:00 08/30/19 14:00 08/30/19 09:00 heent wnl neck no jvd Lungs suma Abd soft nontender ext no edema CBC, BMP 08/30/19 06:44 08/30/19 06:44 CBC, BMP 08/29/19 05:40 08/29/19 05:40 IMP- hypernatremia improving gradually azotemia improving dehydration delirium from metabolic abnormalities Plan- continue hydration measures
[2019-08-30] MEDS: DEXTROSE 5%-0.45% SALINE 1,000 ML IV SCH (19:39)
[2019-08-30] MEDS: SENNOSIDES 8.6MG TABLET (FP) PO SCH (21:59)
[2019-08-31] MEDS ORDERED: PIPERACILLIN/TAZOBACTAM 2.25 GM VIAL IVPB ONE ×3 (01:12→17:44)
[2019-08-31] MEDS ORDERED: DEXTROSE 5%-WATER - 50 ML IVPB ONE ×3 (01:12→17:44)
[2019-08-31] MEDS: PIPERACILLIN/TAZOB 2.25 GM 2.25 GM in DEXTROSE 5%-WATER - 50 ML IVPB SCH ×3 (01:23→17:53)
[2019-08-31 06:48] LABS: BASO % 0.2 % (0-2.0); EOS % 0.3 % (0-4.5); HEMATOCRIT 40.5 % (35.4-49); HEMOGLOBIN 13.1 GM/dL (11.7-16.9); LYMPH % 10.2 % (8-40); MCHC 32.2 g/dl (32.0-35.9); MEAN CELL VOLUME 86.8 fl (80-96); MEAN PLT VOLUME 8.5 fl (7.5-11.1); MONO % 9.7 % (3.8-10.2); NEUT % 79.6 % (42.8-82.8); PLATELET COUNT 595 K/MM3 (134-434); RBC 4.67 M/mm3 (4.00-5.60); RDW 14.8 % (11.9-15.9); WHITE BLOOD COUNT 13.2 K/mm3 (4.0-10.0)
[2019-08-31 06:50] LABS: INR 1.51 (0.83-1.09); PROTHROMBIN TIME (PATIENT) 17.9 SEC (9.7-13.0)
[2019-08-31 07:04] LABS: ALBUMIN 3.2 g/dl (3.4-5.0); BLOOD UREA NITROGEN 38.9 mg/dL (7-18); CALCIUM 10.2 mg/dL (8.5-10.1); CREATININE 1.5 mg/dL (0.55-1.3); MAGNESIUM 2.5 mg/dL (1.8-2.4); POTASSIUM 4.3 mmol/L (3.5-5.1); TOT PROT 6.8 g/dl (6.4-8.2)
[2019-08-31] MEDS: ALBUTEROL SO4 2.5/IPRATROPIUM 0.5 INH SOL 3 ML VIAL.NEB. NEB SCH ×4 (08:00→20:42)
[2019-08-31] MEDS: POLYETHYLENE GLYCOL 3350 119 GM BTL PO SCH (09:14)
[2019-08-31] MEDS: PANTOPRAZOLE 40 MG TABLET (FP) PO SCH (09:14)
[2019-08-31] MEDS: DOCUSATE SODIUM 100 MG CAPSULE (FP) PO SCH (09:14)
[2019-08-31] MEDS: LOSARTAN POTASSIUM 50 MG TABLET (FP) PO SCH (09:14)
--- NOTE | 2019-08-31 11:02 | PN ---
Teaching Attending Note Name of Resident: Janessa Calderon ATTENDING PHYSICIAN STATEMENT I saw and evaluated the patient. I reviewed the resident's note and discussed the case with the resident. I agree with the resident's findings and plan as documented. SUBJECTIVE: Pt seen and examined in the ICU. Remains delirious. OBJECTIVE: Vital Signs Period Temp Pulse Resp BP Sys/Banks Pulse Ox Last 24 Hr 98.1 F-98.2 F 67-102 15-25 115-170/74-123 96 Intake & Output 08/28/19 08/29/19 08/30/19 08/31/19 23:59 23:59 23:59 23:59 Intake Total 1180 2410 1830 650 Output Total 700 Balance 1180 2410 1130 650 Weight 85.049 kg 88.5 kg 88.314 kg Gen: confused Heart: RRR Lung: decreased breath sounds at the bases Abd: soft, nontender Ext: no edema CBC, BMP 08/31/19 06:05 08/31/19 06:00 Active Medications Acetaminophen (Tylenol -) 650 mg PO Q6H PRN PRN Reason: FEVER Albuterol/Ipratropium (Duoneb -) 1 amp NEB RQID [facility] Last Admin: 08/31/19 08:00 Dose: 1 amp Benzocaine/Menthol (Cepacol Lozenge -) 1 each MM PRN PRN PRN Reason: SORE THROAT Docusate Sodium (Colace -) 100 mg PO DAILY [facility] Last Admin: 08/31/19 09:14 Dose: Not Given Dextrose/Sodium Chloride (D5-1/2ns -) 1,000 mls @ 100 mls/hr IV ASDIR [facility] Last Admin: 08/30/19 19:39 Dose: 100 mls/hr Piperacillin Sod/Tazobactam (Sod 2.25 gm/ Dextrose) 50 mls @ 100 mls/hr IVPB Q8H-IV MELISSA; Protocol Last Admin: 08/31/19 09:15 Dose: 100 mls/hr Losartan Potassium (Cozaar -) 50 mg PO DAILY [facility] Last Admin: 08/31/19 09:14 Dose: Not Given Ondansetron HCl (Zofran Injection) 4 mg IVPUSH Q6H PRN PRN Reason: NAUSEA AND/OR VOMITING Pantoprazole Sodium (Protonix -) 40 mg PO DAILY [facility] Last Admin: 08/31/19 09:14 Dose: Not Given Polyethylene Glycol (Miralax (For Daily Use) -) 17 gm PO DAILY [facility] Last Admin: 08/31/19 09:14 Dose: Not Given Senna (Senna -) 1 tab PO HS [facility] Last Admin: 08/30/19 21:59 Dose: Not Given ASSESSMENT AND PLAN: Acute Respiratory Insufficiency Upper Airway Obstruction from Curved Epiglottis Pneumonia likely Aspiration Cervical Stenosis with Radiculopathy and Myelopathy s/p C4 corpectomy/Partial Corpectomies C3, C5/Insertion Biomechanical Device C3- C5 Acute Kidney Injury improving HTN PAD GERD - continue antibiotics - inhaled bronchodilators - IVF - monitor urine output, creatinine - aspiration precautions - DVT prophylaxis - can monitor on floor as pt likely with ICU delirium
[2019-08-31] MEDS ORDERED: BENZOCAINE/MENTH/CETYLPYRD CL 1 EACH LOZENGE MM PRN (12:10)
[2019-08-31] MEDS ORDERED: ONDANSETRON 4 MG/2 ML VIAL IVPUSH PRN (12:10)
[2019-08-31] MEDS ORDERED: ACETAMINOPHEN 325 MG TABLET (FP) PO PRN (12:10)
[2019-08-31] MEDS ORDERED: DEXTROSE 5%-0.45% SALINE 1,000 ML IV SCH (12:10)
--- NOTE | 2019-08-31 12:11 | PN ---
Physical Exam: SUBJECTIVE: Patient seen and examined in the morning. No events overnight, no events on cardiac monitoring. No complaints of chest pain, shortness of breath, abdominal pain. Patient is difficult to comprehend due to mumbling. OBJECTIVE: Vital Signs Period Temp Pulse Resp BP Sys/Banks Pulse Ox Last 24 Hr 98.1 F-98.2 F 67-102 15-25 115-170/74-123 96 GENERAL: The patient is awake, alert, and oriented to self. Aware that he is in the hospital. HEAD: Normal with no signs of trauma. NECK: Cervical collar in place. EYES: PERRL, extraocular movements intact, sclera anicteric, conjunctiva clear. No ptosis. LUNGS: Breath sounds equal, clear to auscultation bilaterally, no wheezes, no crackles, no accessory muscle use. HEART: Regular rate and rhythm, S1, S2 without murmur, rub or gallop. ABDOMEN: Soft, nontender, nondistended, normoactive bowel sounds, no guarding, no rebound, no hepatosplenomegaly, no masses. EXTREMITIES: 2+ pulses, warm, well-perfused, no edema. NEUROLOGICAL: Cranial nerves II through XII grossly intact PSYCH: Normal mood, normal affect. SKIN: Warm, dry, normal turgor, no rashes or lesions noted Laboratory Results - last 24 hr 08/31/19 08/31/19 08/31/19 06:00 06:05 06:05 WBC 13.2 H RBC 4.67 Hgb 13.1 Hct 40.5 MCV 86.8 MCH 28.0 MCHC 32.2 RDW 14.8 Plt Count 595 H MPV 8.5 Absolute Neuts (auto) 10.5 H Neutrophils % 79.6 Lymphocytes % 10.2 D Monocytes % 9.7 D Eosinophils % 0.3 D Basophils % 0.2 Nucleated RBC % 0 PT with INR 17.90 H INR 1.51 H Sodium 149 H Potassium 4.3 Chloride 113 H Carbon Dioxide 28 Anion Gap 8 BUN 38.9 H Creatinine 1.5 H Est GFR (CKD-EPI)AfAm 50.95 Est GFR (CKD-EPI)NonAf 43.96 Random Glucose 101 Calcium 10.2 H Phosphorus 3.0 Magnesium 2.5 H Total Bilirubin 1.0 AST 59 H ALT 130 H Alkaline Phosphatase 76 Total Protein 6.8 Albumin 3.2 L Active Medications Generic Name Dose Route Start Last Admin Trade Name Freq PRN Reason Stop Dose Admin Acetaminophen 650 mg 08/28/19 19:47 Tylenol - PO Q6H PRN FEVER Albuterol/Ipratropium 1 amp 08/28/19 08:00 08/31/19 08:00 Duoneb - NEB 1 amp RQID MELISSA Administration Benzocaine/Menthol 1 each 08/28/19 19:47 Cepacol Lozenge - MM PRN PRN SORE THROAT Docusate Sodium 100 mg 08/29/19 10:00 08/31/19 09:14 Colace - PO Not Given DAILY MELISSA Dextrose/Sodium Chloride 1,000 mls @ 100 mls/hr 08/28/19 15:45 08/30/19 19:39 D5-1/2ns - IV 100 mls/hr ASDIR MELISSA Administration Piperacillin Sod/Tazobactam 50 mls @ 100 mls/hr 08/29/19 02:00 08/31/19 09:15 Sod 2.25 gm/ Dextrose IVPB 100 mls/hr Q8H-IV MELISSA Administration Protocol Losartan Potassium 50 mg 08/29/19 10:00 08/31/19 09:14 Cozaar - PO Not Given DAILY MELISSA Ondansetron HCl 4 mg 08/28/19 19:47 Zofran Injection IVPUSH Q6H PRN NAUSEA AND/OR VOMITING Pantoprazole Sodium 40 mg 08/29/19 10:00 08/31/19 09:14 Protonix - PO Not Given DAILY MELISSA Polyethylene Glycol 17 gm 08/29/19 10:00 08/31/19 09:14 Miralax (For Daily Use) - PO Not Given DAILY MELISSA Senna 1 tab 08/28/19 22:00 08/30/19 21:59 Senna - PO Not Given HS [facility] ASSESSMENT/PLAN: 79M PMH GERD, HTN, PVD, POD #13 s/p C4 corpectomy & C3-C5 cervical decompression Neuro -Cervical collar in place -Alert to person -ICU Delirium. No haldol. -Transfer to floors and reorient actively Cardiovascular -Losartan Pulm -Duonebs -Patient has stridor due to curled epiglottis has collapse with inspiration -Significant secretions present in pyriform sinus. GI -Miralax and senna for bowel regimen -Zofran PRN for nausea -Pepcid 40 mg Daily ID -Day 10 of zoysn for aspiration pneumonia -ID consulted, appreciate recs Renal -Making Urine, 700 ml yesterday. F: D5 1/2 NS @ 100 ml/hr E: Monitor CMP N: NPO Dispo: Transfer to floors DVT: SCDs GI: Pantoprazole 40 mg PO Daily Visit type - Emergency Visit Emergency Visit: Yes ED Registration Date: 08/17/19 Care time: The patient presented to the Emergency Department on the above date and was hospitalized for further evaluation of their emergent condition. - New Patient This patient is new to me today: No - Critical Care Critical Care patient: Yes Total Critical Care Time (in minutes): 45 Critical Care Statement: The care of this patient involved high complexity decision making to prevent further life threatening deterioration of the patient 's condition and/or to evaluate & treat vital organ system(s) failure or risk of failure. ATTENDING PHYSICIAN STATEMENT I saw and evaluated the patient. I reviewed the resident's note and discussed the case with the resident. I agree with the resident's findings and plan as documented. SUBJECTIVE: OBJECTIVE: ASSESSMENT AND PLAN:
[2019-08-31] MEDS: methylPREDNISolone NA SUCC 40 MG/1 ML VIAL IVPUSH SCH (12:42)
--- NOTE | 2019-08-31 13:23 | PN ---
Progress Note, Physician History of Present Illness: still having some stridor confusion still present wbc trending down - Current Medication List Current Medications: Active Medications Acetaminophen (Tylenol -) 650 mg PO Q6H PRN PRN Reason: FEVER Albuterol/Ipratropium (Duoneb -) 1 amp NEB RQID MELISSA Benzocaine/Menthol (Cepacol Lozenge -) 1 each MM PRN PRN PRN Reason: SORE THROAT Docusate Sodium (Colace -) 100 mg PO DAILY [facility] Dextrose/Sodium Chloride (D5-1/2ns -) 1,000 mls @ 100 mls/hr IV ASDIR MELISSA Last Admin: 08/31/19 12:43 Dose: 100 mls/hr Piperacillin Sod/Tazobactam (Sod 2.25 gm/ Dextrose) 50 mls @ 100 mls/hr IVPB Q8H-IV MELISSA; Protocol Losartan Potassium (Cozaar -) 50 mg PO DAILY [facility] Ondansetron HCl (Zofran Injection) 4 mg IVPUSH Q6H PRN PRN Reason: NAUSEA AND/OR VOMITING Pantoprazole Sodium (Protonix -) 40 mg PO DAILY [facility] Polyethylene Glycol (Miralax (For Daily Use) -) 17 gm PO DAILY [facility] Senna (Senna -) 1 tab PO HS MELISSA - Objective Vital Signs: Vital Signs Temperature 98.2 F 08/31/19 06:00 Pulse Rate 94 H 08/31/19 10:00 Respiratory Rate 22 H 08/31/19 10:00 Blood Pressure 134/92 08/31/19 10:00 O2 Sat by Pulse Oximetry (%) 96 08/31/19 10:00 Constitutional: Yes: Other Eyes: Yes: Conjunctiva Clear HENT: Yes: Other (hard collar) Neck: Yes: Other (hard collar) Cardiovascular: Yes: S1, S2 Gastrointestinal: Yes: Normal Bowel Sounds, Soft Musculoskeletal: Yes: WNL Extremities: Yes: WNL Neurological: Yes: Alert, Confusion Psychiatric: Yes: Other Labs: CBC, BMP 08/31/19 06:05 08/31/19 06:00 INR, PTT INR 1.51 (0.83-1.09) H 08/31/19 06:05 Assessment/Plan 1. MARY 2. hypotension 3. s/p cervical surgery 4. gerd 5. htn 6 altered mental status 7 asp pna Problem List - Problems (1) MARY (acute kidney injury) Code(s): N17.9 - ACUTE KIDNEY FAILURE, UNSPECIFIED (2) Acute urinary retention Code(s): R33.8 - OTHER RETENTION OF URINE (3) Dysphagia Code(s): R13.10 - DYSPHAGIA, UNSPECIFIED Qualifiers: Dysphagia type: pharyngeal phase Qualified Code(s): R13.13 - Dysphagia, pharyngeal phase (4) History of cervical spinal surgery Code(s): Z98.890 - OTHER SPECIFIED POSTPROCEDURAL STATES (5) Stridor Code(s): R06.1 - STRIDOR Assessment/Plan Leukocytosis PNA/Possible aspiration Upper airway obstruction s/p Cervical spine surgery MARY plan continue abx monitor closely monitor mental status aspiration precautions rest as per the team
--- NOTE | 2019-08-31 14:09 | PN ---
Progress Note, [employer] - Note Progress Note: Selected Entries 08/30/19 08/30/19 08/30/19 00:00 06:00 14:00 Lunch Temperature 97.6 F 98.2 F 98.1 F 08/30/19 08/31/19 08/31/19 18:00 06:00 10:00 Lunch NPO Temperature 98.1 F 98.2 F Laboratory Tests 08/28/19 08/29/19 08/30/19 05:30 05:40 06:44 WBC 16.9 H 18.2 H 15.7 H 08/31/19 06:05 WBC 13.2 H Pt transferred from ICU to 8w. Confused but voice more euphonic. I spoke with Surgical PA who wants to wait for ENT to reasess berfore repeating MBS. NPO including medication until MBS performed.
--- NOTE | 2019-08-31 16:07 | PN ---
Progress Note (short form) - Note Progress Note: Hospitalist Medicine Seen in ICU earlier today, prior to transfer. Looks improved, with less secretions. Less rhonchorous Vitals 08/31/19 14:07 Temperature 97.8 F Pulse Rate 81 Respiratory 20 Rate Blood Pressure 142/85 Physical Exam General: resting, with hard c-collar on. AAO x 2 (self, place. yr: "2038") HEENT: NCAT, PERRLA neck: supple cardio: S1, S2 RRR. no r/m/g pulm: +scattered rhonchi, no accessory m usage abdomen: nontender, nondistended neuro: engraver picture 2-12 grossly intact, 3/5 motor strength UE. sensation intact LE: 2+ pulses, no edema Laboratory Tests 08/31/19 08/31/19 08/31/19 06:00 06:05 06:05 WBC 13.2 H Hgb 13.1 Hct 40.5 Plt Count 595 H PT with INR 17.90 H INR 1.51 H Sodium 149 H Potassium 4.3 Chloride 113 H BUN 38.9 H Creatinine 1.5 H Random Glucose 101 Calcium 10.2 H Phosphorus 3.0 Magnesium 2.5 H Total Bilirubin 1.0 AST 59 H ALT 130 H Alkaline Phosphatase 76 Total Protein 6.8 Albumin 3.2 L Microbiology 08/21/19 21:55 Sputum - Expectorated Gram Stain - Final 08/21/19 21:55 Sputum - Expectorated Sputum Culture - Final NORMAL RESPIRATORY TRINO 08/21/19 18:00 Blood - Peripheral Venous Blood Culture - Final NO GROWTH AFTER 5 DAYS INCUBATION 08/21/19 18:00 Blood - Peripheral Venous Blood Culture - Final NO GROWTH AFTER 5 DAYS INCUBATION 08/21/19 17:30 Urine - Urine Webb Urine Culture - Final NO GROWTH OBTAINED 08/18/19 01:10 Urine - Urine - Catheterized Urine Culture - Final NO GROWTH OBTAINED Imaging 08/18/19: c-spine XR: c-spine hardware appropriate position. alignment maintained. no hardware failure 08/22/19: CXR: no acute path. minimal atelectasis R base 08/23/19: CXR: since prior study, atelectatic changes at R base have diminished , improvement R base 08/24/19: renal sono: WNL 08/24/19: CTH: (-) 08/25/19: CXR: R basilar platelike atelectasis 08/26/19: CXR: atelectatic change at the R base with prominent mediastinum and lower cervical spine hardware. 08/26/19: MBS: severe dysphagi, recurrent aspiration on puree and thick liquid as well on patient secretions with focal wetness frequently. rule out swelling in the pharynx which may be contributing to the dysphagia s/p anterior fusion. strict NPO at this time, including medication. Mouth care. Suction when necessary. If swallowing does not improve, may need temporary PEG 08/28/19: Soft tissue neck CT: tip of epiglottis appears to be bulbous allowing for motion artifact. Correlation with follow up CT vs. direct visualization is suggested. Remaining soft tissue structures demonstrate no gross noncontrast pathology allowing for extensive motion artifact. Follow up CT may also be considered in this regard. S/p multilevel c-spine instrumentation. eval is very limited due to motion artifact. follow up ct/mri may be considered. 08/31/19: CXR: lower c-spine fusion hardware extending into the thoracic inlet, unfolded aorta, normal chris and normal heart, some atelectasis or scarring in the R mid lung field. no infiltrate or failure Assessment/Plan 79 y/o/m with PMHx of HTN, GERD, and PVD(s/p stent- Pt. unclear which leg) presenting after C3-C5 discectomy and fusion. #Neurology - s/p C4 corpectomy & C3-C5 anterior cervical decompression and instrumented fusion - Maintain head of bed 30-45 degrees. - Pain medication: on roxicodone PRN, no NSAID's - on bowel regimen, while on pain mgmt - miralax, senna, colace - frequent suction, chest PT. - Hard c-collar in place. - PT/OT/Rehab, OOB. - WBAT B/L LE - PWB B/L UE: 5lbs. - B/L UE & LE NV checks. #new onset stridor possible 2/2 inflammation post-op -seen by ENT; w/ curled epiglottis -soft tissue neck CT as above -orotracheal intubation if needed, must maintain collar during per Dr. Miranda -could use Glidescope or use flexible bronchoscope. -sx consult: Dr. Miranda -ENT: Dr. Vanegas. await further recs, prior to MBS per S/S. call placed to office #ID -post-op fever, sepsis 2/2 aspiration PNA -c/w zosyn (08/23) -blood, ucx, sputum (-) thus far -c/w frequent suctioning -ID: Dr. Oliva #Nephro -MARY - on d5w - renal sono: unremarkable - Nephro: Dr. Chan -Hypernatremia -started on d5w 83 cc/hr -cont to follow #Urology - Post-op Urinary Retention- resolved - webb initially placed by Dr. Hubbard - Urology on board #Cardiology - hx HTN - losartan restarted #Pulmonology - Encourage IS - will monitor and keep SpO2 above 92% - Airway observation: In case of emergency, remove anterior cervical spine dressing and pull out running suture; ok to cut suture if needed to decompress - hematoma. #F/E/N - on d5w 83 cc/hr - c/t follow lytes - strict NPO per MBS; awaiting reevaluation #Prophylaxis - Mechanical only: KELLEY's, SCD's, per sx recs. to restart PPX based on sx d/w sx: no a/c at this time #Disposition - monitor on tele - on IV abx - pt refuses to go to [place], wants to go home - No heavy lifting (>5 lbs), bending or twisting x 6 months post op. <Desi Garcia - Last Filed: 08/31/19 17:29> - Note Progress Note: Seen and examined; please refer to resident note for further historical information. I agree with the aforementioned assessment and plan and historical information aside from as supplemented by myself. Independently verified all sosa exam findings and diagnostics. I discussed the case at length with the resident and agree with the plan as outlined. Seen and examined; I discussed the case with Dr. Miranda and the resident team in depth. ENT also has been contacted and we are pending further followup. There is concern that he may be continually aspirating and would require a PEG tube. Want to discuss the role of the epiglottic findings with the potential dysphagia pattern and of course would obtain FU MBS to r/o underlying pathology that may be more esoteric. If needed anatomical considerations will be of note given the recent cervical instrumentation. 10 sys ROS done and negative aside from HPI VS, labs, imaging reviewed NAD AAO resting in bed NC AT EOMI PERRLA HR wnl, s1/2+ NT ND +BS CN2-12 wnl, no fnd Normal mood, appropriate behavior. Grunting noted as improved; his voice sounds muffled and it is difficult to tell if he is AAOx3 on initial glance, but I suspect that there is a profound mechanical problem with his speech and swallowing that is non-central in location given the lack of other focal neurological deficits and 2 procedures in the area (the surgical procedure itself and the intubation for procedure). A/P: Presents for postoperative wound infection; pending washout and cultures. Holding off further abx per ID until culture results made available when she is out of the OR. Postoperative pain control per ortho. Problems include: -Dysphagia (Discuss with ENT, swallow. Potential MBS and may need PEG.) -Dysphonia -Epiglotic issue with documented hx CHELSEA (Can discuss use of CPAP qHS. If he gets transiently hypercarbic at night this could precipitate percieved worsening of mentation) -Toxic Metabolic Encephalopathy lending to AMS, improved. 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 -Urinary retention 2/2 clot with traumatic webb insertion (Resolved, negative PVR. Saw Dr. Luc Horan; was a complicated webb requiring coude.) -Hx HTN -Status post elective C4 corpectomy & C3-C5 anterior cervical decompression and instrumented fusion (Pain control per orthopedics) -UTI, improved, ID following (Micro negative; continues on abx. Could have been skewed by preop IV tx) -CKD (Likely secondary to underlying chronic issues [htn, etc.] and is stable. He is not oliguric. Continue to monitor and is at his baseline) -Hx HTN (monitor) -Leukocytosis (Improved) -HyperNa (continue IVF, trending BMP) -Hyperbili with slight uptrend (Check RUQ US, hep pannel, GGT to r/o bone involvement) -Overweight (Pool Attendant prior to DC) Dispo: TO OR TODAY. DC planning is pending microbio, pain control, and determination of final abx course. Full Code <Russ Simon - Last Filed: 09/01/19 15:04>
--- NOTE | 2019-08-31 16:08 | PN ---
Progress Note, Physician History of Present Illness: Pt seen and examine at bedside. He is awake and appears comfortable. - Current Medication List Current Medications: Active Medications Albuterol/Ipratropium (Duoneb -) 1 amp NEB RQID [facility] Last Admin: 08/31/19 15:52 Dose: 1 amp Benzocaine/Menthol (Cepacol Lozenge -) 1 each MM PRN PRN PRN Reason: SORE THROAT Dextrose/Sodium Chloride (D5-1/2ns -) 1,000 mls @ 100 mls/hr IV ASDIR MELISSA Last Admin: 08/31/19 12:43 Dose: 100 mls/hr Piperacillin Sod/Tazobactam (Sod 2.25 gm/ Dextrose) 50 mls @ 100 mls/hr IVPB Q8H-IV MELISSA; Protocol Ondansetron HCl (Zofran Injection) 4 mg IVPUSH Q6H PRN PRN Reason: NAUSEA AND/OR VOMITING Pantoprazole Sodium (Protonix Iv) 40 mg IVPUSH DAILY MELISSA - Objective Vital Signs: Vital Signs Temperature 98.2 F 08/31/19 06:00 Pulse Rate 91 H 08/31/19 13:45 Respiratory Rate 20 08/31/19 13:45 Blood Pressure 133/84 08/31/19 13:45 O2 Sat by Pulse Oximetry (%) 96 08/31/19 10:00 Constitutional: Yes: Calm Eyes: Yes: Conjunctiva Clear Neck: Yes: Other (brace in place) Cardiovascular: Yes: S1, S2 Respiratory: Yes: On Nasal O2 Gastrointestinal: Yes: Soft Genitourinary: Yes: Incontinence Musculoskeletal: Yes: Other Edema: No Integumentary: Yes: WNL Labs: CBC, BMP 08/31/19 06:05 08/31/19 06:00 INR, PTT INR 1.51 (0.83-1.09) H 08/31/19 06:05 Problem List - Problems (1) MARY (acute kidney injury) Code(s): N17.9 - ACUTE KIDNEY FAILURE, UNSPECIFIED (2) Acute urinary retention Code(s): R33.8 - OTHER RETENTION OF URINE Assessment/Plan Current Medications Generic Name Dose Route Start Last Admin Trade Name Freq PRN Reason Stop Dose Admin Albuterol/Ipratropium 1 amp 08/31/19 16:00 08/31/19 15:52 Duoneb - NEB 1 amp RQID MELISSA Administration Benzocaine/Menthol 1 each 08/31/19 12:10 Cepacol Lozenge - MM PRN PRN SORE THROAT Dextrose/Sodium Chloride 1,000 mls @ 100 mls/hr 08/31/19 12:10 08/31/19 12:43 D5-1/2ns - IV 100 mls/hr ASDIR MELISSA Administration Piperacillin Sod/Tazobactam 50 mls @ 100 mls/hr 08/31/19 18:00 Sod 2.25 gm/ Dextrose IVPB Q8H-IV MELISSA Protocol Ondansetron HCl 4 mg 08/31/19 12:10 Zofran Injection IVPUSH Q6H PRN NAUSEA AND/OR VOMITING Pantoprazole Sodium 40 mg 09/01/19 10:00 Protonix Iv IVPUSH DAILY MELISSA Impression 1. MARY 2. hypotension 3. s/p cervical surgery 4. gerd 5. htn 6. altered mental status 7. hypernatremia Plan - change fluids to d5w - repeat labs in am - monitor renal function - follow cxr - avoid nsaids - avoid nephrotoxins
[2019-08-31] MEDS ORDERED: DEXTROSE 5%-WATER - 1,000 ML IV SCH (16:15)
--- NOTE | 2019-08-31 19:02 | PN ---
Progress Note (short form) - Note Progress Note: ENT pt transferred from ICU to 8W denies pain, denies trouble breathing PE NAD alert, conversant oral cavity - dry, no obvious lesions, very thick secretions in oropharynx voice strong, no stridor or respiratory distress neck obscured by hard cervical collar, but surgical steristrips seen, no obvioius hematoma CT scan of neck (soft tissue) very limited because of motion artifact impression: s/p anterior cervical fusion, postop stridor, improved continue airway observation dysphagia - suggest repeat modified barium swallow as per Janny Yvonne hope for improvement so patient may be considered for PO intake (thickness/ texture as per Janny Yvonne) Ezra Vanegas MD FACS Problem List - Problems (1) Stridor Code(s): R06.1 - STRIDOR (2) Dysphagia Code(s): R13.10 - DYSPHAGIA, UNSPECIFIED Qualifiers: Dysphagia type: pharyngeal phase Qualified Code(s): R13.13 - Dysphagia, pharyngeal phase (3) History of cervical spinal surgery Code(s): Z98.890 - OTHER SPECIFIED POSTPROCEDURAL STATES
[2019-08-31] MEDS ORDERED: SENNOSIDES 8.6MG TABLET (FP) PO SCH (22:00)
[2019-09-01] MEDS ORDERED: PIPERACILLIN/TAZOBACTAM 2.25 GM VIAL IVPB ONE ×3 (01:37→16:48)
[2019-09-01] MEDS ORDERED: DEXTROSE 5%-WATER - 50 ML IVPB ONE ×3 (01:37→16:49)
[2019-09-01] MEDS: PIPERACILLIN/TAZOB 2.25 GM 2.25 GM in DEXTROSE 5%-WATER - 50 ML IVPB SCH ×3 (01:51→16:58)
[2019-09-01] MEDS: ALBUTEROL SO4 2.5/IPRATROPIUM 0.5 INH SOL 3 ML VIAL.NEB. NEB SCH ×4 (07:35→20:25)
[2019-09-01 08:10] LABS: BILIRUBIN,TOTAL 1.1 mg/dL (0.2-1); BLOOD UREA NITROGEN 36.2 mg/dL (7-18); CALCIUM 9.7 mg/dL (8.5-10.1); CREATININE 1.5 mg/dL (0.55-1.3); POTASSIUM 4.3 mmol/L (3.5-5.1); TOT PROT 6.5 g/dl (6.4-8.2)
--- NOTE | 2019-09-01 08:33 | PN ---
Progress Note (short form) - Note Progress Note: 79M s/p C4 corpectomy & C3-C5 anterior cervical decompression and instrumented fusion POD #14. Pt. moved to regular nursing floor; reported ICU delirium; on vest restraints. Today, pt. is AAO x 2 (person, place). Oropharynx clear; no concerning dndobronchial secretions; no stridor. Pain well controlled. Pt. denies current headaches, chest pain, shortness of breath, nausea, vomiting , chills, & sweats. (+) Voiding; (+) Flatus; (+) BM. (+) Dysphagia; (+) Mild Dysphonia (improved). All labs and vitals reviewed. PE: AAO x 3, NAD. C-Spine: Moody-J c-collar intact and in place. Incision, dressing C/D/I. Echo- incisional soft, non-tender. B/L UE & LE sensorimotor status at baseline. 79M s/p C4 corpectomy & C3-C5 anterior cervical decompression and instrumented fusion POD #14. -f/u CXR; if no evidence of infiltrate, consider d/c IV Zosyn (presumed aspiration pneumonia). -f/u ENT rec's (Dr. Vanegas); consider repeat barium swallow study; based on results , hopefully restart PO intake with thick nectars VS PEG tube if unable to tolerate PO intake. -Attentive, regular pulmonary toilet. -Regular suctioning if endobronchial secretions manifest again. -Incentive spirometry q15 minutes. -NPO. -IVF: D1/2NS as per primary medical team. -Pain medication: Tylenol PRN; NO NSAID's. -Maintain head of bed 30-45 degrees. -Hard c-collar. -DVT PPx: -Mechanical only: KELLEY's, SCD's. -f/u AM labs. -PT/OT/Rehab, OOB. -PWB B/L UE: 5lbs. -WBAT B/L LE. -Keep dressing clean & dry. -No heavy lifting (>5 lbs), bending or twisting x 6 months post op. -B/L UE & LE NV checks. -Care per medical hospitalist, ENT, ID, and renal teams. -Discharge planning: spine rehabilitation due to global weakness; recommend [facility]; f/u [facility] [place] office 10-14 days after hospital discharge; call for appointment; . -Will follow. Marek Miranda MD (Orthopaedic Surgery).
[2019-09-01] MEDS ORDERED: PT OWN MED DRAWER 7, Y5N ONE (08:53)
--- NOTE | 2019-09-01 09:18 | PN ---
Progress Note, WINCHER - Note Progress Note: Selected Entries 09/01/19 09/01/19 02:05 07:05 Temperature 97.8 F 98.3 F Laboratory Tests 08/31/19 06:05 WBC 13.2 H Appreciate ENT note. For MBS today.
[2019-09-01] MEDS ORDERED: DOCUSATE SODIUM 100 MG CAPSULE (FP) PO SCH (10:00)
[2019-09-01] MEDS ORDERED: PANTOPRAZOLE 40 MG TABLET (FP) PO SCH (10:00)
[2019-09-01] MEDS ORDERED: POLYETHYLENE GLYCOL 3350 119 GM BTL PO SCH (10:00)
[2019-09-01] MEDS ORDERED: LOSARTAN POTASSIUM 50 MG TABLET (FP) PO SCH (10:00)
[2019-09-01] MEDS: PANTOPRAZOLE SODIUM 40 MG VIAL IVPUSH SCH (11:09)
--- NOTE | 2019-09-01 12:45 | PN ---
Progress Note (short form) - Note Progress Note: POD#13 Vital Signs Period Temp Pulse Resp BP Sys/Banks Pulse Ox Last 24 Hr 97.7 F-98.3 F 79-91 20-22 126-152/77-85 94-96 GEN: Pt more alert today and voice stronger Neck: collar in place: Inc c/d/i healing well. No swelling/masses or erythema noted. Neuro: follows commands and able to move all extremities Modified swallow study revealed silent aspiration CXR: no evidence of infiltrate 79 yo male w/ PMHx HTN, GERD, PVD, cervical spondylosis/myelopathy, now S/p C4 corpectomy & C3-C5 anterior cervical decompression and instrumented fusion on Case D/w Dr. Miranda and the medical team Will plan for PEG/GI consult requested Npo except meds Begin Clinimax as per the medical team
--- NOTE | 2019-09-01 13:27 | CON.GI ---
Consult Consult Specialty:: Gastroenterology Referred by:: Dr Russ Simon Reason for Consultation:: G tube insertion - History of Present Illness Chief Complaint: Dysphagia History of Present Illness: 79M has developed confusion with an altered mental status that also involves dysphagia. MBS by Amie Russell has revealed that he is prone to aspiration. He was swallowing well following his C spine surgery on 08/17/19 which involved discectomy, corpectomies and fusions of C 3-4. Jered remains confused but answers simple questions. I obtained his history from his Tata. - History Source History Provided By: Family Member, Medical Record Limitations to Obtaining History: Clinical Condition (confusion) - Past Medical History Cardio/Vascular: Yes: HTN Gastrointestinal: Yes: GERD Renal/: Yes: Other (elevated PSA) Musculoskeletal: Yes: Chronic low back pain (spinal stenosis, disc disease) Rheumatology: Yes: Other (osteoarthritis) - Past Surgical History Past Surgical History: Yes: Colonoscopy (several colonoscopies in [facility] THE [facility]), Laminectomy (lumbar laminectomy and now C spine surgery with fusion) - Alcohol/Substance Use Hx Alcohol Use: No History of Substance Use: reports: None - Smoking History Smoking history: Former smoker Have you smoked in the past 12 months: No If you are a former smoker, when did you quit?: 10yrs - Social History Usual Living Arrangement: With Spouse ADL: Independent 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 Place of : [facility] History of Recent Travel: No Home Medications - Allergies Allergies/Adverse Reactions: Allergies Allergy/AdvReac Type Severity Reaction Status Date / Time No Known Drug Allergies Allergy Verified 08/14/19 14:30 - Home Medications Home Medications: Ambulatory Orders Aspirin Coated [Ecotrin -] 81 mg PO DAILY 08/14/19 Losartan Potassium 100 mg PO DAILY 08/14/19 Omeprazole 40 mg PO DAILY 08/14/19 Family Medical History Other Family History: FH of lung, brain, breast cancers Physical Exam-GI Vital Signs: Vital Signs Temperature 98.3 F 09/01/19 07:05 Pulse Rate 79 09/01/19 07:05 Respiratory Rate 20 09/01/19 07:05 Blood Pressure 126/77 09/01/19 07:05 O2 Sat by Pulse Oximetry (%) 94 L 09/01/19 05:00 CBC,CMP WBC 13.2 K/mm3 (4.0-10.0) H 08/31/19 06:05 RBC 4.67 M/mm3 (4.00-5.60) 08/31/19 06:05 Hgb 13.1 GM/dL (11.7-16.9) 08/31/19 06:05 Hct 40.5 % (35.4-49) 08/31/19 06:05 MCV 86.8 fl (80-96) 08/31/19 06:05 MCH 28.0 pg (25.7-33.7) 08/31/19 06:05 MCHC 32.2 g/dl (32.0-35.9) 08/31/19 06:05 RDW 14.8 % (11.9-15.9) 08/31/19 06:05 Plt Count 595 K/MM3 (134-434) H 08/31/19 06:05 MPV 8.5 fl (7.5-11.1) 08/31/19 06:05 Absolute Neuts (auto) 10.5 K/mm3 (1.5-8.0) H 08/31/19 06:05 Neutrophils % 79.6 % (42.8-82.8) 08/31/19 06:05 Neutrophils % (Manual) 92.0 % (42.8-82.8) H D 08/28/19 05:30 Band Neutrophils % 0.0 % 08/28/19 05:30 Lymphocytes % 10.2 % (8-40) D 08/31/19 06:05 Lymphocytes % (Manual) 3.0 % (8-40) L D 08/28/19 05:30 Monocytes % 9.7 % (3.8-10.2) D 08/31/19 06:05 Monocytes % (Manual) 3 % (3.8-10.2) L 08/28/19 05:30 Eosinophils % 0.3 % (0-4.5) D 08/31/19 06:05 Eosinophils % (Manual) 0.0 % (0-4.5) D 08/28/19 05:30 Basophils % 0.2 % (0-2.0) 08/31/19 06:05 Basophils % (Manual) 0.0 % (0-2.0) 08/28/19 05:30 Myelocytes % (Man) 1 % (0-2) D 08/28/19 05:30 Promyelocytes % (Man) 0 % (0-2) 08/28/19 05:30 Blast Cells % (Manual) 0 % (0-0) 08/28/19 05:30 Nucleated RBC % 0 % (0-0) 08/31/19 06:05 Metamyelocytes 0 % (0-2) 08/28/19 05:30 Hypochromia 0 08/26/19 07:45 Platelet Estimate Increased 08/28/19 05:30 Polychromasia 0 08/26/19 07:45 Poikilocytosis 0 08/26/19 07:45 Anisocytosis 2+ 08/26/19 07:45 Microcytosis 2+ 08/26/19 07:45 Macrocytosis 0 08/26/19 07:45 ESR 24 mm/hr (0-20) H 08/28/19 11:35 Sodium 147 mmol/L (136-145) H 09/01/19 07:05 Potassium 4.3 mmol/L (3.5-5.1) 09/01/19 07:05 Chloride 113 mmol/L (98-107) H 09/01/19 07:05 Carbon Dioxide 28 mmol/L (21-32) 09/01/19 07:05 Anion Gap 6 MMOL/L (8-16) L 09/01/19 07:05 BUN 36.2 mg/dL (7-18) H 09/01/19 07:05 Creatinine 1.5 mg/dL (0.55-1.3) H 09/01/19 07:05 Est GFR (CKD-EPI)AfAm 50.95 09/01/19 07:05 Est GFR (CKD-EPI)NonAf 43.96 09/01/19 07:05 Random Glucose 114 mg/dL (74-106) H 09/01/19 07:05 Lactic Acid 1.3 mmol/L (0.4-2.0) 08/28/19 13:22 Calcium 9.7 mg/dL (8.5-10.1) 09/01/19 07:05 Phosphorus 3.0 mg/dL (2.5-4.9) 08/31/19 06:00 Magnesium 2.5 mg/dL (1.8-2.4) H 08/31/19 06:00 Total Bilirubin 1.1 mg/dL (0.2-1) H 09/01/19 07:05 AST 59 U/L (15-37) H 09/01/19 07:05 ALT 143 U/L (13-61) H 09/01/19 07:05 Alkaline Phosphatase 75 U/L (45-117) 09/01/19 07:05 C-Reactive Protein 9.8 MG/DL (0.00-0.3) H 08/28/19 05:30 Total Protein 6.5 g/dl (6.4-8.2) 09/01/19 07:05 Albumin 3.0 g/dl (3.4-5.0) L 09/01/19 07:05 Current Medications Generic Name Dose Route Start Last Admin Trade Name Freq PRN Reason Stop Dose Admin Albuterol/Ipratropium 1 amp 08/31/19 16:00 09/01/19 11:25 Duoneb - NEB 1 amp RQID MELISSA Administration Benzocaine/Menthol 1 each 08/31/19 12:10 Cepacol Lozenge - MM PRN PRN SORE THROAT Piperacillin Sod/Tazobactam 50 mls @ 100 mls/hr 08/31/19 18:00 09/01/19 11:09 Sod 2.25 gm/ Dextrose IVPB 100 mls/hr Q8H-IV MELISSA Administration Protocol Dextrose 1,000 mls @ 83 mls/hr 08/31/19 16:15 08/31/19 17:53 D5w - IV 83 mls/hr ASDIR MELISSA Administration Ondansetron HCl 4 mg 08/31/19 12:10 Zofran Injection IVPUSH Q6H PRN NAUSEA AND/OR VOMITING Pantoprazole Sodium 40 mg 09/01/19 10:00 09/01/19 11:09 Protonix Iv IVPUSH 40 mg DAILY MELISSA Administration Constitutional: Yes: Calm Eyes: Yes: Conjunctiva Clear HENT: Yes: Normocephalic Neck: Yes: Other (wearing neck brace) Cardiovascular: Yes: Regular Rate and Rhythm Respiratory: Yes: CTA Bilaterally Gastrointestinal Inspection: Yes: WNL ...Auscultate: Yes: Normoactive Bowel Sounds ...Palpate: Yes: Soft, Other (nontender) ...Rectal Exam: Yes: Deferred (restrained) Edema: No Neurological: Yes: Confusion Labs: CBC, BMP 08/31/19 06:05 09/01/19 07:05 INR, PTT INR 1.51 (0.83-1.09) H 08/31/19 06:05 Laboratory Tests 08/23/19 08/28/19 08/29/19 07:00 05:30 05:40 Total Bilirubin 0.7 0.4 AST 30 67 H ALT 19 139 H Alkaline Phosphatase 69 82 C-Reactive Protein 9.8 H Albumin 09/01/19 07:05 Total Bilirubin 1.1 H AST 59 H ALT 143 H Alkaline Phosphatase 75 C-Reactive Protein Albumin 3.0 L Problem List - Problems (1) Altered mental status Code(s): R41.82 - ALTERED MENTAL STATUS, UNSPECIFIED (2) Dysphagia, oropharyngeal phase Code(s): R13.12 - DYSPHAGIA, OROPHARYNGEAL PHASE (3) Dysphagia Code(s): R13.10 - DYSPHAGIA, UNSPECIFIED Qualifiers: Dysphagia type: pharyngeal phase Qualified Code(s): R13.13 - Dysphagia, pharyngeal phase (4) Hypertension Code(s): I10 - ESSENTIAL (PRIMARY) HYPERTENSION Assessment/Plan ASSESSMENT: - Given his acquired and hopefully transient oropharyngeal dysphagia and propensity to aspirate I agree that Jered could benefit from uninterrupted enteral nutrition. I discussed the PEG endoscopic approach vs IR placement with Mrs. Holder. The latter would obviate the need for MAC which could aggravate his confusions and neck flexion for scope passage. Mrs. Holder wants to discuss it with her children before deciding. Plan: -- I advised NG insertion for the purposes of feeding, fluid and medication administration and Mrs. Holder and Jered's daughter are amenable to this. This will also facilitate gastric insufflation for IR placement of G tube
--- NOTE | 2019-09-01 13:58 | PN ---
Progress Note, Physician History of Present Illness: patient looking a little better more awake and oriented - Current Medication List Current Medications: Active Medications Albuterol/Ipratropium (Duoneb -) 1 amp NEB RQID [facility] Last Admin: 09/01/19 11:25 Dose: 1 amp Benzocaine/Menthol (Cepacol Lozenge -) 1 each MM PRN PRN PRN Reason: SORE THROAT Piperacillin Sod/Tazobactam (Sod 2.25 gm/ Dextrose) 50 mls @ 100 mls/hr IVPB Q8H-IV MELISSA; Protocol Last Admin: 09/01/19 11:09 Dose: 100 mls/hr Dextrose (D5w -) 1,000 mls @ 83 mls/hr IV ASDIR [facility] Last Admin: 08/31/19 17:53 Dose: 83 mls/hr Ondansetron HCl (Zofran Injection) 4 mg IVPUSH Q6H PRN PRN Reason: NAUSEA AND/OR VOMITING Pantoprazole Sodium (Protonix Iv) 40 mg IVPUSH DAILY [facility] Last Admin: 09/01/19 11:09 Dose: 40 mg - Objective Vital Signs: Vital Signs Temperature 98.3 F 09/01/19 07:05 Pulse Rate 79 09/01/19 07:05 Respiratory Rate 20 09/01/19 07:05 Blood Pressure 126/77 09/01/19 07:05 O2 Sat by Pulse Oximetry (%) 94 L 09/01/19 05:00 Constitutional: Yes: No Distress, Calm HENT: Yes: Atraumatic Neck: Yes: Other (hard collar) Cardiovascular: Yes: Regular Rate and Rhythm Respiratory: Yes: Regular, CTA Bilaterally Gastrointestinal: Yes: Normal Bowel Sounds, Soft Musculoskeletal: Yes: WNL Extremities: Yes: WNL Neurological: Yes: Alert, Oriented Psychiatric: Yes: Alert, Oriented Labs: CBC, BMP 08/31/19 06:05 09/01/19 07:05 INR, PTT INR 1.51 (0.83-1.09) H 08/31/19 06:05 Assessment/Plan 1. MARY 2. hypotension 3. s/p cervical surgery 4. gerd 5. htn 6 altered mental status 7 asp pna Problem List - Problems (1) MARY (acute kidney injury) Code(s): N17.9 - ACUTE KIDNEY FAILURE, UNSPECIFIED (2) Acute urinary retention Code(s): R33.8 - OTHER RETENTION OF URINE (3) Dysphagia Code(s): R13.10 - DYSPHAGIA, UNSPECIFIED Qualifiers: Dysphagia type: pharyngeal phase Qualified Code(s): R13.13 - Dysphagia, pharyngeal phase (4) History of cervical spinal surgery Code(s): Z98.890 - OTHER SPECIFIED POSTPROCEDURAL STATES (5) Stridor Code(s): R06.1 - STRIDOR Assessment/Plan Leukocytosis PNA/Possible aspiration Upper airway obstruction s/p Cervical spine surgery MARY plan continue abx monitor closely monitor mental status aspiration precautions rest as per the team will check wbc for tomorrow
[2019-09-01] MEDS ORDERED: DEXTROSE 5%-WATER - 1,000 ML IV SCH (15:48)
--- NOTE | 2019-09-01 15:48 | PN ---
Progress Note, Physician History of Present Illness: Pt seen and examined at bedside. He is awake but confused. He denies shortness of breath. - Current Medication List Current Medications: Active Medications Albuterol/Ipratropium (Duoneb -) 1 amp NEB RQID [facility] Last Admin: 09/01/19 11:25 Dose: 1 amp Benzocaine/Menthol (Cepacol Lozenge -) 1 each MM PRN PRN PRN Reason: SORE THROAT Piperacillin Sod/Tazobactam (Sod 2.25 gm/ Dextrose) 50 mls @ 100 mls/hr IVPB Q8H-IV MELISSA; Protocol Last Admin: 09/01/19 11:09 Dose: 100 mls/hr Dextrose (D5w -) 1,000 mls @ 83 mls/hr IV ASDIR [facility] Last Admin: 08/31/19 17:53 Dose: 83 mls/hr Ondansetron HCl (Zofran Injection) 4 mg IVPUSH Q6H PRN PRN Reason: NAUSEA AND/OR VOMITING Pantoprazole Sodium (Protonix Iv) 40 mg IVPUSH DAILY [facility] Last Admin: 09/01/19 11:09 Dose: 40 mg - Objective Vital Signs: Vital Signs Temperature 98.3 F 09/01/19 14:00 Pulse Rate 82 09/01/19 14:00 Respiratory Rate 20 09/01/19 14:00 Blood Pressure 115/70 09/01/19 14:00 O2 Sat by Pulse Oximetry (%) 94 L 09/01/19 05:00 Constitutional: Yes: Calm Eyes: Yes: Conjunctiva Clear HENT: Yes: Atraumatic Neck: Yes: Supple Cardiovascular: Yes: S1, S2 Respiratory: Yes: CTA Bilaterally Gastrointestinal: Yes: Soft Genitourinary: Yes: WNL Musculoskeletal: Yes: WNL Edema: No Integumentary: Yes: WNL Neurological: Yes: Confusion Labs: CBC, BMP 08/31/19 06:05 09/01/19 07:05 INR, PTT INR 1.51 (0.83-1.09) H 08/31/19 06:05 Problem List - Problems (1) MARY (acute kidney injury) Code(s): N17.9 - ACUTE KIDNEY FAILURE, UNSPECIFIED (2) Acute urinary retention Code(s): R33.8 - OTHER RETENTION OF URINE Assessment/Plan Current Medications Generic Name Dose Route Start Last Admin Trade Name Freq PRN Reason Stop Dose Admin Albuterol/Ipratropium 1 amp 08/31/19 16:00 09/01/19 11:25 Duoneb - NEB 1 amp RQID MELISSA Administration Benzocaine/Menthol 1 each 08/31/19 12:10 Cepacol Lozenge - MM PRN PRN SORE THROAT Piperacillin Sod/Tazobactam 50 mls @ 100 mls/hr 08/31/19 18:00 09/01/19 11:09 Sod 2.25 gm/ Dextrose IVPB 100 mls/hr Q8H-IV MELISSA Administration Protocol Dextrose 1,000 mls @ 83 mls/hr 08/31/19 16:15 08/31/19 17:53 D5w - IV 83 mls/hr ASDIR MELISSA Administration Ondansetron HCl 4 mg 08/31/19 12:10 Zofran Injection IVPUSH Q6H PRN NAUSEA AND/OR VOMITING Pantoprazole Sodium 40 mg 09/01/19 10:00 09/01/19 11:09 Protonix Iv IVPUSH 40 mg DAILY MELISSA Administration Impression 1. MARY 2. hypotension 3. s/p cervical surgery 4. gerd 5. htn 6. altered mental status 7. hypernatremia Plan - cont d5w, increase rate - repeat labs in am - monitor renal function - avoid nsaids - avoid nephrotoxins
--- NOTE | 2019-09-01 16:46 | PN ---
Progress Note (short form) - Note Progress Note: Hospitalist Medicine Resting in bed, rhonchorous today. Confused, does not know the year (AAOx2) Vitals 09/01/19 14:00 Temperature 98.3 F Pulse Rate 82 Respiratory 20 Rate Blood Pressure 115/70 Physical Exam General: resting, with hard c-collar on. AAO x 2 (self, place) HEENT: NCAT, PERRLA neck: supple cardio: S1, S2 RRR. no r/m/g pulm: +scattered rhonchi, no accessory m usage abdomen: nontender, nondistended neuro: data entry coordinator 2-12 grossly intact, 3/5 motor strength UE. sensation intact LE: 2+ pulses, no edema Laboratory Tests 08/31/19 08/31/19 09/01/19 06:05 06:05 07:05 WBC 13.2 H Hgb 13.1 Hct 40.5 Plt Count 595 H PT with INR 17.90 H INR 1.51 H Sodium 147 H Potassium 4.3 Chloride 113 H Carbon Dioxide 28 BUN 36.2 H Creatinine 1.5 H Total Bilirubin 1.1 H AST 59 H ALT 143 H Alkaline Phosphatase 75 Total Protein 6.5 Albumin 3.0 L Microbiology 08/21/19 21:55 Sputum - Expectorated Gram Stain - Final 08/21/19 21:55 Sputum - Expectorated Sputum Culture - Final NORMAL RESPIRATORY TRINO 08/21/19 18:00 Blood - Peripheral Venous Blood Culture - Final NO GROWTH AFTER 5 DAYS INCUBATION 08/21/19 18:00 Blood - Peripheral Venous Blood Culture - Final NO GROWTH AFTER 5 DAYS INCUBATION 08/21/19 17:30 Urine - Urine Webb Urine Culture - Final NO GROWTH OBTAINED 08/18/19 01:10 Urine - Urine - Catheterized Urine Culture - Final NO GROWTH OBTAINED Imaging 08/18/19: c-spine XR: c-spine hardware appropriate position. alignment maintained. no hardware failure 08/22/19: CXR: no acute path. minimal atelectasis R base 08/23/19: CXR: since prior study, atelectatic changes at R base have diminished , improvement R base 08/24/19: renal sono: WNL 08/24/19: CTH: (-) 08/25/19: CXR: R basilar platelike atelectasis 08/26/19: CXR: atelectatic change at the R base with prominent mediastinum and lower cervical spine hardware. 08/26/19: MBS: severe dysphagi, recurrent aspiration on puree and thick liquid as well on patient secretions with focal wetness frequently. rule out swelling in the pharynx which may be contributing to the dysphagia s/p anterior fusion. strict NPO at this time, including medication. Mouth care. Suction when necessary. If swallowing does not improve, may need temporary PEG 08/28/19: Soft tissue neck CT: tip of epiglottis appears to be bulbous allowing for motion artifact. Correlation with follow up CT vs. direct visualization is suggested. Remaining soft tissue structures demonstrate no gross noncontrast pathology allowing for extensive motion artifact. Follow up CT may also be considered in this regard. S/p multilevel c-spine instrumentation. eval is very limited due to motion artifact. follow up ct/mri may be considered. 08/31/19: CXR: lower c-spine fusion hardware extending into the thoracic inlet, unfolded aorta, normal chris and normal heart, some atelectasis or scarring in the R mid lung field. no infiltrate or failure 09/01/19: MBS: severe dysphagia, impaired laryngeal elevation and epiglottic inversion, with buildup in pharynx, with small amounts passing through the UES. however with spillage into the airway on each consistency. there was only mild aspiration during the study as it was done carefully with only small amounts provided. silent aspiration on puree nectar and honey thick liquid. NPO, consider PEG. consider Shi. Assessment/Plan 79 y/o/m with PMHx of HTN, GERD, and PVD(s/p stent- Pt. unclear which leg) presenting after C3-C5 discectomy and fusion. #Neurology - s/p C4 corpectomy & C3-C5 anterior cervical decompression and instrumented fusion - Maintain head of bed 30-45 degrees. - Pain medication: on roxicodone PRN, no NSAID's - on bowel regimen, while on pain mgmt - miralax, senna, colace - frequent suction, chest PT. - Hard c-collar in place. - PT/OT/Rehab, OOB. - WBAT B/L LE - PWB B/L UE: 5lbs. - B/L UE & LE NV checks. #new onset stridor possible 2/2 inflammation post-op -seen by ENT; w/ curled epiglottis -soft tissue neck CT as above -orotracheal intubation if needed, must maintain collar during per Dr. Miranda -could use Glidescope or use flexible bronchoscope. -sx consult: Dr. Miranda -ENT: Dr. Vanegas #FTT -still w/ confusion, silent aspiration on MBS -PEG recommended -NGT placed by GI; TF recs placed; Jevity -for PEG placement via IR -GI: Dr. Smith #ID -post-op fever, sepsis 2/2 aspiration PNA -c/w zosyn (08/23) -blood, ucx, sputum (-) thus far -c/w frequent suctioning -ID: Dr. Oliva #Nephro -MARY - off IVF; fluids through TF - renal sono: unremarkable - Nephro: Dr. Chan -Hypernatremia -cont to follow; free water flushes w/ TF #Urology - Post-op Urinary Retention- resolved - webb initially placed by Dr. Hubbard - Urology on board #Cardiology - hx HTN - losartan restarted #Pulmonology - Encourage IS - will monitor and keep SpO2 above 92% - Airway observation: In case of emergency, remove anterior cervical spine dressing and pull out running suture; ok to cut suture if needed to decompress - hematoma. #F/E/N - off IVF - c/t follow lytes - Jevity TF, for PEG placement #Prophylaxis - Mechanical only: KELLEY's, SCD's, per sx recs. to restart PPX based on sx d/w sx: no a/c at this time #Disposition - monitor on med-surg - on IV abx - pt refuses to go to [place], wants to go home - No heavy lifting (>5 lbs), bending or twisting x 6 months post op. <Desi Garcia - Last Filed: 09/01/19 16:47> - Note Progress Note: Seen and examined; please refer to resident note for further historical information. I agree with the aforementioned assessment and plan and historical information aside from as supplemented by myself. Independently verified all sosa exam findings and diagnostics. I discussed the case at length with the resident and agree with the plan as outlined. Seen and examined; I discussed the case with Dr. Miranda and the resident team in depth. ENT also has been contacted and we are pending further followup. There is concern that he may be continually aspirating and would require a PEG tube. Want to discuss the role of the epiglottic findings with the potential dysphagia pattern and of course would obtain FU MBS to r/o underlying pathology that may be more esoteric. If needed anatomical considerations will be of note given the recent cervical instrumentation. 10 sys ROS done and negative aside from HPI VS, labs, imaging reviewed NAD AAO resting in bed NC AT EOMI PERRLA HR wnl, s1/2+ NT ND +BS CN2-12 wnl, no fnd Normal mood, appropriate behavior. Grunting noted as improved; his voice sounds muffled and it is difficult to tell if he is AAOx3 on initial glance, but I suspect that there is a profound mechanical problem with his speech and swallowing that is non-central in location given the lack of other focal neurological deficits and 2 procedures in the area (the surgical procedure itself and the intubation for procedure). A/P: Presents for postoperative wound infection; pending washout and cultures. Holding off further abx per ID until culture results made available when she is out of the OR. Postoperative pain control per ortho. Based on the issues with his ongoing swallowing he will require a PEG tube. He is doing well otherwise and feels well. He is mentating better and I think we can remove restraints in the ongoing days. Problems include: -Dysphagia (Discuss with ENT, swallow. Consulted GI for likely PEG on saturday.) -Dysphonia (will need ongoing followup and evaluation. He had underlying eliglottic issues dscussed below. -Epiglotic issue with documented hx CHELSEA (Can discuss use of CPAP qHS. If he gets transiently hypercarbic at night this could precipitate percieved worsening of mentation) -Toxic Metabolic Encephalopathy lending to AMS, improved. 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 -Urinary retention 2/2 clot with traumatic webb insertion (Resolved, negative PVR. Saw Dr. Calle Resolved; was a complicated webb requiring coude.) -Hx HTN -Status post elective C4 corpectomy & C3-C5 anterior cervical decompression and instrumented fusion (Pain control per orthopedics) -UTI, improved, ID following (Micro negative; continues on abx. Could have been skewed by preop IV tx. Will discuss when we may DC abx.) -CKD (Likely secondary to underlying chronic issues [htn, etc.] and is stable. He is not oliguric. 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
[2019-09-02] MEDS ORDERED: DEXTROSE 5%-WATER - 50 ML IVPB ONE ×3 (01:38→16:37)
[2019-09-02] MEDS ORDERED: PIPERACILLIN/TAZOBACTAM 2.25 GM VIAL IVPB ONE ×3 (01:38→16:37)
[2019-09-02] MEDS: PIPERACILLIN/TAZOB 2.25 GM 2.25 GM in DEXTROSE 5%-WATER - 50 ML IVPB SCH ×3 (01:53→17:10)
[2019-09-02] MEDS: ALBUTEROL SO4 2.5/IPRATROPIUM 0.5 INH SOL 3 ML VIAL.NEB. NEB SCH ×4 (07:35→20:36)
[2019-09-02 08:21] LABS: HEMATOCRIT 38.8 % (35.4-49); HEMOGLOBIN 12.3 GM/dL (11.7-16.9); MCH 27.4 pg (25.7-33.7); MCHC 31.6 g/dl (32.0-35.9); MEAN CELL VOLUME 86.4 fl (80-96); MEAN PLT VOLUME 9.2 fl (7.5-11.1); PLATELET COUNT 498 K/MM3 (134-434); RBC 4.49 M/mm3 (4.00-5.60); RDW 15.1 % (11.9-15.9)
[2019-09-02 08:43] LABS: ALBUMIN 2.8 g/dl (3.4-5.0); BILIRUBIN,TOTAL 1.2 mg/dL (0.2-1); BLOOD UREA NITROGEN 32.3 mg/dL (7-18); CREATININE 1.4 mg/dL (0.55-1.3); POTASSIUM 4.7 mmol/L (3.5-5.1); TOT PROT 6.2 g/dl (6.4-8.2)
[2019-09-02 09:21] LABS: MAGNESIUM 2.1 mg/dL (1.8-2.4); PHOSPHOROUS 3.5 mg/dL (2.5-4.9)
[2019-09-02] MEDS ORDERED: PT OWN MED DRAWER 7, Y5N ONE (09:25)
[2019-09-02] MEDS: PANTOPRAZOLE SODIUM 40 MG VIAL IVPUSH SCH (09:47)
--- NOTE | 2019-09-02 14:14 | PN.GI ---
GI Progress Note Subjective: GI NOte: Tolerating NG feedings - Objective Vital Signs: Vital Signs Temperature 98.8 F 09/02/19 13:35 Pulse Rate 74 09/02/19 13:35 Respiratory Rate 20 09/02/19 13:35 Blood Pressure 137/80 09/02/19 13:35 O2 Sat by Pulse Oximetry (%) 94 L 09/02/19 08:22 Constitutional: Calm ...Auscultate: Yes: Normoactive Bowel Sounds ...Palpate: Yes: Soft, Other (nontender) Labs: CBC, BMP 09/02/19 07:55 09/02/19 07:55 INR, PTT INR 1.51 (0.83-1.09) H 08/31/19 06:05 Assessment/Plan ASSESSMENT: - Oropharyngeal dysphagia but in need of enteral nutrition. Plan: -- Continue NG feeding -- Will consult for IR placement of G tube Problem List - Problems (1) Altered mental status Code(s): R41.82 - ALTERED MENTAL STATUS, UNSPECIFIED (2) Dysphagia, oropharyngeal phase Code(s): R13.12 - DYSPHAGIA, OROPHARYNGEAL PHASE (3) Dysphagia Code(s): R13.10 - DYSPHAGIA, UNSPECIFIED Qualifiers: Qualified Code(s): R13.13 - Dysphagia, pharyngeal phase (4) Hypertension Code(s): I10 - ESSENTIAL (PRIMARY) HYPERTENSION
--- NOTE | 2019-09-02 14:16 | PN ---
Progress Note, Physician History of Present Illness: Pt seen and examined at bedside. He is awake and alert. He denies shortness of breath. - Current Medication List Current Medications: Active Medications Albuterol/Ipratropium (Duoneb -) 1 amp NEB RQID [facility] Last Admin: 09/02/19 11:40 Dose: 1 amp Benzocaine/Menthol (Cepacol Lozenge -) 1 each MM PRN PRN PRN Reason: SORE THROAT Piperacillin Sod/Tazobactam (Sod 2.25 gm/ Dextrose) 50 mls @ 100 mls/hr IVPB Q8H-IV MELISSA; Protocol Last Admin: 09/02/19 09:46 Dose: 100 mls/hr Dextrose (D5w -) 1,000 mls @ 100 mls/hr IV ASDIR [facility] Last Admin: 09/01/19 17:00 Dose: 100 mls/hr Ondansetron HCl (Zofran Injection) 4 mg IVPUSH Q6H PRN PRN Reason: NAUSEA AND/OR VOMITING Pantoprazole Sodium (Protonix Iv) 40 mg IVPUSH DAILY [facility] Last Admin: 09/02/19 09:47 Dose: 40 mg - Objective Vital Signs: Vital Signs Temperature 98.8 F 09/02/19 13:35 Pulse Rate 74 09/02/19 13:35 Respiratory Rate 20 09/02/19 13:35 Blood Pressure 137/80 09/02/19 13:35 O2 Sat by Pulse Oximetry (%) 94 L 09/02/19 08:22 Constitutional: Yes: Calm Eyes: Yes: Conjunctiva Clear HENT: Yes: Atraumatic Neck: Yes: Supple Cardiovascular: Yes: S1, S2 Respiratory: Yes: CTA Bilaterally Gastrointestinal: Yes: Normal Bowel Sounds, Soft Genitourinary: Yes: WNL Musculoskeletal: Yes: WNL Edema: No Neurological: Yes: Confusion Labs: CBC, BMP 09/02/19 07:55 09/02/19 07:55 INR, PTT INR 1.51 (0.83-1.09) H 08/31/19 06:05 Problem List - Problems (1) MARY (acute kidney injury) Code(s): N17.9 - ACUTE KIDNEY FAILURE, UNSPECIFIED (2) Acute urinary retention Code(s): R33.8 - OTHER RETENTION OF URINE Assessment/Plan Current Medications Generic Name Dose Route Start Last Admin Trade Name Freq PRN Reason Stop Dose Admin Albuterol/Ipratropium 1 amp 08/31/19 16:00 09/02/19 11:40 Duoneb - NEB 1 amp RQID MELISSA Administration Benzocaine/Menthol 1 each 08/31/19 12:10 Cepacol Lozenge - MM PRN PRN SORE THROAT Piperacillin Sod/Tazobactam 50 mls @ 100 mls/hr 08/31/19 18:00 09/02/19 09:46 Sod 2.25 gm/ Dextrose IVPB 100 mls/hr Q8H-IV MELISSA Administration Protocol Dextrose 1,000 mls @ 100 mls/hr 09/01/19 15:48 09/01/19 17:00 D5w - IV 100 mls/hr ASDIR MELISSA Administration Ondansetron HCl 4 mg 08/31/19 12:10 Zofran Injection IVPUSH Q6H PRN NAUSEA AND/OR VOMITING Pantoprazole Sodium 40 mg 09/01/19 10:00 09/02/19 09:47 Protonix Iv IVPUSH 40 mg DAILY MELISSA Administration Impression 1. MARY 2. hypotension 3. s/p cervical surgery 4. gerd 5. htn 6. altered mental status 7. hypernatremia Plan - pt on feeds - sodium improved - decrease rate of d5w - repeat labs in am - avoid nsaids - avoid nephrotoxins
[2019-09-02] MEDS: DEXTROSE 5%-WATER - 1,000 ML IV SCH (14:30)
--- NOTE | 2019-09-02 14:37 | PN ---
Progress Note (short form) - Note Progress Note: Hospitalist Medicine Less confused today. +NGT in place Vitals 09/02/19 13:35 Temperature 98.8 F Pulse Rate 74 Respiratory 20 Rate Blood Pressure 137/80 Physical Exam General: resting, with hard c-collar on. HEENT: NCAT, PERRLA. +NGT neck: supple cardio: S1, S2 RRR. no r/m/g pulm: decreased breath sounds, few rhonchi b/l. 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 sensation intact LE: 2+ pulses, no edema Laboratory Tests 09/02/19 09/02/19 09/02/19 07:55 07:55 07:55 WBC 14.0 H Hgb 12.3 Hct 38.8 Plt Count 498 H Sodium 142 Potassium 4.7 Chloride 109 H BUN 32.3 H Creatinine 1.4 H Random Glucose 129 H Iron 41 L TIBC 168 L Unsaturated IBC 127 L Total Bilirubin 1.2 H AST 45 H ALT 128 H Total Protein 6.2 L Albumin 2.8 L Microbiology 08/21/19 21:55 Sputum - Expectorated Gram Stain - Final 08/21/19 21:55 Sputum - Expectorated Sputum Culture - Final NORMAL RESPIRATORY TRINO 08/21/19 18:00 Blood - Peripheral Venous Blood Culture - Final NO GROWTH AFTER 5 DAYS INCUBATION 08/21/19 18:00 Blood - Peripheral Venous Blood Culture - Final NO GROWTH AFTER 5 DAYS INCUBATION 08/21/19 17:30 Urine - Urine Webb Urine Culture - Final NO GROWTH OBTAINED 08/18/19 01:10 Urine - Urine - Catheterized Urine Culture - Final NO GROWTH OBTAINED Imaging 08/18/19: c-spine XR: c-spine hardware appropriate position. alignment maintained. no hardware failure 08/22/19: CXR: no acute path. minimal atelectasis R base 08/23/19: CXR: since prior study, atelectatic changes at R base have diminished , improvement R base 08/24/19: renal sono: WNL 08/24/19: CTH: (-) 08/25/19: CXR: R basilar platelike atelectasis 08/26/19: CXR: atelectatic change at the R base with prominent mediastinum and lower cervical spine hardware. 08/26/19: MBS: severe dysphagi, recurrent aspiration on puree and thick liquid as well on patient secretions with focal wetness frequently. rule out swelling in the pharynx which may be contributing to the dysphagia s/p anterior fusion. strict NPO at this time, including medication. Mouth care. Suction when necessary. If swallowing does not improve, may need temporary PEG 08/28/19: Soft tissue neck CT: tip of epiglottis appears to be bulbous allowing for motion artifact. Correlation with follow up CT vs. direct visualization is suggested. Remaining soft tissue structures demonstrate no gross noncontrast pathology allowing for extensive motion artifact. Follow up CT may also be considered in this regard. S/p multilevel c-spine instrumentation. eval is very limited due to motion artifact. follow up ct/mri may be considered. 08/31/19: CXR: lower c-spine fusion hardware extending into the thoracic inlet, unfolded aorta, normal chris and normal heart, some atelectasis or scarring in the R mid lung field. no infiltrate or failure 09/01/19: MBS: severe dysphagia, impaired laryngeal elevation and epiglottic inversion, with buildup in pharynx, with small amounts passing through the UES. however with spillage into the airway on each consistency. there was only mild aspiration during the study as it was done carefully with only small amounts provided. silent aspiration on puree nectar and honey thick liquid. NPO, consider PEG. consider Shi. 09/01/19 CXR: NGT tip in upper gastric body. Assessment/Plan 79 y/o/m with PMHx of HTN, GERD, and PVD(s/p stent- Pt. unclear which leg) presenting after C3-C5 discectomy and fusion. #Neurology - s/p C4 corpectomy & C3-C5 anterior cervical decompression and instrumented fusion - Maintain head of bed 30-45 degrees. - Pain medication: on roxicodone PRN, no NSAID's - on bowel regimen, while on pain mgmt - miralax, senna, colace - frequent suction, chest PT. - Hard c-collar in place. - PT/OT/Rehab, OOB. - WBAT B/L LE - PWB B/L UE: 5lbs. - B/L UE & LE NV checks. #new onset stridor possible 2/2 inflammation post-op -seen by ENT; w/ curled epiglottis -soft tissue neck CT as above -orotracheal intubation if needed, must maintain collar during per Dr. Miranda -could use Glidescope or use flexible bronchoscope. -sx consult: Dr. Miranda -ENT: Dr. Vanegas #FTT -less confused today, silent aspiration on initial MBS -NGT placed by GI; TF recs placed; Jevity -for PEG placement via IR, per GI -GI: Dr. Smith #ID -post-op fever, sepsis 2/2 aspiration PNA -c/w zosyn (08/23) -blood, ucx, sputum (-) thus far -c/w frequent suctioning -ID: Dr. Oliva #Nephro -MARY - off IVF; fluids through TF - renal sono: unremarkable - Nephro: Dr. Chan -Hypernatremia -cont to follow; free water flushes w/ TF -on d5w at low rate #Urology - Post-op Urinary Retention- resolved - webb initially placed by Dr. Hubbard - Urology on board #Cardiology - hx HTN - losartan restarted #Pulmonology - Encourage IS - will monitor and keep SpO2 above 92% - Airway observation: In case of emergency, remove anterior cervical spine dressing and pull out running suture; ok to cut suture if needed to decompress - hematoma. #F/E/N - d5w 42 cc/hr - c/t follow lytes - Jevity TF, for PEG placement #Prophylaxis - Mechanical only: KELLEY's, SCD's, per sx recs. to restart PPX based on sx d/w sx: no a/c at this time #Disposition - monitor on med-surg - on IV abx - for PEG placement - pt refuses to go to [facility], wants to go home - No heavy lifting (>5 lbs), bending or twisting x 6 months post op. <Desi Garcia - Last Filed: 09/02/19 14:31> - Note Progress Note: een and examined; please refer to resident note for further historical information. I agree with the aforementioned assessment and plan and historical information aside from as supplemented by myself. Independently verified all sosa exam findings and diagnostics. I discussed the case at length with the resident and agree with the plan as outlined. Seen and examined; I discussed the case with Dr. Miranda and the resident team in depth. ENT also has been contacted and we are pending further followup. There is concern that he may be continually aspirating and would require a PEG tube. Want to discuss the role of the epiglottic findings with the potential dysphagia pattern and of course would obtain FU MBS to r/o underlying pathology that may be more esoteric. If needed anatomical considerations will be of note given the recent cervical instrumentation. *Today mentation is improving with NGT nutrition. Reemains in restraints to not dislodge tube. Very confused with altered sleep/wake and some ICU deleerium with underlying communication issues from the dysphonia complicate his care immensely. 10 sys ROS done and negative aside from HPI VS, labs, imaging reviewed NAD AAO resting in bed NC AT EOMI PERRLA HR wnl, s1/2+ NT ND +BS CN2-12 wnl, no fnd Normal mood, appropriate behavior. Grunting noted as improved; his voice sounds muffled and it is difficult to tell if he is AAOx3 on initial glance, but I suspect that there is a profound mechanical problem with his speech and swallowing that is non-central in location given the lack of other focal neurological deficits and 2 procedures in the area (the surgical procedure itself and the intubation for procedure). He was AAOx2-3 on awaking but is improving with nutrition A/P: Presents for postoperative wound infection; pending washout and cultures. Holding off further abx per ID until culture results made available when she is out of the OR. Postoperative pain control per ortho. Based on the issues with his ongoing swallowing he will require a PEG tube. He is doing well otherwise and feels well. He is mentating better and I think we can remove restraints in the ongoing days. Problems include: -Dysphagia (Discuss with ENT, swallow. Consulted GI for likely PEG on saturday.) -Dysphonia (will need ongoing followup and evaluation. He had underlying eliglottic issues dscussed below. -Epiglotic issue with documented hx CHELSEA (Can discuss use of CPAP qHS. If he gets transiently hypercarbic at night this could precipitate percieved worsening of mentation) -Toxic Metabolic Encephalopathy lending to AMS, improved. 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 -Urinary retention 2/2 clot with traumatic webb insertion (Resolved, negative PVR. Saw Dr. Calle Resolved; was a complicated webb requiring coude.) -Hx HTN -Status post elective C4 corpectomy & C3-C5 anterior cervical decompression and instrumented fusion (Pain control per orthopedics) -UTI, improved, ID following (Micro negative; continues on abx. Could have been skewed by preop IV tx. Will discuss when we may DC abx.) -CKD (Likely secondary to underlying chronic issues [htn, etc.] and is stable. He is not oliguric. 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
[2019-09-03] MEDS ORDERED: DEXTROSE 5%-WATER - 50 ML IVPB ONE ×3 (01:10→17:29)
[2019-09-03] MEDS ORDERED: PIPERACILLIN/TAZOBACTAM 2.25 GM VIAL IVPB ONE ×3 (01:10→17:29)
[2019-09-03] MEDS: PIPERACILLIN/TAZOB 2.25 GM 2.25 GM in DEXTROSE 5%-WATER - 50 ML IVPB SCH ×3 (01:19→18:12)
[2019-09-03] MEDS: DEXTROSE 5%-WATER - 1,000 ML IV SCH ×3 (01:23→13:44)
[2019-09-03 07:12] LABS: BASO % 0.6 % (0-2.0); EOS % 3.5 % (0-4.5); HEMATOCRIT 38.5 % (35.4-49); HEMOGLOBIN 12.2 GM/dL (11.7-16.9); LYMPH % 8.5 % (8-40); MCH 27.5 pg (25.7-33.7); MCHC 31.7 g/dl (32.0-35.9); MEAN CELL VOLUME 86.6 fl (80-96); MEAN PLT VOLUME 8.9 fl (7.5-11.1); MONO % 7.9 % (3.8-10.2); NEUT % 79.5 % (42.8-82.8); PLATELET COUNT 493 K/MM3 (134-434); RBC 4.45 M/mm3 (4.00-5.60); RDW 15.2 % (11.9-15.9); WHITE BLOOD COUNT 15.6 K/mm3 (4.0-10.0)
[2019-09-03 07:41] LABS: BILIRUBIN,TOTAL 0.9 mg/dL (0.2-1); BLOOD UREA NITROGEN 22.8 mg/dL (7-18); CREATININE 1.2 mg/dL (0.55-1.3); MAGNESIUM 2.2 mg/dL (1.8-2.4); POTASSIUM 4.2 mmol/L (3.5-5.1); TOT PROT 6.5 g/dl (6.4-8.2)
[2019-09-03] MEDS: ALBUTEROL SO4 2.5/IPRATROPIUM 0.5 INH SOL 3 ML VIAL.NEB. NEB SCH ×4 (08:19→20:17)
--- NOTE | 2019-09-03 09:41 | PN ---
Progress Note, Physician History of Present Illness: still with stridor off and on confusion wbc high - Current Medication List Current Medications: Active Medications Albuterol/Ipratropium (Duoneb -) 1 amp NEB RQID [facility] Last Admin: 09/03/19 08:19 Dose: 1 amp Benzocaine/Menthol (Cepacol Lozenge -) 1 each MM PRN PRN PRN Reason: SORE THROAT Piperacillin Sod/Tazobactam (Sod 2.25 gm/ Dextrose) 50 mls @ 100 mls/hr IVPB Q8H-IV MELISSA; Protocol Last Admin: 09/03/19 01:19 Dose: 100 mls/hr Dextrose (D5w -) 1,000 mls @ 42 mls/hr IV ASDIR [facility] Last Admin: 09/03/19 01:23 Dose: 42 mls/hr Ondansetron HCl (Zofran Injection) 4 mg IVPUSH Q6H PRN PRN Reason: NAUSEA AND/OR VOMITING Pantoprazole Sodium (Protonix Iv) 40 mg IVPUSH DAILY [facility] Last Admin: 09/02/19 09:47 Dose: 40 mg - Objective Vital Signs: Vital Signs Temperature 98.1 F 09/03/19 05:00 Pulse Rate 81 09/03/19 05:00 Respiratory Rate 18 09/03/19 05:00 Blood Pressure 144/78 09/03/19 05:00 O2 Sat by Pulse Oximetry (%) 96 09/03/19 05:00 Constitutional: Yes: Calm, Other HENT: Yes: Other (hard collar) Cardiovascular: Yes: Regular Rate and Rhythm Respiratory: Yes: Regular, CTA Bilaterally Gastrointestinal: Yes: Normal Bowel Sounds, Soft Musculoskeletal: Yes: WNL Extremities: Yes: WNL Neurological: Yes: Alert, Confusion Labs: CBC, BMP 09/03/19 06:50 09/03/19 06:50 INR, PTT INR 1.51 (0.83-1.09) H 08/31/19 06:05 Assessment/Plan 1. MARY 2. hypotension 3. s/p cervical surgery 4. gerd 5. htn 6 altered mental status 7 asp pna Problem List - Problems (1) MARY (acute kidney injury) Code(s): N17.9 - ACUTE KIDNEY FAILURE, UNSPECIFIED (2) Acute urinary retention Code(s): R33.8 - OTHER RETENTION OF URINE (3) Dysphagia Code(s): R13.10 - DYSPHAGIA, UNSPECIFIED Qualifiers: Dysphagia type: pharyngeal phase Qualified Code(s): R13.13 - Dysphagia, pharyngeal phase (4) History of cervical spinal surgery Code(s): Z98.890 - OTHER SPECIFIED POSTPROCEDURAL STATES (5) Stridor Code(s): R06.1 - STRIDOR Assessment/Plan Leukocytosis PNA/Possible aspiration Upper airway obstruction s/p Cervical spine surgery MARY plan continue abx monitor wbc suctioning monitor asp precautions
--- NOTE | 2019-09-03 11:21 | PN ---
Progress Note, GLOST TILE SORTER - Note Progress Note: Selected Entries 09/02/19 09/02/19 09/02/19 03:00 06:41 08:16 Supper Temperature 98.3 F 98.7 F 98.5 F 09/02/19 09/02/19 09/02/19 09:00 13:00 13:35 Supper NPO NPO Temperature 98.8 F 09/02/19 09/02/19 09/02/19 17:22 18:03 18:12 Supper NPO NPO Temperature 98.7 F 09/02/19 09/03/19 09/03/19 21:00 05:00 09:00 Supper Temperature 98.0 F 98.1 F 97.8 F Laboratory Tests 09/02/19 09/03/19 07:55 06:50 WBC 14.0 H 15.6 H Pt's daughter called me and I reviewed repeat MBS, and hope for improved swallowing/cognitive function with time and intensive sp/swallow rehabilitation. Had GT placed today in IR. Encourage pt to cough hard and expectorate secretions into cup.
--- NOTE | 2019-09-03 11:31 | PN ---
Progress Note (short form) - Note Progress Note: PULMONARY VSS/AFEBRILE SPO2 97 % N/C O2 Gen: confused/c-collar in place/stridor Heart: RRR Lung: decreased breath sounds at the bases Abd: soft, nontender Ext: no edema LABS/MEDS/NOTES/IMAGES REVIEWED ASSESSMENT AND PLAN: Acute Respiratory Insufficiency Upper Airway Obstruction from Curved Epiglottis Pneumonia likely Aspiration Cervical Stenosis with Radiculopathy and Myelopathy s/p C4 corpectomy/Partial Corpectomies C3, C5/Insertion Biomechanical Device C3- C5 Acute Kidney Injury improving HTN PAD GERD - continue antibiotics/O2 - inhaled bronchodilators - IVF - monitor urine output, creatinine - aspiration precautions - DVT prophylaxis Caitlin DENNIS MD
[2019-09-03] MEDS: PANTOPRAZOLE SODIUM 40 MG VIAL IVPUSH SCH (12:00)
--- NOTE | 2019-09-03 13:06 | PN ---
Progress Note, Physician History of Present Illness: Pt seen and examined at bedside. He is awake and appears comfortable. - Current Medication List Current Medications: Active Medications Albuterol/Ipratropium (Duoneb -) 1 amp NEB RQID [facility] Last Admin: 09/03/19 12:02 Dose: 1 amp Benzocaine/Menthol (Cepacol Lozenge -) 1 each MM PRN PRN PRN Reason: SORE THROAT Piperacillin Sod/Tazobactam (Sod 2.25 gm/ Dextrose) 50 mls @ 100 mls/hr IVPB Q8H-IV MELISSA; Protocol Last Admin: 09/03/19 11:59 Dose: 100 mls/hr Dextrose (D5w -) 1,000 mls @ 42 mls/hr IV ASDIR [facility] Last Admin: 09/03/19 12:00 Dose: 42 mls/hr Ondansetron HCl (Zofran Injection) 4 mg IVPUSH Q6H PRN PRN Reason: NAUSEA AND/OR VOMITING Pantoprazole Sodium (Protonix Iv) 40 mg IVPUSH DAILY [facility] Last Admin: 09/03/19 12:00 Dose: 40 mg - Objective Vital Signs: Vital Signs Temperature 97.8 F 09/03/19 09:00 Pulse Rate 77 09/03/19 12:00 Respiratory Rate 18 09/03/19 12:00 Blood Pressure 128/56 L 09/03/19 12:00 O2 Sat by Pulse Oximetry (%) 97 09/03/19 10:42 Constitutional: Yes: Calm Eyes: Yes: Conjunctiva Clear HENT: Yes: Atraumatic Cardiovascular: Yes: S1, S2 Gastrointestinal: Yes: Soft Genitourinary: Yes: Incontinence Musculoskeletal: Yes: WNL Edema: No Neurological: Yes: Confusion Labs: CBC, BMP 09/03/19 06:50 09/03/19 06:50 INR, PTT INR 1.51 (0.83-1.09) H 08/31/19 06:05 Problem List - Problems (1) MARY (acute kidney injury) Code(s): N17.9 - ACUTE KIDNEY FAILURE, UNSPECIFIED (2) Acute urinary retention Code(s): R33.8 - OTHER RETENTION OF URINE Assessment/Plan Current Medications Generic Name Dose Route Start Last Admin Trade Name Freq PRN Reason Stop Dose Admin Albuterol/Ipratropium 1 amp 08/31/19 16:00 09/03/19 12:02 Duoneb - NEB 1 amp RQID MELISSA Administration Benzocaine/Menthol 1 each 08/31/19 12:10 Cepacol Lozenge - MM PRN PRN SORE THROAT Piperacillin Sod/Tazobactam 50 mls @ 100 mls/hr 08/31/19 18:00 09/03/19 11:59 Sod 2.25 gm/ Dextrose IVPB 100 mls/hr Q8H-IV MELISSA Administration Protocol Dextrose 1,000 mls @ 42 mls/hr 09/02/19 14:16 09/03/19 12:00 D5w - IV 42 mls/hr ASDIR MELISSA Administration Ondansetron HCl 4 mg 08/31/19 12:10 Zofran Injection IVPUSH Q6H PRN NAUSEA AND/OR VOMITING Pantoprazole Sodium 40 mg 09/01/19 10:00 09/03/19 12:00 Protonix Iv IVPUSH 40 mg DAILY MELISSA Administration Impression 1. MARY 2. hypotension 3. s/p cervical surgery 4. gerd 5. htn 6. altered mental status 7. hypernatremia Plan - cont fluids as he is npo - monitor renal function and lytes - repeat labs in am - avoid nsaids - avoid nephrotoxins
--- NOTE | 2019-09-03 15:05 | PN ---
Progress Note (short form) - Note Progress Note: Hospitalist Medicine Looks comfortable. s/p GT placed today. Still w/ resp secretions c/w NGT x 24hrs, will trial GT tomorrow Vitals 09/03/19 09/03/19 12:00 13:00 Pulse Rate 72 Respiratory 18 Rate Blood Pressure 128/56 L O2 Sat by Pulse 98 Oximetry (%) Oxygen Flow 3 Rate Physical Exam General: resting, with hard c-collar on. HEENT: NCAT, PERRLA. +NGT neck: supple cardio: S1, S2 RRR. no r/m/g pulm: +scattered rhonchi. no accessory m usage abdomen: nontender, nondistended. +GT in place, c/d/i neuro: water softener servicer 2-12 grossly intact, 3/5 motor strength UE. sensation intact LE: 2+ pulses, no edema Laboratory Tests 09/03/19 09/03/19 06:50 06:50 WBC 15.6 H Hgb 12.2 Hct 38.5 Plt Count 493 H Sodium 142 Potassium 4.2 Chloride 109 H Carbon Dioxide 27 BUN 22.8 H Creatinine 1.2 Calcium 9.0 Phosphorus 3.0 Magnesium 2.2 AST 40 H ALT 108 H Total Protein 6.5 Albumin 3.0 L Microbiology 08/21/19 21:55 Sputum - Expectorated Gram Stain - Final 08/21/19 21:55 Sputum - Expectorated Sputum Culture - Final NORMAL RESPIRATORY TRINO 08/21/19 18:00 Blood - Peripheral Venous Blood Culture - Final NO GROWTH AFTER 5 DAYS INCUBATION 08/21/19 18:00 Blood - Peripheral Venous Blood Culture - Final NO GROWTH AFTER 5 DAYS INCUBATION 08/21/19 17:30 Urine - Urine Webb Urine Culture - Final NO GROWTH OBTAINED 08/18/19 01:10 Urine - Urine - Catheterized Urine Culture - Final NO GROWTH OBTAINED Imaging 08/18/19: c-spine XR: c-spine hardware appropriate position. alignment maintained. no hardware failure 08/22/19: CXR: no acute path. minimal atelectasis R base 08/23/19: CXR: since prior study, atelectatic changes at R base have diminished , improvement R base 08/24/19: renal sono: WNL 08/24/19: CTH: (-) 08/25/19: CXR: R basilar platelike atelectasis 08/26/19: CXR: atelectatic change at the R base with prominent mediastinum and lower cervical spine hardware. 08/26/19: MBS: severe dysphagi, recurrent aspiration on puree and thick liquid as well on patient secretions with focal wetness frequently. rule out swelling in the pharynx which may be contributing to the dysphagia s/p anterior fusion. strict NPO at this time, including medication. Mouth care. Suction when necessary. If swallowing does not improve, may need temporary PEG 08/28/19: Soft tissue neck CT: tip of epiglottis appears to be bulbous allowing for motion artifact. Correlation with follow up CT vs. direct visualization is suggested. Remaining soft tissue structures demonstrate no gross noncontrast pathology allowing for extensive motion artifact. Follow up CT may also be considered in this regard. S/p multilevel c-spine instrumentation. eval is very limited due to motion artifact. follow up ct/mri may be considered. 08/31/19: CXR: lower c-spine fusion hardware extending into the thoracic inlet, unfolded aorta, normal chris and normal heart, some atelectasis or scarring in the R mid lung field. no infiltrate or failure 09/01/19: MBS: severe dysphagia, impaired laryngeal elevation and epiglottic inversion, with buildup in pharynx, with small amounts passing through the UES. however with spillage into the airway on each consistency. there was only mild aspiration during the study as it was done carefully with only small amounts provided. silent aspiration on puree nectar and honey thick liquid. NPO, consider PEG. consider Shi. 09/01/19 CXR: NGT tip in upper gastric body. 09/03/19: Abd sono: small amount of biliary sludge in gallbladder. liver borderline enlarged. heterogeneous in texture. smal left lobe cysts are present. pancreas poorly visualized due to overlapping bowel gas. IVC patent. 09/03/19: GT placed Assessment/Plan 79 y/o/m with PMHx of HTN, GERD, and PVD(s/p stent- Pt. unclear which leg) presenting after C3-C5 discectomy and fusion. #Neurology - s/p C4 corpectomy & C3-C5 anterior cervical decompression and instrumented fusion - Maintain head of bed 30-45 degrees. - frequent suction, chest PT. - Hard c-collar in place. - PT/OT/Rehab, OOB. - WBAT B/L LE - PWB B/L UE: 5lbs. - B/L UE & LE NV checks. #new onset stridor possible 2/2 inflammation post-op -seen by ENT; w/ curled epiglottis -soft tissue neck CT as above -orotracheal intubation if needed, must maintain collar during per Dr. Miranda -could use Glidescope or use flexible bronchoscope. -sx consult: Dr. Miranda -ENT: Dr. Vanegas #FTT -silent aspiration on initial MBS -NGT placed by GI; TF recs placed; Jevity -GT placed (09/03); c/w NGT to LWS for 24hrs, then trial of GT tomorrow -GI: Dr. Smith #ID -post-op fever, sepsis 2/2 aspiration PNA -c/w zosyn (08/23) -blood, ucx, sputum (-) thus far -c/w frequent suctioning -ID: Dr. Oliva #Nephro -MARY - on d5w, as pt still NPO - renal sono: unremarkable - Nephro: Dr. Chan -Hypernatremia -cont to follow; free water flushes w/ TF -on d5w at low rate #Urology - Post-op Urinary Retention- resolved - webb initially placed by Dr. Hubbard - Urology on board #Cardiology - hx HTN - losartan held #Pulmonology - Encourage IS - will monitor and keep SpO2 above 92% - Airway observation: In case of emergency, remove anterior cervical spine dressing and pull out running suture; ok to cut suture if needed to decompress - hematoma. #F/E/N - d5w 65 cc/hr - c/t follow lytes - NGT LWS 24hrs, trial GT tomorrow #Prophylaxis - Mechanical only: KELLEY's, SCD's, per sx recs. to restart PPX based on sx d/w sx: no a/c at this time #Disposition - monitor on med-surg - on IV abx - pt refuses to go to [place], wants to go home - No heavy lifting (>5 lbs), bending or twisting x 6 months post op. <Radha,Desi - Last Filed: 09/03/19 15:05> - Note Progress Note: Seen and examined; please refer to resident note for further historical information. I agree with the aforementioned assessment and plan and historical information aside from as supplemented by myself. Independently verified all sosa exam findings and diagnostics. I discussed the case at length with the resident and agree with the plan as outlined. Seen and examined; I discussed the case with Dr. Miranda and the resident team in depth. ENT also has been contacted and we are pending further followup. There is concern that he may be continually aspirating and would require a PEG tube. Want to discuss the role of the epiglottic findings with the potential dysphagia pattern and of course would obtain FU MBS to r/o underlying pathology that may be more esoteric. If needed anatomical considerations will be of note given the recent cervical instrumentation. *Today mentation is improving with NGT nutrition. Reemains in restraints to not dislodge tube. Very confused with altered sleep/wake and some ICU deleerium with underlying communication issues from the dysphonia complicate his care immensely. 10 sys ROS done and negative aside from HPI VS, labs, imaging reviewed NAD AAO resting in bed NC AT EOMI PERRLA HR wnl, s1/2+ NT ND +BS CN2-12 wnl, no fnd Normal mood, appropriate behavior. Grunting noted as improved; his voice sounds muffled and it is difficult to tell if he is AAOx3 on initial glance, but I suspect that there is a profound mechanical problem with his speech and swallowing that is non-central in location given the lack of other focal neurological deficits and 2 procedures in the area (the surgical procedure itself and the intubation for procedure). He was AAOx2-3 on awaking but is improving with nutrition A/P: Presents for postoperative wound infection; pending washout and cultures. Holding off further abx per ID until culture results made available when she is out of the OR. Postoperative pain control per ortho. Based on the issues with his ongoing swallowing he will require a PEG tube. He is doing well otherwise and feels well. He is mentating better and I think we can remove restraints in the ongoing days. *He is imporved and pending PEG; pending discussion with subspecialty services. Will elucidate scheduling. Can likely remove restraints when awake if family present. Appreciate onging care from GI. Problems include: -Dysphagia (Discuss with ENT, swallow. Consulted GI for likely PEG on saturday.) -Dysphonia (will need ongoing followup and evaluation. He had underlying eliglottic issues dscussed below. -Epiglotic issue with documented hx CHELSEA (Can discuss use of CPAP qHS. If he gets transiently hypercarbic at night this could precipitate percieved worsening of mentation) -Toxic Metabolic Encephalopathy lending to AMS, improved. 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 -Urinary retention 2/2 clot with traumatic webb insertion (Resolved, negative PVR. Saw Dr. Calle Resolved; was a complicated webb requiring coude.) -Hx HTN -Status post elective C4 corpectomy & C3-C5 anterior cervical decompression and instrumented fusion (Pain control per orthopedics) -UTI, improved, ID following (Micro negative; continues on abx. Could have been skewed by preop IV tx. Will discuss when we may DC abx.) -CKD (Likely secondary to underlying chronic issues [htn, etc.] and is stable. He is not oliguric. 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
--- NOTE | 2019-09-03 16:04 | PN ---
Progress Note (short form) - Note Progress Note: POD#17 Vital Signs Period Temp Pulse Resp BP Sys/Banks Pulse Ox Last 24 Hr 97.8 F-98.7 F 66-85 18-20 119-146/56-94 94-99 GEN: Pt alert and responsive today Neck: collar in place: Inc c/d/i healing well. No swelling/masses or erythema noted. Abd: soft, non-distended, Dressing to GI c/d/i. GT to suction. clear drainage/ minimal in canister. Neuro: follows commands and able to move all extremities 79 yo male w/ PMHx HTN, GERD, PVD, cervical spondylosis/myelopathy, now S/p C4 corpectomy & C3-C5 anterior cervical decompression and instrumented fusion on sp GT placed in IR today Case D/w Dr. Miranda Continue npo GT to suction x 24 hours
[2019-09-03] MEDS ORDERED: PT OWN MED DRAWER 7, Y5N ONE (16:36)
[2019-09-03 21:07] LABS: TRANSGLUTAMINASE IGA < 2 U/mL (0-3); TRANSGLUTAMINASE IGG < 2 U/mL (0-5)
[2019-09-04] MEDS ORDERED: DEXTROSE 5%-WATER - 50 ML IVPB ONE ×3 (02:35→17:23)
[2019-09-04] MEDS ORDERED: PIPERACILLIN/TAZOBACTAM 2.25 GM VIAL IVPB ONE ×3 (02:35→17:23)
[2019-09-04] MEDS: PIPERACILLIN/TAZOB 2.25 GM 2.25 GM in DEXTROSE 5%-WATER - 50 ML IVPB SCH ×3 (02:43→17:37)
[2019-09-04] MEDS: DEXTROSE 5%-WATER - 1,000 ML IV SCH ×3 (06:39→22:11)
[2019-09-04] MEDS: ALBUTEROL SO4 2.5/IPRATROPIUM 0.5 INH SOL 3 ML VIAL.NEB. NEB SCH ×4 (07:45→20:30)
[2019-09-04 08:20] LABS: BASO % 0.6 % (0-2.0); EOS % 3.5 % (0-4.5); HEMATOCRIT 36.6 % (35.4-49); HEMOGLOBIN 11.7 GM/dL (11.7-16.9); LYMPH % 11.6 % (8-40); MCH 27.9 pg (25.7-33.7); MCHC 32.1 g/dl (32.0-35.9); MEAN CELL VOLUME 86.9 fl (80-96); MEAN PLT VOLUME 9.2 fl (7.5-11.1); MONO % 10.8 % (3.8-10.2); NEUT % 73.5 % (42.8-82.8); PLATELET COUNT 462 K/MM3 (134-434); RBC 4.22 M/mm3 (4.00-5.60); WHITE BLOOD COUNT 12.3 K/mm3 (4.0-10.0)
[2019-09-04 08:45] LABS: ALBUMIN 2.9 g/dl (3.4-5.0); BILIRUBIN,TOTAL 0.9 mg/dL (0.2-1); BLOOD UREA NITROGEN 22.5 mg/dL (7-18); CALCIUM 8.8 mg/dL (8.5-10.1); CREATININE 1.2 mg/dL (0.55-1.3); MAGNESIUM 2.1 mg/dL (1.8-2.4); PHOSPHOROUS 3.1 mg/dL (2.5-4.9); POTASSIUM 4.2 mmol/L (3.5-5.1); TOT PROT 6.2 g/dl (6.4-8.2)
[2019-09-04] MEDS: PANTOPRAZOLE SODIUM 40 MG VIAL IVPUSH SCH (09:38)
--- NOTE | 2019-09-04 11:48 | PN ---
Progress Note, Physician History of Present Illness: patient still with gurgling still with resp issues occasional confusion - Current Medication List Current Medications: Active Medications Albuterol/Ipratropium (Duoneb -) 1 amp NEB RQID [facility] Last Admin: 09/04/19 07:45 Dose: 1 amp Benzocaine/Menthol (Cepacol Lozenge -) 1 each MM PRN PRN PRN Reason: SORE THROAT Piperacillin Sod/Tazobactam (Sod 2.25 gm/ Dextrose) 50 mls @ 100 mls/hr IVPB Q8H-IV MELISSA; Protocol Last Admin: 09/04/19 09:38 Dose: 100 mls/hr Dextrose (D5w -) 1,000 mls @ 65 mls/hr IV ASDIR [facility] Last Admin: 09/04/19 06:39 Dose: 65 mls/hr Ondansetron HCl (Zofran Injection) 4 mg IVPUSH Q6H PRN PRN Reason: NAUSEA AND/OR VOMITING Pantoprazole Sodium (Protonix Iv) 40 mg IVPUSH DAILY [facility] Last Admin: 09/04/19 09:38 Dose: 40 mg - Objective Vital Signs: Vital Signs Temperature 97.5 F L 09/04/19 05:00 Pulse Rate 71 09/04/19 05:00 Respiratory Rate 20 09/04/19 05:00 Blood Pressure 134/77 09/04/19 05:00 O2 Sat by Pulse Oximetry (%) 97 09/04/19 05:00 Constitutional: Yes: No Distress, Calm Neck: Yes: Other (hard collar) Cardiovascular: Yes: S1, S2 Respiratory: Yes: Regular, Other Gastrointestinal: Yes: Normal Bowel Sounds, Soft, Other (peg tube in place) Musculoskeletal: Yes: WNL Extremities: Yes: WNL Neurological: Yes: Alert, Oriented Psychiatric: Yes: Alert, Oriented Labs: CBC, BMP 09/04/19 07:00 09/04/19 07:00 INR, PTT INR 1.51 (0.83-1.09) H 08/31/19 06:05 Assessment/Plan 1. MARY 2. hypotension 3. s/p cervical surgery 4. gerd 5. htn 6 altered mental status 7 asp pna Problem List - Problems (1) MARY (acute kidney injury) Code(s): N17.9 - ACUTE KIDNEY FAILURE, UNSPECIFIED (2) Acute urinary retention Code(s): R33.8 - OTHER RETENTION OF URINE (3) Dysphagia Code(s): R13.10 - DYSPHAGIA, UNSPECIFIED Qualifiers: Dysphagia type: pharyngeal phase Qualified Code(s): R13.13 - Dysphagia, pharyngeal phase (4) History of cervical spinal surgery Code(s): Z98.890 - OTHER SPECIFIED POSTPROCEDURAL STATES (5) Stridor Code(s): R06.1 - STRIDOR Assessment/Plan Leukocytosis PNA/Possible aspiration Upper airway obstruction s/p Cervical spine surgery MARY plan continue abx monitor wbc suctioning monitor asp precautions
--- NOTE | 2019-09-04 14:55 | PN ---
Progress Note, PLATE CONDITIONER - Note Progress Note: Selected Entries 09/04/19 09/04/19 09/04/19 01:00 05:00 09:00 Lunch NPO Temperature 98.1 F 97.5 F L 98.2 F Laboratory Tests 09/03/19 09/04/19 06:50 07:00 WBC 15.6 H 12.3 H Vocal wetness, some sob, HOB elevated in bed. Pt was reportedly better when sitting at edge of bed. Nursing feels he sounds better than this morning. Consider trial of Scopalamine patch, if not medically contraindicated. Consider LTach for continued medical support in a rehabilitation environment.
--- NOTE | 2019-09-04 15:49 | PN ---
Progress Note (short form) - Note Progress Note: Hospitalist Medicine Looks comfortable, with improved secretions. s/p PEG placement (09/03) Vitals 09/04/19 13:00 Temperature 98.3 F Pulse Rate 82 Respiratory 20 Rate Blood Pressure 136/85 Physical Exam General: resting, with hard c-collar on. HEENT: NCAT, PERRLA. neck: supple cardio: S1, S2 RRR. no r/m/g pulm: +scattered rhonchi. no accessory m usage abdomen: nontender, nondistended. 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 able to move UE, LE independently LE: 2+ pulses, no edema Laboratory Tests 09/04/19 09/04/19 07:00 07:00 WBC 12.3 H Hgb 11.7 Hct 36.6 Plt Count 462 H Sodium 141 Potassium 4.2 Chloride 105 Carbon Dioxide 29 BUN 22.5 H Creatinine 1.2 Est GFR (CKD-EPI)AfAm 66.73 Est GFR (CKD-EPI)NonAf 57.57 Random Glucose 110 H Microbiology 08/21/19 21:55 Sputum - Expectorated Gram Stain - Final 08/21/19 21:55 Sputum - Expectorated Sputum Culture - Final NORMAL RESPIRATORY TRINO 08/21/19 18:00 Blood - Peripheral Venous Blood Culture - Final NO GROWTH AFTER 5 DAYS INCUBATION 08/21/19 18:00 Blood - Peripheral Venous Blood Culture - Final NO GROWTH AFTER 5 DAYS INCUBATION 08/21/19 17:30 Urine - Urine Webb Urine Culture - Final NO GROWTH OBTAINED 08/18/19 01:10 Urine - Urine - Catheterized Urine Culture - Final NO GROWTH OBTAINED Imaging 08/18/19: c-spine XR: c-spine hardware appropriate position. alignment maintained. no hardware failure 08/22/19: CXR: no acute path. minimal atelectasis R base 08/23/19: CXR: since prior study, atelectatic changes at R base have diminished , improvement R base 08/24/19: renal sono: WNL 08/24/19: CTH: (-) 08/25/19: CXR: R basilar platelike atelectasis 08/26/19: CXR: atelectatic change at the R base with prominent mediastinum and lower cervical spine hardware. 08/26/19: MBS: severe dysphagi, recurrent aspiration on puree and thick liquid as well on patient secretions with focal wetness frequently. rule out swelling in the pharynx which may be contributing to the dysphagia s/p anterior fusion. strict NPO at this time, including medication. Mouth care. Suction when necessary. If swallowing does not improve, may need temporary PEG 08/28/19: Soft tissue neck CT: tip of epiglottis appears to be bulbous allowing for motion artifact. Correlation with follow up CT vs. direct visualization is suggested. Remaining soft tissue structures demonstrate no gross noncontrast pathology allowing for extensive motion artifact. Follow up CT may also be considered in this regard. S/p multilevel c-spine instrumentation. eval is very limited due to motion artifact. follow up ct/mri may be considered. 08/31/19: CXR: lower c-spine fusion hardware extending into the thoracic inlet, unfolded aorta, normal chris and normal heart, some atelectasis or scarring in the R mid lung field. no infiltrate or failure 09/01/19: MBS: severe dysphagia, impaired laryngeal elevation and epiglottic inversion, with buildup in pharynx, with small amounts passing through the UES. however with spillage into the airway on each consistency. there was only mild aspiration during the study as it was done carefully with only small amounts provided. silent aspiration on puree nectar and honey thick liquid. NPO, consider PEG. consider Shi. 09/01/19 CXR: NGT tip in upper gastric body. 09/03/19: Abd sono: small amount of biliary sludge in gallbladder. liver borderline enlarged. heterogeneous in texture. smal left lobe cysts are present. pancreas poorly visualized due to overlapping bowel gas. IVC patent. 09/03/19: GT placed 09/04/19: KUB: retained contrast in colon and design painter film not obtained so it is difficult to determine if leak. Previous spinal fusion hardware. There is a scoliosis. Assessment/Plan 79 y/o/m with PMHx of HTN, GERD, and PVD(s/p stent- Pt. unclear which leg) presenting after C3-C5 discectomy and fusion. #Neurology - s/p C4 corpectomy & C3-C5 anterior cervical decompression and instrumented fusion - Maintain head of bed 30-45 degrees. - frequent suction, chest PT. - scopalamine patch TD added for secretions - Hard c-collar in place. - PT/OT/Rehab, OOB. - WBAT B/L LE - PWB B/L UE: 5lbs. - B/L UE & LE NV checks. #new onset stridor possible 2/2 inflammation post-op -seen by ENT; w/ curled epiglottis -soft tissue neck CT as above -orotracheal intubation if needed, must maintain collar during per Dr. Miranda -could use Glidescope or use flexible bronchoscope. -sx consult: Dr. Miranda -ENT: Dr. Vanegas #FTT -silent aspiration on initial MBS -NGT placed by GI; TF recs placed; Jevity -GT placed (09/03); KUB as above, retained contrast however difficult to determine if leak -repeat KUB -GI: Dr. Smith #ID -post-op fever, sepsis 2/2 aspiration PNA -c/w zosyn (08/23) -blood, ucx, sputum (-) thus far -c/w frequent suctioning -ID: Dr. Oliva #Nephro -MARY - on d5w, as pt still NPO - renal sono: unremarkable - Nephro: Dr. Chan #Urology - Post-op Urinary Retention- resolved - webb initially placed by Dr. Hubbard - Urology on board #Cardiology - hx HTN - losartan held #Pulmonology - Encourage IS - will monitor and keep SpO2 above 92% - Airway observation: In case of emergency, remove anterior cervical spine dressing and pull out running suture; ok to cut suture if needed to decompress - hematoma. #F/E/N - d5w 65 cc/hr - c/t follow lytes - repeat KUB; if inconclusive order CTAP. if conclusive, then will start feeds #Prophylaxis - Mechanical only: KELLEY's, SCD's, per sx recs. to restart PPX based on sx d/w sx: no a/c at this time #Disposition - monitor on med-surg - on IV abx - pt refuses to go to [place], wants to go home . may benefit from LTACH - No heavy lifting (>5 lbs), bending or twisting x 6 months post op.
--- NOTE | 2019-09-04 16:12 | PN ---
Progress Note (short form) - Note Progress Note: POD#18 Vital Signs Period Temp Pulse Resp BP Sys/Banks Pulse Ox Last 24 Hr 97.5 F-98.4 F 71-90 18-22 119-136/77-103 95-98 GEN: Pt alert and responsive today Neck: collar in place: Inc c/d/i healing well. No swelling/masses or erythema noted. Abd: soft, non-distended, Dressing to GI c/d/i. GT to suction. clear drainage/ minimal in canister approximately 100ml Neuro: follows commands 79 yo male w/ PMHx HTN, GERD, PVD, cervical spondylosis/myelopathy, now S/p C4 corpectomy & C3-C5 anterior cervical decompression and instrumented fusion on sp GT placed in IR yesterday KUB completed with oral contrast thru GT to confirm placement of GT and r/o leak, unable to confirm placement because of prior contrast from barium enema. Discussed the case with radiology, Dr. Chavarria extraction machine operator and will obtain another KUB to evaluate the progression of contrast and r/o leak. Discussed with the medical team the plan for repeat KUB (if inconclusive may require a CT scan). If KUB negative may begin feeds via the GT. D/w Dr. Miranda
--- NOTE | 2019-09-04 16:27 | PN ---
Progress Note, Physician History of Present Illness: Pt seen and examined at bedside. He denies shortness of breath. - Current Medication List Current Medications: Active Medications Albuterol/Ipratropium (Duoneb -) 1 amp NEB RQID [facility] Last Admin: 09/04/19 16:19 Dose: 1 amp Benzocaine/Menthol (Cepacol Lozenge -) 1 each MM PRN PRN PRN Reason: SORE THROAT Piperacillin Sod/Tazobactam (Sod 2.25 gm/ Dextrose) 50 mls @ 100 mls/hr IVPB Q8H-IV MELISSA; Protocol Last Admin: 09/04/19 09:38 Dose: 100 mls/hr Dextrose (D5w -) 1,000 mls @ 65 mls/hr IV ASDIR [facility] Last Admin: 09/04/19 06:39 Dose: 65 mls/hr Ondansetron HCl (Zofran Injection) 4 mg IVPUSH Q6H PRN PRN Reason: NAUSEA AND/OR VOMITING Pantoprazole Sodium (Protonix Iv) 40 mg IVPUSH DAILY [facility] Last Admin: 09/04/19 09:38 Dose: 40 mg Scopolamine HBr (Transderm-Scop -) 1 patch TD Q72H [facility] - Objective Vital Signs: Vital Signs Temperature 98.3 F 09/04/19 13:00 Pulse Rate 82 09/04/19 13:00 Respiratory Rate 20 09/04/19 13:00 Blood Pressure 136/85 09/04/19 13:00 O2 Sat by Pulse Oximetry (%) 95 09/04/19 09:00 Constitutional: Yes: Calm Eyes: Yes: Conjunctiva Clear HENT: Yes: Atraumatic Cardiovascular: Yes: S1, S2 Respiratory: Yes: CTA Bilaterally Gastrointestinal: Yes: Soft Genitourinary: Yes: WNL Musculoskeletal: Yes: Other (neck pain) Edema: No Neurological: Yes: Confusion Labs: CBC, BMP 09/04/19 07:00 09/04/19 07:00 INR, PTT INR 1.51 (0.83-1.09) H 08/31/19 06:05 Problem List - Problems (1) MARY (acute kidney injury) Code(s): N17.9 - ACUTE KIDNEY FAILURE, UNSPECIFIED (2) Acute urinary retention Code(s): R33.8 - OTHER RETENTION OF URINE Assessment/Plan Current Medications Generic Name Dose Route Start Last Admin Trade Name Freq PRN Reason Stop Dose Admin Albuterol/Ipratropium 1 amp 08/31/19 16:00 09/04/19 16:19 Duoneb - NEB 1 amp RQID MELISSA Administration Benzocaine/Menthol 1 each 08/31/19 12:10 Cepacol Lozenge - MM PRN PRN SORE THROAT Piperacillin Sod/Tazobactam 50 mls @ 100 mls/hr 08/31/19 18:00 09/04/19 09:38 Sod 2.25 gm/ Dextrose IVPB 100 mls/hr Q8H-IV MELISSA Administration Protocol Dextrose 1,000 mls @ 65 mls/hr 09/03/19 13:06 09/04/19 06:39 D5w - IV 65 mls/hr ASDIR MELISSA Administration Ondansetron HCl 4 mg 08/31/19 12:10 Zofran Injection IVPUSH Q6H PRN NAUSEA AND/OR VOMITING Pantoprazole Sodium 40 mg 09/01/19 10:00 09/04/19 09:38 Protonix Iv IVPUSH 40 mg DAILY MELISSA Administration Scopolamine HBr 1 patch 09/04/19 16:00 Transderm-Scop - TD Q72H MELISSA Impression 1. MARY 2. hypotension 3. s/p cervical surgery 4. gerd 5. htn 6. altered mental status 7. hypernatremia Plan - renal function improved - cont fluids while NPO - monitor lytes - avoid nsaids - avoid nephrotoxins - will follow PRN recall as needed
[2019-09-04] MEDS: SCOPOLAMINE HYDROBROMIDE 1 PATCH PATCH.TD72 TD SCH (17:36)
--- NOTE | 2019-09-04 19:03 | PN ---
Teaching Attending Note Name of Resident: Desi Garcia ATTENDING PHYSICIAN STATEMENT I saw and evaluated the patient. I reviewed the resident's note and discussed the case with the resident. I agree with the resident's findings and plan as documented. 79 yo male w/ PMHx HTN, GERD, PVD, cervical spondylosis/myelopathy, now S/p C4 corpectomy & C3-C5 anterior cervical decompression and instrumented fusion on . S/p G-tube placed by IR yesterday, awaiting repeat KUB to see if tube is properly placed and functional, if non-diagnostic patient may need CT abd/ pelvis. Patient today is doing OK, denies pain, still has occasional cough, denies fever or chills. Physical Exam General: resting, with hard c-collar on, alert, orientated HEENT: NCAT, PERRLA. neck: supple cardio: S1, S2 RRR. no r/m/g pulm: +scattered rhonchi. No accessory muscle use. abdomen: nontender, nondistended. 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 able to move UE, LE independently LE: 2+ pulses, no edema Vital Signs - 24 hr 09/03/19 09/04/19 09/04/19 21:00 01:00 05:00 Temperature 98.0 F 98.1 F 97.5 F L Pulse Rate 90 81 71 Respiratory 20 20 20 Rate Blood Pressure 130/82 119/80 134/77 O2 Sat by Pulse 97 97 97 Oximetry (%) 09/04/19 09/04/19 09/04/19 09:00 13:00 16:20 Temperature 98.2 F 98.3 F 98.3 F Pulse Rate 81 80 75 Respiratory 22 H 20 22 H Rate Blood Pressure 125/77 136/85 121/59 L O2 Sat by Pulse 95 96 Oximetry (%) 09/04/19 17:00 Temperature Pulse Rate 84 Respiratory Rate Blood Pressure O2 Sat by Pulse 95 Oximetry (%) Microbiology 08/21/19 18:00 Blood - Peripheral Venous Blood Culture - Final NO GROWTH AFTER 5 DAYS INCUBATION 08/21/19 18:00 Blood - Peripheral Venous Blood Culture - Final NO GROWTH AFTER 5 DAYS INCUBATION 08/21/19 21:55 Sputum - Expectorated Gram Stain - Final 08/21/19 21:55 Sputum - Expectorated Sputum Culture - Final NORMAL RESPIRATORY TRINO 08/21/19 17:30 Urine - Urine Crespo Urine Culture - Final NO GROWTH OBTAINED 08/18/19 01:10 Urine - Urine - Catheterized Urine Culture - Final NO GROWTH OBTAINED Laboratory Results - last 24 hr 09/02/19 09/04/19 09/04/19 07:55 07:00 07:00 WBC 12.3 H RBC 4.22 Hgb 11.7 Hct 36.6 MCV 86.9 MCH 27.9 MCHC 32.1 RDW 15.0 Plt Count 462 H MPV 9.2 Absolute Neuts (auto) 9.0 H Neutrophils % 73.5 Lymphocytes % 11.6 D Monocytes % 10.8 H Eosinophils % 3.5 Basophils % 0.6 Nucleated RBC % 0 Sodium 141 Potassium 4.2 Chloride 105 Carbon Dioxide 29 Anion Gap 6 L BUN 22.5 H Creatinine 1.2 Est GFR (CKD-EPI)AfAm 66.73 Est GFR (CKD-EPI)NonAf 57.57 Random Glucose 110 H Calcium 8.8 Phosphorus 3.1 Magnesium 2.1 Total Bilirubin 0.9 AST 40 H ALT 104 H Alkaline Phosphatase 75 Total Protein 6.2 L Albumin 2.9 L Tiss Transglutamin IgG < 2 Tiss Transglutamin IgA < 2 Current Medications Generic Name Dose Route Start Last Admin Trade Name Freq PRN Reason Stop Dose Admin Albuterol/Ipratropium 1 amp 08/31/19 16:00 09/04/19 16:19 Duoneb - NEB 1 amp RQID MELISSA Administration Benzocaine/Menthol 1 each 08/31/19 12:10 Cepacol Lozenge - MM PRN PRN SORE THROAT Piperacillin Sod/Tazobactam 50 mls @ 100 mls/hr 08/31/19 18:00 09/04/19 17:37 Sod 2.25 gm/ Dextrose IVPB 100 mls/hr Q8H-IV MELISSA Administration Protocol Dextrose 1,000 mls @ 65 mls/hr 09/03/19 13:06 09/04/19 06:39 D5w - IV 65 mls/hr ASDIR MELISSA Administration Ondansetron HCl 4 mg 08/31/19 12:10 Zofran Injection IVPUSH Q6H PRN NAUSEA AND/OR VOMITING Pantoprazole Sodium 40 mg 09/01/19 10:00 09/04/19 09:38 Protonix Iv IVPUSH 40 mg DAILY MELISSA Administration Scopolamine HBr 1 patch 09/04/19 16:00 09/04/19 17:36 Transderm-Scop - TD 1 patch Q72H MELISSA Administration A/P: 79 M severe cervical myelopathy s/p C4 corpectomy & C3-C5 anterior cervical decompression and instrumented fusion on 08/17, chronically aspirating with underlying PNA due to myelopathy s/p G tube placement awaiting radiological confirmation of G-tube. C4 corpectomy & C3-C5 anterior cervical decompression and instrumented fusion Maintain head of bed elevation at 30-45 deg. Hard c-collar in place, watch for stridor PT/OT/Rehab, OOB. WBAT B/L LE PWB B/L UE: 5lbs. B/L UE & LE NV checks sx: Dr. Miranda ENT Dr. Vanegas Aspiration PNA Likely due to myelopathy Continue Zosyn, cultures unremarkable Pulmonary toileting, upright position, aspiration precautions, NPO, D5W for maintenance IVF ID: Dr. Oliva MARY on CKD Improving with IVF Renal US unremarkable Avoid nephrotoxins, NSAIDs, follow electrolytes and renal function Renal Dr Chan DVT ppx: Mechanical only: KELLEY's, SCD's, per surgery recommendations to restart PPX based on sx d/w sx: no a/c at this time
[2019-09-05] MEDS ORDERED: PIPERACILLIN/TAZOBACTAM 2.25 GM VIAL IVPB ONE ×2 (00:58→09:25)
[2019-09-05] MEDS ORDERED: DEXTROSE 5%-WATER - 50 ML IVPB ONE ×2 (00:58→09:25)
[2019-09-05] MEDS: PIPERACILLIN/TAZOB 2.25 GM 2.25 GM in DEXTROSE 5%-WATER - 50 ML IVPB SCH ×2 (01:04→09:30)
[2019-09-05 07:21] LABS: BASO % 0.6 % (0-2.0); EOS % 2.3 % (0-4.5); HEMATOCRIT 37.6 % (35.4-49); HEMOGLOBIN 11.9 GM/dL (11.7-16.9); LYMPH % 9.8 % (8-40); MCH 27.4 pg (25.7-33.7); MCHC 31.5 g/dl (32.0-35.9); MEAN PLT VOLUME 9.4 fl (7.5-11.1); MONO % 11.9 % (3.8-10.2); NEUT % 75.4 % (42.8-82.8); PLATELET COUNT 463 K/MM3 (134-434); RBC 4.33 M/mm3 (4.00-5.60); RDW 14.6 % (11.9-15.9); WHITE BLOOD COUNT 13.6 K/mm3 (4.0-10.0)
[2019-09-05] MEDS: ALBUTEROL SO4 2.5/IPRATROPIUM 0.5 INH SOL 3 ML VIAL.NEB. NEB SCH ×2 (07:36→11:22)
[2019-09-05 07:49] LABS: BLOOD UREA NITROGEN 17.8 mg/dL (7-18); CREATININE 1.2 mg/dL (0.55-1.3); PHOSPHOROUS 2.9 mg/dL (2.5-4.9)
[2019-09-05] MEDS ORDERED: PT OWN MED DRAWER 7, Y5N ONE ×2 (09:24→10:35)
[2019-09-05] MEDS: PANTOPRAZOLE SODIUM 40 MG VIAL IVPUSH SCH (09:30)
--- NOTE | 2019-09-05 10:13 | PN ---
Progress Note, Physician History of Present Illness: stable no new issues confusion - Current Medication List Current Medications: Active Medications Albuterol/Ipratropium (Duoneb -) 1 amp NEB [facility]ID [facility] Last Admin: 09/05/19 07:36 Dose: Not Given Benzocaine/Menthol (Cepacol Lozenge -) 1 each MM PRN PRN PRN Reason: SORE THROAT Piperacillin Sod/Tazobactam (Sod 2.25 gm/ Dextrose) 50 mls @ 100 mls/hr IVPB Q8H-IV MELISSA; Protocol Last Admin: 09/05/19 09:30 Dose: 100 mls/hr Dextrose (D5w -) 1,000 mls @ 65 mls/hr IV ASDIR [facility] Last Admin: 09/04/19 22:11 Dose: 65 mls/hr Ondansetron HCl (Zofran Injection) 4 mg IVPUSH Q6H PRN PRN Reason: NAUSEA AND/OR VOMITING Pantoprazole Sodium (Protonix Iv) 40 mg IVPUSH DAILY [facility] Last Admin: 09/05/19 09:30 Dose: 40 mg Scopolamine HBr (Transderm-Scop -) 1 patch TD Q72H [facility] Last Admin: 09/04/19 17:36 Dose: 1 patch - Objective Vital Signs: Vital Signs Temperature 98.9 F 09/05/19 05:00 Pulse Rate 80 09/05/19 05:00 Respiratory Rate 20 09/05/19 05:00 Blood Pressure 135/79 09/05/19 05:00 O2 Sat by Pulse Oximetry (%) 99 09/05/19 05:00 Constitutional: Yes: No Distress, Calm Cardiovascular: Yes: S1, S2 Respiratory: Yes: Regular, CTA Bilaterally Gastrointestinal: Yes: Normal Bowel Sounds, Soft Musculoskeletal: Yes: WNL Extremities: Yes: WNL Neurological: Yes: Alert, Oriented Psychiatric: Yes: Alert, Oriented Labs: CBC, BMP 09/05/19 06:55 09/05/19 06:55 INR, PTT INR 1.51 (0.83-1.09) H 08/31/19 06:05 Assessment/Plan 1. MARY 2. hypotension 3. s/p cervical surgery 4. gerd 5. htn 6 altered mental status 7 asp pna Problem List - Problems (1) MARY (acute kidney injury) Code(s): N17.9 - ACUTE KIDNEY FAILURE, UNSPECIFIED (2) Acute urinary retention Code(s): R33.8 - OTHER RETENTION OF URINE (3) Dysphagia Code(s): R13.10 - DYSPHAGIA, UNSPECIFIED Qualifiers: Dysphagia type: pharyngeal phase Qualified Code(s): R13.13 - Dysphagia, pharyngeal phase (4) History of cervical spinal surgery Code(s): Z98.890 - OTHER SPECIFIED POSTPROCEDURAL STATES (5) Stridor Code(s): R06.1 - STRIDOR Assessment/Plan Leukocytosis PNA/Possible aspiration Upper airway obstruction s/p Cervical spine surgery MARY plan continue abx monitor wbc suctioning monitor asp precautions
[2019-09-05 19:14] VITALS: BMI 25.4
[2019-09-05] MEDS: FAMOTIDINE 40 MG/5 ML ORAL SUSPENSION PEG SCH (23:56)
[2019-09-05] MEDS: AMOX TR/POTASSIUM CLAVULANATE 600 MG/5 ML PEG SCH (23:57)
[2019-09-06] MEDS: AMOX TR/POTASSIUM CLAVULANATE 600 MG/5 ML PEG SCH ×2 (09:48→21:49)
[2019-09-06] MEDS: FAMOTIDINE 40 MG/5 ML ORAL SUSPENSION PEG SCH ×2 (09:48→21:52)
--- NOTE | 2019-09-06 11:57 | PN ---
Progress Note, Physician History of Present Illness: still confusion off and on more hoarse voice - Current Medication List Current Medications: Active Medications Amoxicillin/Clavulanate Potassium (Augmentin 600 Mg/5 Ml Oral Suspension -) 600 mg PEG BID [facility] Last Admin: 09/06/19 09:48 Dose: 600 mg Benzocaine/Menthol (Cepacol Lozenge -) 1 each MM PRN PRN PRN Reason: SORE THROAT Famotidine (Pepcid) 20 mg PEG BID [facility] Last Admin: 09/06/19 09:48 Dose: 20 mg Ondansetron HCl (Zofran Injection) 4 mg IVPUSH Q6H PRN PRN Reason: NAUSEA AND/OR VOMITING Scopolamine HBr (Transderm-Scop -) 1 patch TD Q72H [facility] Last Admin: 09/04/19 17:36 Dose: 1 patch - Objective Vital Signs: Vital Signs Temperature 98.2 F 09/06/19 06:00 Pulse Rate 91 H 09/06/19 06:00 Respiratory Rate 18 09/06/19 06:00 Blood Pressure 131/68 09/06/19 06:00 O2 Sat by Pulse Oximetry (%) 96 09/06/19 05:00 Constitutional: Yes: Calm, Mild Distress Cardiovascular: Yes: S1, S2 Respiratory: Yes: Other (hoarse voice) Gastrointestinal: Yes: Normal Bowel Sounds, Soft, Other (peg tube) Musculoskeletal: Yes: WNL Extremities: Yes: WNL Labs: CBC, BMP 09/05/19 06:55 09/05/19 06:55 INR, PTT INR 1.51 (0.83-1.09) H 08/31/19 06:05 Assessment/Plan 1. MARY 2. hypotension 3. s/p cervical surgery 4. gerd 5. htn 6 altered mental status 7 asp pna Problem List - Problems (1) MARY (acute kidney injury) Code(s): N17.9 - ACUTE KIDNEY FAILURE, UNSPECIFIED (2) Acute urinary retention Code(s): R33.8 - OTHER RETENTION OF URINE (3) Dysphagia Code(s): R13.10 - DYSPHAGIA, UNSPECIFIED Qualifiers: Dysphagia type: pharyngeal phase Qualified Code(s): R13.13 - Dysphagia, pharyngeal phase (4) History of cervical spinal surgery Code(s): Z98.890 - OTHER SPECIFIED POSTPROCEDURAL STATES (5) Stridor Code(s): R06.1 - STRIDOR Assessment/Plan Leukocytosis PNA/Possible aspiration Upper airway obstruction s/p Cervical spine surgery MARY plan abx thro peg tube will deeescalte it resp monitoring rest as per the team
--- NOTE | 2019-09-06 12:20 | PN ---
Physical Exam: SUBJECTIVE: Patient seen and examined; mentation improved. 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 PEG feeds going at goal. Discussed with nurse. No apparent aspiration or any issues at the site. He continues to have vocal problems. Intermittently removing restraints but will renew as still interferign with medical devices. 10 sys ROS done and negative aside from HPI OBJECTIVE: Vital Signs Period Temp Pulse Resp BP Sys/Banks Pulse Ox Last 24 Hr 97.7 F-99.0 F 88-96 17-22 123-156/68-87 96-96 GENERAL: The patient is awake, alert, and fully oriented, in no acute distress. HEAD: Normal with no signs of trauma. EYES: PERRL, extraocular movements intact, sclera anicteric, conjunctiva clear. No ptosis. ENT: Ears normal, nares patent, oropharynx clear without exudates, moist mucous membranes. NECK: Trachea midline, full range of motion, supple. LUNGS: Breath sounds equal, clear to auscultation bilaterally, no wheezes, no crackles, no accessory muscle use. HEART: Regular rate and rhythm, S1, S2 without murmur, rub or gallop. ABDOMEN: Soft, nontender, nondistended, normoactive bowel sounds, no guarding, no rebound, no hepatosplenomegaly, no masses. EXTREMITIES: 2+ pulses, warm, well-perfused, no edema. NEUROLOGICAL: Cranial nerves II through XII grossly intact. Normal speech, gait not observed. PSYCH: Normal mood, normal affect. SKIN: Warm, dry, normal turgor, no rashes or lesions noted Active Medications Generic Name Dose Route Start Last Admin Trade Name Freq PRN Reason Stop Dose Admin Amoxicillin/Clavulanate Potassium 600 mg 09/05/19 22:00 09/06/19 09:48 Augmentin 600 Mg/5 Ml Oral Suspension - PEG 600 mg BID MELISSA Administration Benzocaine/Menthol 1 each 08/31/19 12:10 Cepacol Lozenge - MM PRN PRN SORE THROAT Famotidine 20 mg 09/05/19 22:00 09/06/19 09:48 Pepcid PEG 20 mg BID MELISSA Administration Ondansetron HCl 4 mg 08/31/19 12:10 Zofran Injection IVPUSH Q6H PRN NAUSEA AND/OR VOMITING Scopolamine HBr 1 patch 09/04/19 16:00 09/04/19 17:36 Transderm-Scop - TD 1 patch Q72H MELISSA Administration ASSESSMENT/PLAN: 10 sys ROS done and negative aside from HPI VS, labs, imaging reviewed NAD AAO resting in bed NC AT EOMI PERRLA HR wnl, s1/2+ NT ND +BS CN2-12 wnl, no fnd Normal mood, appropriate behavior. Grunting noted as improved; his voice sounds muffled and it is difficult to tell if he is AAOx3 on initial glance, but I suspect that there is a profound mechanical problem with his speech and swallowing that is non-central in location given the lack of other focal neurological deficits and 2 procedures in the area (the surgical procedure itself and the intubation for procedure). He was AAOx2-3 on awaking but is improving with nutrition A/P: Presents for postoperative wound infection; pending washout and cultures. Holding off further abx per ID until culture results made available when she is out of the OR. Postoperative pain control per ortho. Based on the issues with his ongoing swallowing he will require a PEG tube. He is doing well otherwise and feels well. He is mentating better and I think we can remove restraints in the ongoing days. *He is imporved and pending PEG; pending discussion with subspecialty services. Will elucidate scheduling. Can likely remove restraints when awake if family present. Appreciate onging care from GI. Problems include: -Dysphagia (Discuss with ENT, swallow. Consulted GI for likely PEG on saturday.) -Dysphonia (will need ongoing followup and evaluation. He had underlying eliglottic issues dscussed below. -Epiglotic issue with documented hx CHELSEA (Can discuss use of CPAP qHS. If he gets transiently hypercarbic at night this could precipitate percieved worsening of mentation) -Toxic Metabolic Encephalopathy lending to AMS, improved. 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 -Urinary retention 2/2 clot with traumatic webb insertion (Resolved, negative PVR. Saw Dr. Calle Resolved; was a complicated webb requiring coude.) -Hx HTN -Status post elective C4 corpectomy & C3-C5 anterior cervical decompression and instrumented fusion (Pain control per orthopedics) -UTI, improved, ID following (Micro negative; continues on abx. Could have been skewed by preop IV tx. Will discuss when we may DC abx.) -CKD (Likely secondary to underlying chronic issues [htn, etc.] and is stable. He is not oliguric. 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
--- NOTE | 2019-09-06 12:23 | PN ---
Physical Exam: SUBJECTIVE: Patient seen and examined. Seen in chair when sitting in hallway. 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 No issues with the PEG tube and tolerating feeds. Will work to continue to keep him at goal and clear with ENT, ID, and ortho. He will need likely extensive rehab and full subspecialty clearance prior to discharge. It would be quite reasoanble to start planning towards this end today or saturday depending on staffing. No overnight issues reported to me per nursing. 10 sys ROS done and negative aside from HPI but limited due to his underlying mentation issues secondary to his clinical status. OBJECTIVE: Vital Signs Period Temp Pulse Resp BP Sys/Banks Pulse Ox Last 24 Hr 97.7 F-99.0 F 88-96 17-22 123-156/68-87 96-96 GENERAL: The patient is awake, alert, and fully oriented, in no acute distress. Continues to have noted dysphonia. HEAD: Normal with no signs of trauma. EYES: PERRL, extraocular movements intact, sclera anicteric, conjunctiva clear. No ptosis. ENT: Ears normal, nares patent, oropharynx clear without exudates, moist mucous membranes. NECK: Trachea midline, no s/s postop infeciton with c/d/i dressings. Woods-J collar in place. LUNGS: Breath sounds equal, clear to auscultation bilaterally; w/ sym exp HEART: Regular rate and rhythm, S1, S2 without murmur ABDOMEN: Soft, nontender, nondistended, normoactive bowel sounds. PEG in place with feeds @ goal. EXTREMITIES: 2+ pulses, warm, well-perfused, no edema. NEUROLOGICAL: Cranial nerves II through XII grossly intact. Gait not observed. PSYCH: Normal mood, normal affect. Tangential thought patterns with dfficult to redirect thought circles. SKIN: Warm, dry, normal turgor, no rashes or lesions noted Active Medications Generic Name Dose Route Start Last Admin Trade Name Freq PRN Reason Stop Dose Admin Amoxicillin/Clavulanate Potassium 600 mg 09/05/19 22:00 09/06/19 09:48 Augmentin 600 Mg/5 Ml Oral Suspension - PEG 600 mg BID MELISSA Administration Benzocaine/Menthol 1 each 08/31/19 12:10 Cepacol Lozenge - MM PRN PRN SORE THROAT Famotidine 20 mg 09/05/19 22:00 09/06/19 09:48 Pepcid PEG 20 mg BID MELISSA Administration Ondansetron HCl 4 mg 08/31/19 12:10 Zofran Injection IVPUSH Q6H PRN NAUSEA AND/OR VOMITING Scopolamine HBr 1 patch 09/04/19 16:00 09/04/19 17:36 Transderm-Scop - TD 1 patch Q72H MELISSA Administration ASSESSMENT/PLAN: Presents for postoperative wound infection; pending washout and cultures. Holding off further abx per ID until culture results made available when she is out of the OR. Postoperative pain control per ortho. Based on the issues with his ongoing swallowing he will require a PEG tube. He is doing well otherwise and feels well. He is mentating better and I think we can remove restraints in the ongoing days. *He is imporved and pending PEG; pending discussion with subspecialty services. Will elucidate scheduling. Can likely remove restraints when awake if family present. Appreciate onging care from GI. Problems include: -Dysphagia -Dysphonia (will need ongoing followup and evaluation. He had underlying eliglottic issues dscussed below. -Epiglotic issue with documented hx CHELSEA (Can discuss use of CPAP qHS. If he gets transiently hypercarbic at night this could precipitate percieved worsening of mentation) -Toxic Metabolic Encephalopathy lending to AMS, improved. 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 -Urinary retention 2/2 clot with traumatic webb insertion (Resolved, negative PVR. Saw Dr. Calle Resolved; was a complicated webb requiring coude.) -Hx HTN -Status post elective C4 corpectomy & C3-C5 anterior cervical decompression and instrumented fusion (Pain control per orthopedics) -UTI, improved, ID following (Micro negative; continues on abx. Could have been skewed by preop IV tx. Will discuss when we may DC abx.) -CKD (Likely secondary to underlying chronic issues [htn, etc.] and is stable. He is not oliguric. 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 - New Patient This patient is new to me today: No - Critical Care Critical Care patient: No
[2019-09-06] MEDS: MINERAL OIL/PET HY-PHL TOPICAL OINTMENT 454 GM JAR TP SCH ×2 (14:39→21:52)
[2019-09-06] MEDS ORDERED: PT OWN MED DRAWER 7, Y5N ONE (19:49)
[2019-09-07 08:34] LABS: BASO % 0.5 % (0-2.0); EOS % 1.2 % (0-4.5); HEMATOCRIT 34.7 % (35.4-49); HEMOGLOBIN 11.1 GM/dL (11.7-16.9); LYMPH % 7.7 % (8-40); MCH 27.6 pg (25.7-33.7); MEAN CELL VOLUME 86.2 fl (80-96); MEAN PLT VOLUME 9.3 fl (7.5-11.1); MONO % 14.3 % (3.8-10.2); NEUT % 76.3 % (42.8-82.8); PLATELET COUNT 428 K/MM3 (134-434); RBC 4.02 M/mm3 (4.00-5.60); RDW 14.9 % (11.9-15.9); WHITE BLOOD COUNT 13.1 K/mm3 (4.0-10.0)
[2019-09-07 08:49] LABS: ALBUMIN 2.6 g/dl (3.4-5.0); BILIRUBIN,TOTAL 0.4 mg/dL (0.2-1); BLOOD UREA NITROGEN 25.2 mg/dL (7-18); CALCIUM 9.2 mg/dL (8.5-10.1); CREATININE 1.2 mg/dL (0.55-1.3); MAGNESIUM 2.3 mg/dL (1.8-2.4); PHOSPHOROUS 3.5 mg/dL (2.5-4.9); POTASSIUM 4.6 mmol/L (3.5-5.1); TOT PROT 6.1 g/dl (6.4-8.2)
[2019-09-07] MEDS ORDERED: PT OWN MED DRAWER 7, Y5N ONE ×2 (10:13→16:18)
[2019-09-07] MEDS: AMOX TR/POTASSIUM CLAVULANATE 600 MG/5 ML PEG SCH (10:22)
[2019-09-07] MEDS: FAMOTIDINE 40 MG/5 ML ORAL SUSPENSION PEG SCH ×2 (10:23→21:19)
[2019-09-07] MEDS: MINERAL OIL/PET HY-PHL TOPICAL OINTMENT 454 GM JAR TP SCH ×2 (10:23→21:20)
--- NOTE | 2019-09-07 11:37 | PN ---
Progress Note, Physician History of Present Illness: sounds a bit better more awake and alert weak - Current Medication List Current Medications: Active Medications Amoxicillin/Clavulanate Potassium (Augmentin 600 Mg/5 Ml Oral Suspension -) 600 mg PEG BID [facility] Last Admin: 09/07/19 10:22 Dose: 600 mg Benzocaine/Menthol (Cepacol Lozenge -) 1 each MM PRN PRN PRN Reason: SORE THROAT Emollient Ointment (Aquaphor -) 1 applic TP BID [facility] Last Admin: 09/07/19 10:23 Dose: 1 applic Famotidine (Pepcid) 20 mg PEG BID [facility] Last Admin: 09/07/19 10:23 Dose: 20 mg Ondansetron HCl (Zofran Injection) 4 mg IVPUSH Q6H PRN PRN Reason: NAUSEA AND/OR VOMITING Scopolamine HBr (Transderm-Scop -) 1 patch TD Q72H [facility] Last Admin: 09/04/19 17:36 Dose: 1 patch - Objective Vital Signs: Vital Signs Temperature 97.8 F 09/07/19 06:55 Pulse Rate 85 09/07/19 06:55 Respiratory Rate 20 09/07/19 06:55 Blood Pressure 124/83 09/07/19 06:55 O2 Sat by Pulse Oximetry (%) 98 09/06/19 21:00 Constitutional: Yes: No Distress, Calm HENT: Yes: Other (hoarseness) Neck: Yes: Other (hard collar) Respiratory: Yes: Regular, CTA Bilaterally, Other (hoarse voice) Musculoskeletal: Yes: WNL Extremities: Yes: WNL Neurological: Yes: Alert Psychiatric: Yes: Alert Labs: CBC, BMP 09/07/19 07:55 09/07/19 04:58 INR, PTT INR 1.51 (0.83-1.09) H 08/31/19 06:05 Assessment/Plan 1. MARY 2. hypotension 3. s/p cervical surgery 4. gerd 5. htn 6 altered mental status 7 asp pna Problem List - Problems (1) MARY (acute kidney injury) Code(s): N17.9 - ACUTE KIDNEY FAILURE, UNSPECIFIED (2) Acute urinary retention Code(s): R33.8 - OTHER RETENTION OF URINE (3) Dysphagia Code(s): R13.10 - DYSPHAGIA, UNSPECIFIED Qualifiers: Dysphagia type: pharyngeal phase Qualified Code(s): R13.13 - Dysphagia, pharyngeal phase (4) History of cervical spinal surgery Code(s): Z98.890 - OTHER SPECIFIED POSTPROCEDURAL STATES (5) Stridor Code(s): R06.1 - STRIDOR Assessment/Plan Leukocytosis PNA/Possible aspiration Upper airway obstruction s/p Cervical spine surgery MARY plan will stop abx and monitor rest as per the team
--- NOTE | 2019-09-07 12:29 | PN ---
Progress Note (short form) - Note Progress Note: Hospitalist Medicine looks comfortable this AM, less confused. Discussed w/ daughter, Gemini - family meeting arranged for 3:30PM tomorrow (09/08) s/p PEG placement (09/03) Vitals 09/07/19 09:05 Temperature 98.4 F Pulse Rate 93 H Respiratory 20 Rate Blood Pressure 144/80 Physical Exam General: resting, with hard c-collar on. +gurgling HEENT: NCAT, PERRLA. neck: supple cardio: S1, S2 RRR. no r/m/g pulm: +scattered rhonchi. no accessory m usage abdomen: nontender, nondistended. +GT in place, abdominal binder neuro: fleet service clerk 2-12 grossly intact. able to move UE, LE independently LE: 2+ pulses, no edema Laboratory Tests 09/07/19 09/07/19 04:58 07:55 WBC 13.1 H Hgb 11.1 L Hct 34.7 L Plt Count 428 Sodium 137 Potassium 4.6 Chloride 99 Carbon Dioxide 33 H Anion Gap 5 L BUN 25.2 H Creatinine 1.2 Total Bilirubin 0.4 AST 22 ALT 50 Alkaline Phosphatase 81 Total Protein 6.1 L Albumin 2.6 L Microbiology 08/21/19 21:55 Sputum - Expectorated Gram Stain - Final 08/21/19 21:55 Sputum - Expectorated Sputum Culture - Final NORMAL RESPIRATORY TRINO 08/21/19 18:00 Blood - Peripheral Venous Blood Culture - Final NO GROWTH AFTER 5 DAYS INCUBATION 08/21/19 18:00 Blood - Peripheral Venous Blood Culture - Final NO GROWTH AFTER 5 DAYS INCUBATION 08/21/19 17:30 Urine - Urine Webb Urine Culture - Final NO GROWTH OBTAINED 08/18/19 01:10 Urine - Urine - Catheterized Urine Culture - Final NO GROWTH OBTAINED Imaging 08/18/19: c-spine XR: c-spine hardware appropriate position. alignment maintained. no hardware failure 08/22/19: CXR: no acute path. minimal atelectasis R base 08/23/19: CXR: since prior study, atelectatic changes at R base have diminished , improvement R base 08/24/19: renal sono: WNL 08/24/19: CTH: (-) 08/25/19: CXR: R basilar platelike atelectasis 08/26/19: CXR: atelectatic change at the R base with prominent mediastinum and lower cervical spine hardware. 08/26/19: MBS: severe dysphagi, recurrent aspiration on puree and thick liquid as well on patient secretions with focal wetness frequently. rule out swelling in the pharynx which may be contributing to the dysphagia s/p anterior fusion. strict NPO at this time, including medication. Mouth care. Suction when necessary. If swallowing does not improve, may need temporary PEG 08/28/19: Soft tissue neck CT: tip of epiglottis appears to be bulbous allowing for motion artifact. Correlation with follow up CT vs. direct visualization is suggested. Remaining soft tissue structures demonstrate no gross noncontrast pathology allowing for extensive motion artifact. Follow up CT may also be considered in this regard. S/p multilevel c-spine instrumentation. eval is very limited due to motion artifact. follow up ct/mri may be considered. 08/31/19: CXR: lower c-spine fusion hardware extending into the thoracic inlet, unfolded aorta, normal chris and normal heart, some atelectasis or scarring in the R mid lung field. no infiltrate or failure 09/01/19: MBS: severe dysphagia, impaired laryngeal elevation and epiglottic inversion, with buildup in pharynx, with small amounts passing through the UES. however with spillage into the airway on each consistency. there was only mild aspiration during the study as it was done carefully with only small amounts provided. silent aspiration on puree nectar and honey thick liquid. NPO, consider PEG. consider Shi. 09/01/19 CXR: NGT tip in upper gastric body. 09/03/19: Abd sono: small amount of biliary sludge in gallbladder. liver borderline enlarged. heterogeneous in texture. smal left lobe cysts are present. pancreas poorly visualized due to overlapping bowel gas. IVC patent. 09/03/19: GT placed 09/04/19: KUB: retained contrast in colon and group worker film not obtained so it is difficult to determine if leak. Previous spinal fusion hardware. There is a scoliosis. 09/04/19: repeat KUB: no gross contrast extravasation is identified. Assessment/Plan 79 y/o/m with PMHx of HTN, GERD, and PVD(s/p stent- Pt. unclear which leg) presenting after C3-C5 discectomy and fusion. #Neurology - s/p C4 corpectomy & C3-C5 anterior cervical decompression and instrumented fusion - Maintain head of bed 30-45 degrees. - frequent suction, chest PT. - scopalamine patch TD added for secretions - Hard c-collar in place. - PT/OT/Rehab, OOB. - WBAT B/L LE - PWB B/L UE: 5lbs. - B/L UE & LE NV checks. #new onset stridor possible 2/2 inflammation post-op -seen by ENT; w/ curled epiglottis -soft tissue neck CT as above -orotracheal intubation if needed, must maintain collar during per Dr. Miranda -could use Glidescope or use flexible bronchoscope. -sx consult: Dr. Miranda -ENT: Dr. Vanegas #FTT -silent aspiration on initial MBS -NGT placed by GI; TF recs placed; Jevity -GT placed (09/03); KUB confirmed -GI: Dr. Smith #ID -post-op fever, sepsis 2/2 aspiration PNA -monitoring off abx -blood, ucx, sputum (-) thus far -c/w frequent suctioning -ID: Dr. Oliva #Nephro -MARY - renal sono: unremarkable - Nephro: Dr. Chan #Urology - Post-op Urinary Retention- resolved - webb initially placed by Dr. Hubbard - Urology on board #Cardiology - hx HTN - losartan held #Pulmonology - Encourage IS - will monitor and keep SpO2 above 92% - Airway observation: In case of emergency, remove anterior cervical spine dressing and pull out running suture; ok to cut suture if needed to decompress - hematoma. #F/E/N off IVF cont to follow lytes Jevity TF #Prophylaxis - Mechanical only: KELLEY's, SCD's, per sx recs. to restart PPX based on sx d/w sx: no a/c at this time #Disposition - monitor on med-surg - pt refuses to go to [facility], wants to go home . may benefit from LTACH -per sx: spine rehabilitation due to global weakness; recommend [facility] or [facility]; f/u [facility] [place] office 10-14 days after hospital discharge; call for appointment; . - No heavy lifting (>5 lbs), bending or twisting x 6 months post op.
--- NOTE | 2019-09-07 14:52 | PN ---
Progress Note (short form) - Note Progress Note: 79M s/p C4 corpectomy & C3-C5 anterior cervical decompression and instrumented fusion POD #21. In vest restraints. Today, pt. is AAO x 2 (person, place). (+) PEG tube. Pain well controlled. Pt. denies current headaches, chest pain, shortness of breath, nausea, vomiting , chills, & sweats. (+) Voiding; (+) Flatus; (+) BM. (+) Dysphagia; (+) Mild Dysphonia. All labs and vitals reviewed. PE: AAO x 3, NAD. C-Spine: [place]-J c-collar intact and in place. Incision C/D/I. B/L UE & LE sensorimotor status at baseline. 79M s/p C4 corpectomy & C3-C5 anterior cervical decompression and instrumented fusion POD #21. -Attentive, regular pulmonary toilet. -Regular suctioning if endobronchial secretions manifest again. -Incentive spirometry q15 minutes. -Pain medication: Tylenol PRN; NO NSAID's. -Maintain head of bed 30-45 degrees. -Hard c-collar. -DVT PPx: -Mechanical only: KELLEY's, SCD's. -f/u AM labs. -PT/OT/Rehab, OOB. -PWB B/L UE: 5lbs. -WBAT B/L LE. -Keep dressing clean & dry. -No heavy lifting (>5 lbs), bending or twisting x 6 months post op. -B/L UE & LE NV checks. -Care per medical hospitalist, ENT, ID, GI, and renal teams. -Discharge planning: spine rehabilitation due to global weakness; recommend [facility]; f/u [facility] [place] office 10-14 days after hospital discharge; call for appointment; . -Will follow. Marek Miranda MD (Orthopaedic Surgery).
--- NOTE | 2019-09-07 15:18 | PN ---
Progress Note, PLASTIC PANEL INSTALLER - Note Progress Note: Selected Entries 09/06/19 09/06/19 09/06/19 00:00 04:00 06:00 Supper Temperature 97.7 F 98.7 F 98.2 F 09/06/19 09/06/19 09/06/19 10:00 14:00 16:20 Supper Temperature 98.5 F 98.7 F 98.1 F 09/06/19 09/06/19 09/06/19 19:08 20:00 21:45 Supper NPO NPO Temperature 98.8 F 09/06/19 09/07/19 09/07/19 22:00 02:15 06:55 Supper NPO Temperature 99.5 F 97.8 F 09/07/19 09/07/19 09:05 14:43 Supper Temperature 98.4 F 98.6 F Laboratory Tests 09/05/19 09/07/19 06:55 07:55 WBC 13.6 H 13.1 H Thick white phlegm Encourage pt to cough aND EXPECTORATE pT WILL BENEFIT FROM intensive swallowing tx upon d/c.
[2019-09-07] MEDS: SCOPOLAMINE HYDROBROMIDE 1 PATCH PATCH.TD72 TD SCH (16:19)
--- NOTE | 2019-09-07 17:52 | PN ---
Progress Note, Physician History of Present Illness: Pt seen and examined at bedside. He remains confused. He is tolerating feeds. - Current Medication List Current Medications: Active Medications Benzocaine/Menthol (Cepacol Lozenge -) 1 each MM PRN PRN PRN Reason: SORE THROAT Emollient Ointment (Aquaphor -) 1 applic TP BID [facility] Last Admin: 09/07/19 10:23 Dose: 1 applic Famotidine (Pepcid) 20 mg PEG BID [facility] Last Admin: 09/07/19 10:23 Dose: 20 mg Ondansetron HCl (Zofran Injection) 4 mg IVPUSH Q6H PRN PRN Reason: NAUSEA AND/OR VOMITING Scopolamine HBr (Transderm-Scop -) 1 patch TD Q72H [facility] Last Admin: 09/07/19 16:19 Dose: 1 patch - Objective Vital Signs: Vital Signs Temperature 99.6 F 09/07/19 16:59 Pulse Rate 92 H 09/07/19 16:59 Respiratory Rate 20 09/07/19 16:59 Blood Pressure 156/72 09/07/19 16:59 O2 Sat by Pulse Oximetry (%) 99 09/07/19 17:00 Constitutional: Yes: Calm Eyes: Yes: Conjunctiva Clear HENT: Yes: Atraumatic Neck: Yes: Supple Cardiovascular: Yes: S1, S2 Respiratory: Yes: CTA Bilaterally Gastrointestinal: Yes: Soft Genitourinary: Yes: Incontinence Musculoskeletal: Yes: WNL Edema: No Integumentary: Yes: WNL Neurological: Yes: Confusion Labs: CBC, BMP 09/07/19 07:55 09/07/19 04:58 INR, PTT INR 1.51 (0.83-1.09) H 08/31/19 06:05 Problem List - Problems (1) MARY (acute kidney injury) Code(s): N17.9 - ACUTE KIDNEY FAILURE, UNSPECIFIED (2) Acute urinary retention Code(s): R33.8 - OTHER RETENTION OF URINE Assessment/Plan Current Medications Generic Name Dose Route Start Last Admin Trade Name Freq PRN Reason Stop Dose Admin Benzocaine/Menthol 1 each 08/31/19 12:10 Cepacol Lozenge - MM PRN PRN SORE THROAT Emollient Ointment 1 applic 09/06/19 12:45 09/07/19 10:23 Aquaphor - TP 1 applic BID MELISSA Administration Famotidine 20 mg 09/05/19 22:00 09/07/19 10:23 Pepcid PEG 20 mg BID MELISSA Administration Ondansetron HCl 4 mg 08/31/19 12:10 Zofran Injection IVPUSH Q6H PRN NAUSEA AND/OR VOMITING Scopolamine HBr 1 patch 09/04/19 16:00 09/07/19 16:19 Transderm-Scop - TD 1 patch Q72H MELISSA Administration Impression 1. MARY 2. hypotension 3. s/p cervical surgery 4. gerd 5. htn 6. altered mental status 7. hypernatremia Plan - renal function stable - pt tolerating feeds, has peg - monitor renal function - can restart losartan at lower dose and titrate as needed - will follow PRN recall as needed
[2019-09-08] MEDS ORDERED: ACETAMINOPHEN 1000 MG/100 ML VIAL (NON FORMULARY) IVPB PRN (07:59)
[2019-09-08 08:13] LABS: BASO % 0.3 % (0-2.0); EOS % 0.2 % (0-4.5); HEMATOCRIT 33.8 % (35.4-49); HEMOGLOBIN 10.9 GM/dL (11.7-16.9); MCH 27.9 pg (25.7-33.7); MCHC 32.3 g/dl (32.0-35.9); MEAN CELL VOLUME 86.2 fl (80-96); MEAN PLT VOLUME 9.3 fl (7.5-11.1); MONO % 14.5 % (3.8-10.2); PLATELET COUNT 455 K/MM3 (134-434); RBC 3.92 M/mm3 (4.00-5.60); RDW 14.8 % (11.9-15.9); WHITE BLOOD COUNT 14.8 K/mm3 (4.0-10.0)
[2019-09-08 08:39] LABS: ALBUMIN 2.5 g/dl (3.4-5.0); BILIRUBIN,TOTAL 0.5 mg/dL (0.2-1); BLOOD UREA NITROGEN 30.6 mg/dL (7-18); CALCIUM 9.7 mg/dL (8.5-10.1); CREATININE 1.4 mg/dL (0.55-1.3); MAGNESIUM 2.5 mg/dL (1.8-2.4); PHOSPHOROUS 3.5 mg/dL (2.5-4.9); POTASSIUM 4.9 mmol/L (3.5-5.1); TOT PROT 6.1 g/dl (6.4-8.2)
[2019-09-08] MEDS ORDERED: LOSARTAN POTASSIUM 50 MG TABLET (FP) PEG SCH (10:00)
[2019-09-08] MEDS: MINERAL OIL/PET HY-PHL TOPICAL OINTMENT 454 GM JAR TP SCH ×2 (12:36→23:00)
[2019-09-08] MEDS: FAMOTIDINE 40 MG/5 ML ORAL SUSPENSION PEG SCH ×2 (12:36→21:52)
[2019-09-08] MEDS ORDERED: ACETAMINOPHEN 650 MG/20.3 ML ORAL SOLUTION (CUPS) PO PRN (13:10)
--- NOTE | 2019-09-08 13:25 | PN ---
Progress Note, Physician History of Present Illness: stable' no new isues - Current Medication List Current Medications: Active Medications Acetaminophen (Tylenol Oral Solution -) 650 mg PO Q6H PRN PRN Reason: FEVER Benzocaine/Menthol (Cepacol Lozenge -) 1 each MM PRN PRN PRN Reason: SORE THROAT Emollient Ointment (Aquaphor -) 1 applic TP BID [facility] Last Admin: 09/08/19 12:36 Dose: 1 applic Famotidine (Pepcid) 20 mg PEG BID [facility] Last Admin: 09/08/19 12:36 Dose: 20 mg Losartan Potassium (Cozaar -) 50 mg PEG DAILY [facility] Last Admin: 09/08/19 12:35 Dose: 50 mg Ondansetron HCl (Zofran Injection) 4 mg IVPUSH Q6H PRN PRN Reason: NAUSEA AND/OR VOMITING Scopolamine HBr (Transderm-Scop -) 1 patch TD Q72H [facility] Last Admin: 09/07/19 16:19 Dose: 1 patch - Objective Vital Signs: Vital Signs Temperature 99.1 F 09/08/19 08:37 Pulse Rate 100 H 09/08/19 09:00 Respiratory Rate 20 09/08/19 08:37 Blood Pressure 133/83 09/08/19 08:37 O2 Sat by Pulse Oximetry (%) 96 09/08/19 09:00 Constitutional: Yes: No Distress, Calm HENT: Yes: Other (hard collar) Cardiovascular: Yes: S1, S2 Respiratory: Yes: Regular, CTA Bilaterally Gastrointestinal: Yes: Normal Bowel Sounds, Soft Musculoskeletal: Yes: WNL Extremities: Yes: WNL Neurological: Yes: Alert, Oriented Psychiatric: Yes: Alert, Oriented Labs: CBC, BMP 09/08/19 07:25 09/08/19 07:25 INR, PTT INR 1.51 (0.83-1.09) H 08/31/19 06:05 Assessment/Plan 1. MARY 2. hypotension 3. s/p cervical surgery 4. gerd 5. htn 6 altered mental status 7 asp pna Problem List - Problems (1) MARY (acute kidney injury) Code(s): N17.9 - ACUTE KIDNEY FAILURE, UNSPECIFIED (2) Acute urinary retention Code(s): R33.8 - OTHER RETENTION OF URINE (3) Dysphagia Code(s): R13.10 - DYSPHAGIA, UNSPECIFIED Qualifiers: Dysphagia type: pharyngeal phase Qualified Code(s): R13.13 - Dysphagia, pharyngeal phase (4) History of cervical spinal surgery Code(s): Z98.890 - OTHER SPECIFIED POSTPROCEDURAL STATES (5) Stridor Code(s): R06.1 - STRIDOR Assessment/Plan Leukocytosis PNA/Possible aspiration Upper airway obstruction s/p Cervical spine surgery MARY plan continue current mgmt rest as per the team
--- NOTE | 2019-09-08 14:27 | PN ---
Progress Note, NIGHT ORDER SELECTOR - Note Progress Note: Selected Entries 09/06/19 09/06/19 09/06/19 00:00 04:00 06:00 Supper Temperature 97.7 F 98.7 F 98.2 F 09/06/19 09/06/19 09/06/19 10:00 14:00 16:20 Supper Temperature 98.5 F 98.7 F 98.1 F 09/06/19 09/06/19 09/06/19 19:08 20:00 21:45 Supper NPO NPO Temperature 98.8 F 09/06/19 09/07/19 09/07/19 22:00 02:15 06:55 Supper NPO Temperature 99.5 F 97.8 F 09/07/19 09/07/19 09:05 14:43 Supper Temperature 98.4 F 98.6 F Laboratory Tests 09/05/19 09/07/19 06:55 07:55 WBC 13.6 H 13.1 H Selected Entries 09/08/19 09/08/19 09/08/19 01:00 06:00 08:37 Lunch Temperature 98.8 F 100.9 F H 99.1 F 09/08/19 13:00 Lunch NPO Temperature Laboratory Tests 09/05/19 09/07/19 09/08/19 06:55 07:55 07:25 WBC 13.6 H 13.1 H 14.8 H Thick white phlegm Encourage pt to cough aND EXPECTORATE Mouth care Participated in family meeting and education. pT WILL BENEFIT FROM intensive swallowing tx upon d/c. Consider LTACH. Pt requires frequent mouth care/suctioning of thick secretions.
--- NOTE | 2019-09-08 16:35 | PN ---
Addendum entered and electronically signed by Desi Garcia, RESIDENT 09/08/19 18 :49: will need to change to finasteride, as flomax cannot be given through GT d/w neuro; requesting ICU as pt without gag reflex, without urination. will place ICU consult already d/w urology - can leave w residual uro: dr. gallegos neuro: dr. lainez Addendum entered and electronically signed by Desi Garcia, RESIDENT 09/08/19 18 :34: per nursing, passing clots during straight cath d/w urology - recommended flomax and to leave with residual for now h/h stable Original Note: Progress Note (short form) - Note Progress Note: Hospitalist Medicine still w/ confusion this AM. Long family discussion w/ S/S and medicine team this afternoon. All questions answered s/p PEG placement (09/03) Vitals 09/08/19 14:00 Temperature 98.1 F Pulse Rate 99 H Respiratory 20 Rate Blood Pressure 104/59 L Physical Exam General: resting, with hard c-collar on. HEENT: NCAT, PERRLA. neck: supple cardio: S1, S2 RRR. no r/m/g pulm: +scattered rhonchi. no accessory m usage abdomen: nontender, nondistended. +GT in place, abdominal binder neuro: fly rail operator 2-12 grossly intact. able to move UE, LE independently LE: 2+ pulses, no edema Laboratory Tests 09/08/19 09/08/19 07:25 07:25 WBC 14.8 H Hgb 10.9 L Hct 33.8 L Plt Count 455 H MPV 9.3 Sodium 136 Potassium 4.9 Chloride 97 L Carbon Dioxide 35 H Anion Gap 4 L BUN 30.6 H Creatinine 1.4 H Est GFR (CKD-EPI)AfAm 55.38 Est GFR (CKD-EPI)NonAf 47.78 Random Glucose 158 H Magnesium 2.5 H Total Protein 6.1 L Albumin 2.5 L Microbiology 08/21/19 21:55 Sputum - Expectorated Gram Stain - Final 08/21/19 21:55 Sputum - Expectorated Sputum Culture - Final NORMAL RESPIRATORY TRINO 08/21/19 18:00 Blood - Peripheral Venous Blood Culture - Final NO GROWTH AFTER 5 DAYS INCUBATION 08/21/19 18:00 Blood - Peripheral Venous Blood Culture - Final NO GROWTH AFTER 5 DAYS INCUBATION 08/21/19 17:30 Urine - Urine Webb Urine Culture - Final NO GROWTH OBTAINED 08/18/19 01:10 Urine - Urine - Catheterized Urine Culture - Final NO GROWTH OBTAINED Imaging 08/18/19: c-spine XR: c-spine hardware appropriate position. alignment maintained. no hardware failure 08/22/19: CXR: no acute path. minimal atelectasis R base 08/23/19: CXR: since prior study, atelectatic changes at R base have diminished , improvement R base 08/24/19: renal sono: WNL 08/24/19: CTH: (-) 08/25/19: CXR: R basilar platelike atelectasis 08/26/19: CXR: atelectatic change at the R base with prominent mediastinum and lower cervical spine hardware. 08/26/19: MBS: severe dysphagi, recurrent aspiration on puree and thick liquid as well on patient secretions with focal wetness frequently. rule out swelling in the pharynx which may be contributing to the dysphagia s/p anterior fusion. strict NPO at this time, including medication. Mouth care. Suction when necessary. If swallowing does not improve, may need temporary PEG 08/28/19: Soft tissue neck CT: tip of epiglottis appears to be bulbous allowing for motion artifact. Correlation with follow up CT vs. direct visualization is suggested. Remaining soft tissue structures demonstrate no gross noncontrast pathology allowing for extensive motion artifact. Follow up CT may also be considered in this regard. S/p multilevel c-spine instrumentation. eval is very limited due to motion artifact. follow up ct/mri may be considered. 08/31/19: CXR: lower c-spine fusion hardware extending into the thoracic inlet, unfolded aorta, normal chris and normal heart, some atelectasis or scarring in the R mid lung field. no infiltrate or failure 09/01/19: MBS: severe dysphagia, impaired laryngeal elevation and epiglottic inversion, with buildup in pharynx, with small amounts passing through the UES. however with spillage into the airway on each consistency. there was only mild aspiration during the study as it was done carefully with only small amounts provided. silent aspiration on puree nectar and honey thick liquid. NPO, consider PEG. consider Shi. 09/01/19 CXR: NGT tip in upper gastric body. 09/03/19: Abd sono: small amount of biliary sludge in gallbladder. liver borderline enlarged. heterogeneous in texture. smal left lobe cysts are present. pancreas poorly visualized due to overlapping bowel gas. IVC patent. 09/03/19: GT placed 09/04/19: KUB: retained contrast in colon and counseling center manager film not obtained so it is difficult to determine if leak. Previous spinal fusion hardware. There is a scoliosis. 09/04/19: repeat KUB: no gross contrast extravasation is identified. Assessment/Plan 79 y/o/m with PMHx of HTN, GERD, and PVD(s/p stent- Pt. unclear which leg) presenting after C3-C5 discectomy and fusion. #Neurology - s/p C4 corpectomy & C3-C5 anterior cervical decompression and instrumented fusion - Maintain head of bed 30-45 degrees. - frequent suction, chest PT. - scopalamine patch TD added for secretions - Hard c-collar in place. - PT/OT/Rehab, OOB. - WBAT B/L LE - PWB B/L UE: 5lbs. - B/L UE & LE NV checks. acute toxic metabolic encephalopathy -possible 2/2 infection (UTI vs. PNA), prolonged hosp course, delirium -initial CTH (-) -Neuro consult: Dr. Horner #new onset stridor possible 2/2 inflammation post-op -seen by ENT; w/ curled epiglottis -soft tissue neck CT as above -orotracheal intubation if needed, must maintain collar during per Dr. Miranda -could use Glidescope or use flexible bronchoscope. -sx consult: Dr. Miranda -ENT: Dr. Vaengas; need to determine if any more procedures planned #FTT -silent aspiration on initial MBS -NGT placed by GI; TF recs placed; Jevity -GT placed (09/03); KUB confirmed -GI: Dr. Smith #ID -post-op fever, sepsis 2/2 aspiration PNA -monitoring off abx -blood, ucx, sputum (-) thus far -with re-spike in temp (09/08)- velasquez-cx resent, f/u repeat chest CT -c/w frequent suctioning -ID: Dr. Oliva #Nephro -MARY - renal sono: unremarkable - Nephro: Dr. Chan #Urology - Post-op Urinary Retention- resolved - webb initially placed by Dr. Hubbard - Urology on board #Cardiology - hx HTN - restarted on losartan #Pulmonology - Encourage IS - will monitor and keep SpO2 above 92% - Airway observation: In case of emergency, remove anterior cervical spine dressing and pull out running suture; ok to cut suture if needed to decompress - hematoma. #F/E/N off IVF cont to follow lytes Jevity TF #Prophylaxis - Mechanical only: KELLEY's, SCD's, per sx recs. to restart PPX based on sx d/w sx: no a/c at this time #Disposition - monitor on med-surg - pt refuses to go to [place], wants to go home . may benefit from LTACH . discussed at length w/ family today. will d/w surgery, ENT, SW -per sx: spine rehabilitation due to global weakness; recommend Bettie Arellano or Jose Guadalupe; f/u [facility] [place] office 10-14 days after hospital discharge; call for appointment; . - No heavy lifting (>5 lbs), bending or twisting x 6 months post op. <Desi Garcia - Last Filed: 09/08/19 16:35> - Note Progress Note: Had a prolonged family meeting today with daughter and other family members. They were actually not clear who was the HCP and were pending to complete paperwork. Discussed at length pertaining the overall course of care and treatment plan. Attempted to involve orthopedics. Usama Russell was present for part of meeting and helped explain the underlying swallowing issues as they pertained to the patient's care. The family was terse regarding the situation with respect to the dysphonia, AMS, and dysphagia. The plan was to obtain neuro consult as plateauted with respect to mentation (still no focal neuro deficits, persay, aside from the known speech and swallowing issues that likely have an anatomical basis). Attempted to recall ENT; they discussed with nursing who states that they will be in to see patient. Neurology consulted and MRI ordered; FU regarding recs. We discussed LTACH vs. rehab, and given the situation, they would like to discuss the situation as a family and consult with social work and case management. Patient himself today was slightly tachycardic and febrile; given presence of PEG tube and UTI 2/2 retention with traumatic webb placement (cx neg likely due to previously dosed abx) that he is at risk for urinary and pulmonary infection source. No phoenix signs of surgical site infection. Neck ROM limited but no meningeal signs on knee flexion, etc. Monitor closely as if decompensates low threshold to upgrade the LOC due to his tenuous airway and complicating medical history. THusly the plan is 1) obtain urine and CT chest 2 ) obtain neurology consult to r/o underlying neuro complications secondary to the procedure. Ideally would have liked to discuss with his surgeon before but the circumstances were mitigating. If he can't make urine then we need to have urology place a coude as this was required on the initial catherization earlier this month due to the issues with the clots sustained prior to his procedure. 10 sys ROS done and negative aside from HPI. VS labs imaging reviewed Mild distress, resting in bed, AAO and less responsive. No focal deficits but hand tremors noted pronouned on wkaing HR slightly elevated with +s1/2 NT ND +BS; PEG site noted to be without inflammation. Will hold feeds due to potential aspiraton Lungs with poor respiratory effort but scattered crackles Bladder scan if no urine CT pending Not agitated Neuro consult pending No further swallow studies planned at this juncture per swallow Further ENT evaluation pending Assessment and Plan: Patient presented for elective surgical procedure with Dr. Miranda; was found to have AMS following the procedure with a UTI from a traumatic webb insertion coupled by noted dysphagia and dysphonia that was noted as persisting. He failed multiple swallow evaluations necessitating the placement of a PEG tube and was tolerating feeds as such. He was seen by ENT and DL showed epiglottic irregularities (CT of the neck also ordered at this juncture) which could have contributed to his underlying CHELSEA. It is apparent that he is developing another infection likely secondary to a pulmonary (as PEG) or urinary (given history recently). He is less interactive today and neurology consultation will be placed. Orthopedics has been called as he would benefit from assessment from his surgeon. The family has been updated by myself and Dr. Garcia in depth alongside speech and swallow. Low threshold to upgrade LOC due to surrounding comorbidities. Problems include: -Status Post C4 corpectomy & C3-C5 anterior cervical decompression and instrumented fusion -Likely developing sepsis; assume UTI vs. Aspiration (contacting ID regarding empiric abx; Dr. Oliva following) -Altered mental status (Initial CT negative; felt to be secondary to acute toxic metabolic encephalopahty. He had underlying MCI at home per the family but this is an acute change. Further imaging and neurological consultation will be obtained. Continue to monitor with neuro checks. No seizures noted. Monitor for neurological complications resulting from surgery.) -Dysphagia (S/P PEG; s/p DL with ENT.) -Dysphonia (Per speech and swallow; persists) -Hx recent UTI 2/2 Traumatic Webb Insertion -Potential Aspiration -History of CHELSEA with underlying anatomical epiglotic irregularity -Hx MCI -MARY (Dr. Chan following; Is and Os not acurate. Bladder scan if he doesn' t make any urine) -Hx GERD -Likely Fatty liver -Hx HTN Full Code Guarded prognosis <Russ Simon - Last Filed: 09/09/19 07:13>
--- NOTE | 2019-09-08 17:12 | PN ---
Progress Note (short form) - Note Progress Note: 79M s/p C4 corpectomy & C3-C5 anterior cervical decompression and instrumented fusion POD #12. Pt. moved to ICU for more attentive nursing care and frequent suctioning of thick endobronchial secretions to minimize risk of aspiration event. Pt. underwent airway evaluation by Dr. Vanegas (ENT) yesterday: epiglottis is very curled, omega shaped and tilts posteriorly with each inspiration, thick opaque yellow mucus both pyriform sinuses; edema of false cords. Today, pt. is AAO x 3. Endobronchial secretions still significant. Pain well controlled. Pt. denies current headaches, chest pain, shortness of breath, nausea, vomiting , chills, & sweats. (+) Voiding; (+) Flatus; (+) BM. (-) Dysphonia (resolved). All labs and vitals reviewed. PE: AAO x 3, NAD. C-Spine: Incision, dressing C/D/I. Echo-incisional soft tissue bed remains soft , no fluid collection. [place]-J c-collar intact and in place. B/L UE & LE sensorimotor status at baseline. 79M s/p C4 corpectomy & C3-C5 anterior cervical decompression and instrumented fusion POD #12. -Continued pulmonary toilet and suctioning to prevent repeat aspiration events; patient needs continuous bedside nursing for this until respiratory symptoms improve. -Gastric feeding tube in situ. Tolerating feeds -IVF: D1/2NS as per primary medical team. -Continue Zosyn IV as per ID team (renal dose) to treat presumed aspiration pneumonia. -Incentive spirometry q15 minutes. -Pain medication: NO NSAID's. -Maintain head of bed 30-45 degrees. -Hard c-collar. -DVT PPx: -Mechanical only: KELLEY's, SCD's. -f/u AM labs. -PT/OT/Rehab, OOB. -PWB B/L UE: 5lbs. -WBAT B/L LE. Not ready for discharge.. Erasto Miranda MD (Orthopaedic Surgery).
--- NOTE | 2019-09-08 17:43 | PN ---
Progress Note, Physician History of Present Illness: Pt seen and examined at bedside. He is awake but confused. - Current Medication List Current Medications: Active Medications Acetaminophen (Tylenol Oral Solution -) 650 mg PO Q6H PRN PRN Reason: FEVER Benzocaine/Menthol (Cepacol Lozenge -) 1 each MM PRN PRN PRN Reason: SORE THROAT Emollient Ointment (Aquaphor -) 1 applic TP BID [facility] Last Admin: 09/08/19 12:36 Dose: 1 applic Famotidine (Pepcid) 20 mg PEG BID [facility] Last Admin: 09/08/19 12:36 Dose: 20 mg Losartan Potassium (Cozaar -) 50 mg PEG DAILY [facility] Last Admin: 09/08/19 12:35 Dose: 50 mg Ondansetron HCl (Zofran Injection) 4 mg IVPUSH Q6H PRN PRN Reason: NAUSEA AND/OR VOMITING Scopolamine HBr (Transderm-Scop -) 1 patch TD Q72H [facility] Last Admin: 09/07/19 16:19 Dose: 1 patch - Objective Vital Signs: Vital Signs Temperature 98.1 F 09/08/19 14:00 Pulse Rate 99 H 09/08/19 17:00 Respiratory Rate 20 09/08/19 14:00 Blood Pressure 104/59 L 09/08/19 14:00 O2 Sat by Pulse Oximetry (%) 96 09/08/19 17:00 Constitutional: Yes: Calm Eyes: Yes: Conjunctiva Clear Cardiovascular: Yes: S1, S2 Respiratory: Yes: CTA Bilaterally Gastrointestinal: Yes: Soft, Other (peg) Musculoskeletal: Yes: WNL Edema: No Neurological: Yes: Confusion Labs: CBC, BMP 09/08/19 07:25 09/08/19 07:25 INR, PTT INR 1.51 (0.83-1.09) H 08/31/19 06:05 Problem List - Problems (1) MARY (acute kidney injury) Code(s): N17.9 - ACUTE KIDNEY FAILURE, UNSPECIFIED (2) Acute urinary retention Code(s): R33.8 - OTHER RETENTION OF URINE Assessment/Plan Current Medications Generic Name Dose Route Start Last Admin Trade Name Freq PRN Reason Stop Dose Admin Acetaminophen 650 mg 09/08/19 13:10 Tylenol Oral Solution - PO Q6H PRN FEVER Benzocaine/Menthol 1 each 08/31/19 12:10 Cepacol Lozenge - MM PRN PRN SORE THROAT Emollient Ointment 1 applic 09/06/19 12:45 09/08/19 12:36 Aquaphor - TP 1 applic BID MELISSA Administration Famotidine 20 mg 09/05/19 22:00 09/08/19 12:36 Pepcid PEG 20 mg BID MELISSA Administration Losartan Potassium 50 mg 09/08/19 10:00 09/08/19 12:35 Cozaar - PEG 50 mg DAILY MELISSA Administration Ondansetron HCl 4 mg 08/31/19 12:10 Zofran Injection IVPUSH Q6H PRN NAUSEA AND/OR VOMITING Scopolamine HBr 1 patch 09/04/19 16:00 09/07/19 16:19 Transderm-Scop - TD 1 patch Q72H MELISSA Administration Impression 1. MARY 2. hypotension 3. s/p cervical surgery 4. gerd 5. htn 6. altered mental status 7. hypernatremia Plan -pattern attendant higher today - repeat labs in am - cont tube feeds - monitor renal function - if pattern attendant worse will hold losartan
--- NOTE | 2019-09-08 18:17 | CONSULT ---
Consult - text type - Consultation Consultation Note: NEUROLOGY CONSULTATION is greatly appreciated: Events reviewed and discussed with RN. This 79 yo man with h/o HTN, GERD, PVD s/p stents had prior cervical discectomy and LS laminectomy 1990. Now admitted with leg weakness (L>R) for cervical decompression. S/P C5 corpectomy and C45, C56 discectomy and fusion. Cervical MRI (09/23/18) reviewed. Dysphagia requiring modified barium swallow noted soon post-op. Study showed severe dysphagia. Pt has been on NG feeds. Previous had Crespo with clots. Seen by urology. Now no urine x 24 hrs and RN attempted Straight cath but retrieved only clots. Last UA 08/21 showed 3061 RBC and 19 WBC. Now "confused." WBC=14.8K, Cr/BUN support moderate dehydration. LILI: In Gray collar NEURO: Lethargic but arousable. Follows simple commands. Severely hoarse, dysarthric speech. CN: Full orellana to threat. Ful EOM's No facial. No gag to Suctioning Motor: Symmetrical, normal grasps but B/L First DI atrophic, fasciculating. Dorsiflexes both ankles on command but cannot elevate legs off the bed. Areflexic. Plantars silent. Coord: No obvious dystaxia Sensory: Cannot test vibration. Withdraws all fours to pinch. 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 SUGGEST: Agree with transfer to ICU IV hydraton and Crespo catheter tonight. Update UA, C&S IV antibiotics for possible UTI/ broad coverage if ID agrees. CT of head/MRI of brain when stable Check B12, TSH, RPR, ESR, CRP, CK D/C Scopolamine Taper Gray collar when safe to do so to aide in swallowing. Thank you very much, Erasto Aponte MD
[2019-09-08] MEDS ORDERED: TAMSULOSIN HCL 0.4 MG CAP PO SCH (18:33)
[2019-09-08] MEDS ORDERED: FINASTERIDE 5 MG TABLET (FP) PO SCH (19:00)
--- NOTE | 2019-09-08 20:41 | PN ---
Progress Note (short form) - Note Progress Note: 79 y/o/m with PMHx of HTN, GERD, and PVD (s/p stent- Pt. unclear which leg) presenting after C3-C5 discectomy and fusion. ICU consult was requested with Pt seen and examined at bedside unchanged in mental status from when he was transferred to the floor from ICU. Gurgling sounds improved with suctioning at the bedside Physical Exam General: resting, with hard c-collar on. HEENT: NCAT, PERRLA. gurgling sound from secretions, suctioned at the bedside neck: supple cardio: S1, S2 RRR. no r/m/g pulm: +scattered rhonchi. transmitted sounds from his throat heard on auscultation. abdomen: nontender, nondistended. +GT in place, abdominal binder neuro: inside wirer 2-12 grossly intact. able to move UE, LE independently LE: 2+ pulses, no edema .
--- NOTE | 2019-09-08 20:49 | PN ---
Physical Exam: SUBJECTIVE: Patient seen and examined 79 y/o/m with PMHx of HTN, GERD, and PVD (s/p stent- Pt. unclear which leg) presenting after C3-C5 discectomy and fusion. ICU consult was requested by Dr. Aponte for management of airway secretions. Pt had been in the ICU for post op management for endobronchial secretions. ENT study at the time showed curled epigolottis and edema of vocal cords patient was found to be stable enough to be discharged to floors after improvement in secretions recent modified barium swallow from 09/01 showed severe dysphagia, impaired laryngeal elevation and epiglottic inversion, with buildup in pharynx, with small amounts passing through the UES. however with spillage into the airway on each consistency. there was only mild aspiration during the study as it was done carefully with only small amounts provided. silent aspiration on puree nectar and honey thick liquid. Pt seen and examined at bedside unchanged in mental status from when he was managed in the ICU. Gurgling sounds improved with suctioning at the bedside No indications for transfer at this time, will continue to monitor. . OBJECTIVE: Vital Signs Period Temp Pulse Resp BP Sys/Banks Pulse Ox Last 24 Hr 98.1 F-100.9 F 91-107 20-22 103-133/48-83 94-97 GENERAL: The patient is awake and alert HEAD: Normal with no signs of trauma. EYES: PERRL, extraocular movements intact, sclera anicteric, conjunctiva clear. No ptosis. ENT: Ears normal, nares patent, oropharynx with secretions and gurgling sounds. improved once suctioned. NECK: hard c-collar LUNGS: transmitted gurgling sounds from throat on lung auscultation. no accessory muscle use. HEART: Regular rate and rhythm, S1, S2 without murmur, rub or gallop. ABDOMEN: Soft, nontender, nondistended, normoactive bowel sounds, EXTREMITIES: 2+ pulses, warm, well-perfused, no edema. NEUROLOGICAL: Cranial nerves II through XII grossly intact. PSYCH: Normal mood, normal affect. SKIN: Warm, dry, normal turgor, no rashes or lesions noted Laboratory Results - last 24 hr 09/08/19 09/08/19 07:25 07:25 WBC 14.8 H RBC 3.92 L Hgb 10.9 L Hct 33.8 L MCV 86.2 MCH 27.9 MCHC 32.3 RDW 14.8 Plt Count 455 H MPV 9.3 Absolute Neuts (auto) 11.6 H Neutrophils % 78.0 Lymphocytes % 7.0 L Monocytes % 14.5 H Eosinophils % 0.2 D Basophils % 0.3 Nucleated RBC % 0 Sodium 136 Potassium 4.9 Chloride 97 L Carbon Dioxide 35 H Anion Gap 4 L BUN 30.6 H Creatinine 1.4 H Est GFR (CKD-EPI)AfAm 55.38 Est GFR (CKD-EPI)NonAf 47.78 Random Glucose 158 H Calcium 9.7 Phosphorus 3.5 Magnesium 2.5 H Total Bilirubin 0.5 AST 18 ALT 42 Alkaline Phosphatase 93 Total Protein 6.1 L Albumin 2.5 L Active Medications Generic Name Dose Route Start Last Admin Trade Name Freq PRN Reason Stop Dose Admin Acetaminophen 650 mg 09/08/19 13:10 Tylenol Oral Solution - PO Q6H PRN FEVER Benzocaine/Menthol 1 each 08/31/19 12:10 Cepacol Lozenge - MM PRN PRN SORE THROAT Emollient Ointment 1 applic 09/06/19 12:45 09/08/19 12:36 Aquaphor - TP 1 applic BID MELISSA Administration Famotidine 20 mg 09/05/19 22:00 09/08/19 12:36 Pepcid PEG 20 mg BID MELISSA Administration Finasteride 5 mg 09/08/19 19:00 09/08/19 19:30 Proscar - PO 5 mg DAILY MELISSA Administration Losartan Potassium 50 mg 09/08/19 10:00 09/08/19 12:35 Cozaar - PEG 50 mg DAILY MELISSA Administration Ondansetron HCl 4 mg 08/31/19 12:10 Zofran Injection IVPUSH Q6H PRN NAUSEA AND/OR VOMITING ASSESSMENT/PLAN: 79 y/o/m with PMHx of HTN, GERD, and PVD(s/p stent- Pt. unclear which leg) presenting after C3-C5 discectomy and fusion. #Neurology - s/p C4 corpectomy & C3-C5 anterior cervical decompression and instrumented fusion - Maintain head of bed 30-45 degrees. - frequent suction, chest PT. - d/c scopalamine patch per Dr. Aponte recommendations - Hard c-collar in place. - PT/OT/Rehab, OOB. - WBAT B/L LE - PWB B/L UE: 5lbs. - B/L UE & LE NV checks. acute toxic metabolic encephalopathy -possible 2/2 infection (UTI vs. PNA), prolonged hosp course, delirium -initial CTH (-) #new onset stridor possible 2/2 inflammation post-op -seen by ENT; w/ curled epiglottis -soft tissue neck CT as above -orotracheal intubation if needed, must maintain collar during per Dr. Miranda -could use Glidescope or use flexible bronchoscope. -sx consult: Dr. Miranda -ENT: Dr. Vanegas; need to determine if any more procedures planned #FTT -silent aspiration on initial MBS -NGT placed by GI; TF recs placed; Jevity -GT placed (09/03); KUB confirmed -GI: Dr. Smith #ID -post-op fever, sepsis 2/2 aspiration PNA -monitoring off abx -blood, ucx, sputum (-) thus far -with re-spike in temp (09/08)- velasquez-cx resent, f/u repeat chest CT -c/w frequent suctioning -ID: Dr. Oliva #Nephro -MARY - renal sono: unremarkable - Nephro: Dr. Chan #Urology - Post-op Urinary Retention- resolved - webb initially placed by Dr. Hubbard - Urology recommends switch from flomax to scopalamine (Dr. Cochran) #Cardiology - hx HTN - restarted on losartan #Pulmonology - Encourage IS - will monitor and keep SpO2 above 92% - Airway observation: In case of emergency, remove anterior cervical spine dressing and pull out running suture; ok to cut suture if needed to decompress - hematoma. #F/E/N off IVF cont to follow lytes Jevity TF #Prophylaxis - Mechanical only: KELLEY's, SCD's, per sx recs. t ATTENDING PHYSICIAN STATEMENT I saw and evaluated the patient. I reviewed the resident's note and discussed the case with the resident. I agree with the resident's findings and plan as documented. SUBJECTIVE: OBJECTIVE: ASSESSMENT AND PLAN:
--- NOTE | 2019-09-09 06:19 | RAPID ---
Physical Examination Vital Signs: Vital Signs Temperature 98 F 09/09/19 01:00 Pulse Rate 99 H 09/09/19 01:00 Respiratory Rate 18 09/09/19 01:00 Blood Pressure 131/73 09/09/19 01:00 O2 Sat by Pulse Oximetry (%) 96 09/09/19 01:00 Labs: CBC, BMP 09/08/19 07:25 09/08/19 07:25 Rapid Response - Rapid Response Assessment: Rapid response called overhead to 8W at 05:48. Pt was found unresponsive in bed. Code 99 was initiated overhead and compressions were started. Please see code sheet for details. Physical exam: Corneal reflexes: neg Pupils fixed No heart sounds No lung sounds Time of : 06:14. line up examiner contacted: Karri [phone]. No indication for autopsy.
--- NOTE | 2019-09-09 06:25 | PROC ---
Procedure Note Procedure: INTUBATION NOTE Called to bedside for cardiopulmonary arrest. ACLS being performed at time of arrival. DL x 2 MAC 4. Gastric fluid noted in oropharynx, suctioned. 7.5mm ETT placed. +etCO2, +BBS. No meds administered. - Continuing ACLS
[2019-09-09 06:59] VITALS: PULSE 97
[2019-09-09 07:02] VITALS: BP 130/74; TEMP 98.1
--- NOTE | 2019-09-10 19:27 | DS ---
Physical Exam: SUBJECTIVE: Patient by time discharge summary written. Laboratory Last Values WBC 14.8 K/mm3 (4.0-10.0) H 09/08/19 07:25 RBC 3.92 M/mm3 (4.00-5.60) L 09/08/19 07:25 Hgb 10.9 GM/dL (11.7-16.9) L 09/08/19 07:25 Hct 33.8 % (35.4-49) L 09/08/19 07:25 MCV 86.2 fl (80-96) 09/08/19 07:25 MCH 27.9 pg (25.7-33.7) 09/08/19 07:25 MCHC 32.3 g/dl (32.0-35.9) 09/08/19 07:25 RDW 14.8 % (11.9-15.9) 09/08/19 07:25 Plt Count 455 K/MM3 (134-434) H 09/08/19 07:25 MPV 9.3 fl (7.5-11.1) 09/08/19 07:25 Absolute Neuts (auto) 11.6 K/mm3 (1.5-8.0) H 09/08/19 07:25 Neutrophils % 78.0 % (42.8-82.8) 09/08/19 07:25 Neutrophils % (Manual) 92.0 % (42.8-82.8) H D 08/28/19 05:30 Band Neutrophils % 0.0 % 08/28/19 05:30 Lymphocytes % 7.0 % (8-40) L 09/08/19 07:25 Lymphocytes % (Manual) 3.0 % (8-40) L D 08/28/19 05:30 Monocytes % 14.5 % (3.8-10.2) H 09/08/19 07:25 Monocytes % (Manual) 3 % (3.8-10.2) L 08/28/19 05:30 Eosinophils % 0.2 % (0-4.5) D 09/08/19 07:25 Eosinophils % (Manual) 0.0 % (0-4.5) D 08/28/19 05:30 Basophils % 0.3 % (0-2.0) 09/08/19 07:25 Basophils % (Manual) 0.0 % (0-2.0) 08/28/19 05:30 Myelocytes % (Man) 1 % (0-2) D 08/28/19 05:30 Promyelocytes % (Man) 0 % (0-2) 08/28/19 05:30 Blast Cells % (Manual) 0 % (0-0) 08/28/19 05:30 Nucleated RBC % 0 % (0-0) 09/08/19 07:25 Metamyelocytes 0 % (0-2) 08/28/19 05:30 Hypochromia 0 08/26/19 07:45 Platelet Estimate Increased 08/28/19 05:30 Polychromasia 0 08/26/19 07:45 Poikilocytosis 0 08/26/19 07:45 Anisocytosis 2+ 08/26/19 07:45 Microcytosis 2+ 08/26/19 07:45 Macrocytosis 0 08/26/19 07:45 ESR 24 mm/hr (0-20) H 08/28/19 11:35 PT with INR 17.90 SEC (9.7-13.0) H 08/31/19 06:05 INR 1.51 (0.83-1.09) H 08/31/19 06:05 Anticoagulation Therapy No Result Required. 08/29/19 12:40 Puncture Site Right radial 08/29/19 12:40 ABG pH 7.40 (7.35-7.45) 08/29/19 12:40 ABG pCO2 at Pt Temp 46.8 mmHg (35-45) H 08/29/19 12:40 ABG pO2 at Pt Temp 78.6 mmHg (80-100) L 08/29/19 12:40 ABG HCO3 28.5 mmol/L (22-27) H 08/29/19 12:40 ABG O2 Sat (Measured) 95.2 % (95-98) 08/29/19 12:40 ABG O2 Content 16.6 % vol 08/29/19 12:40 ABG Base Excess 3.5 meq/l (-2-2) H 08/29/19 12:40 [place]on Test Positive 08/29/19 12:40 O2 Delivery Device Nasal 08/29/19 12:40 Oxygen Flow Rate 2 08/29/19 12:40 Vent Mode No Result Required. 08/29/19 12:40 Vent Rate No Result Required. 08/29/19 12:40 Mechanical Rate No Result Required. 08/29/19 12:40 Pressure Support Vent No Result Required. 08/29/19 12:40 Sodium 136 mmol/L (136-145) 09/08/19 07:25 Potassium 4.9 mmol/L (3.5-5.1) 09/08/19 07:25 Chloride 97 mmol/L (98-107) L 09/08/19 07:25 Carbon Dioxide 35 mmol/L (21-32) H 09/08/19 07:25 Anion Gap 4 MMOL/L (8-16) L 09/08/19 07:25 BUN 30.6 mg/dL (7-18) H 09/08/19 07:25 Creatinine 1.4 mg/dL (0.55-1.3) H 09/08/19 07:25 Est GFR (CKD-EPI)AfAm 55.38 09/08/19 07:25 Est GFR (CKD-EPI)NonAf 47.78 09/08/19 07:25 POC Glucometer 197 UNITS (80-120) 09/09/19 06:07 Random Glucose 158 mg/dL (74-106) H 09/08/19 07:25 Lactic Acid 1.3 mmol/L (0.4-2.0) 08/28/19 13:22 Calcium 9.7 mg/dL (8.5-10.1) 09/08/19 07:25 Phosphorus 3.5 mg/dL (2.5-4.9) 09/08/19 07:25 Magnesium 2.5 mg/dL (1.8-2.4) H 09/08/19 07:25 Iron 41 ug/dL (50-175) L 09/02/19 07:55 TIBC 168 ug/dL (250-450) L 09/02/19 07:55 Iron Saturation 24 % (17.5-39) 09/02/19 07:55 Unsaturated IBC 127 ug/dL (200-275) L 09/02/19 07:55 Ferritin 284.2 ng/ml (8-388) 09/02/19 07:55 Total Bilirubin 0.5 mg/dL (0.2-1) 09/08/19 07:25 Direct Bilirubin 0.3 mg/dL (0.0-0.2) H 09/01/19 21:00 GGT 66 U/L (5-85) 09/01/19 21:00 AST 18 U/L (15-37) 09/08/19 07:25 ALT 42 U/L (13-61) 09/08/19 07:25 Alkaline Phosphatase 93 U/L (45-117) 09/08/19 07:25 C-Reactive Protein 9.8 MG/DL (0.00-0.3) H 08/28/19 05:30 Total Protein 6.1 g/dl (6.4-8.2) L 09/08/19 07:25 Albumin 2.5 g/dl (3.4-5.0) L 09/08/19 07:25 Urine Color Red 08/21/19 17:30 Urine Appearance Cloudy 08/21/19 17:30 Urine pH 6.5 (5.0-8.0) 08/21/19 17:30 Ur Specific [place] 1.023 (1.010-1.035) 08/21/19 17:30 Urine Protein 2+ (NEGATIVE) H 08/21/19 17:30 Urine Glucose (UA) Negative (NEGATIVE) 08/21/19 17:30 Urine Ketones Negative (NEGATIVE) 08/21/19 17:30 Urine Blood 3+ (NEGATIVE) H 08/21/19 17:30 Urine Nitrite Negative (NEGATIVE) 08/21/19 17:30 Urine Bilirubin 1+ (NEGATIVE) H 08/21/19 17:30 Urine Urobilinogen 1.0 mg/dL (0.2-1.0) 08/21/19 17:30 Ur Leukocyte Esterase 1+ (NEGATIVE) H 08/21/19 17:30 Urine WBC (Auto) 19 /hpf (0-5) 08/21/19 17:30 Urine RBC (Auto) 3062 /hpf (0-4) 08/21/19 17:30 Urine Casts (Auto) 44 /lpf (0-8) 08/21/19 17:30 U Pathogenic Cast Auto None seen /lpf (NEGATIVE) 08/21/19 17:30 U Epithel Cells (Auto) 6.4 /HPF (0-5/HPF) 08/21/19 17:30 Urine Bacteria (Auto) 0.8 /hpf (NEGATIVE) 08/21/19 17:30 CARLOS Screen Negative (.) 09/02/19 07:55 Smooth [employer] &[employer] DIRECT[employer] Intrp 9 Units (0-19) 09/02/19 07:55 Tiss Transglutamin IgG < 2 U/mL (0-5) 09/02/19 07:55 Tiss Transglutamin IgA < 2 U/mL (0-3) 09/02/19 07:55 Hep A IgM Ab Confirm Negative (Negative) 09/01/19 21:00 Hep Bs Antigen Negative (Negative) 09/01/19 21:00 Hep B Core IgM Ab Negative (Negative) 09/01/19 21:00 Hep C Ab Diagnostic <0.1 s/co ratio (0.0-0.9) 09/02/19 07:55 Hepatitis C Ab (EIA) <0.1 s/co ratio (0.0-0.9) 09/01/19 21:00 Blood Type O POSITIVE 08/17/19 11:35 Antibody Screen Negative 08/17/19 10:04 Microbiology 08/21/19 21:55 Sputum - Expectorated Gram Stain - Final 08/21/19 21:55 Sputum - Expectorated Sputum Culture - Final NORMAL RESPIRATORY TRINO 08/21/19 18:00 Blood - Peripheral Venous Blood Culture - Final NO GROWTH AFTER 5 DAYS INCUBATION 08/21/19 18:00 Blood - Peripheral Venous Blood Culture - Final NO GROWTH AFTER 5 DAYS INCUBATION 08/21/19 17:30 Urine - Urine Webb Urine Culture - Final NO GROWTH OBTAINED 08/18/19 01:10 Urine - Urine - Catheterized Urine Culture - Final NO GROWTH OBTAINED Imaging 08/18/19: c-spine XR: c-spine hardware appropriate position. alignment maintained. no hardware failure 08/22/19: CXR: no acute path. minimal atelectasis R base 08/23/19: CXR: since prior study, atelectatic changes at R base have diminished , improvement R base 08/24/19: renal sono: WNL 08/24/19: CTH: (-) 08/25/19: CXR: R basilar platelike atelectasis 08/26/19: CXR: atelectatic change at the R base with prominent mediastinum and lower cervical spine hardware. 08/26/19: MBS: severe dysphagi, recurrent aspiration on puree and thick liquid as well on patient secretions with focal wetness frequently. rule out swelling in the pharynx which may be contributing to the dysphagia s/p anterior fusion. strict NPO at this time, including medication. Mouth care. Suction when necessary. If swallowing does not improve, may need temporary PEG 08/28/19: Soft tissue neck CT: tip of epiglottis appears to be bulbous allowing for motion artifact. Correlation with follow up CT vs. direct visualization is suggested. Remaining soft tissue structures demonstrate no gross noncontrast pathology allowing for extensive motion artifact. Follow up CT may also be considered in this regard. S/p multilevel c-spine instrumentation. eval is very limited due to motion artifact. follow up ct/mri may be considered. 08/31/19: CXR: lower c-spine fusion hardware extending into the thoracic inlet, unfolded aorta, normal chris and normal heart, some atelectasis or scarring in the R mid lung field. no infiltrate or failure 09/01/19: MBS: severe dysphagia, impaired laryngeal elevation and epiglottic inversion, with buildup in pharynx, with small amounts passing through the UES. however with spillage into the airway on each consistency. there was only mild aspiration during the study as it was done carefully with only small amounts provided. silent aspiration on puree nectar and honey thick liquid. NPO, consider PEG. consider Shi. 09/01/19 CXR: NGT tip in upper gastric body. 09/03/19: Abd sono: small amount of biliary sludge in gallbladder. liver borderline enlarged. heterogeneous in texture. smal left lobe cysts are present. pancreas poorly visualized due to overlapping bowel gas. IVC patent. 09/03/19: GT placed 09/04/19: KUB: retained contrast in colon and cuff runner film not obtained so it is difficult to determine if leak. Previous spinal fusion hardware. There is a scoliosis. 09/04/19: repeat KUB: no gross contrast extravasation is identified. HOSPITAL COURSE: Date of Admission:08/17/19 Date of Discharge: 09/10/19 79 y/o/m with PMHx of HTN, GERD, and PVD(s/p stent- Pt. unclear which leg) presenting after C3-C5 discectomy and fusion. Pt on 09/09/2019. Please see chart for further detail. During pt's stay, was managed accordingly . Day prior , long discussion concerning goals of care was conducted by S/S team, medical team and family, including Daughter, Gemini. Pt was with guarded prognosis. #Neurology - s/p C4 corpectomy & C3-C5 anterior cervical decompression and instrumented fusion - Maintain head of bed 30-45 degrees. - frequent suction, chest PT. - scopalamine patch TD added for secretions - Hard c-collar in place. - PT/OT/Rehab, OOB. - WBAT B/L LE - PWB B/L UE: 5lbs. - B/L UE & LE NV checks. -Sx: Dr. Miranda acute toxic metabolic encephalopathy -possible 2/2 infection (UTI vs. PNA), prolonged hosp course, delirium -initial CTH (-) #new onset stridor possible 2/2 inflammation post-op -seen by ENT; w/ curled epiglottis -soft tissue neck CT as above -orotracheal intubation if needed, must maintain collar during per Dr. Miranda -could use Glidescope or use flexible bronchoscope. #FTT -silent aspiration on initial MBS -NGT placed by GI; TF recs placed; Jevity -GT placed (09/03); KUB confirmed #ID -post-op fever, sepsis 2/2 aspiration PNA -monitoring off abx -blood, ucx, sputum (-) thus far -with re-spike in temp (09/08)- velasquez-cx resent, f/u repeat chest CT -c/w frequent suctioning #Nephro -MARY - renal sono: unremarkable #Urology - Post-op Urinary Retention- resolved - webb initially placed by uro - Urology on board #Cardiology - hx HTN - restarted on losartan #Pulmonology - Encourage IS - will monitor and keep SpO2 above 92% - Airway observation: In case of emergency, remove anterior cervical spine dressing and pull out running suture; ok to cut suture if needed to decompress - hematoma. #F/E/N off IVF cont to follow lytes Jevity TF #Prophylaxis - Mechanical only: KELLEY's, SCD's, per sx recs. 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
== END 2019-09-09 10:28 | disposition expired | DRG 471 ==
LOC: JSAMEDAYSX 09:32 → JICU 22:25 → J8W 08-19 20:34 → J4W 08-27 14:05 → JICU 08-28 18:10 → J8W 08-31 11:33
PROVIDERS: ADMIT Orthopaedic Surgery Adult Reconstructive Orthopaedic Surgery; ATTEND Internal Medicine
PROC: 0RG20A0 Fusion of 2 or more Cervical Vertebral Joints with Interbody Fusion Device, Anterior Approach, Anterior Column, Open Approach (ICD-10-PCS; 2019-08-17)
PROC: 01N10ZZ Release Cervical Nerve, Open Approach (ICD-10-PCS; 2019-08-17)
PROC: B01BZZZ Fluoroscopy of Spinal Cord (ICD-10-PCS; 2019-08-17)
PROC: 4A11X4G Monitoring of Peripheral Nervous Electrical Activity, Intraoperative, External Approach (ICD-10-PCS; 2019-08-17)
PROC: 0RB30ZZ Excision of Cervical Vertebral Disc, Open Approach (ICD-10-PCS; principal; 2019-08-17 11:00)
PROC: 5A12012 Performance of Cardiac Output, Single, Manual (ICD-10-PCS; 2019-09-09)
PROC: 0BH17EZ Insertion of Endotracheal Airway into Trachea, Via Natural or Artificial Opening (ICD-10-PCS; 2019-09-09)
PROC: 5A1935Z Respiratory Ventilation, Less than 24 Consecutive Hours (ICD-10-PCS; 2019-09-09)
DX: M50.021 Cervical disc disorder at C4-C5 level with myelopathy (principal); G93.41 Metabolic encephalopathy; T81.44XA Sepsis following a procedure, initial encounter; J69.0 Pneumonitis due to inhalation of food and vomit; E87.0 Hyperosmolality and hypernatremia; J98.11 Atelectasis; N39.0 Urinary tract infection, site not specified; N17.9 Acute kidney failure, unspecified; J95.89 Other postprocedural complications and disorders of respiratory system, not elsewhere classified; G82.20 Paraplegia, unspecified; M50.121 Cervical disc disorder at C4-C5 level with radiculopathy; M48.02 Spinal stenosis, cervical region; R31.0 Gross hematuria; R33.9 Retention of urine, unspecified; K21.9 Gastro-esophageal reflux disease without esophagitis; I73.9 Peripheral vascular disease, unspecified; D72.829 Elevated white blood cell count, unspecified; R50.9 Fever, unspecified; E66.3 Overweight; R00.0 Tachycardia, unspecified; E86.0 Dehydration; R06.1 Stridor; R13.13 Dysphagia, pharyngeal phase; R41.0 Disorientation, unspecified; I95.9 Hypotension, unspecified; Y83.8 Other surgical procedures as the cause of abnormal reaction of the patient, or of later complication, without mention of misadventure at the time of the procedure; K82.8 Other specified diseases of gallbladder; R62.7 Adult failure to thrive; Z68.25 Body mass index [BMI] 25.0-25.9, adult; I12.9 Hypertensive chronic kidney disease with stage 1 through stage 4 chronic kidney disease, or unspecified chronic kidney disease; N18.3 Chronic kidney disease, stage 3 (moderate); Z87.891 Personal history of nicotine dependence; M40.292 Other kyphosis, cervical region
CPT/HCPCS: 36415; 36600; 49440; 70450-TC; 70490-TC; 71045-TC-FY; 71046-TC-FY; 71250-TC; 72050-TC-FY; 74018-TC-FY; 74230-TC-FY; 76000-TC-FY; 76705-TC; 76775-TC; 77002-TC-FY; 80048; 80053; 80074; 81003; 82248; 82728; 82803; 82962; 82977; 83516; 83540; 83550; 83605; 83735; 84100; 85025; 85027; 85610; 85651; 86038; 86140; 86803; 86850; 86891; 86900; 86901; 87040; 87070; 87086; 87205; 88304-TC; 92611-GN; 94640; 94760; 97116-GP; 97163-GP; J1100; J1644; J7030